=== PATIENT | female | born 1995 | race Caucasian/White ===

== ENCOUNTER → 2020-03-15 09:42 | Outpatient (CLI) | payer OTHER, SELFPAY ==
--- NOTE | 2020-03-15 09:49 | RAD_ITS ---
STUDY: X-RAY - RIGHT HAND, ATTENTION MIDDLE FINGER REASON FOR EXAM: Female, 24 years old. Injury TECHNIQUE: 3 view(s) of the finger were obtained. COMPARISON: None. FINDINGS: There is an oblique fracture of the middle phalanx of the right middle finger. The remainder the visualized osseous structures are intact. There is no dislocation. There are no radiodense foreign bodies. RAD/Finger(s) Min 2 Views IMPRESSION: Oblique fracture of the middle phalanx of the right middle finger. Electronically Signed: Guillermo Briggs, at 17:29 EDT Tel , Service support ,
== END ==
PROVIDERS: PCP Family Medicine; Referring Provider Family Medicine; Visit Provider Family Medicine
DX: M79.644 Pain in right finger(s) (principal)
CPT/HCPCS: 73140

== ENCOUNTER 2022-12-24 10:55 | Outpatient (CLI) | payer OTHER, SELFPAY ==
[2022-12-24] VITALS (8 sets, daily range): BP systolic 116–118; BP diastolic 76–81; PULSE 71–81; TEMP 36.4; O2SAT 97; BMI 32.9
[2022-12-24 11:54] LABS: Hematocrit 36.5 % (37-47); Hemoglobin 11.9 g/dL (12.0-15.0); Mean Corp Hgb Conc 32.6 g/dL (32-36); Mean Corpuscular Hgb 30.7 pg (27.0-32.0); Mean Corpuscular Volume 94.3 fL (81-99); Mean Platelet Vol. 10.7 fl (6.2-12.0); Platelet Count 197 K/mm3 (150-450); RBC Distribution Width CV 13.3 % (11.6-14.6); RBC Distribution Width SD 45.3 fl (35.1-43.9); Red Blood Count 3.87 M/mm3 (4.2-5.4); White Blood Count 7.3 K/mm3 (4.4-11.0)
[2022-12-24 12:05] LABS: AST(SGOT) 15 U/L (15-37); Alanine Aminotransfer ALT/SGPT 19 U/L (13-56); Creatinine, Serum 0.62 mg/dL (0.55-1.02); EST Glomerular Filtration Rate 121 mL/min (>60); Est Glom Filt Rate - Afr Amer 147 mL/min (>60); Estimated Creatinine Clearance 149.64 ml/min; Uric Acid 4.7 mg/dL (2.6-6.0)
[2022-12-24 12:32] LABS: Protein, Urine (Random) 11.8 mg/dL (<11.9); Protein:Creat Ratio 273 mg/g CRE (0-200)
--- NOTE | 2022-12-24 21:14 | OB.TRI.NOTE ---
HPI - General HPI Narrative JACQUELINE BARBA, is a 27 F at 33.1 who presents to rule out preeclampsia. PFSH PFSH Home Medications aspirin 81 mg chewable tablet 162 mg PO DAILY 12/24/22 [History Last Taken 12/24/22 06:00] [id number] 1 mg tablet 1 tab PO 12/24/22 [History Last Taken 12/24/22 06:00] Allergy/AdvReac Type Severity Reaction Status Date / Time No Known Allergies Allergy Verified 12/24/22 11:24 ROS Eyes Eyes: Denies blurry vision Cardiovascular Cardiovascular: Reports none; Denies chest pain at rest, chest pain with activity or dizziness Respiratory/Chest Respiratory/Chest: Denies cough or dyspnea Gastrointestinal Gastrointestinal: Reports none and other; Denies diarrhea or vomiting Genitourinary Genitourinary: Denies dysuria Musculoskeletal Musculoskeletal: Reports none Integumentary Integumentary: Reports none; Denies rash Neurologic Neurologic: Denies dizziness, headache(s) or other visual disturbances Psychiatric Psychiatric: Reports none Physical Exam Const alert and no apparent distress General Appearance: cooperative Orientation / Consciousness: awake Exam Limitations: no limitations HEENT normocephalic Eyes General Eye: normal appearance of both eyes Neck full ROM Chest inspection of chest normal Resp normal respiratory effort and normal air movement Effort and Inspection: symmetric chest movement Auscultation: clear to auscultation bilaterally Cardio regular rate GI soft to palpation, non-tender and non-distended Inspection: and other Back/Spine normal ROM Extremity full ROM, normal capillary refill and no calf tenderness Skin no rashes or lesions noted Neuro oriented x3 and CN's II-XII intact bilaterally Psych mental status grossly normal Assessment & Plan (1) 33 weeks gestation of : (2) Blurred vision: (3) Headache: PLAN: Plan PIH labs- within normal range Feeling better since hydrating D/C home with follow up in office PTL and preeclampsia precautions reviewed
== END 2022-12-24 12:50 | disposition home or self-care (01) ==
LOC: WPOUT 11:12 → WP 11:13
PROVIDERS: PCP Family Medicine; Referring Provider Advanced Practice Midwife; Visit Provider Advanced Practice Midwife
DX: O99.891 Other specified diseases and conditions complicating pregnancy (principal); H53.8 Other visual disturbances; R51.9 Headache, unspecified; Z3A.33 33 weeks gestation of pregnancy; Z79.82 Long term (current) use of aspirin
CPT/HCPCS: 36415; 59025; 59050; 82565; 82570; 84156; 84450; 84460; 84550; 85027; 99221; G0378

== ENCOUNTER 2023-02-07 07:35 | Inpatient (IN) | payer OTHER, SELFPAY ==
[2023-02-07] VITALS (51 sets, daily range): BP systolic 99–144; BP diastolic 56–101; PULSE 65–103; RESP 16–18; TEMP 36.1–37.9; O2SAT 95–100; BMI 33.8
[2023-02-07] MEDS: LACTATED RINGERS 500 ML 999 ML IV ×2 (07:30→10:14)
[2023-02-07 07:51] LABS: Absolute Lymphocyte Count 1.35 X10^3/uL (0.83-4.51); Absolute Neutrophil Count 9.9 X10^3/uL (2.0-7.7); Basophil# 0.05 X10^3/uL; Basophil% 0.4 % (0-1); Eosinophil# 0.06 X10^3/uL; Eosinophils% 0.5 % (0-5); Hematocrit 37.3 % (37-47); Hemoglobin 12.3 g/dL (12.0-15.0); Lymphocyte # 1.35 X10^3/ul (0.83-4.51); Lymphocyte % 11.2 % (19-41); Mean Platelet Vol. 11.9 fl (6.2-12.0); Monocyte# 0.67 X10^3/uL; Monocyte% 5.6 % (0-10); NRBC Flagged by Analyzer 0 % (0-5); Neutrophil # 9.88 X10^3/uL (2.7-7.7); Neutrophil % 81.8 % (47-70); Platelet Count 164 K/mm3 (150-450); RBC Distribution Width CV 13.3 % (11.6-14.6); RBC Distribution Width SD 45.7 fl (35.1-43.9); Red Blood Count 3.97 M/mm3 (4.2-5.4); White Blood Count 12.1 K/mm3 (4.4-11.0)
[2023-02-07] MEDS: Lactated Ringers 1,000 ML 200 ML IV (08:01)
[2023-02-07] MEDS: fentaNYL-bupivacaine (epidural) 100 ML BAG EPIDURAL (08:29)
--- NOTE | 2023-02-07 08:47 | PCM.HP.OB ---
HPI - General General Date of Admission: 02/07/23 Date of Service: 02/07/23 Chief Complaint: labor HPI Narrative JACQUELINE BARBA, is a 27 F who presents to 1 para 0 at 39-4/7 weeks gestation presents complaining of contractions. She denies any gross vaginal bleeding. She is had good movement. She arrived and was found to be in active labor. PFSH PFSH Home Medications aspirin 81 mg chewable tablet 162 mg PO DAILY 12/24/22 [History Last Taken 02/06/23] [id number]-[id number]-Vf-FA 1 mg tablet 1 tab PO DAILY 12/24/22 [History Last Taken 02/06/23] Allergy/AdvReac Type Severity Reaction Status Date / Time No Known Allergies Allergy Verified 02/07/23 06:50 Social History Smoking Status: Never smoker History Elective abortions Hx Para 0 Spontaneous abortions Hx # Term Pregnancies Ectopic pregnancies Hx # Pregnancies Multiple births # of living children ROS Constitutional Constitutional: Denies fatigue, fever(s) or malaise Eyes Eyes: Denies change in vision ENT HEENT: Denies dizziness or headache(s) Cardiovascular Cardiovascular: Denies chest pain, dyspnea or lightheadedness Respiratory/Chest Respiratory/Chest: Denies cough or dyspnea Gastrointestinal Gastrointestinal: Denies change in bowel habits Genitourinary Genitourinary: Denies burning urination or genital lesions Integumentary Integumentary: Denies rash Neurologic Neurologic: Denies confusion, dizziness, headache(s), numbness or weakness Vital Signs Vital Signs Vital Signs: 02/07/23 06:49 02/07/23 06:49 02/07/23 06:49 Temperature Temperature Source Temporal Pulse Rate 78 Blood Pressure 129/84 H BP Systolic 129 BP Diastolic 84 Pulse Ox 02/07/23 06:49 02/07/23 06:51 02/07/23 06:51 Temperature 97.6 F L Temperature Source Pulse Rate 81 Blood Pressure BP Systolic BP Diastolic Pulse Ox 98 02/07/23 07:43 02/07/23 07:43 02/07/23 07:48 Temperature Temperature Source Pulse Rate 79 81 Blood Pressure BP Systolic BP Diastolic Pulse Ox 100 02/07/23 07:48 02/07/23 07:41 02/07/23 08:23 Temperature 99.1 F Temperature Source Pulse Rate Blood Pressure 142/101 H BP Systolic 142 BP Diastolic 101 Pulse Ox 100 02/07/23 08:23 02/07/23 08:23 02/07/23 08:28 Temperature Temperature Source Pulse Rate 85 73 Blood Pressure BP Systolic BP Diastolic Pulse Ox 100 02/07/23 08:28 02/07/23 08:33 02/07/23 08:33 Temperature Temperature Source Pulse Rate 83 Blood Pressure BP Systolic BP Diastolic Pulse Ox 100 100 02/07/23 08:34 02/07/23 08:34 02/07/23 08:38 Temperature Temperature Source Pulse Rate 85 Blood Pressure 144/83 H 135/78 H BP Systolic 144 135 BP Diastolic 83 78 Pulse Ox 02/07/23 08:38 02/07/23 08:44 02/07/23 08:44 Temperature Temperature Source Pulse Rate 83 74 Blood Pressure 136/82 H BP Systolic 136 BP Diastolic 82 Pulse Ox Weight Weight: 113.2 kg Body Mass Index (BMI) 33.8 Physical Exam Const alert and no apparent distress General Appearance: cooperative HEENT normocephalic Resp normal respiratory effort Cardio regular rate GI soft to palpation GI Narrative: gravid, nontender, appropriate for gestational age Extremity no calf tenderness General Extremity: edema Skin no wounds Rashes: No rashes noted Psych activity/motor behavior normal Labs Labs Labs: Blood Type Pending Antibody Screen Pending Hct 37.3 % (37-47) Hgb 12.3 g/dL (12.0-15.0) Syphilis Total Ab Pending Assessment & Plan (1) 39 weeks gestation of : PLAN: 27-year-old 1 para 0 with EDC of 02/10/2023 in spontaneous labor. Estimated weight is 4200 to 4500 g clinically. Pelvis clinically adequate to expect vaginal delivery. May have epidural or other routine pain management measures as desired and as needed. Pitocin augmentation if needed. Meconium stained fluid noted. Will notify team. (2) Meconium in amniotic fluid: (3) Spontaneous onset of labor:
[2023-02-07 09:14] LABS: Syphilis Antibodies Non-reactive
[2023-02-07] MEDS: Oxytocin 15 Units/NS 250ml 15 UNITS/250 ML IV.SOLN 334 UNITS IV (11:45)
[2023-02-07] MEDS: Oxytocin 10 UNITS/ML Vial IM (11:45)
--- NOTE | 2023-02-07 11:59 | EX.PCM.OBRPT ---
Assessment & Plan (1) (spontaneous vaginal delivery): (2) Second degree perineal laceration during delivery: (3) Single live : Maternal Data Information Final JAYDE: 02/10/23 Gestational age: 39 4/7 Vaginal Delivery Maternal Presentation Maternal Presentation: Active Labor Operative Information Date of Procedure: 02/07/23 Pre-Operative Diagnosis: Spontaneous labor Post-Operative Diagnosis: Same Type of Anesthesia: Epidural Special Medications: None Drain: - (None) Estimated Blood Loss: 400 cc Time of Delivery: 10:41 Findings Description of Procedure: A vigorous male infant was delivered YOVANY over a second-degree perineal laceration. The remainder the infant was delivered with maternal pushing and gentle traction only in less than 15 seconds. The Pitocin infusion was initiated for active management of the third stage. The cord was clamped and cut after cord pulsations ceased. The was attended to by the waiting nursing staff. The placenta was delivered spontaneously and intact. The cervix and vagina were intact. The second-degree perineal laceration was repaired with 2-0 Vicryl suture in a running standard fashion. Sponge and needle counts were correct. A vaginal sweep was completed by me. Presentation: Vertex Amniotic Membrane Rupture Type: Spontaneous Amniotic Fluid Description: Lightly stained meconium Placental Delivery Description: Spontaneous Placenta Disposition: [facility] Cord Vessel Description: 3 Vessels Cord Entanglement: None A Gender: Male (Chevy) (1 minute): 8 (5 minute): 9 Delayed Cord Clamping: Yes Post Vaginal Delivery Medications Given After Delivery: IV Pitocin and IM Pitocin Episiotomy Description: None Laceration: 2nd degree Complication Complications: None
[2023-02-07] MEDS: 0.9% Saline Lock 10 ML Syringe IV (14:15)
[2023-02-07] MEDS: Ibuprofen 600 MG Tablet PO ×2 (16:59→23:47)
[2023-02-08 03:43] VITALS: BP 132/83; PULSE 70; RESP 16; TEMP 36.6; O2SAT 98
[2023-02-08 08:57] VITALS: BP 123/74; PULSE 73; RESP 16; TEMP 36.6
--- NOTE | 2023-02-08 10:24 | PCM.PN.OB ---
Objective Data Objective Data Doing well per patient and nursing staff. Ambulating and taking PO without difficulty. Voiding and passing flatus. Pain controlled. , services for assistance. Denies headache, visual changes, chest pain, shortness of breath, leg pain or increased bleeding. Lochia normal. Vital Signs: Vital Signs Temp Pulse Resp BP Pulse Ox O2 Del Method 97.9 F 73 16 123/74 H 98 Room Air 02/08/23 08:57 02/08/23 08:57 02/08/23 08:57 02/08/23 08:57 02/08/23 03:43 02/08/23 08:57 Oxygen Delivery Method Room Air Weight: 249 lb 9.012 oz Body Mass Index (BMI) 33.8 Intake & Output: Intake and Output for Last 24 Hours 02/06/23 02/07/23 02/08/23 23:59 23:59 23:59 Intake Total 2493.33 / 2493.33 Output Total 2250 / 2250 Balance 243.33 / 243.33 Lab / Micro Data 02/07/23 07:30 ROS Constitutional Constitutional: Reports systems reviewed and no addt'l complaints, except as documented; Denies headache(s) Eyes Eyes: Denies acute decrease in peripheral vision, blurry vision or change in vision ENT HEENT: Reports systems reviewed and no addt'l complaints, except as documented Cardiovascular Cardiovascular: Denies chest pain or dizziness Respiratory/Chest Respiratory/Chest: Denies cough, dyspnea, dyspnea on exertion, shortness of breath at rest or shortness of breath with exertion Gastrointestinal Gastrointestinal: Denies abdominal pain, diarrhea, nausea or vomiting Genitourinary Genitourinary: Denies abdominal discomfort Musculoskeletal Musculoskeletal: Denies limited range of motion Integumentary Integumentary: Reports systems reviewed and no addt'l complaints, except as documented Neurologic Neurologic: Reports systems reviewed and no addt'l complaints, except as documented Psychiatric Psychiatric: Reports systems reviewed and no addt'l complaints, except as documented Endocrine Endocrinology: Reports systems reviewed and no addt'l complaints, except as documented Hematologic/Lymphatic Hematologic/Lymphatic: Reports systems reviewed and no addt'l complaints, except as documented Allergic/Immunologic Allergic/Immunologic: Reports systems reviewed and no addt'l complaints, except as documented Physical Exam Const alert and oriented x3 General Appearance: cooperative Orientation / Consciousness: awake, oriented to person, oriented to place and oriented to time Exam Limitations: no limitations HEENT normocephalic Head and Scalp: normal to inspection, normocephalic and atraumatic Face and Sinus: normal facial exam Eyes General Eye: normal appearance of both eyes Neck full ROM Chest Chest: symmetrical chest wall rise Resp normal respiratory effort and normal air movement Auscultation: clear to auscultation bilaterally Cardio regular rate, regular rhythm, S1 normal heart sound, S2 normal heart sound, no murmurs, no rub, no gallops and no clicks GI normal to inspection, nondistended, normoactive bowel sounds and non-tender appearance of the vagina normal Bladder / Kidney Exam: no CVA tenderness Back/Spine normal ROM Extremity normal to inspection and full ROM Skin no rashes or lesions noted Neuro oriented x3, CN's II-XII intact bilaterally and moves all extremities Sensorium / Orientation: awake, alert and oriented to person Motor Exam: clonus absent Deep Tendon Reflexes: Rt Patellar (L4): 2+ and Lt Patellar (L4): 2+ Assessment & Plan (1) Second degree perineal laceration during delivery: (2) Single live : (3) (spontaneous vaginal delivery): COMMENT: PPD#1 PLAN: Plan 1) Routine PP care 2) 3) Vitals stable 4) Pain controlled 5) would like D/C home today. Follow up in 2 weeks and 6 weeks PP 6) D/C home
--- NOTE | 2023-02-08 10:27 | PCM.DC.SUM ---
Providers Date of Admission: 02/07/23 Primary Care Physician: Dr. Venu Torres MD Reason For Visit: VAG DELIVERY Diagnosis Discharge Diagnosis (1) Second degree perineal laceration during delivery: Status: Acute Code(s): O70.1 - Second degree perineal laceration during delivery (2) Single live : Status: Acute Code(s): Z37.0 - Single live (3) (spontaneous vaginal delivery): Status: Acute Code(s): O80 - Encounter for full-term uncomplicated delivery Plan 1) Routine PP care 2) 3) Vitals stable 4) Pain controlled 5) would like D/C home today. Follow up in 2 weeks and 6 weeks PP 6) D/C home Medications at Discharge Home Medications [id number] 1 mg tablet 1 tab PO DAILY 12/24/22 acetaminophen 500 mg tablet 1,000 mg (2 x 500 mg) PO Q6H PRN PRN Pain 1-10 Or Fever #0 tabs 02/08/23 ibuprofen 600 mg tablet 600 mg PO Q6H PRN PRN Pain Score 1-3 #0 tabs 02/08/23 Weight / BMI Weight Weight: 249 lb 9.012 oz Body Mass Index (BMI) 33.8 ABG / Lab / Microbiology Data 02/07/23 07:30 Meaningful Use Info Meaningful Use Diagnoses (Choose all that apply): None applicable Discharge Plan Admission Admit Date/Time: 02/07/23 07:35 Primary Reason for Your Visit: Vaginal delivery Attending Provider: Claribel Andre Primary Care Provider: Venu Torres Discharge Orders/Prescriptions Prescriptions: New acetaminophen 500 mg Tablet 1,000 mg PO Q6H PRN PRN (Reason: Pain 1-10 Or Fever) Qty: 0 0RF ibuprofen 600 mg Tablet 600 mg PO Q6H PRN PRN (Reason: Pain Score 1-3) Qty: 0 0RF Continued [id number] 1 mg Tablet 1 tab PO DAILY Discontinued aspirin [Baby Aspirin] 81 mg Tablet,Chewable 162 mg PO DAILY loratadine [Claritin] 10 mg tablet 10 mg PO DAILY Referrals / Follow Up: Venu Torres MD [Primary Care Provider] - Claribel Andre MD [Med Staff - Active Staff] - (Follow up in 2 weeks and 6 weeks PP) Disposition Disposition (needs filled in before D/C Order can be placed): Home, Self Care
[2023-02-08 15:53] VITALS: BP 135/75; PULSE 78; RESP 16; TEMP 36.2; O2SAT 98
== END 2023-02-08 16:16 | disposition home or self-care (01) | DRG 807 ==
LOC: WPOUT 07:36 → WP 07:36
PROVIDERS: Obstetrics & Gynecology; Admitting Provider Obstetrics & Gynecology; PCP Family Medicine; Referring Provider Obstetrics & Gynecology; Visit Provider Obstetrics & Gynecology
DX: O42.92 Full-term premature rupture of membranes, unspecified as to length of time between rupture and onset of labor (principal); Z37.0 Single live birth; O70.1 Second degree perineal laceration during delivery; O77.0 Labor and delivery complicated by meconium in amniotic fluid; Z3A.39 39 weeks gestation of pregnancy
CPT/HCPCS: 59025; 59050; 85025; 86780; 86850; 86900; 86901; 99221; J7120; A4216; G0378

== ENCOUNTER → 2024-02-23 | Outpatient (CLI) | payer OTHER, SELFPAY ==
[2024-02-23 12:04] LABS: Absolute Lymphocyte Count 1.96 X10^3/uL (0.83-4.51); Absolute Neutrophil Count 1.8 X10^3/uL (2.0-7.7); Basophil# 0.05 X10^3/uL; Basophil% 1.2 % (0-1); Eosinophils% 2.3 % (0-5); Hematocrit 44.4 % (37-47); Hemoglobin 14.5 g/dL (12.0-15.0); Lymphocyte # 1.96 X10^3/ul (0.83-4.51); Lymphocyte % 45.4 % (19-41); Mean Corp Hgb Conc 32.7 g/dL (32-36); Mean Corpuscular Hgb 28.8 pg (27.0-32.0); Mean Corpuscular Volume 88.1 fL (81-99); Mean Platelet Vol. 10.8 fl (6.2-12.0); Monocyte# 0.39 X10^3/uL; NRBC Flagged by Analyzer 0 % (0-5); Neutrophil # 1.81 X10^3/uL (2.7-7.7); Neutrophil % 41.9 % (47-70); Platelet Count 247 K/mm3 (150-450); RBC Distribution Width CV 12.2 % (11.6-14.6); RBC Distribution Width SD 39.2 fl (35.1-43.9); Red Blood Count 5.04 M/mm3 (4.2-5.4); White Blood Count 4.3 K/mm3 (4.4-11.0)
[2024-02-23 13:21] LABS: ALB/GLOB Ratio 0.9 RATIO (0.9-2.4); AST(SGOT) 27 U/L (15-37); Alanine Aminotransfer ALT/SGPT 31 U/L (13-56); Albumin, Serum 3.9 g/dL (3.2-5.0); Alkaline Phosphatase 93 U/L (45-117); Anion Gap 10 (5-15); BUN 11 mg/dL (7-18); BUN/Creat Ratio 11.2 RATIO (10-20); Calcium,Total 9.4 mg/dL (8.5-10.1); Chloride 107 mmol/L (98-107); Creatinine, Serum 0.98 mg/dL (0.55-1.02); EST Glomerular Filtration Rate 71 mL/min (>60); Est Glom Filt Rate - Afr Amer 86 mL/min (>60); Globulin 4.2 g/dL (2.2-4.2); Glucose 86 mg/dL (74-106); Potassium 3.2 mmol/L (3.5-5.1); Protein, Total 8.1 g/dL (6.4-8.2); Sodium Level 138 mmol/L (136-145)
== END | disposition home or self-care (01) ==
PROVIDERS: PCP Family Medicine; Referring Provider Nurse Practitioner Family; Visit Provider Nurse Practitioner Family
DX: R19.7 Diarrhea, unspecified (principal)
CPT/HCPCS: 36415; 80053; 85025; 87177; 87209; 87493; 87506

== ENCOUNTER 2025-07-13 07:19 | Inpatient (IN) | payer OTHER, SELFPAY ==
[2025-07-13] VITALS (57 sets, daily range): BP systolic 127–187; BP diastolic 68–105; PULSE 62–81; RESP 16–18; TEMP 36.2–37.1; O2SAT 96–100; BMI 34.2
--- OUTSIDE RECORDS SUMMARY | 2025-07-13 07:16 | XMS RPT_ITS | CCD ---
Author Organization [facility] Informat ion Partnership [facility] Care Team Providers Care Supervising Editor News Reel Name Role Phone Pepe Torres MD Primary Care Provider Lisa CADDIE, Taniya Referring Unavailable Lisa CADDIE, Taniya Attending Unavailable Pepe Torres Primary Care Unavailable Pepe Torres MD Primary Care Provider HOPE PARMAR Attending Unavailable PEPE TORRES Primary Care Unavailabl GONZALES Arnold Attending Unavailable PEPE TORRES Primary Care Unavailabl e YAA, HOPE Referring Unavailable PEPE TORRES Primary Care UnavailGONZALES Chambers Attending Unavailable PEPE TORRES Primary Care Unavailabl e WISWELL, HOPE Referring Unavailable PEPE TORRES Primary Care Unavailabl e AURE CASTELLANO Attending Unavail able WISPEDRO, HOPE Referring Unavailable PEPE TORRES Primary Care Unavailabl e WISWELL, HOPE Attending Unavailable YAA, HOPE Referring Unavailable ABHIJIT TORRESER Henri Primary Care Unavailabl e CHAO, MARIA EUGENIA Attending Unavailable PLOTDEWEY, MARIA EUGENIA Referring Unavailable PEPE TORRES Primary Care Unavailabl e MINNIE HOLM Attending Unavailable PEPE TORRES Primary Care Unavailabl e AURE CASTELLANO Attending Unavail able PLOTDEWEY, MARIA EUGENIA Referring Unavailable ABHIJIT TORRESER Henri Primary Care Unavailabl e PLOTTS, MARIA EUGENIA Referring Unavailable PEPE TORRES Primary Care Unavailabl e PLOTTS, MARIA EUGENIA Referring Unavailable ABHIJIT TORRESER Henri Primary Care Unavailabl e WALLY MERCADO Attending Unavailable PEPE TORRES Primary Care Unavailabl e PLOTTS, MARIA EUGENIA Attending Unavailable PEPE TORRES Primary Care Unavailabl e PLOTTS, MARIA EUGENIA Referring Unavailable RANNEY, CHRISTOPHER B Primary Care UnavailSAMI Maciel Attending Unavailable PEPE TORRES Primary Care PEPE Briseno Primary Care UnavailMINNIE Collier Attending Unavailable PEPE TORRES Primary Care Unavailaddison e Medications Current Medications Medication Drug Class(es) Dates Sig (Normalized) Sig (Original) aspirin 81 mg delayed release oral tablet (20 sources) Platelet Aggregation Inhibitor, Nonsteroidal Anti-inflammatory Drug Start: 11-29-2024 take 1 tablet by mouth once daily aspirin, enteric coated (ECOTRIN LOW STRENGTH) 81 mg EC tablet Indications: with uncertain dates, antepartum (HCC) Take 1 tablet by mouth once daily. 90 tablet 3 11/29/2024 Active End: 03-24-2023 take 1 tablet by mouth once daily aspirin, enteric coated (ASPIRIN, ENTERIC COATED) 81 mg EC tablet Take 81 mg by mouth once daily. 0 03/24/2023 Discontinued (Other) Comment on above: Take 81 mg by mouth once daily. prental multivitamin 27 mg iron- 800 mcg tablet (20 sources) take 1 tablet by mouth once daily prental multivitamin 27 mg iron- 800 mcg tablet Take 1 tablet by mouth once daily. Active take 1 tablet by mouth once hanane y prental multivitamin 27 mg iron- 800 mcg tablet Take 1 tablet by mouth once daily. 0 Active Comment on above: Take 1 tablet by tomeka th once daily. Completed/Discontinued Medications Medication Drug Class(es) Dates Sig (Normalized) Sig (Original) Ethinyl Estradiol / norgestimate (9 sources) Progestin, Estrogen Start: 01-11-2022 End: 07-01-2022 take 1 tablet by mouth once daily norgestimate 0.25 mg-ethinyl estradiol 35 mcg (PREVIFEM) 0.25-35 mg-mcg per tablet Indications: Surveillance for control, oral contraceptives Take 1 tablet by mouth once daily. 28 tablet 0 01/11/2022 07/01/2022 Discontinued Start: 01-11-2022 take 1 tablet by tomeka th once daily norgestimate 0.25 mg-ethinyl estradiol 35 mcg (PREVIFEM) 0.25-35 mg-mcg per tablet Indications: Surveillance for control, oral contraceptives Take 1 tablet by mouth once daily. 28 tablet 0 01/11/2022 Active Start: 01-10-2022 End: 01-11-2022 take 1 tablet by mouth once daily norgestimate 0.25 mg-ethinyl estradiol 35 mcg (PREVIFEM) 0.25-35 mg-mcg per tablet Indications: Surveillance for control, oral contraceptives Take 1 tablet by mouth once daily. 84 tablet 3 01/10/2022 01/11/2022 Discontinued Start: 01-10-2022 take 1 tablet by tomeka th once daily norgestimate 0.25 mg-ethinyl estradiol 35 mcg (PREVIFEM) 0.25-35 mg-mcg per tablet Indications: Surveillance for control, oral contraceptives Take 1 tablet by mouth once daily. 84 tablet 3 01/10/2022 Active Start: 09-26-2021 End: 01-10-2022 take 1 tablet by mouth once daily norgestimate 0.25 mg-ethinyl estradiol 35 mcg (PREVIFEM) 0.25-35 mg-mcg per tablet Indications: Surveillance for control, oral contraceptives Take 1 tablet by mouth once daily. 84 tablet 4 09/26/2021 01/10/2022 Discontinued Comment on above: Take 1 tablet by tomeka th once daily. Problems Active Problems Problem Classification Problem Date Documented Da te Episodic/Chronic Contraceptive and procreative management (2 sources) Oral contraception; Translations: [Encounter for surveillance of contraceptive pills] Episodic Immunizations and screening for infectious disease (5 sources) Needs influenza immunization; Translations: [Encounter for immunization] Onset: 04-18-2025 Episodic Other complications of (12 sources) History of delivery of macrosomal ; Translations: [Supervision of with other poor reproductive or obstetric history, unspecified trimester] Onset: 11-29-2024 11-29-2024 Episodic Other complications of (1 source) Supervision of high risk , unspecified, third trimester; Translations: [Supervision of high risk in third trimester (HCC)] Onset: 06-15-2025 Episodic Other complications of (1 source) Maternal care for excessive growth, third trimester, not applicable or unspecified; Translations: [Excessive growth affecting management of in third trimester, single or unspecified fetus (HCC)] Onset: 06-15-2025 Episodic Other complications of (1 source) Uterine size-date discrepancy, third trimester; Translations: [Uterine size-date discrepancy, third trimester (HCC)] Onset: 05-19-2025 Episodic Other gastrointestinal disorders (1 source) Diarrhea, unspecified; Translations: [Diarrhea, unspecified] Onset: 03-08-2024 Episodic Other and delivery including normal (20 sources) Normal ; Translations: [Encounter for supervision of normal first , first trimester] Onset: 08-26-2022 Resolved: 02-21-2023 Episodic Residual codes; unclassified (3 sources) Gestation period, 12 weeks; Translations: [12 weeks gestation of ] Episodic Residual codes; unclassified (2 sources) Gestation period, 16 weeks; Translations: [16 weeks gestation of ] Episodic Residual codes; unclassified (1 source) Gestation period, 20 weeks; Translations: [20 weeks gestation of ] Episodic Residual codes; unclassified (1 source) Gestation period, 24 weeks; Translations: [24 weeks gestation of ] Episodic Residual codes; unclassified (1 source) Gestation period, 28 weeks; Translations: [28 weeks gestation of ] Episodic Residual codes; unclassified (1 source) Gestation period, 30 weeks; Translations: [30 weeks gestation of ] Episodic Residual codes; unclassified (2 sources) Gestation period, 32 weeks; Translations: [32 weeks gestation of ] Episodic Residual codes; unclassified (1 source) Gestation period, 34 weeks; Translations: [34 weeks gestation of ] Episodic Residual codes; unclassified (2 sources) Gestation period, 36 weeks; Translations: [36 weeks gestation of ] Episodic Residual codes; unclassified (1 source) Gestation period, 37 weeks; Translations: [37 weeks gestation of ] Episodic Residual codes; unclassified (1 source) Gestation period, 38 weeks; Translations: [38 weeks gestation of ] Episodic Residual codes; unclassified (1 source) Gestation period, 39 weeks; Translations: [39 weeks gestation of ] Episodic Residual codes; unclassified (1 source) Gestation period, 7 weeks; Translations: [Less than 8 weeks gestation of ] 11-29-2024 Episodic Residual codes; unclassified (1 source) Gestation period, 19 weeks; Translations: [19 weeks gestation of ] 02-21-2025 Episodic Residual codes; unclassified (1 source) Gestation period, 23 weeks; Translations: [23 weeks gestation of ] 03-21-2025 Episodic Residual codes; unclassified (1 source) Gestation period, 27 weeks; Translations: [27 weeks gestation of ] 04-18-2025 Episodic Residual codes; unclassified (1 source) 36 weeks gestation of ; Translations: [36 weeks gestation of (HCC)] Onset: 06-15-2025 Episodic Residual codes; unclassified (1 source) 33 weeks gestation of ; Translations: [33 weeks gestation of (HCC)] Onset: 05-31-2025 Episodic Residual codes; unclassified (1 source) 31 weeks gestation of ; Translations: [31 weeks gestation of (HCC)] Onset: 05-17-2025 Episodic Residual codes; unclassified (1 source) 29 weeks gestation of ; Translations: [29 weeks gestation of (HCC)] Onset: 05-02-2025 Episodic Residual codes; unclassified (1 source) 27 weeks gestation of ; Translations: [27 weeks gestation of (HCC)] Onset: 04-18-2025 Episodic Unclassified (7 sources) [facility] Education - COMMON Onset: 11-29-2024 11-29-2024 Unclassified (7 sources) Education - [place] Onset: 11-29-2024 11-29-2024 Past or Other Problems Problem Classification Problem Date Documented Date Episodic/Chronic Cancer of cervix (20 sources) Low grade squamous intraepithelial lesion on cervical Papanicolaou smear; Translations: [Low grade squamous intraepithelial lesion on cytologic smear of cervix (LGSIL)] Onset: 10-05-2021 Resolved: 02-21-2023 10-05-2021 Episodic Joint disorders and dislocations; trauma-related (19 sources) Subluxation of patellofemoral joint; Translations: [Unspecified subluxation of unspecified patella, initial encounter] Onset: 09-03-2012 Resolved: 08-26-2022 09-08-2018 Episodic Nausea and vomiting (1 source) Nausea; Translations: [ related nausea, antepartum (HCC)] Onset: 02-21-2023 Episodic Other complications of (17 sources) Obesity; Translations: [Obesity complicating , unspecified trimester] Onset: 06-24-2022 Resolved: 08-26-2022 06-24-2022 Chronic Other complications of (16 sources) Spotting per vagina in ; Translations: [Spotting complicating , unspecified trimester] Onset: 06-24-2022 Resolved: 08-26-2022 06-24-2022 Episodic Other complications of (20 sources) Morning sickness; Translations: [Other specified related conditions, unspecified trimester] Onset: 06-24-2022 Resolved: 02-21-2023 06-24-2022 Episodic Other complications of (20 sources) Uterine size for dates discrepancy; Translations: [Uterine size-date discrepancy, third trimester] Onset: 11-18-2022 Resolved: 02-21-2023 Episodic Other complications of (18 sources) Excessive growth affecting management of mother; Translations: [Maternal care for excessive growth, third trimester, not applicable or unspecified] Onset: 12-17-2022 Resolved: 02-21-2023 Episodic Other complications of (1 source) Supervision of with other poor reproductive or obstetric history, unspecified trimester; Translations: [History of macrosomia in in prior , currently ([facility])] Onset: 11-29-2024 Episodic Other complications of (1 source) Other specified related conditions, unspecified trimester; Translations: [ related nausea, antepartum ([facility])] Onset: 02-21-2023 Episodic Other injuries and conditions due to external causes (19 sources) Superficial injury; Translations: [Unspecified multiple injuries, initial encounter] Onset: 03-23-2008 Resolved: 08-26-2022 03-23-2008 Episodic Other screening for suspected conditions (not mental disorders or infectious disease) (9 sources) Patient encounter status; Translations: [Encounter for screening, unspecified] Onset: 12-30-2024 Episodic Other skin disorders (19 sources) Disorder of skin; Translations: [Hypertrophic disorder of the skin, unspecified] Onset: 03-23-2008 Resolved: 08-26-2022 03-23-2008 Episodic Other skin disorders (19 sources) Scar conditions and fibrosis of skin; Translations: [Scar conditions and fibrosis of skin] Onset: 03-23-2008 Resolved: 08-26-2022 03-23-2008 Episodic Residual codes; unclassified (1 source) 23 weeks gestation of ; Translations: [23 weeks gestation of (HCC)] Onset: 03-21-2025 Episodic Residual codes; unclassified (1 source) 19 weeks gestation of ; Translations: [19 weeks gestation of (HCC)] Onset: 02-21-2025 Episodic Residual codes; unclassified (1 source) 16 weeks gestation of ; Translations: [16 weeks gestation of (HCC)] Onset: 01-31-2025 Episodic Residual codes; unclassified (1 source) 12 weeks gestation of ; Translations: [12 weeks gestation of (HCC)] Onset: 12-30-2024 Episodic Residual codes; unclassified (1 source) Less than 8 weeks gestation of ; Translations: [7 weeks gestation of (HCC)] Onset: 11-29-2024 Episodic Results Test Name Value Interpretation Reference Range Facil ity ROUTINE, GROUP B ST REPTOCOCCUS BY PCRon 06-15-2025 ROUTINE, GROUP B STREPTOCOCCUS BY PCR Not detected Normal [facility] Comment on above: Performed By: #### 5 7021-8 #### [facility] CLIA [id number] [address] [place] [address] CNPNon 05-31-2025 CNPN Telephone (OBGYWM) JACQUELINE BERNAL ([id number]) 1995 F Date Time Provider Department 05/31/25 GONZALES HARTLEY During your visit today, we recorded the following information about you: Maria Guadalupe Olivera RN 05/31/2025 8:52 AM Signed Breast pump order received from [facility]. To KJ to sign. LIDYA Diggs Trisha, RN 05/31/2025 11:02 AM Signed Order signed and faxed. Maria Guadalupe Olivera RN Allergies As of Date: 05/31/2025 (No Known Allergies) Date Reviewed: 05/17/2025 Reviewed by: Gonzales Hartley MD - Fully Assessed Reason for Visit: Breast Pump [Other] Prescriptions as of 05/31/2025 - aspirin, enteric coated (ECOTRIN LOW STRENGTH) 81 mg EC tablet Take 1 tablet by mouth once daily. - prental multivitamin 27 mg iron- 800 mcg tablet Take 1 tablet by mouth once daily. 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] 09/03/2012 08/26/2022 Papanicolaou smear of cervix with low grade squ*10/05/2021 02/21/2023 Spotting in early [O26.859] 06/24/2022 08/26/2022 related nausea, antepartum (HCC) [O26*06/24/2022 02/21/2023 Obesity during [O99.210] 06/24/2022 08/26/2022 Encounter for supervision of normal i*08/26/2022 Uterine size-date discrepancy, third trimester *11/18/2022 02/21/2023 Excessive growth affecting management of *12/17/2022 02/21/2023 History of macrosomia in in prior pregna*11/29/2024 Uterine size-date discrepancy, third trimester *05/19/2025 Encounter Status:Closed by MARIA GUADALUPE OLIVERA on 05/31/25 Normal [facility] CBC W Auto Differential pane l (Bld)on 04-18-2025 Basophils (Bld) [#/Vol] 0.03 10*3/uL Normal <0.11 [facility] Comment on above: Order Comment: Speci men Type: BLOOD SPECIMEN Ordering Facility: [facility] Address: [address] [place] [address] Performed By: #### 5 5454-3 #### [facility] CLIA [id number] [address] [place] [address] [place] Basophils/100 WBC (Bld) 0.4 % Normal [facility] Comment on above: Order Comment: Speci men Type: BLOOD SPECIMEN Ordering Facility: [facility] Address: [address] [place] [address] Performed By: #### 5 5454-3 #### [facility] CLIA [id number] [address] [place] [address] [place] Differential cell count method Nom (Bld) Auto Normal [facility] Comment on above: Order Comment: Speci men Type: BLOOD SPECIMEN Ordering Facility: [facility] Address: [address] [place] [address] Performed By: #### 5 5454-3 #### [facility] CLIA [id number] [address] [place] [address] [place] Eosinophils (Bld) [#/Vol] 0.06 10*3/uL Normal <0.46 [facility] Comment on above: Order Comment: Speci men Type: BLOOD SPECIMEN Ordering Facility: [facility] Address: [address] [place] [address] Performed By: #### 5 5454-3 #### [facility] CLIA [id number] [address] [place] [address] [place] Eosinophils/100 WBC (Bld) 0.8 % Normal [facility] Comment on above: Order Comment: Speci men Type: BLOOD SPECIMEN Ordering Facility: [facility] Address: [address] [place] [address] Performed By: #### 5 5454-3 #### [facility] CLIA [id number] [address] [place] [address] [place] Erythrocyte distribution width (RBC) [Ratio] 12.9 % Normal 11.5-15.0 [facility] Comment on above: Order Comment: Speci men Type: BLOOD SPECIMEN Ordering Facility: [facility] Address: [address] [place] [address] Performed By: #### 5 5454-3 #### [facility] CLIA [id number] [address] [place] [address] [place] Hematocrit (Bld) [Volume fraction] 37.2 % Normal 36.0-46.0 [facility] Comment on above: Order Comment: Speci men Type: BLOOD SPECIMEN Ordering Facility: [facility] Address: [address] [place] [address] Performed By: #### 5 5454-3 #### [facility] CLIA [id number] [address] [place] [address] [place] Hemoglobin (Bld) [Mass/Vol] 12.5 g/dL Normal 11.5-15.5 [facility] Comment on above: Order Comment: Speci men Type: BLOOD SPECIMEN Ordering Facility: [facility] Address: [address] [place] [address] Performed By: #### 5 5454-3 #### [facility] CLIA [id number] [address] [place] [address] [place] Immature granulocytes (Bld) [#/Vol] 0.05 10*3/uL Normal <0.10 [facility] Comment on above: Order Comment: Speci men Type: BLOOD SPECIMEN Ordering Facility: [facility] Address: [address] [place] [address] Performed By: #### 5 5454-3 #### [facility] CLIA [id number] [address] [place] [address] [place] Immature granulocytes/100 WBC (Bld) 0.7 % Normal [facility] Comment on above: Order Comment: Speci men Type: BLOOD SPECIMEN Ordering Facility: [facility] Address: [address] [place] [address] Performed By: #### 5 5454-3 #### [facility] CLIA [id number] [address] [place] [address] [place] Lymphocytes (Bld) [#/Vol] 1.34 10*3/uL Normal 1.00-4.00 [facility] Comment on above: Order Comment: Speci men Type: BLOOD SPECIMEN Ordering Facility: [facility] Address: [address] [place] [address] Performed By: #### 5 5454-3 #### [facility] CLIA [id number] [address] [place] [address] [place] Lymphocytes/100 WBC (Bld) 18.8 % Normal [facility] Comment on above: Order Comment: Speci men Type: BLOOD SPECIMEN Ordering Facility: [facility] Address: [address] [place] [address] Performed By: #### 5 5454-3 #### [facility] CLIA [id number] [address] [place] [address] [place] MCH (RBC) [Entitic mass] 31.3 pg Normal 26.0-34.0 [facility] Comment on above: Order Comment: Speci men Type: BLOOD SPECIMEN Ordering Facility: [facility] Address: [address] [place] [address] Performed By: #### 5 5454-3 #### [facility] CLIA [id number] [address] [place] [address] [place] MCHC (RBC) [Mass/Vol] 33.6 g/dL Normal 30.5-36.0 [facility] Comment on above: Order Comment: Speci men Type: BLOOD SPECIMEN Ordering Facility: [facility] Address: [address] [place] [address] Performed By: #### 5 5454-3 #### [facility] CLIA [id number] [address] [place] [address] [place] MCV (RBC) [Entitic vol] 93.2 fL Normal 80.0-100.0 [facility] Comment on above: Order Comment: Speci men Type: BLOOD SPECIMEN Ordering Facility: [facility] Address: [address] [place] [address] Performed By: #### 5 5454-3 #### [facility] CLIA [id number] [address] [place] [address] [place] Monocytes (Bld) [#/Vol] 0.37 10*3/uL Normal <0.87 [facility] Comment on above: Order Comment: Speci men Type: BLOOD SPECIMEN Ordering Facility: [facility] Address: [address] [place] [address] Performed By: #### 5 5454-3 #### [facility] CLIA [id number] [address] [place] [address] [place] Monocytes/100 WBC (Bld) 5.2 % Normal [facility] Comment on above: Order Comment: Speci men Type: BLOOD SPECIMEN Ordering Facility: [facility] Address: [address] [place] [address] Performed By: #### 5 5454-3 #### [facility] CLIA [id number] [address] [place] [address] [place] Neutrophils (Bld) [#/Vol] 5.29 10*3/uL Normal 1.45-7.50 [facility] Comment on above: Order Comment: Speci men Type: BLOOD SPECIMEN Ordering Facility: [facility] Address: [address] [place] [address] Performed By: #### 5 5454-3 #### [facility] CLIA [id number] [address] [place] [address] [place] Neutrophils/100 WBC (Bld) 74.1 % Normal [facility] Comment on above: Order Comment: Speci men Type: BLOOD SPECIMEN Ordering Facility: [facility] Address: [address] [place] [address] Performed By: #### 5 5454-3 #### [facility] CLIA [id number] [address] [place] [address] [place] Nucleated RBC (Bld) [#/Vol] 10*3/uL Normal <0.01 [facility] Comment on above: Order Comment: Speci men Type: BLOOD SPECIMEN Ordering Facility: [facility] Address: [address] [place] [address] Performed By: #### 5 5454-3 #### [facility] CLIA [id number] [address] [place] [address] [place] Nucleated RBC/100 WBC (Bld) [Ratio] 0.0 /100 WBC Normal [facility] Comment on above: Order Comment: Speci men Type: BLOOD SPECIMEN Ordering Facility: [facility] Address: [address] [place] [address] Performed By: #### 5 5454-3 #### [facility] CLIA [id number] [address] [place] [address] [place] Platelet mean volume (Bld) [Entitic vol] 10.3 fL Normal 9.0-12.7 [facility] Comment on above: Order Comment: Speci men Type: BLOOD SPECIMEN Ordering Facility: [facility] Address: [address] [place] [address] Performed By: #### 5 5454-3 #### [facility] CLIA [id number] [address] [place] [address] [place] Platelets (Bld) [#/Vol] 221 10*3/uL Normal 150-400 [facility] Comment on above: Order Comment: Speci men Type: BLOOD SPECIMEN Ordering Facility: [facility] Address: [address] [place] [address] Performed By: #### 5 5454-3 #### [facility] CLIA [id number] [address] [place] [address] [place] RBC (Bld) [#/Vol] 3.99 10*6/uL Normal 3.90-5.20 [facility] Comment on above: Order Comment: Speci men Type: BLOOD SPECIMEN Ordering Facility: [facility] Address: [address] [place] [address] Performed By: #### 5 5454-3 #### [facility] CLIA [id number] [address] [place] [address] [place] WBC (Bld) [#/Vol] 7.14 10*3/uL Normal 3.70-11.00 [facility] Comment on above: Order Comment: Speci men Type: BLOOD SPECIMEN Ordering Facility: [facility] Address: [address] [place] [address] Performed By: #### 5 5454-3 #### [facility] CLIA [id number] [address] [place] [address] [place] GESTATIONAL GLUCOSE SCREEN, 1-HOUR, 50 GRAM, NON-FASTINGon 04-18-2025 Glucose [Mass/Vol] 99 mg/dL Normal 74-134 [facility] Comment on above: Order Comment: Speci men Type: BLOOD SPECIMEN Ordering Facility: [facility] Address: [address] [place] [address] Result Comment: [facility] Congress of Obstetricians and Gynecologists (Edith/John) guidelines state a gestational diabetes mellitus positive screen is made, in women not previously diagnosed with overt diabetes, when the 1 hr plasma glucose level is equal to or above 140 mg/dL. The [facility] [employer] [facility] [place] recommends a 135 mg/dL cutoff. Performed By: #### 5 7021-8 #### [facility] CLIA [id number] [address] [place] [address] [place] Reagin and Treponema pallidu m IgG and IgM [Interp]on 04-18-2025 T. pallidum IgG+IgM IA Ql (S) Non-Reactive Normal Nonreactive [facility] Comment on above: Order Comment: Speci men Type: BLOOD SPECIMEN Ordering Facility: [facility] Address: [address] [place] [address] Performed By: #### 5 5454-3 #### [facility] CLIA [id number] [address] [place] [address] [place] Reagin+T pallidum IgG+IgM Se rPl-Impon 04-18-2025 Reagin and Treponema pallidum IgG and IgM [Interp] Cannot exclude recent Treponemal infection if specimen collected within 7-10 days after appearance of suspect lesions or 2-3 weeks after an exposure. Clinical correlation is required. Normal [facility] Comment on above: Order Comment: Speci men Type: BLOOD SPECIMEN Ordering Facility: [facility] Address: [address] [place] [address] Performed By: #### 5 5454-3 #### [facility] CLIA [id number] [address] [place] [address] [place] Examination level ultrasound on 02-22-2025 Indication Standard anatomic survey Impression The patient is referred for a standard anatomic survey. - Single, live, intrauterine . - biometry is consistent with the established gestational age. - No malformations were visualized on a complete standard anatomic survey. - The amniotic fluid volume is normal amount. - The placenta is anterior, fundal. - The Transabdominal cervical length measures 33 mm with no evidence of funneling or other dynamic changes. - Not all structural malformations can be detected by ultrasound examination. Recommendations Additional follow-up as clinically indicated. Maternal Assessment Height 183 cm Height (ft) 6 ft Physical Exam Initial weight (lb) 221 lb Initial BMI 29.97 kg/m Maternal assessment other: 2 Para 1 REMOTE READ Method Transabdominal ultrasound examination. View: Suboptimal view: limited by position Del Toro . Number of fetuses: 1 Dating LMP on: 10/02/2024 GA by LMP 20 w + 2 d JAYDE by LMP: 07/09/2025 GA by prior assessment 19 w + 4 d JAYDE by prior assessment: 07/14/2025 Ultrasound examination on: 02/21/2025 GA by U/S based upon: AC, BPD, Femur, HC GA by U/S 20 w + 3 d JAYDE by U/S: 07/08/2025 Assigned: based on stated JAYDE, selected on 02/21/2025 Assigned GA 19 w + 4 d Assigned JAYDE: 07/14/2025 General Evaluation Cardiac activity present. FHR 139 bpm. movements: present. Presentation: transverse head left Placenta: Placental site: anterior, fundal Umbilical cord: Cord vessels: 3 vessel cord Amniotic fluid: Amount of AF: normal amount. MVP 7.0 cm Growth Overview Exam date GA BPD (mm) HC (mm) AC (mm) FL (mm) HL (mm) EFW (g) 02/21/2025 19w 4d 47.6 82% 178.1 71% 156.8 83% 32.1 78% 32 88% 352 87% Biometry Standard BPD 47.6 mm 20w 3d 82% Hadlock OFD 63.6 mm 20w 2d 95% Nicolaides HC 178.1 mm 20w 2d 71% Alma Delia Cerebellum tr 21.1 mm 20w 0d 80% Hill Nuchal fold 3.3 mm AC 156.8 mm 20w 6d 83% Hadlock Femur 32.1 mm 20w 1d 78% Alma Delia Humerus 32.0 mm 20w 5d 88% Alma Delia EFW 352 g 20w 2d 87% Hadlock EFW (lb) 0 lb EFW (oz) 12 oz EFW by: Hadlock (HC-AC-FL) Extended Trust Advisor 5.8 mm CM 7.3 mm 97% Nicolaides Extremities / Bony Struc FL / HC 0.18 35% Hadlock Other Structures FHR 139 bpm Anatomy Cranium: normal Lateral ventricles: normal Choroid plexus: normal Midline falx: normal Cavum septi pellucidi: normal Cerebellum: normal Cisterna magna: normal Head / Neck Vermis: Normal but not required for a standard anatomy exam Neck: Normal but not required for a standard anatomy exam Nuchal fold: Normal but not required for a standard anatomy exam Lips: normal Profile: Normal but not required for a standard anatomy exam Nose: Normal but not required for a standard anatomy exam Face Maxilla: Normal but not required for a standard anatomy exam Mandible: Normal but not required for a standard anatomy exam Orbits: Normal but not required for a standard anatomy exam Lens: Normal but not required for a standard anatomy exam 4-chamber view: normal RVOT view: normal LVOT view: normal 3-vessel view: normal [id number] view: normal Heart / Thorax Situs: situs solitus (normal) Aortic arch view: Normal but not required for a standard anatomy exam SVC: Normal but not required for a standard anatomy exam IVC: Normal but not required for a standard anatomy exam Cardiac axis: normal Rt lung: Normal but not required for a standard anatomy exam Lt lung: Normal but not required for a standard anatomy exam Diaphragm: normal Cord insertion: normal Stomach: normal Kidneys: normal Bladder: normal Genitals: normal Abdomen Abdom. wall: normal Cervical spine: normal Thoracic spine: normal Lumbar spine: normal Sacral spine: normal Arms: normal Legs: normal Rt upper arm: normal Rt forearm: normal Rt hand: normal Rt fingers: normal Lt upper arm: normal Lt forearm: normal Lt hand: normal Lt fingers: normal Rt upper leg: normal Rt lower leg: normal Rt foot: normal Lt upper leg: normal Lt lower leg: normal Lt foot: normal sex: male Wants to know sex: yes Maternal Structures Uterus / Cervix Uterus: Visualized Cervix: Visualized Approach: Transabdominal Cervical length 33.0 mm Other: Patient declined transvaginal ultrasound for cervical length. Ovaries / Tubes / Adnexa Rt ovary: Visualized Lt ovary: Visualized Performed By: Anjali Valles RDMS, RVT Read By: Swapna Carcamo M.D. MATERNAL MEDICINE [facility] Examination level ultrasound on 02-21-2025 Radiology Study observation (narrative) [facility] CBC W Auto Differential pane l (Bld)on 12-30-2024 Basophils (Bld) [#/Vol] 0.04 10*3/uL Normal <0.11 [facility] Comment on above: Order Comment: Speci men Type: BLOOD SPECIMEN Ordering Facility: [facility] Address: [address] [place] [address] Performed By: #### 5 7021-8 #### [facility] CLIA [id number] [address] [place] [address] [place] Basophils/100 WBC (Bld) 0.6 % Normal [facility] Comment on above: Order Comment: Speci men Type: BLOOD SPECIMEN Ordering Facility: [facility] Address: [address] [place] [address] Performed By: #### 5 7021-8 #### [facility] CLIA [id number] [address] [place] [address] [place] Differential cell count method Nom (Bld) Auto Normal [facility] Comment on above: Order Comment: Speci men Type: BLOOD SPECIMEN Ordering Facility: [facility] Address: [address] [place] [address] Performed By: #### 5 7021-8 #### [facility] CLIA [id number] [address] [place] [address] [place] Eosinophils (Bld) [#/Vol] 0.05 10*3/uL Normal <0.46 [facility] Comment on above: Order Comment: Speci men Type: BLOOD SPECIMEN Ordering Facility: [facility] Address: [address] [place] [address] Performed By: #### 5 7021-8 #### [facility] CLIA [id number] [address] [place] [address] [place] Eosinophils/100 WBC (Bld) 0.7 % Normal [facility] Comment on above: Order Comment: Speci men Type: BLOOD SPECIMEN Ordering Facility: [facility] Address: [address] [place] [address] Performed By: #### 5 7021-8 #### [facility] CLIA [id number] [address] [place] [address] [place] Erythrocyte distribution width (RBC) [Ratio] 12.6 % Normal 11.5-15.0 [facility] Comment on above: Order Comment: Speci men Type: BLOOD SPECIMEN Ordering Facility: [facility] Address: [address] [place] [address] Performed By: #### 5 7021-8 #### [facility] CLIA [id number] [address] [place] [address] [place] Hematocrit (Bld) [Volume fraction] 41.8 % Normal 36.0-46.0 [facility] Comment on above: Order Comment: Speci men Type: BLOOD SPECIMEN Ordering Facility: [facility] Address: [address] [place] [address] Performed By: #### 5 7021-8 #### [facility] CLIA [id number] [address] [place] [address] [place] Hemoglobin (Bld) [Mass/Vol] 14.0 g/dL Normal 11.5-15.5 [facility] Comment on above: Order Comment: Speci men Type: BLOOD SPECIMEN Ordering Facility: [facility] Address: [address] [place] [address] Performed By: #### 5 7021-8 #### [facility] CLIA [id number] [address] [place] [address] [place] Immature granulocytes (Bld) [#/Vol] 10*3/uL Normal <0.10 [facility] Comment on above: Order Comment: Speci men Type: BLOOD SPECIMEN Ordering Facility: [facility] Address: [address] [place] [address] Performed By: #### 5 7021-8 #### [facility] CLIA [id number] [address] [place] [address] [place] Immature granulocytes/100 WBC (Bld) 0.3 % Normal [facility] Comment on above: Order Comment: Speci men Type: BLOOD SPECIMEN Ordering Facility: [facility] Address: [address] [place] [address] Performed By: #### 5 7021-8 #### [facility] CLIA [id number] [address] [place] [address] [place] Lymphocytes (Bld) [#/Vol] 2.22 10*3/uL Normal 1.00-4.00 [facility] Comment on above: Order Comment: Speci men Type: BLOOD SPECIMEN Ordering Facility: [facility] Address: [address] [place] [address] Performed By: #### 5 7021-8 #### [facility] CLIA [id number] [address] [place] [address] [place] Lymphocytes/100 WBC (Bld) 31.4 % Normal [facility] Comment on above: Order Comment: Speci men Type: BLOOD SPECIMEN Ordering Facility: [facility] Address: [address] [place] [address] Performed By: #### 5 7021-8 #### [facility] CLIA [id number] [address] [place] [address] [place] MCH (RBC) [Entitic mass] 30.0 pg Normal 26.0-34.0 [facility] Comment on above: Order Comment: Speci men Type: BLOOD SPECIMEN Ordering Facility: [facility] Address: [address] [place] [address] Performed By: #### 5 7021-8 #### [facility] CLIA [id number] [address] [place] [address] [place] MCHC (RBC) [Mass/Vol] 33.5 g/dL Normal 30.5-36.0 [facility] Comment on above: Order Comment: Speci men Type: BLOOD SPECIMEN Ordering Facility: [facility] Address: [address] [place] [address] Performed By: #### 5 7021-8 #### [facility] CLIA [id number] [address] [place] [address] [place] MCV (RBC) [Entitic vol] 89.5 fL Normal 80.0-100.0 [facility] Comment on above: Order Comment: Speci men Type: BLOOD SPECIMEN Ordering Facility: [facility] Address: [address] [place] [address] Performed By: #### 5 7021-8 #### [id number] [address] [place] [address] [place] Monocytes (Bld) [#/Vol] 0.47 10*3/uL Normal <0.87 [facility] Comment on above: Order Comment: Speci men Type: BLOOD SPECIMEN Ordering Facility: [facility] Address: [address] [place] [address] Performed By: #### 5 7021-8 #### [facility] CLIA [id number] [address] [place] [address] [place] Monocytes/100 WBC (Bld) 6.6 % Normal [facility] Comment on above: Order Comment: Speci men Type: BLOOD SPECIMEN Ordering Facility: [facility] Address: [address] [place] [address] Performed By: #### 5 7021-8 #### [facility] CLIA [id number] [address] [place] [address] [place] Neutrophils (Bld) [#/Vol] 4.27 10*3/uL Normal 1.45-7.50 [facility] Comment on above: Order Comment: Speci men Type: BLOOD SPECIMEN Ordering Facility: [facility] Address: [address] [place] [address] Performed By: #### 5 7021-8 #### [facility] CLIA [id number] [address] [place] [address] [place] Neutrophils/100 WBC (Bld) 60.4 % Normal [facility] Comment on above: Order Comment: Speci men Type: BLOOD SPECIMEN Ordering Facility: [facility] Address: [address] [place] [address] Performed By: #### 5 7021-8 #### [facility] CLIA [id number] [address] [place] [address] [place] Nucleated RBC (Bld) [#/Vol] 10*3/uL Normal <0.01 [facility] Comment on above: Order Comment: Speci men Type: BLOOD SPECIMEN Ordering Facility: [facility] Address: [address] [id number] Performed By: #### 5 7021-8 #### [facility] CLIA [id number] [address] [place] [address] [place] Nucleated RBC/100 WBC (Bld) [Ratio] 0.0 /100 WBC Normal [facility] Comment on above: Order Comment: Speci men Type: BLOOD SPECIMEN Ordering Facility: [facility] Address: [address] [place] [address] Performed By: #### 5 7021-8 #### [facility] CLIA [id number] [address] [place] [address] [place] Platelet mean volume (Bld) [Entitic vol] 10.5 fL Normal 9.0-12.7 [facility] Comment on above: Order Comment: Speci men Type: BLOOD SPECIMEN Ordering Facility: [facility] Address: [address] [place] [address] Performed By: #### 5 7021-8 #### [facility] CLIA [id number] [address] [place] [address] [place] Platelets (Bld) [#/Vol] 250 10*3/uL Normal 150-400 [facility] Comment on above: Order Comment: Speci men Type: BLOOD SPECIMEN Ordering Facility: [facility] Address: [address] [place] [address] Performed By: #### 5 7021-8 #### [facility] CLIA [id number] [address] [place] [address] [place] RBC (Bld) [#/Vol] 4.67 10*6/uL Normal 3.90-5.20 [facility] Comment on above: Order Comment: Speci men Type: BLOOD SPECIMEN Ordering Facility: [facility] Address: [address] [place] [address] Performed By: #### 5 7021-8 #### [facility] CLIA [id number] [address] [place] [address] [place] WBC (Bld) [#/Vol] 7.07 10*3/uL Normal 3.70-11.00 [facility] Comment on above: Order Comment: Speci men Type: BLOOD SPECIMEN Ordering Facility: [facility] Address: [facility] [address] [place] [id number] Performed By: #### 5 7021-8 #### [facility] CLIA [id number] [address] [id number] [place] CNPNon 12-30-2024 CNPN Telephone (OBGYWM) JACQUELINE BERNAL ([id number]) 1995 F Date Time Provider Department 12/30/24 MARIA EUGENIA ROPER OBJACKELIN During your visit today, we recorded the following information about you: Jacqueline Wheeler RN 12/30/2024 1:46 PM Signed 12w0d Left message for patient to call office. Viigo message sent as well. LIDYA Newman Lindsey, RN 12/30/2024 2:28 PM Signed Patient notified and voiced understanding of results and instructions. Anjali Blanco RN Allergies As of Date: 12/30/2024 (No Known Allergies) Date Reviewed: 12/30/2024 Reviewed by: Jasbir Brink MA - Fully Assessed Prescriptions as of 12/30/2024 - aspirin, enteric coated (ECOTRIN LOW STRENGTH) 81 mg EC tablet Take 1 tablet by mouth once daily. - prental multivitamin 27 mg iron- 800 mcg tablet Take 1 tablet by mouth once daily. 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] 09/03/2012 08/26/2022 Papanicolaou smear of cervix with low grade squ*10/05/2021 02/21/2023 Spotting in early [O26.859] 06/24/2022 08/26/2022 related nausea, antepartum (HCC) [O26*06/24/2022 02/21/2023 Obesity during [O99.210] 06/24/2022 08/26/2022 Encounter for supervision of normal i*08/26/2022 Uterine size-date discrepancy, third trimester *11/18/2022 02/21/2023 Excessive growth affecting management of *12/17/2022 02/21/2023 History of macrosomia in infant in prior pregna*11/29/2024 Encounter Status:Closed by ANJALI BLANCO on 12/30/24 Normal [facility] HBV surface Ag Ser Qlon 12-10 HBV surface Ag Ql (S) Negative Normal Negative [facility] Comment on above: Order Comment: Speci men Type: BLOOD SPECIMEN Ordering Facility: [facility] Address: [address] [place] [address] Performed By: #### 5 7021-8 #### [facility] CLIA [id number] [address] [place] [address] [place] HCV Ab Ser Qlon 12-30-2024 HCV Ab Ql (S) Negative Normal Negative [facility] Comment on above: Order Comment: Speci men Type: BLOOD SPECIMEN Ordering Facility: [facility] Address: [address] [place] [address] Result Comment: The result suggests no evidence of infection with Hepatitis C virus. Should recent infection be suspected, repeat testing may be considered 4-6 weeks after this draw. Performed By: #### 5 5454-3 #### [facility] CLIA [id number] [address] [place], [place] [address] [place] [address] [place] HIV 1+2 Ab IA Qlon 5 HIV 1 and 2 Ab IA.rapid Nom (S/P/Bld) Normal [facility] Comment on above: Order Comment: Speci men Type: BLOOD SPECIMEN Ordering Facility: [facility] Address: [address] [place] [address] Result Comment: Test not indicated. Performed By: #### 5 7021-8 #### [facility] CLIA [id number] [address] [place] [address] [place] HIV 1+2 Ab+HIV1 p24 Ag IA Ql Non-Reactive Normal Nonreactive [facility] Comment on above: Order Comment: Speci men Type: BLOOD SPECIMEN Ordering Facility: [facility] Address: [address] [place] [address] Performed By: #### 5 7021-8 #### [facility] CLIA [id number] [address] [place] [address] [place] HIV immunoassay testing algorithm interpretation (S/P/Bld) [Interp] Normal [facility] Comment on above: Order Comment: Speci men Type: BLOOD SPECIMEN Ordering Facility: [facility] Address: [address] [place] [address] Result Comment: No e vidence of HIV-1 or HIV-2 infection. Should recent infection be suspected, repeat testing may be considered 2-3 weeks after this draw. [place] Rev. Code 3701.243(E): This information has been disclosed to you from confidential records protected from disclosure by state law. You shall make no further disclosure of this information without the specific, written, and informed release of the individual to whom it pertains or as otherwise permitted by state law. A general authorization for the release of medical or other information is not sufficient for the purpose of the release of HIV test results or diagnoses. Performed By: #### 5 7021-8 #### [facility] CLIA [id number] [address] [place] [address] [place] HbA1c (Bld)on 12-30-2024 Average glucose Estimated from glycated hemoglobin (Bld) [Mass/Vol] 82 mg/dL Normal [facility] Comment on above: Order Comment: Latrice vergara Type: BLOOD SPECIMEN Ordering Facility: [facility] Address: [address] [place] [address] Result Comment: eAG: (Estimated average glucose) is a calculated value from HgbA1c and is outreach representative of the average blood glucose level in the last 2-3 month period. Performed By: #### 5 5454-3 #### [facility] CLIA [id number] [address] [place] [address] [place] HbA1c (Bld) [Mass fraction] 4.5 % Normal 4.3-5.6 [facility] Comment on above: Order Comment: Latrice vergara Type: BLOOD SPECIMEN Ordering Facility: [facility] Address: [address] [place] [address] Result Comment: [place] Diabetes Association guidelines indicate that patients with HgbA1c in the range 5.7-6.4% are at increased risk for development of diabetes, and intervention by lifestyle modification may be beneficial. HgbA1c greater or equal to 6.5% is considered diagnostic of diabetes. Performed By: #### 5 5454-3 #### [facility] CLIA [id number] [address] [place] [address] [place] [id number] PLUSon 12-30-2024 Cell-free DNA./Cell-free DNA.total Dosage of chromosome-specific cfDNA (cfDNA) [Molar fraction] 16% Normal [facility] Comment on above: Order Comment: Latrice vergara Type: BLOOD SPECIMEN Ordering Facility: [facility] Address: [address] [place] [address] Performed By: #### M AT21 #### [facility] IA [id number] [address] [place] [address] Chr 13+18+21+X+Y aneuploidy Dosage of chromosome-specific cfDNA Ql (cfDNA) Negative Normal [facility] Comment on above: Order Comment: Latrice vergara Type: BLOOD SPECIMEN Ordering Facility: [facility] Address: [address] [place] [address] Performed By: #### M AT21 #### [facility] CLIA [id number] [address] [place] [address] Chr 21 trisomy Dosage of chromosome-specific cfDNA Ql (cfDNA) Negative Normal [facility] Comment on above: Order Comment: Speci men Type: BLOOD SPECIMEN Ordering Facility: [facility] Address: [address] [place] [address] Performed By: #### M AT21 #### [facility] CLIA [id number] [address] [place] [address] Chr X and Y aneuploidy risk Sequencing Ql (cfDNA) [Interp] Not detected Normal [facility] Comment on above: Order Comment: Speci men Type: BLOOD SPECIMEN Ordering Facility: [facility] Address: [address] [place] [address] Result Comment: Not Detected Not Detected Performed By: #### M AT21 #### [facility] CLIA [id number] [address] [place] [address] Citation Abram (Reference lab test) Comment Normal [facility] Comment on above: Order Comment: Speci men Type: BLOOD SPECIMEN Ordering Facility: [facility] Address: [address] [place] [address] Result Comment: 1. P leonor GIRON, et al. Hermila Med. 2012;14(3):296-305. 2. Jr ESPINAL, et al. Prenat Diag. 2013;33(6):591-597. 3. Dev C, et al. Clin Chem. 2015 Apr;61(4):608-616. 4. Monique GIRON, et al. Hermila Med. 2011;13(11):913-920. 5. ACOG/SMFM Practice Bulletin No. 226, May 2020. Performed By: #### M AT21 #### [facility] CLIA [id number] [address] [place] [address] Gestational age Estimated from conception date Del Toro Normal [facility] Comment on above: Order Comment: Speci men Type: BLOOD SPECIMEN Ordering Facility: [facility] Address: [address] [place], [place] [id number] Performed By: #### M AT21 #### [facility] CLIA [id number] [address] [place] [address] GESTATIONALAGE AGE > OR = 9W Yes Normal [facility] Comment on above: Order Comment: Speci men Type: BLOOD SPECIMEN Ordering Facility: [facility] Address: [address] [place] [address] Performed By: #### M AT21 #### [facility] CLIA [id number] [address] [place] [address] Laboratory comment Abram (Report) Comment Normal [facility] Comment on above: Order Comment: Declani men Type: BLOOD SPECIMEN Ordering Facility: [facility] Address: [address] [place] [address] Result Comment: The MaterniT(R) 21 PLUS laboratory-developed test (LDT) analyzes circulating cell-free DNA from a maternal blood sample. This test is used for screening purposes and not diagnostic. Clinical correlation is recommended. Validation data on twin pregnancies is limited and the ability of this test to detect aneuploidy in higher multiple gestations has not yet been validated. Performed By: #### M AT21 #### [facility] CLIA [id number] [address] [place] [address] content director name Nom (Provider) Comment [facility] Comment on above: Order Comment: Speci men Type: BLOOD SPECIMEN Ordering Facility: [facility] Address: [address] [place] [address] Result Comment: This specimen showed an expected representation of chromosome 21, 18 and 13 material. Clinical correlation is suggested. Comment Raymond Fernandez MD, PhD, Director, [employer] Performed By: #### M AT21 #### [facility] CLIA [id number] [address] [place] [address] LIMITATIONS OF THE TEST Comment Normal [facility] Comment on above: Order Comment: Speci men Type: BLOOD SPECIMEN Ordering Facility: [facility] Address: [address] [place] [address] Result Comment: Mague kulkarni the results of these tests are highly reliable, discordant results, including inaccurate sex prediction, may occur due to placental, maternal, or mosaicism or neoplasm; vanishing twin; prior maternal organ transplant; or other causes. These tests are screening tests and not diagnostic; they do not replace the accuracy and precision of diagnosis with CVS or amniocentesis. A patient with a positive test result should be referred for genetic counseling and offered invasive diagnosis for confirmation of test results.[5] The results of this testing, including the benefits and limitations, should be discussed with a qualified healthcare provider. management decisions, including termination of the , should not be based on the results of these tests alone. The healthcare provider is responsible for the use of this information in the management of their patient. Sex chromosomal aneuploidies are not reportable for known multiple gestations. A negative result does not ensure an unaffected nor does it exclude the possibility of other chromosomal abnormalities or defects which are not a part of these tests. An uninformative result may be reported, the causes of which may include, but are not limited to, insufficient sequencing coverage, noise or artifacts in the region, amplification or sequencing bias, or insufficient fraction. These tests are not intended to identify pregnancies at risk for neural tube defects or ventral wall defects. Testing for whole chromosome abnormalities (including sex chromosomes) and for subchromosomal abnormalities could lead to the potential discovery of both and maternal genomic abnormalities that could have major, minor, or no, clinical significance. Evaluating the significance of a positive or a non-reportable result may involve both invasive testing and additional studies on the mother. Such investigations may lead to a diagnosis of maternal chromosomal or subchromosomal abnormalities, which on occasion may be associated with benign or malignant maternal neoplasms. These tests may not accurately identify triploidy, balanced rearrangements, or the precise location of subchromosomal duplications or deletions; these may be detected by diagnosis with CVS or amniocentesis. The ability to report results may be impacted by maternal BMI, maternal weight, maternal systemic lupus erythematosus (SLE) and/or by certain pharmaceutical agents such as low molecular weight heparin (for example: Lovenox(R), Xaparin(R), Clexane(R) and Fragmin(R)). Performed By: #### M AT21 #### [facility] CLIA [id number] [address] [place] [address] Monosomy X risk Dosage of chromosome-specific cfDNA Ql (Plasma cell-free+WBC DNA) [Interp] Not detected Normal [facility] Comment on above: Order Comment: Latrice jai Type: BLOOD SPECIMEN Ordering Facility: [facility] Address: [address] [place] [address] Performed By: #### M AT21 #### [facility] CLIA [id number] [address] [place] [address] NEGATIVE PREDICTIVE VALUE Note Normal [facility] Comment on above: Order Comment: Declanluda vergara Type: BLOOD SPECIMEN Ordering Facility: [facility] Address: [address] [place] [address] Result Comment: The Negative Predictive Value (NPV) for trisomy 21, 18, and 13 is greater than 99%. The NPV for SCA and ESS cannot be calculated as SCA and ESS are only reported when an abnormality is detected. Performed By: #### M AT21 #### [facility] CLIA [id number] [address] [place] [address] PERFORMANCE CHARACTERISTICS Note Normal [facility] Comment on above: Order Comment: Declanluda vergara Type: BLOOD SPECIMEN Ordering Facility: [facility] Address: [address] [place] [address] Result Comment: ! Sex ! Accuracy: 99.4% ! ! ! ! Region (associated syndrome) ! Est. Sens# ! Est. Spec ! ! ! ! Trisomy 21 (Down Syndrome) ! 99.1% ! 99.9% ! ! ! ! Trisomy 18 (Anand Syndrome) ! >99.9% ! 99.6% ! ! ! ! Trisomy 13 (Patau Syndrome) ! 91.7% ! 99.7% ! ! ! ! Sex Chromosome Aneuploidies## ! 96.2% ! 99.7% ! ! ! * As reported in [facility] database nstd37 [https://www.ncbi.nlm.nih.gov/dbvar/studies/nstd37/ ] # Estimated Sensitivity. Sensitivity estimated across the observed size distribution of each syndrome [per ISC[employer] database nstd37] and across the range of fractions observed in routine clinical NIPT. Actual sensitivity can also be influenced by other factors such as the size of the event, total sequence counts, amplification bias, or sequence bias. ## Del Toro gestation only. Performed By: #### M AT21 #### [facility] CLIA [id number] [address] [facility] [address] POSITIVE PREDICTIVE VALUE N/A Normal [facility] Comment on above: Order Comment: Speci men Type: BLOOD SPECIMEN Ordering Facility: [facility] Address: [address] [place] [address] Performed By: #### M AT21 #### [facility] CLIA [id number] [address] [place] [id number] Reference Lab Test Method Comment Normal [facility] Comment on above: Order Comment: Speci men Type: BLOOD SPECIMEN Ordering Facility: [facility] Address: [address] [place] [address] Result Comment: See Notes Circulating cell-free DNA was purified from the plasma component of maternal blood. The extracted DNA was then converted into a genomic DNA library for aneuploidy analysis of chromosomes 21, 18, and 13 via next generation sequencing.[1] Optional findings based on the test order include sex chromosome aneuploidy (SCA)[2], and enhanced sequencing series (ESS)[3], which will only be reported on as an additional finding when an abnormality is detected. SCA testing includes information on X and Y representation, while ESS testing includes deletions in selected regions (22q, 15q, 11q, 8q, 5p, 4p, 1p) and trisomy of chromosomes 16 and 22. Performed By: #### M AT21 #### [facility] CLIA [id number] [address] [place] [address] Service comment (Unsp spec) [Interp] Comment Normal [facility] Comment on above: Order Comment: Speci men Type: BLOOD SPECIMEN Ordering Facility: [facility] Address: [address] [place] [address] Result Comment: See Notes [employer] is a subsidiary of [employer], using the brand [employer]. This test was developed and its performance characteristics determined by [employer]. It has not been cleared or approved by the Food and Drug Administration. This laboratory is certified under the Clinical Laboratory Improvement Amendments (CLIA) as qualified to perform high complexity clinical laboratory testing and accredited by the [employer] ([employer]). If there is future clinical need for adding MaterniT GENOME testing, this specimen will be available until term. [facility] samples will not be retained beyond 60 days. [facility] patients will have to send a new sample for re-sequencing ([facility] Test Code: 515136). Performed By: #### M AT21 #### [facility] CLIA [id number] [address] [place] [address] Sex Dosage of chromosome-specific cfDNA Nom (cfDNA) Comment Normal [facility] Comment on above: Order Comment: Speci jai Type: BLOOD SPECIMEN Ordering Facility: [facility] Address: [address] [place] [address] Result Comment: Cons istent with Male Performed By: #### M AT21 #### [facility] CLIA [id number] [address] [place] [address] Test performance information Abram (Unsp spec) Comment Normal [facility] Comment on above: Order Comment: Declani jai Type: BLOOD SPECIMEN Ordering Facility: [facility] Address: [address] [place] [address] Result Comment: The performance characteristics of the MaterniT(R) 21 PLUS laboratory-developed test (LDT) have been determined in a clinical validation study with women at increased risk for chromosomal aneuploidy.[1-4] Performed By: #### M AT21 #### [facility] CLIA [id number] [address] [place] [address] Trisomy 13 risk Dosage of chromosome-specific cfDNA Ql (cfDNA) [Interp] Negative Normal [facility] Comment on above: Order Comment: Latrice vergara Type: BLOOD SPECIMEN Ordering Facility: [facility] Address: [address] [place] [address] Performed By: #### M AT21 #### [facility] CLIA [id number] [address] [place] [address] Trisomy 18 risk Dosage of chromosome-specific cfDNA Ql (Plasma cell-free+WBC DNA) [Interp] Negative Normal [facility] Comment on above: Order Comment: Declani jai Type: BLOOD SPECIMEN Ordering Facility: [facility] Address: [address] [place] [address] Performed By: #### M AT21 #### [facility] CLIA [id number] [address] [place] [address] RUBELLA IGG ANTIBODYon 12-30 RUBELLA IGG AB, QUAL Positive Normal Positive [facility] Comment on above: Order Comment: Speci men Type: BLOOD SPECIMEN Ordering Facility: [facility] Address: [address] [place] [address] Result Comment: The result suggests recent or past exposure to Rubella virus or history of Rubella vaccination. Positive result may also be seen due to presence of passively-transferred antibodies. Please correlate with patient's history. Performed By: #### 5 7021-8 #### [facility] CLIA [id number] [address] [place] [address] [place] Reagin and Treponema pallidu m IgG and IgM [Interp]on 12-30-2024 T. pallidum IgG+IgM IA Ql (S) Non-Reactive Normal Nonreactive [facility] Comment on above: Order Comment: Speci men Type: BLOOD SPECIMEN Ordering Facility: [facility] Address: [address] [place] [address] Performed By: #### 5 7021-8 #### [facility] CLIA [id number] [address] [place] [address] [place] Reagin+T pallidum IgG+IgM Se rPl-Impon 12-30-2024 Reagin and Treponema pallidum IgG and IgM [Interp] Cannot exclude recent Treponemal infection if specimen collected within 7-10 days after appearance of suspect lesions or 2-3 weeks after an exposure. Clinical correlation is required. Normal [facility] Comment on above: Order Comment: Speci men Type: BLOOD SPECIMEN Ordering Facility: [facility] Address: [address] [place] [address] Performed By: #### 5 7021-8 #### [facility] CLIA [id number] [address] [place] [address] [place] TYPE + SCREEN PRENATALon ABO O Normal [facility] Comment on above: Order Comment: Speci men Type: BLOOD SPECIMEN Ordering Facility: [facility] Address: [address] [place] [address] Performed By: #### T SPN #### [facility] CLIA [id number] [address] [place] [address] [place] Rh Nom (Bld) Positive Normal [facility] Comment on above: Order Comment: Speci men Type: BLOOD SPECIMEN Ordering Facility: [facility] Address: [address] [place] [address] Performed By: #### T SPN #### [facility] CLIA [id number] [address] [place] [address] [place] TYPE AND SCREEN EXPIRATION 01/02/2025 23:59 Normal [facility] Comment on above: Order Comment: Speci men Type: BLOOD SPECIMEN Ordering Facility: [facility] Address: [address] [place] [address] Performed By: #### T SPN #### [facility] CLIA [id number] [address] [place] [address] [place] BACTERIAL CULTURE, URINEOrde red By: Renay Smith on 11-30-2024 Bacteria identified Cx Nom (U) <10,000 CFU/ml Normal urogenital benito [facility] Bacteria identified Cx Nom ( U)Ordered By: Renay Smith on 11-30-2024 [facility] Bacteria Ur Culton Bacteria identified Cx Nom (U) ORGANISM ID: 1 <10,000 CFU/ml Normal urogenital benito Normal [facility] Comment on above: Performed By: #### 5 7021-8 #### [facility] CLIA [id number] [address] [place] [address] [place] C. trachomatis+N. gonorrhoea e DNA TRAV+probe Ql (Unsp spec)on 11-29-2024 C. trachomatis rRNA TRAV+probe Ql (Unsp spec) Not detected Not detected [facility] Interpretation and review of laboratory results Normal [facility] N. gonorrhoeae rRNA TRAV+probe Ql (Unsp spec) Not detected Not detected [facility] This FDA-approved assay has been modified to accept rectal swabs self-collected in a healthcare setting. For self-collected rectal swabs, the test was developed and its performance characteristics determined by the [facility]'s [facility] [place] ([facility]). It has not been cleared or approved by the FDA. [facility] is regulated under CLIA as qualified to perform high-complexity testing. This test is used for clinical purposes. It should not be regarded as investigational or for research. [facility] C. trachomatis rRNA TRAV+probe Ql (Unsp spec) Not detected Normal Not detected [facility] Comment on above: Order Comment: Speci men Type: BLOOD SPECIMEN Ordering Facility: [facility] Address: [address] [place] [address] Performed By: #### 5 5454-3 #### [facility] CLIA [id number] [address] [place] [address] [place] N. gonorrhoeae rRNA RTAV+probe Ql (Unsp spec) Not detected Normal Not detected [facility] Comment on above: Order Comment: Speci men Type: BLOOD SPECIMEN Ordering Facility: [facility] Address: [address] [place] [address] Performed By: #### 5 5454-3 #### [facility] CLIA [id number] [address] [place] [address] [place] POC STAFFING ANALYST ULTRASOUNDon 11-30-19 25 Indication Viability; confirm cardiac activity, Uncertain dates Impression Single intrauterine gestational sac, CRL indicates discrepancy from clinical dates, JAYDE based on today's ultrasound Recommendations Follow up for 1st Trimester Anatomy with Nuchal Translucency as clinically indicated if desired. Method Transvaginal ultrasound examination Del Toro . Number of embryos: 1 Dating LMP on: 10/02/2024 GA by LMP 8 w + 2 d JAYDE by LMP: 07/09/2025 Ultrasound examination on: 11/29/2024 GA by U/S based upon: CRL GA by U/S 7 w + 4 d JAYDE by U/S: 07/14/2025 Assigned: based on ultrasound (CRL), selected on 11/29/2024 Assigned GA 7 w + 4 d Assigned JAYDE: 07/14/2025 Biometry Standard CRL 13.3 mm 7w 4d 91% [place]lock Assessment Gestational sac: visualized Location: intrauterine Yolk sac: visualized Embryo: visualized CRL 13.3 mm 7w 4d 91% [place] Cardiac activity: present General Evaluation Cardiac activity present Performed By: Maria Eugenia Roper CNM Read By: Maria Eugenia Roper CNM MATERNAL MEDICINE [facility] Radiology Study observation (narrative) [facility] TRICHOMONAS VAGINALIS NAATon 11-29-2024 Interpretation and review of laboratory results Normal [facility] T. vaginalis DNA TRAV+probe Ql (Unsp spec) Not detected Not detected [facility] T. vaginalis DNA TRAV+probe Ql (Unsp spec) Not detected Normal Not detected [facility] Comment on above: Order Comment: Speci men Type: BLOOD SPECIMEN Ordering Facility: [facility] Address: [address] [place] [address] Performed By: #### 5 5454-3 #### [facility] CLIA [id number] [address] [place] [address] OF [facility] CNOVon 07-30-2024 CNOV Office Visit (OBGYWM ) JACQUELINE BERNAL ([id number]) 1995 F Date Time Provider Department 07/30/24 2:20 PM WALLY MERCADO OBGYWM During your visit today, we recorded the following information about you: Blood pressure Weight Height Last Period 124/82 102.1 kg 1.803 m 07/25/24 Wally Mercado MD 07/30/2024 2:47 PM Monisha Fairbanks is a 28 year old who presents for an annual gynecologic exam without complaints. Menses only for 5 months since stopped . Attempting . OB History T1 L1 SAB0 IAB0 Ectopic0 Multiple0 Live Births1 Art Instructor History LMP: 07/25/2024 (Exact Date), Unknown Age at Menarche: Age at First : Age at Menopause: Art Instructor History Comments: Sexual Activity: Not Currently; Male Contraception: No contraception data on record PAST MEDICAL HISTORY Diagnosis Date Abnormal Pap smear of cervix 2021 Bladder polyps Febrile seizures (HCC) PMH - PAST MEDICAL HISTORY OF 03/02/2010 Normal Color Vision PAST SURGICAL HISTORY Procedure Laterality Date OPEN TREATMENT PATELLAR DISLOCATION Right 2013 OPEN TREATMENT PATELLAR DISLOCATION 12-06-2008 Open knee reconstruction-left ureteral implants age 11 months FAMILY HISTORY Problem Relation Age of Onset Hypertension Mother Hyperlipidemia Mother Hyperlipidemia Father Hypertension Father No Known Problems Brother Hypertension Maternal Grandmother Diabetes Maternal Grandmother Diabetes Maternal Grandfather Diabetes Paternal Grandmother other (Leukemia) Paternal Grandfather SOCIAL HISTORY Social History Tobacco Use Smoking status: Never Smokeless tobacco: Never Vaping Use Vaping status: Never Used Substance Use Topics Alcohol use: Not Currently Comment: Occasionally Drug use: No REVIEW OF SYSTEMS Abdomen: No abdominal pain, nausea, vomiting, diarrhea, or constipation. No bloating, early satiety, indigestion, or increased flatulence. Bladder: No dysuria, gross hematuria, urinary frequency, urinary urgency, or incontinence. Breast: No breast lumps, nipple d/c, overlying skin changes, redness or skin retraction. Allergies and current medication updated:Yes SENSITIVE EXAM: The sensitive examination was discussed with the Patient or Patient's Authorized Transitions Manager. As applicable, any other physician, advance practice provider, medical student, or other health professional student that will be observing or involved in the sensitive examination for educational or training purposes was discussed with the Patient or Authorized Transitions Manager. The Patient or Authorized Transitions Manager has agreed to proceed with the sensitive examination. (Sensitive examination includes inspection and/or palpation of the breasts, pelvis, prostate and anorectal regions). EXAM: BP 124/82 Ht 5' 11 (1.80m) Wt 225 lb (102.1kg) LMP 07/25/2024 BMI 31.39 kg/(m2). GENERAL: pleasant, female in no apparent distress HEENT: Normocephalic, atraumatic, mucus membranes moist, and no lesions NECK: Supple, full range of motion, no adenopathy, and thyroid normal DERMATOLOGY: Normal, without lesions, non-icteric, and non-hirsute BREAST: soft, non-tender, symmetric, no dominant mass, normal nipple-areolar complex, no lymphadenopathy, and no nipple discharge CHEST: Normal inspiratory effort ABDOMEN: soft, non-tender, and no masses PELVIC: external genitalia normal, normal Bartholin's glands, urethra, Barney's glands, no vulvar lesions, no cervical lesions, good vaginal support, physiologic discharge present, normal appearing perineal body and perianal region BIMANUAL: uterus normal size, shape and consistency, no adnexal masses, and non-tender RECTOVAGINAL: deferred. NEURO: alert and oriented x3,exam grossly non-focal EXTREMITIES: normal ASSESSMENT/PLAN: 1) Health maintenance: Pap done with HPV. 2) Contraception: none. Contraceptive options reviewed and information provided. 3) STD screening: Declined STD check. 4) Follow up one year or sooner as needed Declines flu vaccine and recommended PNV in anticipation of Wally Mercado MD Allergies As of Date: 07/30/2024 (No Known Allergies) Date Reviewed: 07/30/2024 Reviewed by: Wally Mercado MD - Fully Assessed Reason for Visit: Yearly Exam [187] Primary Visit Diagnosis:Papanicolao u smear of cervix with low grade squamous intraepithelial lesion (LGSIL) [R87.612] Other Visit Diagnoses:Encounter for gynecological examination (general) (routine) without abnormal findings [Z01.419] Screening for cervical cancer [Z12.4] Encounter for screening for human papillomavirus (HPV) [Z11.51] Order(s):PAP TEST [[id number]] Order #: [id number] Prescriptions as of 07/30/2024 - prental multivitamin 27 mg iron- 800 mcg tablet Take 1 tablet by mouth once daily. Problem List As Of Date 07/30/2024 Noted (more content not included)... Normal [facility] HIGH RISK HUMAN PAPILLOMA KALLI (HPV), PCR FOR DETECTION AND GENOTYPINGon 07-30-2024 HPV 16 Ag Ql (Unsp spec) Not detected Normal Not detected [facility] Comment on above: Order Comment: Speci men Type: BLOOD SPECIMEN Ordering Facility: [facility] Address: [address] [place] [address] Performed By: #### 5 7021-8 #### [facility] CLIA [id number] [address] [place] [address] [place] HPV 18 Ag Ql (Unsp spec) Not detected Normal Not detected [facility] Comment on above: Order Comment: Speci men Type: BLOOD SPECIMEN Ordering Facility: [facility] Address: [address] [place] [address] Performed By: #### 5 7021-8 #### [facility] CLIA [id number] [address] [place] [address] [place] HPV 31+33+35+39+45+51+52 +56+58+59+66+68 DNA TRAV+probe Ql (Cvx) Not detected Normal Not detected [facility] Comment on above: Order Comment: Speci men Type: BLOOD SPECIMEN Ordering Facility: [facility] Address: [address] [place] [address] Result Comment: High Risk HPV Other Type includes HPV types 31, 33, 35, 39, 45, 51, 52, 56, 58, 59, 66 and 68. Performed By: #### 5 7021-8 #### [facility] CLIA [id number] [address] [place] [address] [place] PAP TESTon 07-30-2024 ADEQUACY Satisfactory for interpretation. Normal [facility] Comment on above: Order Comment: Speci men Type: FLUID SPECIMEN Ordering Facility: [facility] Address: [address] [place] [address] Performed By: #### L [id number] #### [facility] CLIA [id number] [address] [place] [address] [id number] [place] [address] [place] CASE REPORT Normal [facility] Comment on above: Order Comment: Speci men Type: FLUID SPECIMEN Ordering Facility: [facility] Address: [address] [place] [address] Result Comment: Gyne cologic Cytology Report Case: [id number] Authorizing Provider: Wally Mercado MD Collected: 07/30/2024 02:55 PM Ordering Location: OB/Gynecology Received: 07/30/2024 04:46 PM First Screen: Mi Walter, CT, ASCP Rescreen: Mariela Mercado, ANSHUL, ASCP Specimen: Pap Test, ThinPrep, Cervix Performed By: #### L [id number] #### [facility] CLIA [id number] [address] [place] [address] [place] CLINICAL HISTORY, CYTOLOGY, CONTROLLER REPAIRER AND TESTER Previous Abnormal Pap Normal [facility] Comment on above: Order Comment: Speci men Type: FLUID SPECIMEN Ordering Facility: [facility] Address: [address] [place] [address] Performed By: #### L [id number] #### [facility] CLIA [id number] [address] [place] [address] [place] FINAL PERFORMING LAB Normal [facility] Comment on above: Order Comment: Speci men Type: FLUID SPECIMEN Ordering Facility: [facility] Address: [address] [place] [address] Result Comment: Tech nical component, brewery representative screening performed at [facility], [address] [place] [address] CLIA# [id number] Diagnostic interpretation performed at [facility], [address] [place] [address] CLIA# [id number] Orthopedic Shoes Salesperson: Servando Cortes M.D. Performed By: #### L [id number] #### [facility] CLIA [id number] [address] [place] [address] [place] INTERPRETATION, CYTOLOGY, CONTROLLER REPAIRER AND TESTER Normal [facility] Comment on above: Order Comment: Speci men Type: FLUID SPECIMEN Ordering Facility: [facility] Address: [address] [place] [address] Result Comment: Nega tive for intraepithelial lesion or malignancy. Performed By: #### L [id number] #### [facility] CLIA [id number] [address] [place] [address] [place] LMP 07/25/2024 Normal [facility] Comment on above: Order Comment: Speci men Type: FLUID SPECIMEN Ordering Facility: [facility] Address: [address] [place] [address] Performed By: #### L [id number] #### [facility] CLIA [id number] [address] [place] [address] [place] PAP DISCLAIMER COMMENT The Pap Smear is a screening test for cervical cancer. False negative results occur with all screening tests, emphasizing the need for rescreening at recommended intervals, and clinical correlation. Normal [facility] Comment on above: Order Comment: Speci men Type: FLUID SPECIMEN Ordering Facility: [facility] Address: [address] [place] [address] Performed By: #### L [id number] #### [facility] [place] [id number] [address] [place] [address] [place] PAP COMPUTED TOMOGRAPHY TECHNICIAN COMMENT This specimen has been analyzed by the ThinPrep Imaging System, an automated imaging and review system, which assists the laboratory in evaluating cells on ThinPrep Pap tests. Following automated imaging, selected salcido from every slide are reviewed by a brewery representative. Normal [facility] Comment on above: Order Comment: Speci men Type: FLUID SPECIMEN Ordering Facility: [facility] Address: [address] [place] [address] Performed By: #### L [id number] #### [facility] [place] [id number] [address] [place] [address] [place] Ova and Parasites 8623on OP Order Date: 02/23/24 Order Info: [id number] - OP OVA AND PARASITES EXAM, ROUTINE These results were obtained using wet preparation(s) and trichrome stained smear. This test does not include testing for Crytosporidium parvum, Cyclospora, or Microsporidia. O+P Spec Micro One negative specimen does not rule out the possibility of a parasitic infection. TESTING PERFORMED AT [facility]. ORIGINAL REPORT ON FILE IN LAB CONTAINS ADDITIONAL TEST SITE INFORMATION. Ova/Parasite Exam NO OVA, CYSTS, OR PARASITES FOUND. Normal [facility] Comment on above: Performed By: #### M 100.6796, M100.637, L100.0100, L500.4050, M600.5000 #### [facility] [address] [place], [address] CBC W/Diff, Automatedon 02-08 Absolute Lymph 1.96 X10 3/uL Normal 0.83-4.51 [facility] Comment on above: Order Comment: Order Date: 02/23/24 Order Info: 0184- - CBCD Performed By: #### M 100.6796, M100.637, L100.0100, L500.4050, M600.5000 #### [facility] [address] [place], [address] Absolute Neut 1.8 X10 3/uL Low 2.0-7.7 [facility] Comment on above: Order Comment: Order Date: 02/23/24 Order Info: 0184- - CBCD Performed By: #### M 100.6796, M100.637, L100.0100, L500.4050, M600.5000 #### [facility] [address] [place], [address] Basophils/100 WBC (Bld) 1.2 % High 0-1 [facility] Comment on above: Order Comment: Order Date: 02/23/24 Order Info: 0184-1 - CBCD Performed By: #### M 100.6796, M100.637, L100.0100, L500.4050, M600.5000 #### [facility] [address] [place], [address] Eosinophils/100 WBC (Bld) 2.3 % Normal 0-5 [facility] Comment on above: Order Comment: Order Date: 02/23/24 Order Info: 0184-1 - CBCD Performed By: #### M 100.6796, M100.637, L100.0100, L500.4050, M600.5000 #### [facility] [address] [place], [address] Erythrocyte distribution width (RBC) [Ratio] 12.2 % Normal 11.6-14.6 [facility] Comment on above: Order Comment: Order Date: 02/23/24 Order Info: 018- - CBCD Performed By: #### M 100.6796, M100.637, L100.0100, L500.4050, M600.5000 #### [facility] [address] [place], [address] Hematocrit (Bld) [Volume fraction] 44.4 % Normal 37-47 [facility] Comment on above: Order Comment: Order Date: 02/23/24 Order Info: 018- - CBCD Performed By: #### M 100.6796, M100.637, L100.0100, L500.4050, M600.5000 #### [facility] [address] [place], [address] Hemoglobin (Bld) [Mass/Vol] 14.5 g/dL Normal 12.0-15.0 [facility] Comment on above: Order Comment: Order Date: 02/23/24 Order Info: 0184-1 - CBCD Performed By: #### M 100.6796, M100.637, L100.0100, L500.4050, M600.5000 #### [facility] [address] [place], [address] IG% 0.200 Normal 0.0-0.9 [facility] Comment on above: Order Comment: Order Date: 02/23/24 Order Info: 0184- - CBCD Result Comment: IG% - Immature Granulocytes (promyelocytes, myelocytes and metamyelocytes) > 1% indicates that a LEFT SHIFT is Present. Performed By: #### M 100.6796, M100.637, L100.0100, L500.4050, M600.5000 #### [facility] [address] [place], [address] Lymphocytes/100 WBC (Bld) 45.4 % High 19-41 [facility] Comment on above: Order Comment: Order Date: 02/23/24 Order Info: 0184 - CBCD Performed By: #### M 100.6796, M100.637, L100.0100, L500.4050, M600.5000 #### [facility] [address] [place], [address] MCH (RBC) [Entitic mass] 28.8 pg Normal 27.0-32.0 [facility] Comment on above: Order Comment: Order Date: 02/23/24 Order Info: 0184- - CBCD Performed By: #### M 100.6796, M100.637, L100.0100, L500.4050, M600.5000 #### [facility] [address] [place], [address] MCHC (RBC) [Mass/Vol] 32.7 g/dL Normal 32-36 [facility] Comment on above: Order Comment: Order Date: 02/23/24 Order Info: 0184- - CBCD Performed By: #### M 100.6796, M100.637, L100.0100, L500.4050, M600.5000 #### [facility] [address] [place], [address] MCV (RBC) [Entitic vol] 88.1 fL Normal 81-99 [facility] Comment on above: Order Comment: Order Date: 02/23/24 Order Info: 0184-1 - CBCD Performed By: #### M 100.6796, M100.637, L100.0100, L500.4050, M600.5000 #### [facility] [address] [place], [address] Monocytes/100 WBC (Bld) 9.0 % Normal 0-10 [facility] Comment on above: Order Comment: Order Date: 02/23/24 Order Info: 0184- - CBCD Performed By: #### M 100.6796, M100.637, L100.0100, L500.4050, M600.5000 #### [facility] [address] [place], [address] Neutrophils/100 WBC (Bld) 41.9 % Low 47-70 [facility] Comment on above: Order Comment: Order Date: 02/23/24 Order Info: 0184- - CBCD Performed By: #### M 100.6796, M100.637, L100.0100, L500.4050, M600.5000 #### [facility] [address] [place], [address] Nucleated RBC (Bld) [#/Vol] 0 10*3/uL Normal 0-5 [facility] Comment on above: Order Comment: Order Date: 02/23/24 Order Info: 0184-1 - CBCD Performed By: #### M 100.6796, M100.637, L100.0100, L500.4050, M600.5000 #### [facility] [address] [place], [address] Platelet mean volume (Bld) [Entitic vol] 10.8 fL Normal 6.2-12.0 [facility] Comment on above: Order Comment: Order Date: 02/23/24 Order Info: 0184-1 - CBCD Performed By: #### M 100.6796, M100.637, L100.0100, L500.4050, M600.5000 #### [facility] [address] [place], [address] Platelets (Bld) [#/Vol] 247 10*3/uL Normal 150-450 [facility] Comment on above: Order Comment: Order Date: 02/23/24 Order Info: 0184-1 - CBCD Performed By: #### M 100.6796, M100.637, L100.0100, L500.4050, M600.5000 #### [facility] [address] [place], [address] RBC (Bld) [#/Vol] 5.04 10*6/uL Normal 4.2-5.4 [facility] Comment on above: Order Comment: Order Date: 02/23/24 Order Info: 0184-1 - CBCD Performed By: #### M 100.6796, M100.637, L100.0100, L500.4050, M600.5000 #### [facility] [address] [place], [address] RDW SD 39.2 fl Normal 35.1-43.9 [facility] Comment on above: Order Comment: Order Date: 02/23/24 Order Info: 0184-1 - CBCD Performed By: #### M 100.6796, M100.637, L100.0100, L500.4050, M600.5000 #### [facility] [address] [place], [address] WBC (Bld) [#/Vol] 4.3 10*3/uL Low 4.4-11.0 [facility] Comment on above: Order Comment: Order Date: 02/23/24 Order Info: 0184-1 - CBCD Performed By: #### M 100.6796, M100.637, L100.0100, L500.4050, M600.5000 #### [facility] [address] [place], [place], [id number] CDIFF (PCR)on 02-23-2024 CDIFF Order Date: 02/23/24 Order Info: 625-4 - CUST Order Info: 0038-2 - C DIFF A positive C. difficile molecular test does not differentiate between an active C. difficile infection and C. difficile colonization. Use clinical judgement and paired toxin/antigen testing to identify true infection and need for treatment. C diff DNA Spec Ql TRAV+probe Reference Range: Negative [employer] GeneXpert: polymerase chain reaction (PCR) 027 027 NAP1-B1 Presumptive Negative *for epidemiolologic???use C. Diff PCR Negative- No toxigenic C. Diff Detected Normal [facility] Comment on above: Performed By: #### M 100.6796, M100.637, L100.0100, L500.4050, M600.5000 #### [facility] [address] [place], [place], [id number] Comprehensive Metabolic Prof ilon 02-23-2024 Albumin [Mass/Vol] 3.9 g/dL Normal 3.2-5.0 [facility] Comment on above: Order Comment: Order Date: 02/23/24 Order Info: 0786-1 - CMP Performed By: #### M 100.6796, M100.637, L100.0100, L500.4050, M600.5000 #### [facility] [address] [place], [address] Albumin/Globulin [Mass ratio] 0.9 {ratio} Normal 0.9-2.4 [facility] Comment on above: Order Comment: Order Date: 02/23/24 Order Info: 0786-1 - CMP Performed By: #### M 100.6796, M100.637, L100.0100, L500.4050, M600.5000 #### [facility] [address] [place], [address] ALK P 93 U/L Normal 45-117 [facility] Comment on above: Order Comment: Order Date: 02/23/24 Order Info: 0786-1 - CMP Performed By: #### M 100.6796, M100.637, L100.0100, L500.4050, M600.5000 #### [facility] [address] [place], [address] ALT [Catalytic activity/Vol] 31 U/L Normal 13-56 [facility] Comment on above: Order Comment: Order Date: 02/23/24 Order Info: 0786-1 - CMP Performed By: #### M 100.6796, M100.637, L100.0100, L500.4050, M600.5000 #### [facility] [address] [place], [address] AST [Catalytic activity/Vol] 27 U/L Normal 15-37 [facility] Comment on above: Order Comment: Order Date: 02/23/24 Order Info: 0786-1 - CMP Performed By: #### M 100.6796, M100.637, L100.0100, L500.4050, M600.5000 #### [facility] [address] [place], [address] Bilirubin [Mass/Vol] 0.30 mg/dL Normal 0.20-1.00 [facility] Comment on above: Order Comment: Order Date: 02/23/24 Order Info: 0786-1 - CMP Result Comment: For patients on eltrombopag therapy, use of Dimension Arminto TBIL is not recommended. Performed By: #### M 100.6796, M100.637, L100.0100, L500.4050, M600.5000 #### [facility] [address] [place], [address] BUN/CRE 11.2 RATIO Normal 10-20 [facility] Comment on above: Order Comment: Order Date: 02/23/24 Order Info: 0786-1 - CMP Performed By: #### M 100.6796, M100.637, L100.0100, L500.4050, M600.5000 #### [facility] [address] [place], [address] CA,Total 9.4 mg/dL Normal 8.5-10.1 [facility] Comment on above: Order Comment: Order Date: 02/23/24 Order Info: 0786-1 - CMP Performed By: #### M 100.6796, M100.637, L100.0100, L500.4050, M600.5000 #### [facility] [address] [place], [address] Chloride [Moles/Vol] 107 mmol/L Normal 98-107 [facility] Comment on above: Order Comment: Order Date: 02/23/24 Order Info: 0786-1 - CMP Performed By: #### M 100.6796, M100.637, L100.0100, L500.4050, M600.5000 #### [facility] [address] [place], [address] CO2 [Moles/Vol] 21.0 mmol/L Normal 21.0-32.0 [facility] Comment on above: Order Comment: Order Date: 02/23/24 Order Info: 0786-1 - CMP Performed By: #### M 100.6796, M100.637, L100.0100, L500.4050, M600.5000 #### [facility] [address] [place], [address] Creatinine [Mass/Vol] 0.98 mg/dL Normal 0.55-1.02 [facility] Comment on above: Order Comment: Order Date: 02/23/24 Order Info: 0786-1 - CMP Result Comment: The validity of the calculated GFR GFRAA in patients over 70 years has not been determined. Clinical correlation is essential. Performed By: #### M 100.6796, M100.637, L100.0100, L500.4050, M600.5000 #### [facility] [address] [place], [address] EST GFR - AA 86 mL/min Normal >60 [facility] Comment on above: Order Comment: Order Date: 02/23/24 Order Info: 0786-1 - CMP Result Comment: Afri can Beninese GFR Calc Performed By: #### M 100.6796, M100.637, L100.0100, L500.4050, M600.5000 #### [facility] [address] [place], [address] GAP 10 Normal 5-15 [facility] Comment on above: Order Comment: Order Date: 02/23/24 Order Info: 0786- - CMP Performed By: #### M 100.6796, M100.637, L100.0100, L500.4050, M600.5000 #### [facility] [address] [place], [address] GFR/1.73 sq M.predicted among non-blacks MDRD (S/P/Bld) [Vol rate/Area] 71 mL/min/{1.73_m2} Normal >60 [facility] Comment on above: Order Comment: Order Date: 02/23/24 Order Info: 0786-1 - CMP Result Comment: Non- GFR Calc Performed By: #### M 100.6796, M100.637, L100.0100, L500.4050, M600.5000 #### [facility] [address] [place], [address] Globulin (S) [Mass/Vol] 4.2 g/dL Normal 2.2-4.2 [facility] Comment on above: Order Comment: Order Date: 02/23/24 Order Info: 0786-1 - CMP Performed By: #### M 100.6796, M100.637, L100.0100, L500.4050, M600.5000 #### [facility] [address] [place], [address] Glucose [Mass/Vol] 86 mg/dL Normal 74-106 [facility] Comment on above: Order Comment: Order Date: 02/23/24 Order Info: 0786-1 - CMP Performed By: #### M 100.6796, M100.637, L100.0100, L500.4050, M600.5000 #### [facility] [address] [place], [address] Potassium [Moles/Vol] 3.2 mmol/L Low 3.5-5.1 [facility] Comment on above: Order Comment: Order Date: 02/23/24 Order Info: 0786-1 - CMP Performed By: #### M 100.6796, M100.637, L100.0100, L500.4050, M600.5000 #### [facility] [address] [place], [address] Sodium [Moles/Vol] 138 mmol/L Normal 136-145 [facility] Comment on above: Order Comment: Order Date: 02/23/24 Order Info: 0786-1 - CMP Performed By: #### M 100.6796, M100.637, L100.0100, L500.4050, M600.5000 #### [facility] [address] [place], [address] T PROT 8.1 g/dL Normal 6.4-8.2 [facility] Comment on above: Order Comment: Order Date: 02/23/24 Order Info: 0786-1 - CMP Performed By: #### M 100.6796, M100.637, L100.0100, L500.4050, M600.5000 #### [facility] [address] [place], [address] Urea nitrogen [Mass/Vol] 11 mg/dL Normal 7-18 [facility] Comment on above: Order Comment: Order Date: 02/23/24 Order Info: 0786-1 - CMP Performed By: #### M 100.6796, M100.637, L100.0100, L500.4050, M600.5000 #### [facility] [address] [place], [address] ENTERIC PATHOGEN PANEL STOOL on 02-23-2024 EP PANEL Order Date: 02/23/24 Order Info: 625-4 - CUST Order Info: 0038-2 - C DIFF CAMPYLOBACTER Not Detected Norovirus Not Detected Rotavirus Not Detected Salmonella Not Detected Shiga Toxin Not Detected Shigella sp. Not Detected VIBRIO Not Detected Yersinia Not Detected Normal [facility] Comment on above: Performed By: #### M 100.6796, M100.637, L100.0100, L500.4050, M600.5000 #### [facility] [address] [place], [place], [id number] URINE OB DIP B/Oon 3 Glucose Ql (U) Negative Neg mg/dL [facility] Protein.monoclonal (U) [Mass/Vol] Negative Neg mg/dL [facility] URINE OB DIP B/Oon 3 Glucose Ql (U) Negative Neg mg/dL [facility] Protein.monoclonal (U) [Mass/Vol] Negative Neg mg/dL [facility] URINE OB DIP B/Oon 3 Glucose Ql (U) Negative Neg mg/dL [facility] Protein.monoclonal (U) [Mass/Vol] Negative Neg mg/dL [facility] OBSTETRIC ULTRASOUND WHIon 0 01-13-2023 [facility] URINE OB DIP B/Oon 3 Glucose Ql (U) Negative Neg mg/dL [facility] Protein.monoclonal (U) [Mass/Vol] Negative Neg mg/dL [facility] URINE OB DIP B/Oon 3 Glucose Ql (U) Negative Neg mg/dL [facility] Protein.monoclonal (U) [Mass/Vol] Negative Neg mg/dL [facility] OBSTETRIC ULTRASOUND WHIon 0 12-16-2022 [facility] URINE OB DIP B/Oon 3 Glucose Ql (U) Negative Neg mg/dL [facility] Protein.monoclonal (U) [Mass/Vol] Negative Neg mg/dL [facility] URINE OB DIP B/Oon 3 Glucose Ql (U) Negative Neg mg/dL [facility] Protein.monoclonal (U) [Mass/Vol] Negative Neg mg/dL [facility] URINE OB DIP B/Oon 3 Glucose Ql (U) Negative Neg mg/dL [facility] Protein.monoclonal (U) [Mass/Vol] Negative Neg mg/dL [facility] URINE OB DIP B/Oon 3 Glucose Ql (U) Negative Neg mg/dL [facility] Protein.monoclonal (U) [Mass/Vol] Negative Neg mg/dL [facility] URINE OB DIP B/Oon 3 Glucose Ql (U) Negative Neg mg/dL [facility] Protein.monoclonal (U) [Mass/Vol] Negative Neg mg/dL [facility] URINE OB DIP B/Oon 3 Glucose Ql (U) Negative Neg mg/dL [facility] Protein.monoclonal (U) [Mass/Vol] Negative Neg mg/dL [facility] NUCHAL TRANSLUCENCY WHIon [facility] URINE OB DIP B/Oon 2 Glucose Ql (U) Negative Neg mg/dL [facility] Protein.monoclonal (U) [Mass/Vol] Negative Neg mg/dL [facility] CBC panel Auto (Bld)on 07-01 Erythrocyte distribution width (RBC) [Ratio] 11.6 % 11.5 - 15.0 % [facility] Hematocrit (Bld) [Volume fraction] 40.2 % 36.0 - 46.0 % [facility] Hemoglobin (Bld) [Mass/Vol] 13.5 g/dL 11.5 - 15.5 g/dL [facility] MCH (RBC) [Entitic mass] 30.1 pg 26.0 - 34.0 pg [facility] MCHC (RBC) [Mass/Vol] 33.6 g/dL 30.5 - 36.0 g/dL [facility] MCV (RBC) [Entitic vol] 89.7 fL 80.0 - 100.0 fL [facility] Nucleated RBC (Bld) [#/Vol] <0.01 k/uL [facility] Platelet mean volume (Bld) [Entitic vol] 10.5 fL 9.0 - 12.7 fL [facility] Platelets (Bld) [#/Vol] 260 10*3/uL 150 - 400 k/uL [facility] RBC (Bld) [#/Vol] 4.48 10*6/uL 3.90 - 5.20 m/uL [facility] WBC (Bld) [#/Vol] 5.31 10*3/uL 3.70 - 11. 00 k/uL [facility] HBV surface Ab IA Ql (S)on 1 08-31-2021 HBV surface Ag Ql (S) Negative Negative [facility] HEP C AB IA W/CONF SCRNon HCV Ab Ql (S) Negative Negative [facility] HIV 1+2 Ab IA Qlon HIV 1 and 2 Ab IA.rapid Nom [facility] HIV 1+2 Ab+HIV1 p24 Ag IA Ql Non-Reactive Nonreactive [facility] HIV Interpretation [facility] HbA1c (Bld)on 07-01-2022 Average glucose Estimated from glycated hemoglobin (Bld) [Mass/Vol] 94 mg/dL [facility] HbA1c (Bld) [Mass fraction] 4.9 % 4.3 - 5.6 % [facility] RUBELLA IGG ABon 07-01-2022 Rubella IgG, Qual Positive Positive [facility] Reagin and Treponema pallidu m IgG and IgM [Interp]on 07-01-2022 Syphilis Interpretation Cannot exclude recent Treponemal infection if specimen collected within 7-10 days after appearance of suspect lesions or 2-3 weeks after an exposure. Clinical correlation is required. [facility] T. pallidum IgG+IgM IA Ql (S) Non-Reactive Nonreactive [facility] Vital Signs Date Time Vital Sign Value Performing Clinician Faci lity 04-18-2025 09:05-0400 Body mass index (BMI) [Ratio] 32.28 kg/m2 Minnie Holm APRN.CNM Work Phone: [facility] 04-18-2025 09:05-0400 Body weight 107.96 kg Minnie Holm APRN.CNM Work Phone: [facility] 04-18-2025 09:05-0400 Diastolic blood pressure 64 mm[Hg] Minnie Holm OWNER CONSULTING ENGINEER.CNM Work Phone: [facility] 04-18-2025 09:05-0400 Systolic blood pressure 112 mm[Hg] Minnie Holm OWNER CONSULTING ENGINEER.CNM Work Phone: [facility] 03-21-2025 08:32-0400 Body mass index (BMI) [Ratio] 32.14 kg/m2 Sami Haury OWNER CONSULTING ENGINEER.RANGE CONSERVATIONIST Work Phone: [facility] 03-21-2025 08:32-0400 Body weight 107.5 kg Sami Haury OWNER CONSULTING ENGINEER.RANGE CONSERVATIONIST Work Phone: [facility] 03-21-2025 08:32-0400 Diastolic blood pressure 70 mm[Hg] Sami Haury OWNER CONSULTING ENGINEER.RANGE CONSERVATIONIST Work Phone: [facility] 03-21-2025 08:32-0400 Systolic blood pressure 118 mm[Hg] Sami Haury OWNER CONSULTING ENGINEER.RANGE CONSERVATIONIST Work Phone: [facility] 02-21-2025 14:14-0400 Body mass index (BMI) [Ratio] 31.11 kg/m2 Aure Colon MD Work Phone: [facility] 02-21-2025 14:14-0400 Body weight 104.06 kg Aure Colon MD Work Phone: [facility] 02-21-2025 14:14-0400 Diastolic blood pressure 78 mm[Hg] Aure Colon MD Work Phone: [facility] 02-21-2025 14:14-0400 Systolic blood pressure 110 mm[Hg] Aure Colon MD Work Phone: [facility] 01-31-2025 15:11-0400 Body mass index (BMI) [Ratio] 30.79 kg/m2 Minnie Holm OWNER CONSULTING ENGINEER.CNM Work Phone: [facility] 01-31-2025 15:11-0400 Body weight 102.97 kg Minnie Holm OWNER CONSULTING ENGINEER.CNM Work Phone: [facility] 01-31-2025 15:11-0400 Diastolic blood pressure 76 mm[Hg] Minnie Holm OWNER CONSULTING ENGINEER.CNM Work Phone: [facility] 01-31-2025 15:11-0400 Systolic blood pressure 110 mm[Hg] Minnie Holm OWNER CONSULTING ENGINEER.CNM Work Phone: [facility] 11-29-2024 08:41-0400 Body height 182.9 cm Maria Eugenia Plotts OWNER CONSULTING ENGINEER.CNM Work Phone: [facility] 11-29-2024 08:41-0400 Body mass index (BMI) [Ratio] 29.97 kg/m2 Maria Eugenia Plotts OWNER CONSULTING ENGINEER.CNM Work Phone: [facility] 11-29-2024 08:41-0400 Body weight 100.25 kg Maria Eugenia Plotts OWNER CONSULTING ENGINEER.CNM Work Phone: [facility] 11-29-2024 08:41-0400 Diastolic blood pressure 66 mm[Hg] Maria Eugenia Plotts OWNER CONSULTING ENGINEER.CNM Work Phone: [facility] 11-29-2024 08:41-0400 Systolic blood pressure 110 mm[Hg] Maria Eugenia Plotts OWNER CONSULTING ENGINEER.CNM Work Phone: [facility] 07-30-2024 14:22-0500 Body height 180.3 cm Wally Mercado MD Work Phone: [facility] 07-30-2024 14:22-0500 Body mass index (BMI) [Ratio] 31.38 kg/m2 Wally Mercado MD Work Phone: [facility] 07-30-2024 14:22-0500 Body weight 102.06 kg Wally Mercado MD Work Phone: [facility] 07-30-2024 14:22-0500 Diastolic blood pressure 82 mm[Hg] Wally Mercado MD Work Phone: [facility] 07-30-2024 14:22-0500 Systolic blood pressure 124 mm[Hg] Wally Mercado MD Work Phone: [facility] 03-24-2023 15:05-0400 Body weight 96.62 kg Wally Mercado MD Work Phone: [facility] 03-24-2023 15:05-0400 Diastolic blood pressure 68 mm[Hg] Wally Mercado MD Work Phone: [facility] 03-24-2023 15:05-0400 Systolic blood pressure 104 mm[Hg] Wally Mercado MD Work Phone: [facility] 02-21-2023 11:25-0400 Body weight 97.07 kg Wally Mercado MD Work Phone: [facility] 02-21-2023 11:25-0400 Diastolic blood pressure 74 mm[Hg] Wally Mercado MD Work Phone: [facility] 02-21-2023 11:25-0400 Systolic blood pressure 116 mm[Hg] Wally Mercado MD Work Phone: [facility] 02-03-2023 10:56-0400 Body weight 112.95 kg Minnieleona Holm APRN.CNM Work Phone: [facility] 02-03-2023 10:56-0400 Diastolic blood pressure 72 mm[Hg] Minnie Holm OWNER CONSULTING ENGINEER.CNM Work Phone: [facility] 02-03-2023 10:56-0400 Systolic blood pressure 120 mm[Hg] Minnie Holm OWNER CONSULTING ENGINEER.CNM Work Phone: [facility] 01-27-2023 09:16-0400 Body weight 111.58 kg Minnie Holm OWNER CONSULTING ENGINEER.CNM Work Phone: [facility] 01-27-2023 09:16-0400 Diastolic blood pressure 66 mm[Hg] Minnie Holm OWNER CONSULTING ENGINEER.CNM Work Phone: [facility] 01-27-2023 09:16-0400 Systolic blood pressure 110 mm[Hg] Minnie Holm OWNER CONSULTING ENGINEER.CNM Work Phone: [facility] 01-20-2023 10:58-0400 Body weight 109.5 kg Hope Parmar MD Work Phone: [facility] 01-20-2023 10:58-0400 Diastolic blood pressure 74 mm[Hg] Hope Parmar MD Work Phone: [facility] 01-20-2023 10:58-0400 Systolic blood pressure 110 mm[Hg] Hope Parmar MD Work Phone: [facility] 01-13-2023 11:27-0400 Diastolic blood pressure 70 mm[Hg] Hope Parmar MD Work Phone: [facility] 01-13-2023 11:27-0400 Systolic blood pressure 110 mm[Hg] Hope Parmar MD Work Phone: [facility] 01-13-2023 10:49-0400 Body height 180.3 cm Keren Ontiveros MD Work Phone: [facility] 01-13-2023 10:49-0400 Body weight 108.86 kg Keren Ontiveros MD Work Phone: [facility] 12-30-2022 15:27-0400 Body weight 108.86 kg Hope Parmar MD Work Phone: [facility] 12-30-2022 15:27-0400 Diastolic blood pressure 78 mm[Hg] Hope Parmar MD Work Phone: [facility] 12-30-2022 15:27-0400 Systolic blood pressure 112 mm[Hg] Hope Parmar MD Work Phone: [facility] 12-16-2022 15:25-0400 Body weight 107.05 kg Wally Mercado MD Work Phone: [facility] 12-16-2022 15:25-0400 Diastolic blood pressure 78 mm[Hg] Wally Mercado MD Work Phone: [facility] 12-16-2022 15:25-0400 Systolic blood pressure 128 mm[Hg] Wally Mercado MD Work Phone: [facility] 12-02-2022 15:19-0400 Body weight 107.05 kg Aure Colon MD Work Phone: [facility] 12-02-2022 15:19-0400 Diastolic blood pressure 72 mm[Hg] Aure Colon MD Work Phone: [facility] 12-02-2022 15:19-0400 Systolic blood pressure 108 mm[Hg] Aure Colon MD Work Phone: [facility] 11-18-2022 14:59-0400 Body weight 106.59 kg Maria Eugenia Plotts OWNER CONSULTING ENGINEER.CNM Work Phone: [facility] 11-18-2022 14:59-0400 Diastolic blood pressure 70 mm[Hg] Maria Eugenia Plotts OWNER CONSULTING ENGINEER.CNM Work Phone: [facility] 11-18-2022 14:59-0400 Systolic blood pressure 112 mm[Hg] Maria Eugenia Plotts OWNER CONSULTING ENGINEER.CNM Work Phone: [facility] 10-21-2022 16:00-0400 Body weight 104.78 kg Aure Colon MD Work Phone: [facility] 10-21-2022 16:00-0400 Diastolic blood pressure 74 mm[Hg] Aure Colon MD Work Phone: [facility] 10-21-2022 16:00-0400 Systolic blood pressure 110 mm[Hg] Aure Colon MD Work Phone: [facility] 09-23-2022 15:01-0500 Body weight 99.79 kg Wally Mercado MD Work Phone: [facility] 09-23-2022 15:01-0500 Diastolic blood pressure 78 mm[Hg] Wally Mercado MD Work Phone: [facility] 09-23-2022 15:01-0500 Systolic blood pressure 108 mm[Hg] Wally Mercado MD Work Phone: [facility] 08-26-2022 10:00-0500 Body weight 97.61 kg Wally Mercado MD Work Phone: [facility] 08-26-2022 10:00-0500 Diastolic blood pressure 66 mm[Hg] Wally Mercado MD Work Phone: [facility] 08-26-2022 10:00-0500 Systolic blood pressure 110 mm[Hg] Wally Mercado MD Work Phone: [facility] 07-29-2022 16:14-0500 Body weight 94.89 kg Minnie Holm APRN.CNM Work Phone: [facility] 07-29-2022 16:14-0500 Diastolic blood pressure 68 mm[Hg] Minnie Holm APRN.CNM Work Phone: [facility] 07-29-2022 16:14-0500 Systolic blood pressure 120 mm[Hg] Minnie Holm APRN.CNM Work Phone: [facility] 07-01-2022 15:11-0500 Body height 181.6 cm Aure Colon MD Work Phone: [facility] 07-01-2022 15:11-0500 Body weight 94.35 kg Aure Colon MD Work Phone: [facility] Encounters Encounter Date Encounter Type Care Provider Facility Start: 06-20-2025 [facility] Start: 06-15-2025 End: 06-15-2025 ambulatory AURE COLON Facility:[facility] Start: 05-31-2025 End: 05-31-2025 ambulatory GONZALES HARTLEY Facility:[facility] Start: 05-17-2025 End: [facility] Start: 05-02-2025 End: 05-02-2025 ambulatory [facility] Facility:[facility] Start: 04-18-2025 End: 04-18-2025 Patient encounter procedure Minnie Holm APRN.CNM Work Phone: OB/Gynecology Comment on above: Encounter for superv ision of other normal in second trimester (HCC) (Primary Dx); 27 weeks gestation of (HCC); History of macrosomia in infant in prior , currently (HCC); Need for vaccination Start: 04-18-2025 End: 04-18-2025 ambulatory PEPE TORRES Facility:[facility] Start: 03-21-2025 End: 03-21-2025 Patient encounter procedure Sami Roy APRN.CNP Work Phone: OB/Gynecology Comment on above: Encounter for superv ision of other normal in second trimester (HCC) (Primary Dx); 23 weeks gestation of (HCC); Screening for diabetes mellitus; History of macrosomia in infant in prior , currently ([facility]) Start: 03-21-2025 End: 03-21-2025 ambulatory SAMI ROY Facility:[facility] Start: 02-21-2025 End: 02-21-2025 Patient encounter procedure Aure Colon MD Work Phone: OB/Gynecology Comment on above: Encounter for superv ision of other normal in second trimester (HCC) (Primary Dx); History of macrosomia in in prior , currently ([facility]); 19 weeks gestation of (HCC) Encounter for anatomic survey ([facility]) [Z36.89] (Primary Dx); with uncertain dates, antepartum ([facility]) Start: 02-21-2025 End: 02-21-2025 ambulatory MARIA EUGENIA ROPER Facility:[facility] Start: 01-31-2025 End: 01-31-2025 Patient encounter procedure Minnie Holm APRN.CNM Work Phone: OB/Gynecology Comment on above: Encounter for superv ision of other normal in second trimester (HCC) (Primary Dx); 16 weeks gestation of (HCC); History of macrosomia in infant in prior , currently ([facility]) Start: 01-31-2025 End: 01-31-2025 ambulatory MINNIE HOLM Facility:[facility] Start: 12-30-2024 End: 12-30-2024 [facility] Start: 12-30-2024 End: 12-30-2024 ambulatory [facility] Facility:[facility] Start: 11-29-2024 End: 01-29-2025 Follow-up encounter Maria Eugenia Roper PRISCILLA Work Phone: OB/Gynecology Start: 11-29-2024 End: 11-29-2024 Patient encounter procedure Maria Eugenia Roper CNM Work Phone: OB/Gynecology Comment on above: with uncer tain dates, antepartum (HCC) (Primary Dx); related nausea, antepartum (HCC); 7 weeks gestation of (HCC); Encounter for supervision of other normal in first trimester ([facility]); History of macrosomia in infant in prior , currently ([facility]) Start: 11-29-2024 End: 11-29-2024 ambulatory [facility] Start: 07-30-2024 End: 07-30-2024 ambulatory WALLY MERCADO Facility:[facility] Start: 07-30-2024 End: 07-30-2024 Patient encounter procedure Wally Mercado MD Work Phone: OB/Gynecology Comment on above: Papanicolaou smear o f cervix with low grade squamous intraepithelial lesion (LGSIL) (Primary Dx); Encounter for gynecological examination (general) (routine) without abnormal findings; Screening for cervical cancer; Encounter for screening for human papillomavirus (HPV) Start: 07-30-2024 End: 07-30-2024 Patient encounter status Wally Mercado MD Work Phone: [facility] Start: 02-23-2024 End: 02-23-2024 ambulatory Taniya Gonzalez NP Facility:[facility] Start: 03-24-2023 End: 03-24-2023 Patient encounter procedure Wally Mercado MD Work Phone: OB/Gynecology Comment on above: Papanicolaou smear o f cervix with low grade squamous intraepithelial lesion (LGSIL) (Primary Dx); care and examination Start: 02-21-2023 Telephone encounter Wally Mercado MD Work Phone: OB/Gynecology Comment on above: FMLA Paperwork Start: 02-21-2023 End: 02-21-2023 Patient encounter procedure Wally Mercado MD Work Phone: OB/Gynecology Comment on above: Routine f ollow-up (Primary Dx) Start: 02-04-2023 ambulatory Minnie Holm APRN.CNM Work Phone: OB/Gynecology Comment on above: [place] Start: 02-04-2023 E-mail encounter fro m caregiver Minnie Mihai ROOT.CNM Work Phone: [facility] Start: 02-03-2023 End: 02-03-2023 Patient encounter procedure Minniejohana Holm APRN.CNM Work Phone: OB/Gynecology Comment on above: 39 weeks gestation o f (Primary Dx) Start: 01-27-2023 End: 01-27-2023 Patient encounter procedure Minnieleona Holm APRN.CNM Work Phone: OB/Gynecology Comment on above: 38 weeks gestation o f (Primary Dx) Start: 01-20-2023 End: 01-20-2023 Patient encounter procedure Hope Parmar MD Work Phone: OB/Gynecology Comment on above: 37 weeks gestation o f (Primary Dx); Encounter for supervision of normal first in third trimester Start: 01-13-2023 End: 01-13-2023 Patient encounter procedure Keren Ontiveros MD Work Phone: OB/Gynecology Comment on above: Uterine size-date di screpancy, third trimester (Primary Dx); Encounter for supervision of normal first in third trimester; 36 weeks gestation of 36 weeks gestation o f (Primary Dx); Encounter for supervision of normal first in third trimester; Excessive growth affecting management of in third trimester, single or unspecified fetus Start: 12-30-2022 End: 12-30-2022 Patient encounter procedure Hope Parmar MD Work Phone: OB/Gynecology Comment on above: 34 weeks gestation o f (Primary Dx); Encounter for supervision of normal first in third trimester Start: 12-24-2022 ambulatory Wally lei MD Work Phone: OB/Gynecology Comment on above: Blurred vision Start: 12-16-2022 End: 12-16-2022 Patient encounter procedure Wally Mercado MD Work Phone: OB/Gynecology Comment on above: 32 weeks gestation o f (Primary Dx); Encounter for supervision of normal first in third trimester; Uterine size-date discrepancy, third trimester Macrosomia of fetus affecting management of mother in third trimester, single or unspecified fetus (Primary Dx); 32 weeks gestation of ; Encounter for ultrasound to check growth Start: 12-03-2022 Telephone encounter Wally Mercado MD Work Phone: OB/Gynecology Comment on above: Breast Pump Start: 12-02-2022 End: 12-02-2022 Patient encounter procedure Aure Colon MD Work Phone: OB/Gynecology Comment on above: Uterine size-date di screpancy, third trimester (Primary Dx); 30 weeks gestation of Start: 11-25-2022 ambulatory Aure Colon MD Work Phone: OB/Gynecology Comment on above: Allergies Start: 11-18-2022 End: 11-18-2022 Patient encounter procedure Maria Eugenia Dilciadewey OWNER CONSULTING ENGINEER.CNM Work Phone: OB/Gynecology Comment on above: 28 weeks gestation o f (Primary Dx); Encounter for supervision of normal first in third trimester; Need for vaccination; Uterine size-date discrepancy, third trimester Start: 10-21-2022 End: 10-21-2022 Patient encounter procedure Aure Colon MD Work Phone: OB/Gynecology Comment on above: Encounter for superv ision of normal first in second trimester (Primary Dx); 24 weeks gestation of Start: 09-23-2022 End: 09-23-2022 Patient encounter procedure Wally Mercado MD Work Phone: OB/Gynecology Comment on above: 20 weeks gestation o f (Primary Dx); Encounter for supervision of normal first in second trimester Start: 08-26-2022 End: 08-26-2022 Patient encounter procedure Wally Mercado MD Work Phone: OB/Gynecology Comment on above: 16 weeks gestation o f (Primary Dx); Encounter for supervision of other normal , first trimester Start: 08-01-2022 Telephone encounter Keren gan MD Work Phone: Maternal Medicine Comment on above: First Seq Results Start: 07-30-2022 End: 07-30-2022 Patient encounter procedure Keren Ontiveros MD Work Phone: Maternal Medicine Comment on above: Encounter for (NT) n uchal translucency scan (Primary Dx); 12 weeks gestation of Start: 07-30-2022 Telephone encounter Minnie ku APRN.CNM Work Phone: OB/Gynecology Comment on above: Orders Start: 07-29-2022 End: 07-29-2022 Patient encounter procedure Minnie Holm APRN.CNBernie Work Phone: OB/Gynecology Comment on above: 12 weeks gestation o f (Primary Dx) Start: 07-01-2022 End: 07-01-2022 Patient encounter procedure Aure Colon MD Work Phone: OB/Gynecology Comment on above: Encounter for superv ision of normal first in first trimester (Primary Dx); related nausea, antepartum; Encounter for care in first trimester of first ; Need for influenza vaccination; Obesity during Start: 06-24-2022 End: 06-24-2022 Nursing evaluation of patient and report Nurse P[facility] Work Phone: OB/Gynecology Comment on above: Spotting in early pr egnancy; related nausea, antepartum; Obesity during Start: 06-24-2022 Telephone encounter Aure Colno MD Work Phone: OB/Gynecology Comment on above: Patient Question Start: 06-06-2022 Telephone encounter Aure Colon MD Work Phone: OB/Gynecology Comment on above: Future Appointment Start: 01-11-2022 Refill Mona SALDAÑA RN.RANGE CONSERVATIONIST Work Phone: OB/Gynecology Comment on above: Refill Request Opened In Error Start: 01-10-2022 Refill Mona SALDAÑA RN.RANGE CONSERVATIONIST Work Phone: OB/Gynecology Comment on above: Refill Request Procedures Date Procedure Procedure Detail Performing Clinician Start: 02-21-2025 Us preg uterus after 1st trimest 08/11 gestation Maria Eugenia Roper OWNER CONSULTING ENGINEER.CNM Work Phone: Start: 12-30-2024 Antibody screen [facility] Comment on above: Order Comment: Speci men Type: BLOOD SPECIMEN Ordering Facility: [facility] Address: [address] [place] [address] Performed By: #### T SPN #### [facility] CLIA [id number] [address] [place] [address] [place] [address] [place] Start: 11-29-2024 Iadna chlamydia trachomatis amplified probe tq Maria Eugenia Roper OWNER CONSULTING ENGINEER.CNM Work Phone: Start: 11-29-2024 Us uterus l imited 1/> fetuses Maria Eugenia Hadewey OWNER CONSULTING ENGINEER.CNM Work Phone: Start: 02-03-2023 URINE OB DIP B/O Kade Holm APRN.CNM Work Phone: Start: 01-27-2023 URINE OB DIP B/O Kade Holm APRN.CNM Work Phone: Start: 01-20-2023 URINE OB DIP B/O Hope martinez MD Work Phone: Start: 01-13-2023 URINE OB DIP B/O Hope martinez MD Work Phone: Start: 01-13-2023 Us preg uterus after 1st trimest 08/11 gestation Wally Mercado MD Work Phone: Start: 12-30-2022 URINE OB DIP B/O Hope martinez MD Work Phone: Start: 12-16-2022 URINE OB DIP B/O Gabriella Mercado MD Work Phone: Start: 12-16-2022 Us preg uterus after 1st trimest 1/1st gestation Aure Colon MD Work Phone: Start: 12-02-2022 URINE OB DIP B/O Arue Colon MD Work Phone: Start: 11-18-2022 URINE OB DIP B/O Nori Roper OWNER CONSULTING ENGINEER.CNM Work Phone: Start: 10-21-2022 URINE OB DIP B/O Aure Colon MD Work Phone: Start: 09-23-2022 URINE OB DIP B/O Gabriella Mercado MD Work Phone: Start: 08-26-2022 URINE OB DIP B/O Gabriella Mercado MD Work Phone: Start: 07-30-2022 Us nuchal translucency 1st gestation Minnie Holm OWNER CONSULTING ENGINEER.CNM Work Phone: Start: 07-29-2022 URINE OB DIP B/O Jelauriic a Holm OWNER CONSULTING ENGINEER.CNM Work Phone: Start: 07-01-2022 INFLUENZA VACCINE QUADRIVALENT 6 MO - 64 YRS IM Aure Colon MD Work Phone: Plan of Treatment Date Care Activity Detail Author Start: 04-18-2035 Urine microalbumin profile DTaP,Tdap,Td Vaccine (9 - Td or Tdap) [facility] Start: 11-18-2032 Urine microalbumin profile [facility] Start: 07-30-2029 Screening for malignant neoplasm of cervix Cervical Cancer Screening [facility] Start: 05-19-2025 RSV Vaccine (1 - Ris k 1-dose series) RSV Vaccine (1 - Risk 1-dose series) [facility] Start: 05-02-2025 End: 05-02-2025 Patient encounter procedure 05/02/2025 3:10 PM EDT Routine Office Visit OB/Gynecology [address] [place] [address] Hope Parmar MD [address] [address] OB OB/Gynecology Comment on above: OB Start: 04-18-2025 End: 04-18-2025 Patient encounter procedure 04/18/2025 9:15 AM EDT Routine Office Visit OB/Gynecology [address] [place] [address] Minnie Holm APRN.CN [address] [place] [address] Glucose Test /OB OB/Gynecology Comment on above: Glucose Test /OB Start: 04-18-2025 End: 04-18-2025 ambulatory 04/18/2025 9:00 AM EDT Results Only Charly Sanwn [facility] [address] [place] [address] GLucose test [facility] Comment on above: GLucose test Start: 04-11-2025 Influenza vaccination [facility] Start: 03-21-2025 End: 06-19-2025 ANEMIA REFLEX PANEL ANEMIA REFLEX PANEL Lab Routine Encounter for supervision of other normal in second trimester (HCC) 23 weeks gestation of (HCC) Expected: 03/21/2025, Expires: 06/19/2025 [facility] Comment on above: Expected: 03/21/2025 , Expires: 06/19/2025 Start: 03-21-2025 End: 03-21-2026 GESTATIONAL GLUCOSE SCREEN, 1-HOUR, 50 GRAM, NON-FASTING GESTATIONAL GLUCOSE SCREEN, 1-HOUR, 50 GRAM, NON-FASTING Lab Routine Encounter for supervision of other normal in second trimester (HCC) 23 weeks gestation of (HCC) Screening for diabetes mellitus Expected: 03/21/2025, Expires: 03/21/2026 [facility] Work Phone: Comment on above: Expected: 03/21/2025 , Expires: 03/21/2026 Start: 03-21-2025 End: 03-21-2026 SYPHILIS TREPONEMAL W/REFLEX SYPHILIS TREPONEMAL W/REFLEX Lab Routine Encounter for supervision of other normal in second trimester (HCC) 23 weeks gestation of (HCC) Expected: 03/21/2025, Expires: 03/21/2026 [facility] Comment on above: Expected: 03/21/2025 , Expires: 03/21/2026 Start: 03-21-2025 End: 03-21-2025 Patient encounter procedure 03/21/2025 8:45 AM EDT Routine Office Visit OB/Gynecology [address] [place], [place] [id number] Sami Roy APRN.RANGE CONSERVATIONIST [address] [place] [address] OB OB/Gynecology Comment on above: OB Start: 02-21-2025 End: 02-21-2025 Patient encounter procedure Maternal Medicine Comment on above: Anatomy/OB Start: 02-07-2025 Influenza vaccination Influenza Vacc ine (#1) [facility] Comment on above: Postponed from 04/11 (Declined at this time) Start: 01-31-2025 End: 01-31-2025 Patient encounter procedure OB/Gynecology Comment on above: OB Start: 12-30-2024 End: 12-30-2024 Patient encounter procedure [facility]aternal [facility] Comment on above: Nuchal Nuchal/OB/ LMP 10/05 Start: 11-29-2024 End: 02-28-2025 ANEMIA REFLEX PANEL ANEMIA REFLEX PANEL Lab Routine with uncertain dates, antepartum (HCC) Expected: 11/29/2024, Expires: 02/28/2025 [facility] Work Phone: Comment on above: Expected: 11/29/2024 , Expires: 02/28/2025 Start: 11-29-2024 End: 02-28-2025 Hemoglobin A1c in Blood HEMOGLOBIN A1C Lab Routine with uncertain dates, antepartum (HCC) Expected: 11/29/2024, Expires: 02/28/2025 [facility] Comment on above: Expected: 11/29/2024 , Expires: 02/28/2025 Start: 11-29-2024 End: 02-28-2025 Hepatitis B virus surface Ag [Presence] in Serum HEPATITIS B SURFACE ANTIGEN Lab Routine with uncertain dates, antepartum (HCC) Expected: 11/29/2024, Expires: 02/28/2025 [facility] Comment on above: Expected: 11/29/2024 , Expires: 02/28/2025 Start: 11-29-2024 End: 02-28-2025 Hepatitis C virus Ab [Presence] in Serum HEPATITIS C ANTIBODY IA WITH CONFIRMATION Lab Routine with uncertain dates, antepartum (HCC) Expected: 11/29/2024, Expires: 02/28/2025 [facility] Comment on above: Expected: 11/29/2024 , Expires: 02/28/2025 Start: 11-29-2024 End: 02-28-2025 HIV 1+2 Ab [Presence] in Serum or Plasma by Immunoassay HIV 1/2 COMBO WITH REFLEX TO DIFFERENTIATION Lab Routine with uncertain dates, antepartum (HCC) Expected: 11/29/2024, Expires: 02/28/2025 [facility] Comment on above: Expected: 11/29/2024 , Expires: 02/28/2025 Start: 11-29-2024 End: 11-29-2025 OBSTETRIC ULTRASOUND WHI OBSTETRIC ULTRASOUND WHI Anc Imaging Routine with uncertain dates, antepartum (HCC) Expected: 11/29/2024, Expires: 11/29/2025 [facility] Comment on above: Expected: 11/29/2024 , Expires: 11/29/2025 Start: 11-29-2024 End: 02-28-2025 RUBELLA IGG ANTIBODY RUBELLA IGG ANTIBODY Lab Routine with uncertain dates, antepartum (HCC) Expected: 11/29/2024, Expires: 02/28/2025 [facility] Comment on above: Expected: 11/29/2024 , Expires: 02/28/2025 Start: 11-29-2024 End: 02-28-2025 SYPHILIS TREPONEMAL W/REFLEX SYPHILIS TREPONEMAL W/REFLEX Lab Routine with uncertain dates, antepartum (HCC) Expected: 11/29/2024, Expires: 02/28/2025 [facility] Comment on above: Expected: 11/29/2024 , Expires: 02/28/2025 Start: 11-29-2024 End: 02-28-2025 TYPE + SCREEN TYPE + SCREEN Blood Bank Routine with uncertain dates, antepartum (HCC) Expected: 11/29/2024, Expires: 02/28/2025 [facility] Comment on above: Expected: 11/29/2024 , Expires: 02/28/2025 Start: 09-26-2024 PAP TESTING PAP TESTING [facility] [facility] Start: 04-11-2024 Covid-19 Vaccine () Covid-19 Vaccine () [facility] Start: 03-24-2024 Screening for malignant neoplasm of cervix Cervical Cancer Screening [facility] Start: 04-11-2023 Influenza vaccination INFLUENZA (#1) [facility] Start: 12-16-2022 End: 12-17-2023 OBSTETRIC ULTRASOUND WHI OBSTETRIC ULTRASOUND WHI Anc Imaging Routine 32 weeks gestation of Encounter for supervision of normal first in third trimester Uterine size-date discrepancy, third trimester Expected: 12/16/2022, Expires: 12/17/2023 [facility] Work Phone: Comment on above: Expected: 12/16/2022 , Expires: 12/17/2023 Start: 12-02-2022 End: 12-03-2023 OBSTETRIC ULTRASOUND WHI OBSTETRIC ULTRASOUND WHI Anc Imaging Routine 30 weeks gestation of Uterine size-date discrepancy, third trimester Expected: 12/02/2022, Expires: 12/03/2023 [facility] Work Phone: Comment on above: Expected: 12/02/2022 , Expires: 12/03/2023 Start: 11-04-2022 End: 01-04-2023 CBC W Auto Differential panel - Blood CBC + DIFF Lab Routine 24 weeks gestation of Encounter for supervision of normal first in second trimester Expected: 11/04/2022 (Approximate), Expires: 01/04/2023 [facility] Work Phone: Comment on above: Expected: 11/04/2022 (Approximate), Expires: 01/04/2023 Start: 11-04-2022 End: 01-04-2023 GEST GLUC SCREEN, 1-HR, 50 GM, NON-FASTING GEST GLUC SCREEN, 1-HR, 50 GM, NON-FASTING Lab Routine 24 weeks gestation of Encounter for supervision of normal first in second trimester Expected: 11/04/2022 (Approximate), Expires: 01/04/2023 [facility] Work Phone: Comment on above: Expected: 11/04/2022 (Approximate), Expires: 01/04/2023 Start: 11-04-2022 End: 01-04-2023 SYPHILIS TOTAL W/REFLEX SYPHILIS TOTAL W/REFLEX Lab Routine 24 weeks gestation of Encounter for supervision of normal first in second trimester Expected: 11/04/2022 (Approximate), Expires: 01/04/2023 [facility] Work Phone: Comment on above: Expected: 11/04/2022 (Approximate), Expires: 01/04/2023 Start: 08-26-2022 End: 08-26-2023 OBSTETRIC ULTRASOUND WHI OBSTETRIC ULTRASOUND WHI Anc Imaging Routine 16 weeks gestation of Expected: 08/26/2022, Expires: 08/26/2023 [facility] Work Phone: Comment on above: Expected: 08/26/2022 , Expires: 08/26/2023 Start: 08-13-2022 End: 10-08-2022 SEQUENTIAL SCRN SCND TRIMESTER SEQUENTIAL SCRN SCND TRIMESTER Lab Routine Encounter for screening of mother Expected: 08/13/2022 (Approximate), Expires: 10/08/2022 [facility] Work Phone: Comment on above: Expected: 08/13/2022 (Approximate), Expires: 10/08/2022 Start: 08-11-2022 DEPRESSION ASSESSMENT DEPRESSION ASS ESSMENT [facility] Start: 07-30-2022 End: 07-30-2023 NUCHAL TRANSLUCENCY WHI NUCHAL TRANSLUCENCY WHI Anc Imaging Routine 12 weeks gestation of Expected: 07/30/2022, Expires: 07/30/2023 [facility] Work Phone: Comment on above: Expected: 07/30/2022 , Expires: 07/30/2023 Start: 07-30-2022 End: 09-29-2022 SEQUENTIAL SCRN FRST TRIMESTER [facility] Work Phone: Comment on above: Expected: 07/30/2022 , Expires: 09/29/2022 Start: 07-29-2022 End: 09-28-2022 CYSTIC FIBROSIS PATHOGENIC VARIANT ANALYSIS CYSTIC FIBROSIS PATHOGENIC VARIANT ANALYSIS Lab Routine 12 weeks gestation of Expected: 07/29/2022, Expires: 09/28/2022 [facility] Work Phone: Comment on above: Expected: 07/29/2022 , Expires: 09/28/2022 Start: 07-01-2022 End: 08-31-2022 TYPE + SCREEN [facility] Work Phone: Comment on above: Expected: 07/01/2022 , Expires: 08/31/2022 Start: 04-11-2022 Influenza vaccination [facility] Start: 08-11-2021 DEPRESSION ASSESSMENT DEPRESSION ASS ESSMENT [facility] Start: 04-20-2015 Urine microalbumin profile DTAP,TDAP,TD (7 - Td or Tdap) [facility] Start: 12-22-2011 Anxiety Screening Anxiety Screening [facility] Start: 12-22-2011 Depression Screening Depression Scre ening [facility] Start: 2005 Adult depression screening assessment DEPRESSION SCREENING [facility] Start: 1998 COVID-19 VACCINE (#1) COVID-19 VACCI NE (#1) [facility] Start: 06-23-1994 COVID-19 VACCINE (#1) COVID-19 VACCI NE (#1) [facility] Bacteria identified in Urine by Culture URINE CULTURE Microbiology Routine related nausea, antepartum Encounter for care in first trimester of first Encounter for supervision of normal first in first trimester 07/01/2022 3:55 PM EST [facility] Work Phone: Chlamydia trachomatis+Neisseria gonorrhoeae DNA [Presence] in Unspecified specimen by TRAV with probe detection GC/CHLAMYDIA DNA DET Lab Routine related nausea, antepartum Encounter for care in first trimester of first Encounter for supervision of normal first in first trimester 07/01/2022 3:55 PM [facility] Work Phone: CYSTIC FIBROSIS PATHOGENIC VARIANT ANALYSIS CYSTIC FIBROSIS PATHOGENIC VARIANT ANALYSIS Lab Routine 12 weeks gestation of 07/30/2022 3:50 PM EST [facility] Work Phone: PAP TEST PAP TEST Lab Rou quentin Papanicolaou smear of cervix with low grade squamous intraepithelial lesion (LGSIL) 03/24/2023 3:26 PM EDT [facility] Work Phone: PAP TEST PAP TEST Lab Rou quentin Papanicolaou smear of cervix with low grade squamous intraepithelial lesion (LGSIL) Encounter for gynecological examination (general) (routine) without abnormal findings Screening for cervical cancer Encounter for screening for human papillomavirus (HPV) 07/30/2024 2:55 PM [facility] Work Phone: ROUTINE, GROUP B STREP PCR ROUTINE, GROUP B STREP PCR Microbiology Routine 36 weeks gestation of Encounter for supervision of normal first in third trimester 01/13/2023 12:03 PM EDT [facility] Work Phone: [facility] Immunizations Immunization Date Immunization Notes Care Provider Saurabh griggs 04-18-2025 tetanus toxoid, redu neo diphtheria toxoid, and acellular pertussis vaccine, adsorbed Minnie Holm OWNER CONSULTING ENGINEER.CNM Work Phone: [facility] 11-18-2022 tetanus toxoid, redu neo diphtheria toxoid, and acellular pertussis vaccine, adsorbed Maria Eugenia Roper OWNER CONSULTING ENGINEER.CNM Work Phone: [facility] 07-01-2022 influenza, injectabl e, quadrivalent, contains preservative Aure Colon MD Work Phone: [facility] 07-01-2022 influenza virus vaccine, unspecified formulation Wally Mercado MD Work Phone: [facility] 06-03-2019 Influenza, injectabl e, Madin Newberry Canine Kidney, preservative free, quadrivalent Wlaly Mercado MD Work Phone: [facility] 05-19-2018 influenza, injectabl e, quadrivalent, preservative free Wally Mercado MD Work Phone: [facility] 05-19-2017 influenza, injectabl e, quadrivalent, preservative free Wally Mercado MD Work Phone: [facility] 12-20-2010 human papilloma viru s vaccine, quadrivalent Mona Mackay APRN.[facility] Work Phone: [facility] Work Phone: 05-31-2010 human papilloma viru s vaccine, quadrivalent Mona Mackay APRN.[facility] Work Phone: [facility] Work Phone: 03-02-2010 human papilloma viru s vaccine, quadrivalent Mona Mackay APRN.[employer]ATION[employer] Work Phone: [facility] 01-05-2008 hepatitis A vaccine, unspecified formulation Mona Mackay APRN.[employer]ATION[employer] Work Phone: [facility] Work Phone: 03-11-2007 hepatitis A vaccine, unspecified formulation Mona Mackay APRN.[facility] Work Phone: [facility] Work Phone: 04-20-2005 Meningococcal, MCV4, unspecified conjugate formulation(groups A, C, Y and W-135) Mona Mackay APRN.[employer]ATION[employer] Work Phone: [facility] 04-20-2005 tetanus toxoid, redu neo diphtheria toxoid, and acellular pertussis vaccine, adsorbed Mona Mackay APRN.[employer] Work Phone: [facility] 01-10-1999 diphtheria, tetanus toxoids and acellular pertussis vaccine Mona Mackay APRN.[employer] Work Phone: [facility] Work Phone: 01-10-1999 measles, mumps and rubella virus vaccine Mona Mackay APRN.[facility] Work Phone: [facility] Work Phone: 01-10-1999 poliovirus vaccine, inactivated Mona Mackay APRN.[employer] Work Phone: [facility] Work Phone: 10-11-1996 Chicken Pox (disease) Mona melendez APRN.[employer] Work Phone: [facility] Work Phone: 04-02-1995 diphtheria, tetanus toxoids and acellular pertussis vaccine Mona Mackay APRN.[facility] Work Phone: [facility] Work Phone: 04-02-1995 haemophilus influenz ae type b vaccine, HbOC conjugate Mona Mackay APRN.[facility] Work Phone: [facility] Work Phone: 12-28-1994 hepatitis B vaccine, pediatric or pediatric/adolescent dosage Mona Mackay APRN.[facility] Work Phone: [facility] Work Phone: 12-28-1994 measles, mumps and rubella virus vaccine Mona Mackay APRN.[facility] Work Phone: [facility] Work Phone: 09-25-1994 diphtheria, tetanus toxoids and acellular pertussis vaccine Mona Mackay APRN.[employer] Work Phone: [facility] Work Phone: 09-25-1994 haemophilus influenz ae type b vaccine, HbOC conjugate Mona Mackay APRN.[facility] Work Phone: [facility] Work Phone: 09-25-1994 trivalent poliovirus vaccine, live, oral Mona Mackay APRN.[employer] Work Phone: [facility] Work Phone: 08-01-1994 diphtheria, tetanus toxoids and acellular pertussis vaccine Mona Mackay APRN.[facility] Work Phone: [facility] Work Phone: 08-01-1994 haemophilus influenz ae type b vaccine, HbOC conjugate Mona Mackay OWNER CONSULTING ENGINEER.[employer] Work Phone: [facility] Work Phone: 08-01-1994 hepatitis B vaccine, pediatric or pediatric/adolescent dosage Mona Mackay OWNER CONSULTING ENGINEER.[facility] Work Phone: [facility] Work Phone: 08-01-1994 trivalent poliovirus vaccine, live, oral Mona Mackay OWNER CONSULTING ENGINEER.[facility] Work Phone: [facility] Work Phone: 05-15-1994 diphtheria, tetanus toxoids and acellular pertussis vaccine Mona Mackay OWNER CONSULTING ENGINEER.[facility] Work Phone: [facility] Work Phone: 05-15-1994 haemophilus influenz ae type b vaccine, HbOC conjugate Mona Mackay OWNER CONSULTING ENGINEER.[facility] Work Phone: [facility] Work Phone: 05-15-1994 hepatitis B vaccine, pediatric or pediatric/adolescent dosage Mona Mackay OWNER CONSULTING ENGINEER.[facility] Work Phone: [facility] Work Phone: 05-15-1994 trivalent poliovirus vaccine, live, oral Mona Mackay OWNER CONSULTING ENGINEER.[facility] Work Phone: [facility] Work Phone: Payers Date Payer Category Payer Self-pay 2020 Private Health Insurance MMO SUP [employer] PPO Member Subscriber Plan / Payer (Effective 2020-Present) Name: Jacqueline Bernal Relation to Subscriber: Self Name: Jacqueline Bernal Payer ID: Not on file Type: PPO Address: [address] [id number] 2020 Unknown MMO MMO [employer]US [id number] 2020-Present [phone] [address] [place] [address] PPO [id number] 2020 Unknown [id number] 2020 Unknown [id number] Unknown [id number] Social History Date Type Detail Facility Start: 08-23-2016 End: 07-01-2022 Tobacco smoking status NHIS Never smoked tobacco [facility] Start: 10-10-2021 Alcohol intake Current drinker of alcohol (finding) [facility] Start: 09-24-2019 History SDOH Alcohol Frequency 3 [facility] Start: 09-24-2019 History SDOH Alcohol Std Drinks 1 [facility] Start: 09-24-2019 History SDOH Alcohol Binge 2 [facility] Start: 08-23-2016 History SDOH Alcohol Comment Occasionally [facility] Start: 09-24-2019 History SDOH Social Connections Phone 5 [facility] Start: 09-24-2019 History SDOH Social Connections Living 7 [facility] Start: 1995 Sex Assigned At Not on file [facility] Start: 08-23-2016 End: 07-01-2022 Tobacco use and exposure Smokeless tobacco non-user [facility] Work Phone: Start: 06-24-2022 End: 03-21-2025 Alcohol intake Ex-drinker (finding) [facility] Start: 06-24-2022 Education 18 [facility] Start: 05-20-2022 [facility] Start: 06-14-2022 End: 07-01-2022 Exposure to SARS-CoV-2 (event) Not sure [facility] Work Phone: Start: 09-24-2019 End: 12-16-2022 History of Social function [facility] Start: 09-24-2019 End: 12-16-2022 Social connection and isolation panel [facility] Do you belong to any clubs or organizations such as islam groups, unions, fraternal or athletic groups, or school groups? Yes [facility] Are you now , , , , never or living with a partner? Never [facility] How often to you hav e a drink containing alcohol? 2-4 times a month [facility] How many standard dr inks containing alcohol do you have on a typical day? 1 or 2 [facility] How often do you hav e 6 or more drinks on 1 occasion? Less than monthly [facility] Do you feel stress - tense, restless, nervous, or anxious, or unable to sleep at night because your mind is troubled all the time - these days [OSQ] Not at all [facility] Start: 07-12-2012 National Score (1-100), lower number is lower risk 56 [facility] Start: 1995 Sex assigned at Female [facility] Start: 11-26-2024 Gender identity Identifies as female gender (finding) [facility] Start: 11-26-2024 Sexual orientation Heterosexual (finding) [facility] Goals Date Patient Goal Desired Activity /State Personal health goal Functional Status Date Assessment Result Facility 04-22-2014 Are you deaf, or do you have serious difficulty hearing No 04/22/2014 4:02 PM Anju Escobar LPN No [facility] 04-22-2014 Are you blind, or do you have serious difficulty seeing, even when wearing glasses No 04/22/2014 4:02 PM Anju Escobar LPN No [facility] 04-22-2014 Do you have serious difficulty walking or climbing stairs No 04/22/2014 4:02 PM Anju Escobar LPN No [facility] 04-22-2014 Do you have difficul ty dressing or bathing No 04/22/2014 4:02 PM Anju Escobar LPN No [facility] 04-22-2014 Because of a physica l, mental, or emotional condition, do you have difficulty doing errands alone such as visiting a physician's office or shopping No 04/22/2014 4:02 PM EDT Anju Caballero LPN No [facility] Mental Status Date Assessment Result Facility 04-22-2014 Because of a physica l, mental, or emotional condition, do you have serious difficulty concentrating, remembering, or making decisions No 04/22/2014 4:02 PM EDT Anju Caballero LPN No [facility] Clinical Notes 01-10-2022 to 04-18-2025 Quick Notes - Minnie Holm APRN.CNM - 04/18/2025 12:51 PM EDTPrenatal Quick Notes - Minnie Holm APRN.CNM - 04/18/2025 12:51 PM EDTBMireille clay MA - 04/18/2025 9:03 AM EDT Note Date & Type Note Facility 04-18-2025 Progress note Formatting of t his note might be different from the original. RENITA-S: Jacqueline Bernal is a 29 year old female who presents at 27w4d with JAYDE:07/14/2025, by Ultrasound for a routine visit. Denies headache, visual changes, chest pain, shortness of breath, vaginal bleeding, leakage of fluid, or dysuria. Feeling well, no complaints. O: See flow sheet Gen: No apparent distress Abd: Gravid, nontender ASSESSMENT/PLAN: 1. Encounter for supervision of other normal in second trimester -Continue PNV and ASA - 1 hour GCT, CBC, and RPR today - O positive - TDAP today - LARC form reviewed and signed. Patient declines - Depression screen negative - Opioid screen negative - plan form discussed and given to patient. 2. 27 weeks gestation of 3. History of macrosomia in infant in prior , currently -Growth US 36 weeks 4. Need for vaccination -Tdap vaccine today - PTL precautions and kick counts reviewed - RTO- 2 weeks or sooner if needed Minnie Holm APRN.CNM [facility] 04-18-2025 Miscellaneous Notes Formattin g of this note might be different from the original. RENITA-S: Jacqueline Bernal is a 29 year old female who presents at 27w4d with JAYDE:07/14/2025, by Ultrasound for a routine visit. Denies headache, visual changes, chest pain, shortness of breath, vaginal bleeding, leakage of fluid, or dysuria. Feeling well, no complaints. O: See flow sheet Gen: No apparent distress Abd: Gravid, nontender ASSESSMENT/PLAN: 1. Encounter for supervision of other normal in second trimester -Continue PNV and ASA - 1 hour GCT, CBC, and RPR today - O positive - TDAP today - LARC form reviewed and signed. Patient declines - Depression screen negative - Opioid screen negative - plan form discussed and given to patient. 2. 27 weeks gestation of 3. History of macrosomia in in prior , currently -Growth US 36 weeks 4. Need for vaccination -Tdap vaccine today - PTL precautions and kick counts reviewed - RTO- 2 weeks or sooner if needed Minnie Holm APRN.CNM documented in this encounter [facility] 04-18-2025 Note HNO ID: [id number] Author: MIREILLE BAINS MA Service: ? Author Type: Delphi Developer Type: Progress Notes Filed: 04/18/2025 12:56 Note Text: Patient identified by name and date of . Jacqueline Bernal presents today for a vaccination of Tdap. Patient denies an allergy to latex: yes Patient denies a severe (life-threatening) allergy to a previous dose of Tdap, DTP, DTaP, DT or Td vaccine. Yes Patient denies history of epilepsy or neurological problems: Yes Patient is afebrile and denies being moderately or severely ill: Yes Patient denies history of Guillain-[place] Syndrome (a severe paralytic illness): Yes Tdap Adacel injection was given without incident. See immunizations for details of immunizations administered today. VIS sheet provided: Yes Provider Minnie Holm CNM was present in office at time of injection. Mireille Bains MA [facility] 04-18-2025 History of Presen t illness Narrative Patient identified by name and date of . Jacqueline Bernal presents today for a vaccination of Tdap. Patient denies an allergy to latex: yes Patient denies a severe (life-threatening) allergy to a previous dose of Tdap, DTP, DTaP, DT or Td vaccine. Yes Patient denies history of epilepsy or neurological problems: Yes Patient is afebrile and denies being moderately or severely ill: Yes Patient denies history of Guillain-[place] Syndrome (a severe paralytic illness): Yes Tdap Adacel injection was given without incident. See immunizations for details of immunizations administered today. VIS sheet provided: Yes Provider Minnie Holm CNM was present in office at time of injection. Mireille Bains MA documented in this encounter [facility] 04-18-2025 Instructions Mireille Bains MA - 04/18/2025 9:01 AM EDT SEQUENTIAL SCREENINGS The [facility] offers sequential screenings for women who are interested in screenings for chromosomal abnormalities and certain defects during a . The sequential screen combines ultrasound and blood tests to determine the risk of chromosomal abnormalities, including Down's Syndrome (Trisomy 21) and Trisomy 18, as well as open neural tube defects including spina bifida. Ultrasound examination is performed between 11 weeks and 13 weeks gestational age. Blood tests are drawn after the ultrasound and again later in the between 15 and 21 weeks gestational age. Please let your physician know if you are interested in this testing. It will require an appointment with our crown and bridge dental lab technician. This is not an ultrasound performed by a physician in our office during a routine visit. SIGNS AND SYMPTOMS OF LABOR 1. Contractions every 10 minutes or more often 2. Clear, pink, or brownish fluid (water) leaking from vagina 3. Feeling that baby is pushing down, pressure 4. Low, dull backache 5. Cramps that feel like a period 6. Cramps with or without diarrhea If you notice any of the above symptoms, contact our office at [phone] and ask to speak with a nurse. After hours, you can call [employer] registry at [phone] OR call [facility] at [phone] and ask to have the doctor tenant relations coordinator paged. If you consider this an emergency, dial 9-1-7 or go to your nearest emergency department. NEED HELP? Are you dealing with a violent or abusive relationship? Are you a victim of rape or sexual assult? Call [facility] ([place]) 24 hour Crisis Hotline: 362.408.9539 or 623-526-9900. MANUAL Your Guide to a Healthy manual is now on-line. Visit [email or web address] to download your free copy documented in this encounter [facility] 03-21-2025 Progress note Formatting of t his note might be different from the original. EH - S: Jacqueline is a 29 year old female who presents at 23w4d for a routine visit. Feeling movement. Denies headache, visual changes, chest pain, shortness of breath, vaginal bleeding, leakage of fluid, or dysuria. Feeling well, no complaints. O: See flow sheet Gen: No apparent distress Abd: Gravid, nontender, S=D ASSESSMENT/PLAN: Encounter for supervision of other normal in second trimester ([facility]) - ICD9: V22.1, ICD10: Z34.82 (primary diagnosis) - Continue PNV and LDA 23 weeks gestation of ([facility]) - ICD9: V22.2, ICD10: Z3A.23 - GTT, CBC, RPR next visit History of macrosomia in in prior , currently ([facility]) - ICD9: V23.49, ICD10: O09.299 PTL precautions reviewed. RTO in 4 weeks or sooner as needed. Sami Roy APRN.TIMO [facility] 03-21-2025 Miscellaneous Notes Formattin g of this note might be different from the original. EH - S: Jacqueline is a 29 year old female who presents at 23w4d for a routine visit. Feeling movement. Denies headache, visual changes, chest pain, shortness of breath, vaginal bleeding, leakage of fluid, or dysuria. Feeling well, no complaints. O: See flow sheet Gen: No apparent distress Abd: Gravid, nontender, S=D ASSESSMENT/PLAN: Encounter for supervision of other normal in second trimester ([facility]) - ICD9: V22.1, ICD10: Z34.82 (primary diagnosis) - Continue PNV and LDA 23 weeks gestation of ([facility]) - ICD9: V22.2, ICD10: Z3A.23 - GTT, CBC, RPR next visit History of macrosomia in infant in prior , currently ([facility]) - ICD9: V23.49, ICD10: O09.299 PTL precautions reviewed. RTO in 4 weeks or sooner as needed. Sami Roy APRN.TIMO documented in this encounter [facility] 03-21-2025 Instructions Mireille Bains MA - 03/21/2025 8:29 AM EDT SEQUENTIAL SCREENINGS The [facility] offers sequential screenings for women who are interested in screenings for chromosomal abnormalities and certain defects during a . The sequential screen combines ultrasound and blood tests to determine the risk of chromosomal abnormalities, including Down's Syndrome (Trisomy 21) and Trisomy 18, as well as open neural tube defects including spina bifida. Ultrasound examination is performed between 11 weeks and 13 weeks gestational age. Blood tests are drawn after the ultrasound and again later in the between 15 and 21 weeks gestational age. Please let your physician know if you are interested in this testing. It will require an appointment with our crown and bridge dental lab technician. This is not an ultrasound performed by a physician in our office during a routine visit. SIGNS AND SYMPTOMS OF LABOR 1. Contractions every 10 minutes or more often 2. Clear, pink, or brownish fluid (water) leaking from vagina 3. Feeling that baby is pushing down, pressure 4. Low, dull backache 5. Cramps that feel like a period 6. Cramps with or without diarrhea If you notice any of the above symptoms, contact our office at [phone] and ask to speak with a nurse. After hours, you can call doctors registry at [phone] OR call [facility] at [phone] and ask to have the doctor tenant relations coordinator paged. If you consider this an emergency, dial 9-1-1 or go to your nearest emergency department. NEED HELP? Are you dealing with a violent or abusive relationship? Are you a victim of rape or sexual assult? Call [facility] ([place]) 24 hour Crisis Hotline: 167.693.8682 or 558-811-5123. MANUAL Your Guide to a Healthy manual is now on-line. Visit [email or web address] to download your free copy Oral Glucose Tolerance Test During Your provider has ordered an oral glucose tolerance test. For more information: My [facility] Oral Glucose Tolerance Test How do I prepare for my one-hour glucose test? You don t need to prepare for your one-hour glucose screening. Most care providers recommend avoiding foods high in sugar for breakfast. For example, pancakes, donuts or juice. If you re testing later in the day, be aware that eating large amounts of sugar for lunch may affect your results. Can you eat before a glucose screening test? Yes, you can eat normally before your glucose screening test. What can I expect on the day of the glucose screening? On the day of your glucose screening, follow instructions given to you by your care provider or the lab (if applicable). Be sure to know exactly where to go for the screening and if you need an appointment. Safe Sleep for [place] For more information: [email or web address] Safe Sleep Healthy babies are safest when sleeping on their backs at nighttime and during naps. Side sleeping is not as safe as back sleeping and is not advised. documented in this encounter [facility] 02-21-2025 Progress note Formatting of t his note might be different from the original. DM-Pt doing well. Denies vaginal Bleeding, Leaking fluid, or regular Contractions. Pt reports starting to feel movement now Physical Exam: Gen: female in no apparent distress Abd: soft, Gravid. Non tender to palpation. See flow sheet @ 27/11 adi Assessment & Plan Encounter for supervision of other normal in second trimester (HCC) Continue PNV and ASA History of macrosomia in infant in prior , currently ([facility]) 19 weeks gestation of ([facility]) Anatomy us scheduled today RTO 4 wks Aure Farris MD [facility] 02-21-2025 Miscellaneous Notes Formattin g of this note might be different from the original. DM-Pt doing well. Denies vaginal Bleeding, Leaking fluid, or regular Contractions. Pt reports starting to feel movement now Physical Exam: Gen: female in no apparent distress Abd: soft, Gravid. Non tender to palpation. [facility] & Plan Encounter for supervision of other normal in second trimester ([facility]) Continue PNV and ASA History of macrosomia in infant in prior , currently ([facility]) 19 weeks gestation of ([facility]) Anatomy us scheduled today RTO 4 wks Aure Farris MD documented in this encounter [facility] 02-21-2025 Instructions Pippa iPneda MA - 02/21/2025 2:14 PM EDT SEQUENTIAL SCREENINGS The [facility] offers sequential screenings for women who are interested in screenings for chromosomal abnormalities and certain defects during a . The sequential screen combines ultrasound and blood tests to determine the risk of chromosomal abnormalities, including Down's Syndrome (Trisomy 21) and Trisomy 18, as well as open neural tube defects including spina bifida. Ultrasound examination is performed between 11 weeks and 13 weeks gestational age. Blood tests are drawn after the ultrasound and again later in the between 15 and 21 weeks gestational age. Please let your physician know if you are interested in this testing. It will require an appointment with our crown and bridge dental lab technician. This is not an ultrasound performed by a physician in our office during a routine visit. SIGNS AND SYMPTOMS OF LABOR 1. Contractions every 10 minutes or more often 2. Clear, pink, or brownish fluid (water) leaking from vagina 3. Feeling that baby is pushing down, pressure 4. Low, dull backache 5. Cramps that feel like a period 6. Cramps with or without diarrhea If you notice any of the above symptoms, contact our office at [phone] and ask to speak with a nurse. After hours, you can call doctors registry at [phone] OR call [facility] at [phone] and ask to have the doctor tenant relations coordinator paged. If you consider this an emergency, dial 9-1-1 or go to your nearest emergency department. NEED HELP? Are you dealing with a violent or abusive relationship? Are you a victim of rape or sexual assult? Call [facility] ([place]) 24 hour Crisis Hotline: 418.163.9133 or 230-743-6715. MANUAL Your Guide to a Healthy manual is now on-line. Visit [email or web address] to download your free copy documented in this encounter [facility] 01-31-2025 Progress note Formatting of t his note might be different from the original. RENITA-S: Jacqueline Bernal is a 29 year old female who presents at 16w4d with JAYDE:07/14/2025, by Ultrasound for a routine visit. Denies headache, visual changes, chest pain, shortness of breath, vaginal bleeding, leakage of fluid, or dysuria. Feeling well, no complaints. O: See flow sheet Gen: No apparent distress Abd: Gravid, nontender ASSESSMENT/PLAN: 1. Encounter for supervision of other normal in second trimester -Continue PNV -Continue ASA -Anatomy US at 20 wk 2. 16 weeks gestation of 3. History of macrosomia in in prior , currently PTL precautions reviewed and when to call RTO in 4 weeks Minnie Holm APRN.CNM [facility] Work Phone: 01-31-2025 Miscellaneous Notes Formattin g of this note might be different from the original. RENITA-S: Jacqueline Bernal is a 29 year old female who presents at 16w4d with JAYDE:07/14/2025, by Ultrasound for a routine visit. Denies headache, visual changes, chest pain, shortness of breath, vaginal bleeding, leakage of fluid, or dysuria. Feeling well, no complaints. O: See flow sheet Gen: No apparent distress Abd: Gravid, nontender ASSESSMENT/PLAN: 1. Encounter for supervision of other normal in second trimester -Continue PNV -Continue ASA -Anatomy US at 20 wk 2. 16 weeks gestation of 3. History of macrosomia in infant in prior , currently PTL precautions reviewed and when to call RTO in 4 weeks Minnie Holm APRN.CNM documented in this encounter [facility] 01-31-2025 Instructions Jabsir Brink MA - 01/31/2025 3:09 PM EDT SEQUENTIAL SCREENINGS The [facility] offers sequential screenings for women who are interested in screenings for chromosomal abnormalities and certain defects during a . The sequential screen combines ultrasound and blood tests to determine the risk of chromosomal abnormalities, including Down's Syndrome (Trisomy 21) and Trisomy 18, as well as open neural tube defects including spina bifida. Ultrasound examination is performed between 11 weeks and 13 weeks gestational age. Blood tests are drawn after the ultrasound and again later in the between 15 and 21 weeks gestational age. Please let your physician know if you are interested in this testing. It will require an appointment with our crown and bridge dental lab technician. This is not an ultrasound performed by a physician in our office during a routine visit. SIGNS AND SYMPTOMS OF LABOR 1. Contractions every 10 minutes or more often 2. Clear, pink, or brownish fluid (water) leaking from vagina 3. Feeling that baby is pushing down, pressure 4. Low, dull backache 5. Cramps that feel like a period 6. Cramps with or without diarrhea If you notice any of the above symptoms, contact our office at [phone] and ask to speak with a nurse. After hours, you can call doctors registry at [phone] OR call [facility] at [phone] and ask to have the doctor tenant relations coordinator paged. If you consider this an emergency, dial 04-11-1 or go to your nearest emergency department. NEED HELP? Are you dealing with a violent or abusive relationship? Are you a victim of rape or sexual assult? Call [facility] 24 hour Crisis Hotline: 113.330.8097 or 232-228-1775. MANUAL Your Guide to a Healthy manual is now on-line. Visit [email or web address] to download your free copy documented in this encounter [facility] 11-29-2024 Progress note Formatting of t his note might be different from the original. Patient is at 8.2 weeks gestation by LMP. TVUS dating consistent with gestational age of 7w4d. This is a 5 day difference. Spoke with crown and bridge dental lab technician and it was recommended to update JAYDE from today's measurements. Will confirm JAYDE at 1st trimester ultrasound. Maria Eugenia Roper APRN.CNM [facility] 11-29-2024 Miscellaneous Notes Formattin g of this note might be different from the original. Patient is at 8.2 weeks gestation by LMP. TVUS dating consistent with gestational age of 7w4d. This is a 5 day difference. Spoke with crown and bridge dental lab technician and it was recommended to update JAYDE from today's measurements. Will confirm JAYDE at 1st trimester ultrasound. Maria Eugenia Roper APRN.CNM documented in this encounter [facility] 11-29-2024 Note HNO ID: [id number] Author: JASBIR BRINK MA Service: ? Author Type: Fish And Wildlife Technician Type: Progress Notes Filed: 11/29/2024 15:38 Note Text: OB point of care ultrasound was performed. See imaging tab for details. Jasbir Brink MA [facility] 11-29-2024 History of Presen t illness Narrative OB point of care ultrasound was performed. See imaging tab for details. Jasbir Brink MA INITIAL OB ASSESSMENT HPI: Jacqueline is a 28 year old White Female here to establish Obstetrical Care. Patient's last menstrual period was 10/02/2024. from OB Dating Form. was planned Complaints: No OB History Gravida2 Para1 Term1 Preterm0 AB0 Living1 SAB0 IAB0 Ectopic0 Multiple0 Live Births1 Previous history: Prior : No History of 4th degree laceration: No History of shoulder dystocia: No History of Hypertensive disorders including pre-eclampsia or gestational hypertension: No History of gestational diabetes: No Patient's Risk Screening for delivery: Have you had a prior [place] between 20w and 36w6d? No How many pregnancies have you had before? 1 Did you have a previous baby with a GBS Infection? No Please select all that apply for any prior : Baby large for gestational age MEDICAL/PSYCHOSOCIAL HISTORY: History of hemorrhage or bleeding concerns: No Thyroid Disease: No History of chronic hypertension: No History of pre-existing diabetes: No No results found for: ABORHD BMI 29.97 kg/(m^2) Last Pap: 08/09/2024 History of abnormal pap: yes Prior treatment for cervical dysplasia: none and Colposcopy? . Last HPV: 08/09/2024 History of STDs: HPV Partner History of STDs: None Did you have a partner with Herpes? No Tobacco use: No E-Cigarette/Vaping Use: No Caffeine use: Yes Drug use: No Alcohol use: No Multivitamin with Folic acid: Yes Would refuse blood transfusion if medically necessary: No Social Needs: How often does this describe you? I don't have enough money to pay my bills: Never Within the past 12 months, have you worried that your food would run out before you had money to buy more? Never In the past 12 months, has lack of reliable transportation kept you from going to medical appointments or work, or from getting things needed for daily living? Never In the past 12 months, have you had any concerns about having a place to live, or about the condition or quality of your housing? Never Would you like more information on any of the following (please check all that apply)? Not interested Social History: Do you have any history of depression, anxiety, PTSD, or other mood problems? No Do you have a history of abuse or trauma that may impact your experience? No Are you currently employed? Yes Depression/Anxiety Screening: denies symptoms of depression. OB Depression and Anxiety Screening- This Encounter (since 11/28/2024) Over the past 2 weeks have you felt down, depressed, or hopeless? Negative Over the past two weeks, have you felt little interest or pleasure in doing things? Negative Feeling nervous, anxious or on edge 0-Not at all Not being able to stop or control worrying 0-Not al all Anxiety Pre-Screening Total (If >/= 3 additional questions will be reviewed) 0 Genetic Screening: Partner present: No Patient verbalized knowledge of partner family health history: Yes Do you or your partner have any personal or family history of defects not previously discussed: No Do you have history of a complicated by anomaly, genetic condition, or demise: No Preeclampsia Risk Screening: Screening for prevention of preeclampsia: High risk factors: None Moderate risk ractors: None OB Risk Screening: Completed, no positive findings documented. Marital Status: Partner: Name: Ady Age: 33 Occupation: Purchasing Administrator at [employer] Gender: Male PAST MEDICAL HISTORY Diagnosis Date Abnormal Pap smear of cervix 2021 Bladder polyps Febrile seizures (HCC) PMH - PAST MEDICAL HISTORY OF 03/02/2010 Normal Color Vision PAST SURGICAL HISTORY Procedure Laterality Date OPEN TREATMENT PATELLAR DISLOCATION Right 2013 OPEN TREATMENT PATELLAR DISLOCATION 12-06-2008 Open knee reconstruction-left ureteral implants age 11 months Current Outpatient Medications Medication Sig Dispense Refill aspirin, enteric coated (ECOTRIN LOW STRENGTH) 81 mg EC tablet Take 1 tablet by mouth once daily. (Patient not taking: Reported on 11/29/2024) 90 tablet 3 prental multivitamin 27 mg iron- 800 mcg tablet Take 1 tablet by mouth once daily. No current facility-administered medications for this visit. Allergies As of Date: 11/29/2024 (No Known Allergies) Fully Assessed 11/29/2024 Does patient have penicillin allergy: No REVIEW OF SYSTEMS: GENERAL: Negative for: Fever or Chills and Positive for: Fatigue HEENT: Negative for: Headache, Impaired Vision, Ringing in Ears, Nosebleeds NECK: Negative for: Swelling, Pain, Stiffness RESPIRATORY: Negative for: Cough, Shortness of breath, Wheezing GASTROINTESTINAL: Positive for: Constipation and Positive for: Nausea and Vomiting MUSCULOSKELETAL: Negative for: Muscle or joint pain, stiffness, Joint swelling NEUROLOGIC/PSYCHIATRIC: Negative for: Weakness, Paralysis, Numbness, Tingling, Tremor, Anxiety, Depression, Memory loss SKIN: Negative for: Rash, Itching GENITOURINARY: Negative for: vaginal itching, vaginal discharge, hematuria or dysuria and Positive for: urinary frequency SENSITIVE EXAM: The sensitive examination was discussed with the Patient or Patient's Authorized Transitions Manager. As applicable, any other physician, advance practice provider, medical student, or other health professional student that will be observing or involved in the sensitive examination for educational or training purposes was discussed with the Patient or Authorized Transitions Manager. The Patient or Authorized Transitions Manager has agreed to proceed with the sensitive examination. (Sensitive examination includes inspection and/or palpation of the breasts, pelvis, prostate and anorectal regions). PHYSICAL EXAM: BP 110/66 Ht 6' 0 (1.83m) Wt 221 lb (100.2kg) LMP 10/02/2024 BMI 29.97 kg/(m^2). GENERAL: pleasant in no apparent distress DERMATOLOGY: Normal, without lesions, non-icteric, and non-hirsute NECK: Supple and full range of motion CHEST: Normal inspiratory effort BREAST: deferred ABDOMEN: soft, non-tender, and no masses NEURO: alert and oriented x3,exam grossly non-focal PELVIS: External genitalia normal without lesions. Perineal body intact. No vaginal or cervical lesions. Clinical Pelvimetry: Pelvimetry clinically assessed as adequate Limited OB ultrasound exam: single intrauterine , positive cardiac activity, and crown-rump length 7w4d- JAYDE updated due to today's measurements. ASSESSMENT: 28 year old at 8w2d wks gestational age PLAN: 1) Patient oriented to practice. Patient given new OB orientation folder. Discussed routine OB labs including STD/HIV. Discussed how to access Your guide to a health and the Regulatory Affairs Intern. Reviewed midwifery and surgical coder services that are available. 2) Screening: Hemoglobin A1C: ordered Baby Aspirin: The patient has been counseled about the potential benefits of low dose aspirin in and our recommendation that this be offered to all patients, regardless of whether they meet the high risk criteria specified above. She Accepts Aneuploidy Screening: Discussed aneuploidy screening, nuchal translucency/first trimester early anatomy ultrasound and NIPT. The risks/benefits and limitations of NIPT/aneuploidy screening were reviewed including the potential for false negative and false positive results. The availability of genetic counseling was reviewed. Information on aneuploidy screening was provided. The patient chooses to proceed with First trimester early anatomy ultrasound (12-13w6d) and If concerns with insurance coverage, patient to call back for sequential order. Myriad Carrier Screening: Discussed myriad carrier screening. We discussed the availability of professional-society guided carrier screening and reviewed the conditions screened and limitations of screening. The availability of genetic counseling was reviewed. Information on carrier screening was provided. The patient Declines 3) Patient offered option of Virtual Visits. Patient prefers in person visits. Follow up in 4 weeks or sooner prn. Maria Eugenia Roper APRN.CNM documented in this encounter [facility] 11-26-2024 Instructions Maria Eugenia Roper APRN.CNM - 11/26/2024 2:08 PM EDT MORNING SICKNESS IN by Beena Tejeda M.D. for [place] As you may already know, morning sickness can often be more appropriately called evening sickness or vqepi-voktkk-ni-the-day sickness. While there are the agusto few, most women (50-90%) experience some degree of nausea, some have vomiting, and a few develop a severe form of vomiting during called hyperemesis gravidarum. What causes the nausea and vomiting of ? We can't explain why some people feel fine and others are green for months. Even the same woman may feel vastly different in each . There is some relationship between nausea and the level of the hormone hCG. In twin pregnancies, and in other situations where the hCG is greater than expected, nausea and vomiting tend to be worse. In a destined for miscarriage, hCG levels tend to be low, and nausea is often less severe. This being said, a lack of nausea doesn't guarantee that the is destined for miscarriage. The fact that nausea and vomiting are often signs of a healthy can offer a silver lining in the dark cloud of miserable nausea. How long will the nausea last? Fortunately, for most women, nausea and vomiting are a first trimester event, peaking at week 9-10 and waning by week 14-16. When you are feeling bad the weeks can go by slowly but most moms do feel tremendously better by the middle of the . Whether morning sickness is a brief experience or lasts through most of the , there are treatments that can make the weeks or months more tolerable. What can you do about it? Diet: See what works for you. Try eating bland dry foods, and avoid fatty or spicy foods. It is okay to eat a less than perfectly balanced diet in the first trimester. Have your liquids separately from dry foods. Try sports drinks, water, clear juices, Carmelo-aid, or non-caffeinated tea. Avoid carbonated beverages that fill up your stomach. Try eating lots of little meals. If you tend to feel sick when you first wake up, leave crackers next to the bed for a quick snack before rising. Keeping healthy snacks with you all day to nibble when you feel queasy can sometimes even prevent nausea from starting. vitamins and nausea: Pre-bryson vitamins can sometimes worsen nausea in . While folate is necessary, especially early in the , it comes as a smaller pill that many people find more tolerable than the complete vitamin pill. Ask your practitioner if it is okay to temporarily replace vitamins and iron with just a folate pill if you find a significant worsening in the level of your nausea from the vitamins. Alternative therapies: Acupressure may be used to treat nausea in , and is not known to have any risks for the fetus. Wristbands (marketed for seasickness) that put pressure on an acupressure point at the wrist are often available at drugstores or travel stores. Cesar root is used for nausea in many traditional cultures. Some women take fresh grated cesar or cesar tablets. It is possible that the pill form contains other ingredients or contaminants, so you may want to try fresh cesar first. Medications: Emetrol is the only nausea medication approved for use in . It is available over the counter and is soothing to the stomach. A prescription medication called Bendectin was available in the -1979's and was shown to be safe in , but the company stopped marketing it in the [place] due to the costs of liability coverage. Bendectin contained 10 milligrams of vitamin B6 and 10 milligrams of Doxylamine. Two tablets were given at bedtime and a total of up to 4 tablets could be used in a 24-hour period. Interestingly, Unisom , which contains a higher dose (25 mg.) of the same medication, Doxylamine, is currently marketed as an hpop-jvt-qenkjce sleeping pill. Ask your practitioner if creating a vitamin B6/Doxylamine combination with blik-ozg-psuxxbb medications would be safe for you. Prescription medications like Compazine and Phenergan can be used if the benefits outweigh possible risks, but these have not been clearly shown to be safe in . Zofran , an expensive anti-nausea medication often used to treat nausea from chemotherapy, can also be used. Can I throw up so much it harms the baby? The act of vomiting cannot hurt your fetus, which is protected inside the uterus. If you get dehydrated or develop a metabolic imbalance, this can be unhealthy. As long as you can keep down liquids, you and your baby will generally do all right. Eat when you feel able. If you are unable to keep anything down, or if you notice potential signs of dehydration such as lightheadedness, or concentrated and/or infrequent urination, call your practitioner. Some women need brief hospital admission for intravenous fluids and anti-nausea medications if their condition becomes severe. This severe form of nausea and vomiting is called Hyperemesis Gravidarum. As with many symptoms of , remind yourself that this, too, shall pass, and you'll have a wonderful baby to show for it! TREATMENT OPTIONS, SHORT VERSION: Frequent small meals Hydrate throughout day [employer] wrist pressure point applicators Cesar root (powdered, in capsules) 250mg four times a day Vitamin B6 25 mg tablet three times a day Also may be taken with half a tablet of Unisom three times a day (Doxylamine 12.5 mg) If severe (weight loss, dehydration), call us and come in for IV hydration and possible medication in the form of injections. Prescription medications such as Phenergan, Compazine, Reglan Please select the following link to access the [facility] Your Guide to a Healthy . [email or web address] Please select the following link to access the [facility] Your Guide to a Healthy . [email or web address] documented in this encounter [facility] 11-26-2024 Note HNO ID: [id number] Author: MARIA EUGENIA ROPER APRN.CNM Service: ? Author Type: Fingerprint Expert Type: Progress Notes Filed: 11/29/2024 15:38 Note Text: INITIAL OB ASSESSMENT HPI: Jacqueline is a 28 year old White Female here to establish Obstetrical Care. Patient's last menstrual period was 10/02/2024. from OB Dating Form. was planned Complaints: No OB History Gravida2 Para1 Term1 Preterm0 AB0 Living1 SAB0 IAB0 Ectopic0 Multiple0 Live Births1 Previous history: Prior : No History of 4th degree laceration: No History of shoulder dystocia: No History of Hypertensive disorders including pre-eclampsia or gestational hypertension: No History of gestational diabetes: No Patient's Risk Screening for delivery: Have you had a prior [place] between 20w and 36w6d? No How many pregnancies have you had before? 1 Did you have a previous baby with a GBS Infection? No Please select all that apply for any prior : Baby large for gestational age MEDICAL/PSYCHOSOCIAL HISTORY: History of hemorrhage or bleeding concerns: No Thyroid Disease: No History of chronic hypertension: No History of pre-existing diabetes: No No results found for: ABORHD BMI 29.97 kg/(m2) Last Pap: 08/09/2024 History of abnormal pap: yes Prior treatment for cervical dysplasia: none and Colposcopy? . Last HPV: 08/09/2024 History of STDs: HPV Partner History of STDs: None Did you have a partner with Herpes? No Tobacco use: No E-Cigarette/Vaping Use: No Caffeine use: Yes Drug use: No Alcohol use: No Multivitamin with Folic acid: Yes Would refuse blood transfusion if medically necessary: No Social Needs: How often does this describe you? I don't have enough money to pay my bills: Never Within the past 12 months, have you worried that your food would run out before you had money to buy more? Never In the past 12 months, has lack of reliable transportation kept you from going to medical appointments or work, or from getting things needed for daily living? Never In the past 12 months, have you had any concerns about having a place to live, or about the condition or quality of your housing? Never Would you like more information on any of the following (please check all that apply)? Not interested Social History: Do you have any history of depression, anxiety, PTSD, or other mood problems? No Do you have a history of abuse or trauma that may impact your experience? No Are you currently employed? Yes Depression/Anxiety Screening: denies symptoms of depression. OB Depression and Anxiety Screening- This Encounter (since 11/28/2024) Over the past 2 weeks have you felt down, depressed, or hopeless? Negative Over the past two weeks, have you felt little interest or pleasure in doing things?? Negative Feeling nervous, anxious or on edge 0-Not at all Not being able to stop or control worrying 0-Not al all Anxiety Pre-Screening Total (If >/= 3 additional questions will be reviewed) 0 Genetic Screening: Partner present: No Patient verbalized knowledge of partner family health history: Yes Do you or your partner have any personal or family history of defects not previously discussed: No Do you have history of a complicated by anomaly, genetic condition, or demise: No Preeclampsia Risk Screening: Screening for prevention of preeclampsia: High risk factors: None Moderate risk ractors: None OB Risk Screening: Completed, no positive findings documented. Marital Status: Partner: Name: Ady Age: 33 Occupation: Purchasing Administrator at [employer] Gender: Male PAST MEDICAL HISTORY Diagnosis Date Abnormal Pap smear of cervix 2021 Bladder polyps Febrile seizures (HCC) PMH - PAST MEDICAL HISTORY OF 03/02/2010 Normal Color Vision PAST SURGICAL HISTORY Procedure Laterality Date OPEN TREATMENT PATELLAR DISLOCATION Right 2013 OPEN TREATMENT PATELLAR DISLOCATION 12-06-2008 Open knee reconstruction-left ureteral implants age 11 months Current Outpatient Medications Medication Sig Dispense Refill aspirin, enteric coated (ECOTRIN LOW STRENGTH) 81 mg EC tablet Take 1 tablet by mouth once daily. (Patient not taking: Reported on 11/29/2024) 90 tablet 3 prental multivitamin 27 mg iron- 800 mcg tablet Take 1 tablet by mouth once daily. No current facility-administered medications for this visit. Allergies As of Date: 11/29/2024 (No Known Allergies) Fully Assessed 11/29/2024 Does patient have penicillin allergy: No REVIEW OF SYSTEMS: GENERAL: Negative for: Fever or Chills and Positive for: Fatigue HEENT: Negative for: Headache, Impaired Vision, Ringing in Ears, Nosebleeds NECK: Negative for: Swelling, Pain, Stiffness RESPIRATORY: Negative for: Cough, Shortness of breath, Wheezing GASTROINTESTINAL: Positive for: Constipation and Positive for: Nausea and Vomiting (more content not included)... [facility] 07-30-2024 Note HNO ID: [id number] Author: WALLY MERCADO MD Service: ? Author Type: Physician Type: Progress Notes Filed: 07/30/2024 14:47 Note Text: Jacqueline is a 28 year old who presents for an annual gynecologic exam without complaints. Menses only for 5 months since stopped . Attempting . OB History T1 L1 SAB0 IAB0 Ectopic0 Multiple0 Live Births1 Art Instructor History LMP: 07/25/2024 (Exact Date), Unknown Age at Menarche: Age at First : Age at Menopause: Art Instructor History Comments: Sexual Activity: Not Currently; Male Contraception: No contraception data on record PAST MEDICAL HISTORY Diagnosis Date Abnormal Pap smear of cervix 2021 Bladder polyps Febrile seizures (HCC) PMH - PAST MEDICAL HISTORY OF 03/02/2010 Normal Color Vision PAST SURGICAL HISTORY Procedure Laterality Date OPEN TREATMENT PATELLAR DISLOCATION Right 2013 OPEN TREATMENT PATELLAR DISLOCATION 12-06-2008 Open knee reconstruction-left ureteral implants age 11 months FAMILY HISTORY Problem Relation Age of Onset Hypertension Mother Hyperlipidemia Mother Hyperlipidemia Father Hypertension Father No Known Problems Brother Hypertension Maternal Grandmother Diabetes Maternal Grandmother Diabetes Maternal Grandfather Diabetes Paternal Grandmother other (Leukemia) Paternal Grandfather SOCIAL HISTORY Social History Tobacco Use Smoking status: Never Smokeless tobacco: Never Vaping Use Vaping status: Never Used Substance Use Topics Alcohol use: Not Currently Comment: Occasionally Drug use: No REVIEW OF SYSTEMS Abdomen: No abdominal pain, nausea, vomiting, diarrhea, or constipation. No bloating, early satiety, indigestion, or increased flatulence. Bladder: No dysuria, gross hematuria, urinary frequency, urinary urgency, or incontinence. Breast: No breast lumps, nipple d/c, overlying skin changes, redness or skin retraction. Allergies and current medication updated:Yes SENSITIVE EXAM: The sensitive examination was discussed with the Patient or Patient's Authorized Transitions Manager. As applicable, any other physician, advance practice provider, medical student, or other health professional student that will be observing or involved in the sensitive examination for educational or training purposes was discussed with the Patient or Authorized Transitions Manager. The Patient or Authorized Transitions Manager has agreed to proceed with the sensitive examination. (Sensitive examination includes inspection and/or palpation of the breasts, pelvis, prostate and anorectal regions). EXAM: BP 124/82 Ht 5' 11 (1.80m) Wt 225 lb (102.1kg) LMP 07/25/2024 BMI 31.39 kg/(m2). GENERAL: pleasant, female in no apparent distress HEENT: Normocephalic, atraumatic, mucus membranes moist, and no lesions NECK: Supple, full range of motion, no adenopathy, and thyroid normal DERMATOLOGY: Normal, without lesions, non-icteric, and non-hirsute BREAST: soft, non-tender, symmetric, no dominant mass, normal nipple-areolar complex, no lymphadenopathy, and no nipple discharge CHEST: Normal inspiratory effort ABDOMEN: soft, non-tender, and no masses PELVIC: external genitalia normal, normal Bartholin's glands, urethra, Barney's glands, no vulvar lesions, no cervical lesions, good vaginal support, physiologic discharge present, normal appearing perineal body and perianal region BIMANUAL: uterus normal size, shape and consistency, no adnexal masses, and non-tender RECTOVAGINAL: deferred. NEURO: alert and oriented x3,exam grossly non-focal EXTREMITIES: normal ASSESSMENT/PLAN: 1) Health maintenance: Pap done with HPV. 2) Contraception: none. Contraceptive options reviewed and information provided. 3) STD screening: Declined STD check. 4) Follow up one year or sooner as needed Declines flu vaccine and recommended PNV in anticipation of Wally Mercado MD [facility] 07-30-2024 History of Presen t illness Narrative Jacqueline is a 28 year old who presents for an annual gynecologic exam without complaints. Menses only for 5 months since stopped . Attempting . OB History T1 L1 SAB0 IAB0 Ectopic0 Multiple0 Live Births1 Art Instructor History LMP: 07/25/2024 (Exact Date), Unknown Age at Menarche: Age at First : Age at Menopause: Art Instructor History Comments: Sexual Activity: Not Currently; Male Contraception: No contraception data on record PAST MEDICAL HISTORY Diagnosis Date Abnormal Pap smear of cervix 2021 Bladder polyps Febrile seizures (HCC) PMH - PAST MEDICAL HISTORY OF 03/02/2010 Normal Color Vision PAST SURGICAL HISTORY Procedure Laterality Date OPEN TREATMENT PATELLAR DISLOCATION Right 2013 OPEN TREATMENT PATELLAR DISLOCATION 12-06-2008 Open knee reconstruction-left ureteral implants age 11 months FAMILY HISTORY Problem Relation Age of Onset Hypertension Mother Hyperlipidemia Mother Hyperlipidemia Father Hypertension Father No Known Problems Brother Hypertension Maternal Grandmother Diabetes Maternal Grandmother Diabetes Maternal Grandfather Diabetes Paternal Grandmother other (Leukemia) Paternal Grandfather SOCIAL HISTORY Social History Tobacco Use Smoking status: Never Smokeless tobacco: Never Vaping Use Vaping status: Never Used Substance Use Topics Alcohol use: Not Currently Comment: Occasionally Drug use: No REVIEW OF SYSTEMS Abdomen: No abdominal pain, nausea, vomiting, diarrhea, or constipation. No bloating, early satiety, indigestion, or increased flatulence. Bladder: No dysuria, gross hematuria, urinary frequency, urinary urgency, or incontinence. Breast: No breast lumps, nipple d/c, overlying skin changes, redness or skin retraction. Allergies and current medication updated:Yes SENSITIVE EXAM: The sensitive examination was discussed with the Patient or Patient's Authorized Transitions Manager. As applicable, any other physician, advance practice provider, medical student, or other health professional student that will be observing or involved in the sensitive examination for educational or training purposes was discussed with the Patient or Authorized Transitions Manager. The Patient or Authorized Transitions Manager has agreed to proceed with the sensitive examination. (Sensitive examination includes inspection and/or palpation of the breasts, pelvis, prostate and anorectal regions). EXAM: BP 124/82 Ht 5' 11 (1.80m) Wt 225 lb (102.1kg) LMP 07/25/2024 BMI 31.39 kg/(m^2). GENERAL: pleasant, female in no apparent distress HEENT: Normocephalic, atraumatic, mucus membranes moist, and no lesions NECK: Supple, full range of motion, no adenopathy, and thyroid normal DERMATOLOGY: Normal, without lesions, non-icteric, and non-hirsute BREAST: soft, non-tender, symmetric, no dominant mass, normal nipple-areolar complex, no lymphadenopathy, and no nipple discharge CHEST: Normal inspiratory effort ABDOMEN: soft, non-tender, and no masses PELVIC: external genitalia normal, normal Bartholin's glands, urethra, Barney's glands, no vulvar lesions, no cervical lesions, good vaginal support, physiologic discharge present, normal appearing perineal body and perianal region BIMANUAL: uterus normal size, shape and consistency, no adnexal masses, and non-tender RECTOVAGINAL: deferred. NEURO: alert and oriented x3,exam grossly non-focal EXTREMITIES: normal ASSESSMENT/PLAN: 1) Health maintenance: Pap done with HPV. 2) Contraception: none. Contraceptive options reviewed and information provided. 3) STD screening: Declined STD check. 4) Follow up one year or sooner as needed Declines flu vaccine and recommended PNV in anticipation of Wally Mercado MD documented in this encounter [facility] 03-24-2023 History of Presen t illness Narrative VISIT Jacqueline Bernal is a 27 year old year old here for visit. Delivery Summary: ROS/ Recovery: Feeding: Breast feeding problems: None Menses since delivery: n'a Menstrual pattern prior to : Regular periods [place] since delivery: Resumed Depression: denies symptoms of depression. OB Depression and Anxiety Screening- This Encounter (since 03/23/2023) Over the past 2 weeks have you felt down, depressed, or hopeless? Negative Over the past two weeks, have you felt little interest or pleasure in doing things? Negative Feeling nervous, anxious or on edge 0-Not at all Not being able to stop or control worrying 0-Not al all Anxiety Pre-Screening Total (If >/= 3 additional questions will be reviewed) 0 Emotional support: Yes Bowel symptoms: Negative for abdominal discomfort, blood in stools or black stools and change in bowel habits Abdomen: N/A Bladder symptoms: No dysuria, gross hematuria, urinary frequency, urinary urgency, or incontinence Other issues: None Last Pap: 2021 abnormal, SLIL HPV: PAST MEDICAL HISTORY Diagnosis Date Abnormal Pap smear of cervix 2021 Bladder polyps Febrile seizures (HCC) PMH - PAST MEDICAL HISTORY OF 03/02/2010 Normal Color Vision PAST SURGICAL HISTORY Procedure Laterality Date OPEN TREATMENT PATELLAR DISLOCATION Right 2013 OPEN TREATMENT PATELLAR DISLOCATION 12-06-2008 Open knee reconstruction-left ureteral implants age 11 months FAMILY HISTORY Problem Relation Age of Onset Hypertension Mother Hyperlipidemia Mother Hyperlipidemia Father Hypertension Father No Known Problems Brother Hypertension Maternal Grandmother Diabetes Maternal Grandmother Diabetes Maternal Grandfather Diabetes Paternal Grandmother other (Leukemia) Paternal Grandfather Social History Tobacco Use Smoking status: Never Smokeless tobacco: Never Vaping Use Vaping Use: Never used Substance Use Topics Alcohol use: Not Currently Comment: Occasionally Drug use: No PHYSICAL EXAMINATION: BP 104/68 Wt 213 lb (96.6kg) LMP 05/06/2022 GENERAL: pleasant, female in no apparent distress HEENT: Normocephalic, atraumatic, mucus membranes moist, and no lesions NECK: Supple, full range of motion, no adenopathy, and thyroid normal DERMATOLOGY: Normal, without lesions, non-icteric, and non-hirsute BREAST: soft, non-tender, symmetric, no dominant mass, normal nipple-areolar complex, no lymphadenopathy, and no nipple discharge CHEST: Normal inspiratory effort ABDOMEN: soft, non-tender, and no masses. INCISION: N/A PELVIC: external genitalia normal, normal Bartholin's glands, urethra, Barney's glands, no vulvar lesions, no cervical lesions, good vaginal support, physiologic discharge present, normal appearing perineal body and perianal region BIMANUAL: uterus normal size, shape and consistency, no adnexal masses, and non-tender NEURO: alert and oriented x3,exam grossly non-focal EXTREMITIES: normal ASSESSMENT AND PLAN: 27 year old status post with normal course. Contraception plan: declines Follow up: RTC for annual exams and PRN Wally Mercado MD documented in this encounter [facility] 02-21-2023 Miscellaneous Notes Formattin g of this note might be different from the original. FMLA paperwork completed, original given to pt. Copy scanned into EMR and filed in nurses suite. Anju Caballero LPN' documented in this encounter [facility] 02-21-2023 History of Presen t illness Narrative EARLY VISIT Jacqueline Bernal is a 27 year old here for 2 week visit. Delivery Summary: ROS: General: Denies any fever or chills Hypertension Screening: Headache? No. Visual Changes? No Epigastric Pain? No Increased Swelling? No Taking any BP medications at home? No If applicable, monitoring BP at home? (If Yes, include results) No Mood: normal Depression: denies symptoms of depression. OB Depression and Anxiety Screening- This Encounter (since 02/20/2023) None Feeding: Breast feeding problems: None Bladder: No dysuria, gross hematuria, urinary frequency, urinary urgency, or incontinence Bowel symptoms: Negative for abdominal discomfort, blood in stools or black stools and change in bowel habits Abdomen: N/A Bleeding: light flow Bottom and Perineum: Sore Sleep: no sleep concerns, feels rested Emotional support: Yes Exercise: N/A Other issues: None PHYSICAL EXAMINATION: BP 116/74 Wt 214 lb (97.1 kg) LMP 05/06/2022 (Exact Date) Yes BMI 29.85 kg/m General: pleasant,female in no apparent distress, A&O x 3. Skin warm and intact. Breast: Deferred Abdomen: Deferred /Incision: N/A Pelvic: Deferred Bimanual: Deferred ASSESSMENT AND PLAN: 27 year old status post with normal course. Contraception plan: condoms . or none Reinforced 6-week pelvic rest. Encouraged condom usage should patient deviate. Education: resources provided - see MA/RN note Follow up: Return to Clinic for 6 week visit and as needed Wally Mercado MD documented in this encounter [facility] 02-04-2023 Miscellaneous Notes Formattin g of this note might be different from the original. RENITA-S: Jacqueline Bernal is a 27 year old female who presents at 39 weeks with JAYDE:02/10/2023, by Last Menstrual Period for a routine visit. Good FM. Denies headache, visual changes, chest pain, shortness of breath, vaginal bleeding, leakage of fluid, or dysuria. Feeling well, no complaints. O: See flow sheet Gen: No apparent distress Abd: Gravid, nontender ASSESSMENT/PLAN: 1. 39 weeks gestation of P: 1) Labor instructions reviewed and when to call 2) Patient now requesting IOL at 40w2d if possible. Reviewed presumed LGA and that IOL can decrease the size of baby but does not necessarily prevent shoulder dystocia. Reviewed risks with LGA for labor induction, risk for section, and risk to baby. She would like to proceed with IOL at this time. Reviewed cervical ripening options and would like to have placement of in office [place]. Reviewed risks, benefits and alternative. Consent form reviewed and signed for IOL. Will come for [place] on 02/12/23 and IOL with pitocin on 02/13/23. Minnie Holm APRN.CNM documented in this encounter [facility] 02-03-2023 Instructions Jasbir Brink Cma - 02/03/2023 10:55 AM EDT SEQUENTIAL SCREENINGS The [facility] offers sequential screenings for women who are interested in screenings for chromosomal abnormalities and certain defects during a . The sequential screen combines ultrasound and blood tests to determine the risk of chromosomal abnormalities, including Down's Syndrome (Trisomy 21) and Trisomy 18, as well as open neural tube defects including spina bifida. Ultrasound examination is performed between 11 weeks and 13 weeks gestational age. Blood tests are drawn after the ultrasound and again later in the between 15 and 21 weeks gestational age. Please let your physician know if you are interested in this testing. It will require an appointment with our crown and bridge dental lab technician. This is not an ultrasound performed by a physician in our office during a routine visit. SIGNS AND SYMPTOMS OF LABOR 1. Contractions every 10 minutes or more often 2. Clear, pink, or brownish fluid (water) leaking from vagina 3. Feeling that baby is pushing down, pressure 4. Low, dull backache 5. Cramps that feel like a period 6. Cramps with or without diarrhea If you notice any of the above symptoms, contact our office at [phone] and ask to speak with a nurse. After hours, you can call doctors registry at [phone] OR call [facility] at [phone] and ask to have the doctor tenant relations coordinator paged. If you consider this an emergency, dial [phone] or go to your nearest emergency department. NEED HELP? Are you dealing with a violent or abusive relationship? Are you a victim of rape or sexual assult? Call [facility] ([place]) 24 hour Crisis Hotline: 530.194.8833 or 599-612-1978. MANUAL Your Guide to a Healthy manual is now on-line. Visit [email or web address] to download your free copy documented in this encounter [facility] 01-27-2023 Miscellaneous Notes Formattin g of this note might be different from the original. RENITA-S: Jacqueline Bernal is a 27 year old female who presents at 38w0d with JAYDE:02/10/2023, by Last Menstrual Period for a routine visit. Good FM. Denies headache, visual changes, chest pain, shortness of breath, vaginal bleeding, leakage of fluid, or dysuria. Feeling well, no complaints. O: See flow sheet Gen: No apparent distress Abd: Gravid, nontender S=D, 46 lb TWG ASSESSMENT/PLAN: 1. 38 weeks gestation of P: 1) Labor instructions reviewed and when to call 2) RTO in one week 3) Reviewed with patient plan for delivery, declines IOL at 39 weeks. Will discuss further at next visit for presumed LGA. Feels all questions were answered at last visit. Minnie Holm APRN.CNM documented in this encounter [facility] 01-27-2023 Instructions Jasbir Brink Cma - 01/27/2023 9:10 AM EDT SEQUENTIAL SCREENINGS The [facility] offers sequential screenings for women who are interested in screenings for chromosomal abnormalities and certain defects during a . The sequential screen combines ultrasound and blood tests to determine the risk of chromosomal abnormalities, including Down's Syndrome (Trisomy 21) and Trisomy 18, as well as open neural tube defects including spina bifida. Ultrasound examination is performed between 11 weeks and 13 weeks gestational age. Blood tests are drawn after the ultrasound and again later in the between 15 and 21 weeks gestational age. Please let your physician know if you are interested in this testing. It will require an appointment with our crown and bridge dental lab technician. This is not an ultrasound performed by a physician in our office during a routine visit. SIGNS AND SYMPTOMS OF LABOR 1. Contractions every 10 minutes or more often 2. Clear, pink, or brownish fluid (water) leaking from vagina 3. Feeling that baby is pushing down, pressure 4. Low, dull backache 5. Cramps that feel like a period 6. Cramps with or without diarrhea If you notice any of the above symptoms, contact our office at [phone] and ask to speak with a nurse. After hours, you can call doctors registry at [phone] OR call [facility] at [phone] and ask to have the doctor tenant relations coordinator paged. If you consider this an emergency, dial [phone] or go to your nearest emergency department. NEED HELP? Are you dealing with a violent or abusive relationship? Are you a victim of rape or sexual assult? Call [facility] ([place]) 24 hour Crisis Hotline: 480.496.7174 or 242-363-5871. MANUAL Your Guide to a Healthy manual is now on-line. Visit [email or web address] to download your free copy documented in this encounter [facility] 01-20-2023 Miscellaneous Notes Formattin g of this note might be different from the original. SW- Pt doing well. No ctx, BOUCHER, vision changes, vb, lof. Good FM. Reviewed medications for allergies. Weekly visits. Hope Parmar DO documented in this encounter [facility] 01-20-2023 Instructions Pippa Pineda MA - 01/20/2023 10:54 AM EDT SEQUENTIAL SCREENINGS The [facility] offers sequential screenings for women who are interested in screenings for chromosomal abnormalities and certain defects during a . The sequential screen combines ultrasound and blood tests to determine the risk of chromosomal abnormalities, including Down's Syndrome (Trisomy 21) and Trisomy 18, as well as open neural tube defects including spina bifida. Ultrasound examination is performed between 11 weeks and 13 weeks gestational age. Blood tests are drawn after the ultrasound and again later in the between 15 and 21 weeks gestational age. Please let your physician know if you are interested in this testing. It will require an appointment with our crown and bridge dental lab technician. This is not an ultrasound performed by a physician in our office during a routine visit. SIGNS AND SYMPTOMS OF LABOR 1. Contractions every 10 minutes or more often 2. Clear, pink, or brownish fluid (water) leaking from vagina 3. Feeling that baby is pushing down, pressure 4. Low, dull backache 5. Cramps that feel like a period 6. Cramps with or without diarrhea If you notice any of the above symptoms, contact our office at [phone] and ask to speak with a nurse. After hours, you can call doctors registry at [phone] OR call [facility] at [phone] and ask to have the doctor tenant relations coordinator paged. If you consider this an emergency, dial 9-3-9 or go to your nearest emergency department. NEED HELP? Are you dealing with a violent or abusive relationship? Are you a victim of rape or sexual assult? Call [facility] ([place]) 24 hour Crisis Hotline: 330.239.8835 or 736-687-4466. MANUAL Your Guide to a Healthy manual is now on-line. Visit [email or web address] to download your free copy documented in this encounter [facility] 01-13-2023 Miscellaneous Notes Formattin g of this note might be different from the original. Anatomy ultrasound reviewed. No abnormalities identified. Follow up as clinically indicated. Please place copy in ob chart. Wally Mercado MD documented in this encounter [facility] 01-13-2023 Miscellaneous Notes Formattin g of this note might be different from the original. SW- Pt doing well. No ctx, vb, lof. Good FM. Had ultrasound today and discussed LGA . Reviewed limitations with 3rd trimester growth US and that weight could be off by 1 lb even. Discussed ACOG recommendation for primary section if EFW > 5000 g. Reviewed expected weight gain over next couple of weeks and baby expected to be > 9 lbs. Reviewed shoulder dystocia risk. Discussed r/b/a of expectant management, IOL ~39 wks, primary section. She is interested in expectant management at this time. GBS today. Discussed eating dates in . Weekly visits. Hope Parmar DO documented in this encounter [facility] 01-13-2023 Instructions Pippa Pineda MA - 01/13/2023 11:02 AM EDT SEQUENTIAL SCREENINGS The [facility] offers sequential screenings for women who are interested in screenings for chromosomal abnormalities and certain defects during a . The sequential screen combines ultrasound and blood tests to determine the risk of chromosomal abnormalities, including Down's Syndrome (Trisomy 21) and Trisomy 18, as well as open neural tube defects including spina bifida. Ultrasound examination is performed between 11 weeks and 13 weeks gestational age. Blood tests are drawn after the ultrasound and again later in the between 15 and 21 weeks gestational age. Please let your physician know if you are interested in this testing. It will require an appointment with our crown and bridge dental lab technician. This is not an ultrasound performed by a physician in our office during a routine visit. SIGNS AND SYMPTOMS OF LABOR 1. Contractions every 10 minutes or more often 2. Clear, pink, or brownish fluid (water) leaking from vagina 3. Feeling that baby is pushing down, pressure 4. Low, dull backache 5. Cramps that feel like a period 6. Cramps with or without diarrhea If you notice any of the above symptoms, contact our office at [phone] and ask to speak with a nurse. After hours, you can call doctors registry at [phone] OR call [facility] at [phone] and ask to have the doctor tenant relations coordinator paged. If you consider this an emergency, dial 9-1-1 or go to your nearest emergency department. NEED HELP? Are you dealing with a violent or abusive relationship? Are you a victim of rape or sexual assult? Call [facility] ([place]) 24 hour Crisis Hotline: 804.803.1374 or 110-464-4055. MANUAL Your Guide to a Healthy manual is now on-line. Visit [email or web address] to download your free copy documented in this encounter [facility] 12-30-2022 Miscellaneous Notes Formattin g of this note might be different from the original. SW- No BOUCHER, vision changes, ctx, vb, lof. Good FM. Repeat growth US next visit. Cont baby ASA. RTO 2 wks. Hope Parmar DO documented in this encounter [facility] 12-30-2022 Instructions Pippa Pineda MA - 12/30/2022 3:22 PM EDT SEQUENTIAL SCREENINGS The [facility] offers sequential screenings for women who are interested in screenings for chromosomal abnormalities and certain defects during a . The sequential screen combines ultrasound and blood tests to determine the risk of chromosomal abnormalities, including Down's Syndrome (Trisomy 21) and Trisomy 18, as well as open neural tube defects including spina bifida. Ultrasound examination is performed between 11 weeks and 13 weeks gestational age. Blood tests are drawn after the ultrasound and again later in the between 15 and 21 weeks gestational age. Please let your physician know if you are interested in this testing. It will require an appointment with our crown and bridge dental lab technician. This is not an ultrasound performed by a physician in our office during a routine visit. SIGNS AND SYMPTOMS OF LABOR 1. Contractions every 10 minutes or more often 2. Clear, pink, or brownish fluid (water) leaking from vagina 3. Feeling that baby is pushing down, pressure 4. Low, dull backache 5. Cramps that feel like a period 6. Cramps with or without diarrhea If you notice any of the above symptoms, contact our office at [phone] and ask to speak with a nurse. After hours, you can call doctors registry at [phone] OR call [facility] at [phone] and ask to have the doctor tenant relations coordinator paged. If you consider this an emergency, dial 8-7-2 or go to your nearest emergency department. NEED HELP? Are you dealing with a violent or abusive relationship? Are you a victim of rape or sexual assult? Call [facility] ([place]) 24 hour Crisis Hotline: 163.413.2603 or 992-910-1170. MANUAL Your Guide to a Healthy manual is now on-line. Visit [email or web address] to download your free copy documented in this encounter [facility] 12-24-2022 Miscellaneous Notes Formattin g of this note might be different from the original. Patient sent to hospital per Maria Eugenia documented in this encounter [facility] 12-17-2022 History of Past i llness Narrative Problem Noted Date Diagnosed Date Resolved Date Excessive growth affec ting management of in third trimester 12/17/2022 02/22/20 Overview: 01/13/23 EFW at 36 wks 7lb 7oz. SW Uterine size-date discrepanc y, third trimester 11/18/2022 02/21/2023 Overview: 11/18/22- measuring 2 weeks ahead. Will continue to watch growth. Maria Eugenia Roper APRN.JORGE ALBERTO Encounter for supervision of other normal , first trimester 08/26/2022 02/21/2023 Spotting in early 06/24/2022 08/26/2022 Overview: 06/24/2022atient did call in today stating that she had spotting last night after intercourse. See telephone note dated 06/24. Patient denies any spotting since then. Patient denies any pain. Miscarriage/ectopic precautions givenTKRN related nausea, antepartum 06/24/2022 02/21/2023 Overview: 06/24/2022atient is complaining of nausea in . Denies any vomiting. Dietary considerations discussed . Vitamin B6 recommended. Advised patient to call/come in if she is unable to keep any food or fluids down in a 24-hour period. TKRN Obesity during 06/24/2022 Overview: 06/24/2022atient is obese. 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 SW Uterine size-date discrepanc y, third trimester 11/18/2022 02/21/2023 Overview: 11/18/22- measuring 2 weeks ahead. Will continue to watch growth. Maria Eugenia Roper APRN.CNM Encounter for supervision of other normal , first trimester 08/26/2022 02/21/2023 Spotting in early 06/24/2022 08/26/2022 Overview: 06/24/2022atient did call in today stating that she had spotting last night after intercourse. See telephone note dated 06/24. Patient denies any spotting since then. Patient denies any pain. Miscarriage/ectopic precautions givenTKRN related nausea, antepartum 06/24/2022 02/21/2023 Overview: 06/24/2022atient is complaining of nausea in . Denies any vomiting. Dietary considerations discussed . Vitamin B6 recommended. Advised patient to call/come in if she is unable to keep any food or fluids down in a 24-hour period. TKRN Obesity during 06/24/2022 Overview: 06/24/2022atient is obese. 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 SW Uterine size-date discrepanc y, third trimester 11/18/2022 02/21/2023 Overview: 11/18/22- measuring 2 weeks ahead. Will continue to watch growth. Maria Eugenia Roper APRN.CNM Encounter for supervision of other normal , first trimester 08/26/2022 02/21/2023 Spotting in early 06/24/2022 08/26/2022 Overview: 06/24/2022atient did call in today stating that she had spotting last night after intercourse. See telephone note dated 06/24. Patient denies any spotting since then. Patient denies any pain. Miscarriage/ectopic precautions givenTKRN related nausea, antepartum 06/24/2022 02/21/2023 Overview: 06/24/2022atient is complaining of nausea in . Denies any vomiting. Dietary considerations discussed . Vitamin B6 recommended. Advised patient to call/come in if she is unable to keep any food or fluids down in a 24-hour period. TKRN Obesity during 06/24/2022 Overview: 06/24/2022atient is obese. 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 Good Fm. no regular ctxs. Some mild edema. Denies BOUCHER or visual changes. EFW 97% and normal AFV. F/u in 2 weeks or prn. Wally Mercado MD [facility] Instructions* Patient Instructions* Edie Clancy Ma - 12/16/2022 3:24 PM EDT SEQUENTIAL SCREENINGS The [facility] offers sequential screenings for women who are interested in screenings for chromosomal abnormalities and certain defects during a . The sequential screen combinesultrasound and blood tests to determine the risk of chromosomal abnormalities, including Down's Syndrome (Trisomy 21) and Trisomy 18, as well as open neural tube defects including spina bifida. Ultrasound examination is performed between 11 weeks and 13 weeks gestational age. Blood tests are drawn after the ultrasound and again later in the between 15 and 21 weeks gestational age. Please let your physician know if you are interested in this testing. It will require an appointment withour crown and bridge dental lab technician. This is not an ultrasound performed by a physician in our office during a routine visit. SIGNS AND SYMPTOMS OF LABOR 1. Contractions every 10 minutes or more often 2. Clear, pink, or brownish fluid (water) leaking from vagina 3. Feeling that baby is pushing down, pressure 4. Low, dull backache 5. Cramps that feel like a period 6. Cramps with or without diarrhea If you notice any of the above symptoms, contact our office at [phone] and ask to speak with anurse. After hours, you can call doctors registry at [phone] OR call [facility] at [phone] ask to have the doctor tenant relations coordinator paged. If you consider this an emergency, dial 9-1-9 or go to your nearest emergency department. NEED HELP? Are you dealing with a violent or abusive relationship? Are you a victim of rape or sexual assult? Call [facility] ([facility] 24 hour Crisis Hotline: 660.774.6268 or 509-058-1937. MANUAL Your Guide to a Healthy manual is now on-line. Visit [email or web address] to download your free copy [facility] Miscellaneous Notes* Telephone Encounter - Mariela Wilson RN - 12/03/2022 9:02 AM EDT Faxed * Telephone Encounter - Mariela Wilson RN - 12/03/2022 8:30 AM EDT Received breast pump order from [employer]. To RR to sign. Mariela Wilson RN documented in this encounterMer[facility]23 Miscellaneous Notes* Quick Notes - Aure Colon MD - 12/02/2022 3:38 PM EDT DM- Pt doing well today. Denies Vaginal Bleeding, Leaking fluid, or contractions. Pt reports good movement. S>D, growth us ordered. RTO 2 wks. Kick counts reviewed. Aure Farris MD documented in this encounterMer[facility]23 Instructions* Patient Instructions* Caren Kimball Ma - 12/02/2022 3:17 PM EDT SEQUENTIAL SCREENINGS The [facility] offers sequential screenings for women who are interested in screenings for chromosomal abnormalities and certain defects during a . The sequential screen combinesultrasound and blood tests to determine the risk of chromosomal abnormalities, including Down's Syndrome (Trisomy 21) and Trisomy 18, as well as open neural tube defects including spina bifida. Ultrasound examination is performed between 11 weeks and 13 weeks gestational age. Blood tests are drawn after the ultrasound and again later in the between 15 and 21 weeks gestational age. Please let your physician know if you are interested in this testing. It will require an appointment withour crown and bridge dental lab technician. This is not an ultrasound performed by a physician in our office during a routine visit. SIGNS AND SYMPTOMS OF LABOR 1. Contractions every 10 minutes or more often 2. Clear, pink, or brownish fluid (water) leaking from vagina 3. Feeling that baby is pushing down, pressure 4. Low, dull backache 5. Cramps that feel like a period 6. Cramps with or without diarrhea If you notice any of the above symptoms, contact our office at [phone] and ask to speak with anurse. After hours, you can call doctors registry at [phone] OR call [facility] at [phone] ask to have the doctor tenant relations coordinator paged. If you consider this an emergency, dial 91-7 or go to your nearest emergency department. NEED HELP? Are you dealing with a violent or abusive relationship? Are you a victim of rape or sexual assult? Call [facility] ([place]) 24 hour Crisis Hotline: 250.338.3339 or 109-824-9483. MANUAL Your Guide to a Healthy manual is now on-line. Visit [email or web address] to download your free copy documented in this encounter[facility]23 Miscellaneous Notes* Quick Notes - Maria Eugenia Roper APRN.CNM - 11/18/2022 3:22 PM EDT S: Jacqueline Bernal is a 26 year old female who presents at 28 weeks gestation for a routine visit. Just completed 1 hour GCT. Feeling good. Positive movement. Denies headache, visual changes, chest pain, shortness of breath, vaginal bleeding, leakage of fluid, or dysuria. Feeling well, no complaints. O: See flow sheet Gen: No apparent distress Abd: Gravid, nontender S>D, measuring 2 weeks ahead Assessment/Plan 28-30 weeks gestation - 1 hour GCT, CBC, and RPR today - Rh positive- O+ - TDAP today - LARC form reviewed and signed. Patient declines - Depression screen negative - Opioid screen negative - plan form discussed and given to patient. Patient desires epidural, circumcision and - Looking into CBE & Breast feeding class - Watch growth - measuring 2 weeks ahead - PTL precautions and kick counts reviewed - RTO- 2 weeks or sooner if needed Maria Eugenia Roper APRN.CNM documented in this encounterMer[facility]04[facility] History of Present illness Narrative* Edie Clancy Ma - 11/18/2022 3:03 PM EDT Patient identified by name and date of . Jacqueline Bernal presents today for a vaccination of Tdap. Patient denies an allergy to latex: yes Patient denies a severe (life-threatening) allergy to a previous dose of Tdap, DTP, DTaP, DT or Td vaccine. Yes Patient denies history of epilepsy or neurological problems: Yes Patient is afebrile and denies being moderately or severely ill: Yes Patient denies history of Guillain-[place] Syndrome (a severe paralytic illness): Yes Tdap Adacel injection was given without incident. See immunizations for details of immunizations administered today. VIS sheet provided: Yes Provider Maria Eugenia Roper was present in office at time of injection. Edei Clancy Ma documented in this encounterMer[facility]04-10-2023 Instructions* Patient Instructions* Edie Clancy Ma - 11/18/2022 2:55 PM EDT SEQUENTIAL SCREENINGS The [facility] offers sequential screenings for women who are interested in screenings for chromosomal abnormalities and certain defects during a . The sequential screen combinesultrasound and blood tests to determine the risk of chromosomal abnormalities, including Down's Syndrome (Trisomy 21) and Trisomy 18, as well as open neural tube defects including spina bifida. Ultrasound examination is performed between 11 weeks and 13 weeks gestational age. Blood tests are drawn after the ultrasound and again later in the between 15 and 21 weeks gestational age. Please let your physician know if you are interested in this testing. It will require an appointment withour crown and bridge dental lab technician. This is not an ultrasound performed by a physician in our office during a routine visit. SIGNS AND SYMPTOMS OF LABOR 1. Contractions every 10 minutes or more often 2. Clear, pink, or brownish fluid (water) leaking from vagina 3. Feeling that baby is pushing down, pressure 4. Low, dull backache 5. Cramps that feel like a period 6. Cramps with or without diarrhea If you notice any of the above symptoms, contact our office at [phone] and ask to speak with anurse. After hours, you can call doctors registry at [phone] OR call [facility] at [phone] ask to have the doctor tenant relations coordinator paged. If you consider this an emergency, dial 9-1-4 or go to your nearest emergency department. NEED HELP? Are you dealing with a violent or abusive relationship? Are you a victim of rape or sexual assult? Call [facility] ([place]) 24 hour Crisis Hotline: 255.989.8595 or 686-687-6989. MANUAL Your Guide to a Healthy manual is now on-line. Visit [email or web address] to download your free copy documented in this encounterMer[facility]03-[facility]23 Miscellaneous Notes* Quick Notes - Aure Colon MD - 10/21/2022 4:14 PM EDT DM- Pt doing well today. Denies Vaginal Bleeding, Leaking fluid, or contractions. Pt reports good movement. Taking ASA. RTO 4 wks. Aure Farris MD documented in this encounterMer[facility]03-13-2023 Instructions* Patient Instructions* Caren Kimball Ma - 10/21/2022 3:58 PM EDT SEQUENTIAL SCREENINGS The [facility] offers sequential screenings for women who are interested in screenings for chromosomal abnormalities and certain defects during a . The sequential screen combinesultrasound and blood tests to determine the risk of chromosomal abnormalities, including Down's Syndrome (Trisomy 21) and Trisomy 18, as well as open neural tube defects including spina bifida. Ultrasound examination is performed between 11 weeks and 13 weeks gestational age. Blood tests are drawn after the ultrasound and again later in the between 15 and 21 weeks gestational age. Please let your physician know if you are interested in this testing. It will require an appointment withour crown and bridge dental lab technician. This is not an ultrasound performed by a physician in our office during a routine visit. SIGNS AND SYMPTOMS OF LABOR 1. Contractions every 10 minutes or more often 2. Clear, pink, or brownish fluid (water) leaking from vagina 3. Feeling that baby is pushing down, pressure 4. Low, dull backache 5. Cramps that feel like a period 6. Cramps with or without diarrhea If you notice any of the above symptoms, contact our office at [phone] and ask to speak with anurse. After hours, you can call doctors registry at [phone] OR call [facility] at [phone] ask to have the doctor tenant relations coordinator paged. If you consider this an emergency, dial 9-1-8 or go to your nearest emergency department. NEED HELP? Are you dealing with a violent or abusive relationship? Are you a victim of rape or sexual assult? Call [facility] ([place]) 24 hour Crisis Hotline: 622.966.2301 or 622-065-2111. MANUAL Your Guide to a Healthy manual is now on-line. Visit [email or web address] to download your free copy documented in this encounterMer[facility]02-[facility]-2023 Miscellaneous Notes* Quick Notes - Wally Mercado MD - 09/23/2022 3:43 PM EST RR- Doing well overall. Occas heartburn. D/w her symptomatic measures. US today. Taking PNV. F/u in4 weeks or prn. Wally Mercado MD documented in this encounterMer[facility]02-13-2023 Instructions* Patient Instructions* Edie Clancy Ma - 09/23/2022 2:13 PM EST SEQUENTIAL SCREENINGS The [facility] offers sequential screenings for women who are interested in screenings for chromosomal abnormalities and certain defects during a . The sequential screen combinesultrasound and blood tests to determine the risk of chromosomal abnormalities, including Down's Syndrome (Trisomy 21) and Trisomy 18, as well as open neural tube defects including spina bifida. Ultrasound examination is performed between 11 weeks and 13 weeks gestational age. Blood tests are drawn after the ultrasound and again later in the between 15 and 21 weeks gestational age. Please let your physician know if you are interested in this testing. It will require an appointment withour crown and bridge dental lab technician. This is not an ultrasound performed by a physician in our office during a routine visit. SIGNS AND SYMPTOMS OF LABOR 1. Contractions every 10 minutes or more often 2. Clear, pink, or brownish fluid (water) leaking from vagina 3. Feeling that baby is pushing down, pressure 4. Low, dull backache 5. Cramps that feel like a period 6. Cramps with or without diarrhea If you notice any of the above symptoms, contact our office at [phone] and ask to speak with anurse. After hours, you can call doctors registry at [phone] OR call [facility] at [phone] ask to have the doctor tenant relations coordinator paged. If you consider this an emergency, dial 1-3-8 or go to your nearest emergency department. NEED HELP? Are you dealing with a violent or abusive relationship? Are you a victim of rape or sexual assult? Call [facility] ([place]) 24 hour Crisis Hotline: 640.347.6326 or 585-548-0491. MANUAL Your Guide to a Healthy manual is now on-line. Visit [email or web address] to download your free copy documented in this encounterMercy Health [facility]01-16-2023 Miscellaneous Notes* Quick Notes - Wally Mercado MD - 08/26/2022 10:26 AM EST RR- No VB/LOF. No FM yet. Doing well overall. Nausea improved. second part of sequentisal screen today. F/u in 4 weeks for OB and US Wally Mercado MD documented in this encounterMercy Health Defiance Hospital01-16-2023 Instructions* Patient Instructions* Anju Caballero LPN - 08/26/2022 10:04 AM EST NEED HELP? Are you dealing with a violent or abusive relationship? Are you a victim of rape or sexual assult? Call [facility] ([place]) 24 hour Crisis Hotline: 193.807.3671 or 757-162-9443. MANUAL Your Guide to a Healthy manual is now on-line. Visit [email or web address] to download your free copy documented in this encounterMercy Health Defiance Hospital12-22-2022 Miscellaneous Notes* Telephone Encounter - Angelia Dominguez MA - 08/01/2022 11:18 AM EST Patient called and identified by name and date of . Jacqueline Bernal was informed of negative Sequential screen first trimester. Jacqueline Bernal was informed of her risk assessment for Trisomy 21 and 18. Based on these results Dr. Ontiveros s recommendation is for patient to follow-up with Sequential second trimester screening (08/23/22-09/06/22) and level II anatomy scan after 18wks. Patient verbalized understanding . Angelia Dominguez MA documented in this encounterMercy Health Defiance Hospital12-20-2022 Miscellaneous Notes* Telephone Encounter - Maria Guadalupe Olivera RN - 07/30/2022 3:31 PM EST Please file sequential screen orders. Maria Guadalupe Olivera RN documented in this [facility]12-20-2022 Miscellaneous Notes* Addendum Note - Minnie Holm APRN.CNM - 07/30/2022 3:02 PM ESTAddended by: MINNIE HOLM on: 07/30/2022 03:02 PM Modules accepted: Orders * Quick Notes - Minnie Holm APRN.CNM - 07/29/2022 4:29 PM EST RENITA-S: Jacqueline Bernal is a 26 year old female who presents at 12w1d with 02/10/2023, by Last Menstrual Period for a routine visit. Denies headache, visual changes, chest pain, shortness of breath, vaginalbleeding, leakage of fluid, or dysuria. Light brown spotting on and off, no cramping or pain. O: See flow sheet Gen: No apparent distress Abd: nontender Unable to auscultate FHT, limited bedside TVUS showed ASSESSMENT/PLAN: 1. 12 weeks gestation of P: 1) PTL precautions reviewed and when to call 2) RTO in 4 weeks 5) PN labs and HgbA1C next visit 4) In depth discussion on Sequential screen vs [id number]. All questions answered. Patient desires sequential screen. NT US ordered and will have done this week with PN labs. 5) Reviewed cystic fibrosis screening and testing. She would like this done, order placed. Minnie Holm APRN.CNM documented in this encounterMercy Health Defiance Hospital12-19-2022 Instructions* Patient Instructions* Minnie Holm APRN.CNM - 07/29/2022 4:12 PM EST SEQUENTIAL SCREENINGS The [facility] offers sequential screenings for women who are interested in screenings for chromosomal abnormalities and certain defects during a . The sequential screen combinesultrasound and blood tests to determine the risk of chromosomal abnormalities, including Down's Syndrome (Trisomy 21) and Trisomy 18, as well as open neural tube defects including spina bifida. Ultrasound examination is performed between 11 weeks and 13 weeks gestational age. Blood tests are drawn after the ultrasound and again later in the between 15 and 21 weeks gestational age. Please let your physician know if you are interested in this testing. It will require an appointment withour crown and bridge dental lab technician. This is not an ultrasound performed by a physician in our office during a routine visit. genetic testing gives [id number] information about whether their fetus has certain genetic disorders. Genetic disorders are caused by changes in a person s genes or chromosomes. Aneuploidy is a condition in which there are missing or extra chromosomes. In a trisomy, there is an extra chromosome. In amonosomy, a chromosome is missing. Inherited disorders are caused by changes in genes called mutations. Inherited disorders include sickle cell disease, cystic fibrosis, Donn-Sachs disease, and many others. In most cases, both parents must carry the same gene to have an affected child. Cell-free DNA is the small amount of DNA that is released from the placenta into a woman sbloodstream. The cell-free DNA in a sample of a woman s blood can be screened for Down syndrome, Patau syndrome (trisomy 13), Anand syndrome, and problems with the number of sex chromosomes. This test can be done starting at 10 weeks of . It takes about 1 week to get the results. A positive cell-free DNA test result should be followed by a diagnostic test with amniocentesis or CVS. Results of blood screening tests for aneuploidy are reported as the level of risk that the disordermight be present: A positive screening test result for aneuploidy means that your fetus is at higher risk of having the disorder compared with the general population. It does not mean that your fetus definitely has the disorder. A negative result means that your fetus is at lower risk of having the disorder compared with the general population. It does not rule out the possibility that your fetus has the disorder. Diagnostic testing with CVS or amniocentesis that gives a more definite result is an option for all women. Your mica splitter or other health restorative care technician, such as a genetic counselor, will discuss what your screening test results mean and help you decide the next steps. With any type of testing, there is a possibility of false-positive results and false-negative results. A screening test result that shows there is a problem when one does not exist is called a false-positive result. A screening test result that shows there is not a problem when one does exist is called a false- negative result. Your health restorative care technician can give you information about the ratesof false-positive and false-negative results for each test. We discussed the nuchal translucency measurement as a method of detection for both aneuploidy and congenital malformations. She was counseled that in up to 70-80% of fetuses with these conditions, demonstrable thickening of the transl ucent area of the scalp and neck area is visible. Hence, the finding of a normal nuchal skin is very reassuring in reduction of risk. The patient was counseled about first trimester biochemical screening using Earl-A and free beta HCG. She was counseled that biochemical testing permits detection of approximately 80% of cases of Down Syndrome. She was counseled that the combined nuchal translucency biochemical testing is highly sensitive for the detection of Down Syndrome. Chorionic villi sampling for karyotype was also discussed. The patient was counseled about the technique, including the benefits and limitations. She was counseled that in up to 4% of cases, the karyotype indicates placental mosaicism. Under those circumstances, amniocentesis is required. The fetalloss rate is 1-1.5%. We then discussed that the AFP Quadruple Screen was available for screening earliest at the 15th week of gestation. This test is primarily useful for the detection of Down Syndrome, which approximates 70-80% with a false-positive rate of approximately 5-7%. She was counseled that the test was also useful for the detection of 60% of cases of Trisomy-18 and 85% of cases of open neural tube defect. she currently appears accepting of this test and was given a requisition for the test to be drawn after the 15th week of gestation. We have also requested that copies be forwarded to you. We then discussed the issue of a Level II ultrasound for the detection of aneuploidy and defects. She was counseled that a 16-18 week ultrasound is sensitive for the detection of 80% of cases of serious congenital abnormalities. One of the major limitations of the midtrimester ultrasound is in the detection of down Syndrome, which only approximates 30-50%. She was counseled that for fe pam Trisomy-13 and Trisomy-18, the detection rate approximate 90 and 80% respectively. For spinal defects, the detection rate approximates 90-95%. Lastly, we discussed the issue of amniocentesis at 16 weeks. The patient was counseled that this remains one of the most sensitive methods for the detection of all aneuploidies, including Down Syndrome. she was counseled that amniocentesis is insensitive for the detection of single gene defects such as cystic fibrosis, mental retardation, cerebral palsy, and epilepsy. She was counseled thatamniocentesis carries a loss rate of approximately 1/200 or 0.5%. INFORMATION FOR [facility] PATIENTS WHO ARE CONSIDERING CARRIER SCREENING FOR CYSTIC FIBROSIS The [facility] offers carrier screening for cystic fibrosis or CF. Because the results of the screening test may be confusing, the purpose of this document is to provide information to those patients who would like to be tested for carrier status of cystic fibrosis. This is a voluntary test so please read the following information carefully and discuss any concerns with your mica splitter or healthcare provider. CYSTIC FIBROSIS: Cystic fibrosis is a chronic life-shortening illness that can cause problems with breathing and digestion. Some patients are more severely affected than others. However, appearance and intelligence are generally not affected. Treatment is necessary and there is no cure. In general,individuals with CF have a shortened life span usually due to recurrent, frequent lung infections. The purpose of CF carrier testing is to determine if you are at increased risk of giving to achild with CF. The gene that causes CF was identified in 1988. Identifying this gene and one of themany mutations (altered gene) allows for screening of carrier status. Your ethnicity or race and family history are important to estimate your carrier risk. For example, a or Ashkenazi Amish person has a 1 in 29 chance of being a CF carrier. A Beninese has a 1 in 46 chance of being a CF carrier; an has a 1 in 65 chance; and an Beninese has a 1 in 90 chance. In addition, both parents must be carriers of this gene to have a baby with CF because it is genetically inherited as an autosomal recessive disease. That is, if both the mother and the father of the fetus are carriers, the risk of having an affected baby will be 1 in 4 or 25%. Further testing would be necessary to know whether your fetus has CF. The carrier screening test for cystic fibrosis is performed from the DNA in your blood. The laboratory test is highly complex and the current standard screening panel consists of 25 mutations. The [employer] (ACOG) currently recommends this 25 mutation screening panel that [facility]. This test is expected to detect most carriers, depending on ethnici ty. Detection rates of carriers are 97% for Ashkenazi Jews, 80% for Caucasians, 69% for Americans, and 57% for Hispanics. A more complex screening panel is available as a send out toa reference lab, but this test can still fail to diagnose some cases. In addition, this DNA test may disclose a risk for male infertility. LIMITATIONS of CYSTIC FIBROSIS SCREENING: It is important for you to know that cystic fibrosis screening cannot detect all mutations, that is carriers of the gene. A negative screening test for one of both members of a couple does not exclude the small possibility of an affected child. This level of risk depends on your ethnic background, the specific mutation, family history, and correct paternity. For example, a couple in which both partners test negative, the risk of having a childwith cystic fibrosis is estimated to be 1 in 80,000. If only one partner is screened and the test is negative, the risk of having a child with CF is about 1 in 16,000 for a couple, 1 in 19,000 for a Beninese couple, and 1 in 50,000 for n couple. A CF screening strategy is to test one partner and then the second partner only if the first partner is identified asa carrier. This sequential approach may be used for CF screening. However, testing both partners more precisely identifies each individual's carrier status. Finally, your insurance company may not cover the cost of CF testing. The estimated cost of one CF screening test is approximately $550. We suggest that you check with your insurance company. The decision to be tested for cystic fibrosis is completely yours. The [facility] also offers more detailed genetic counseling and information through the Medical Genetics program. Genetic counselors are available to answer any questions that you may have or if you have additional concerns. More information is available through the [employer]. Your healthcare provider can answer your questions. A few resources are listed below: Cystic Fibrosis Foundation: [address] [place] [address], [place] [address]; [email or web address] National Society of Genetic Counselors: [address] [place] [id number]; [email or web address] Genetic [employer]: [address] , [address] [place], [address] [email or web address] SIGNS AND SYMPTOMS OF LABOR 1. Contractions every 10 minutes or more often 2. Clear, pink, or brownish fluid (water) leaking from vagina 3. Feeling that baby is pushing down, pressure 4. Low, dull backache 5. Cramps that feel like a period 6. Cramps with or without diarrhea If you notice any of the above symptoms, contact our office at [phone] and ask to speak with anurse. After hours, you can call doctors registry at [phone] OR call [facility] at [phone] ask to have the doctor tenant relations coordinator paged. If you consider this an emergency, dial 1-6-3 or go to your nearest emergency department. NEED HELP? Are you dealing with a violent or abusive relationship? Are you a victim of rape or sexual assult? Call [facility] ([place]) 24 hour Crisis Hotline: 250.827.2591 or 115-664-4489. MANUAL Your Guide to a Healthy manual is now on-line. Visit [email or web address] to download your free copy documented in this encounterMercy Health Defiance Hospital11-21-2022 Miscellaneous Notes* Quick Notes - Aure Colon MD - 07/01/2022 3:51 PM EST DM- new OB. Declines NT. ASA reviewed. Flu vaccine today. Needs Pap PP. RTO 4 wks. Aure Farris MD documented in this encounterMercy Health Defiance Hospital11-21-2022 History of Present illness Narrative* Aure Colon MD - 07/01/2022 3:08 PM EST INITIAL OB ASSESSMENT OB Provider: Edie Julieth Ma HPI: Jacqueline Banuelos is a 26 year old female here to establish Obstetrical Care. Patient's last menstrual period was 05/06/2022 (exact date). from OB Dating Form. Cycle length: 28 days Complaints: vaginal bleeding once , nausea was planned. OB History T0 L0 SAB0 IAB0 Ectopic0 Multiple0 Live Births0 Prior : never History of 4th degree laceration: No Patient's Risk Screening for delivery: History of abnormal pap: No Prior treatment for cervical dysplasia: none. History of STDs: None Tobacco use: No Caffeine use: Yes Drug use: No Alcohol use: No Multivitamin with Folic acid: Yes Occupation: teacher [employer] or [employer] heritage: No Would refuse blood transfusion if medically necessary: No BMI 28.61 kg/(m^2) Patient BMI over 30? No Marital Status: Partner: Name: Ady bernal Age: 31 Occupation: Purchasing Administrator Gender: male History of STDs: None PAST MEDICAL HISTORY Diagnosis Date Abnormal Pap smear of cervix 2021 Bladder polyps Febrile seizures (HCC) PMH - PAST MEDICAL HISTORY OF 03/02/2010 Normal Color Vision PAST SURGICAL HISTORY Procedure Laterality Date OPEN TREATMENT PATELLAR DISLOCATION Right 2013 OPEN TREATMENT PATELLAR DISLOCATION 12-06-2008 Open knee reconstruction-left ureteral implants age 11 months Current Outpatient Medications on File Prior to Visit Medication Sig prental multivitamin 27 mg iron- 800 mcg tablet Take 1 tablet by mouth once daily. norgestimate 0.25 mg-ethinyl estradiol 35 mcg (PREVIFEM) 0.25-35 mg-mcg per tablet Take 1 tablet bymouth once daily. No current facility-administered medications on file prior to visit. Review of Systems: GENERAL: Negative for: Fever or Chills HEENT: Negative for: Headache, Impaired Vision, Ringing in Ears, Nosebleeds NECK: Negative for: Swelling, Pain, Stiffness RESPIRATORY: Negative for: Cough, Shortness of breath, Wheezing GASTROINTESTINAL: Negative for: Heartburn, Constipation, Diarrhea, Blood in stool, Vomiting MUSCULOSKELETAL: Negative for: Muscle or joint pain, stiffness, Joint swelling NEUROLOGIC/PSYCHIATRIC: Negative for: Weakness, Paralysis, Numbness, Tingling, Tremor, Anxiety, Depression, Memory loss SKIN: Negative for: Rash, Itching GENITOURINARY: Negative for: vaginal itching, vaginal discharge, hematuria or dysuria PHYSICAL EXAM: Ht 5' 11.5 (1.82m) Wt 208 lb (94.3kg) LMP 05/06/2022 BMI 28.61 kg/(m^2). GENERAL: pleasant female in no apparent distress DERMATOLOGY: Normal, without lesions, non-icteric, and non-hirsute NECK: Supple, full range of motion, no adenopathy, and thyroid normal BREAST: soft, non-tender, symmetric, no dominant mass, normal nipple-areolar complex, no lymphadenopathy, and no nipple discharge ABDOMEN: soft, non-tender, and no masses NEURO: alert and oriented x3,exam grossly non-focal PELVIS: External genitalia normal without lesions. Perineal body intact. No vaginal or cervical lesions. Cervix closed. Uterus 8 week size. No adnexal masses or tenderness. Clinical Pelvimetry: Pelvimetry clinically assessed as adequate Limited OB ultrasound exam: single intrauterine and positive cardiac activity OB Risk Screening: Completed, no positive findings documented. ASSESSMENT: 26 year old at 8 wks gestational age PLAN: 1) Patient oriented to practice. Discussed nutrition, folic acid supplementation, dietary guidelines, exercise, smoking, alcohol, caffeine, and drug use. Discussed routine OB labs including STD/HIV. Discussed aneuploidy screening options including serum screening and nuchal translucency. Patient declines all aneuploidy screening. 2) Flu vaccine today 3) ASA reviewed Follow up in 4 weeks or sooner prn. Aure Farris MD documented in this encounterMercy Health [facility] Hospital11-21-2022 Instructions* Patient Instructions* Edie Clancy Ma - 07/01/2022 3:08 PM EST Please select the following link to access the [facility] Your Guide to a Healthy . [email or web address] documented in this encounterMercy Health Defiance Hospital11-14-2022 Miscellaneous Notes* Quick Notes - Marbella Reddy RN - 06/24/2022 4:06 PM EST DISTANCE HEALTH VISIT This Team Access Model visit is a phone encounter. It required patient-provider interaction for themedical decision making as documented below. Patient did call in today stating that she had spotting last night after intercourse. See telephone note dated 06/24. Patient denies any spotting since then. Patient denies any pain.Patient is complaining of nausea in . Denies any vomiting. Dietary considerations discussed . Vitamin B6 recommended. Advised patient to call/come in if she is unable to keep any food or fluids down in a 24-hour period. Patient is obese. We will plan on early hemoglobin A1c. Patient considering aneuploidy screening. Contact information for integrated genetics gi charles to patient. Patient declines genetic carrier screening testing.Marbella Reddy RN documented in this encounterMercy Health Defiance Hospital11-14-2022 History of Past illness Narrative* Problem Noted Date Resolved Date Spotting in early 06/24/202208/11 Overview: 06/24/2022atient did call in today stating that she had spotting last night after intercourse. See telephone note dated 06/24. Patient denies any spotting since then. Patient denies any pain. Miscarriage/ectopic precautions givenTKRN Obesity during 06/24/2022 023 Overview: 06/24/2022atient is obese. We will plan on early hemoglobin A1c.TKRN Patellar subluxation 09/03/2012 08/26/2022 Unspecified hypertrophic and atrophic condition of skin 03/23/2008 08/26/2022 Scar condition and fibrosis of skin 03/23/2008 08/26/2022 Other and unspecified superf icial injury of other, multiple, and unspecified sites, without mention of infection 03/23/2008 documented as of this encounter (statuses as of 08/26/2022) [facility] History of Past illness Narrative* Problem Noted Date Resolved Date Spotting in early 06/24/202208/11 Overview: 06/24/2022atient did call in today stating that she had spotting last night after intercourse. See telephone note dated 06/24. Patient denies any spotting since then. Patient denies any pain. Miscarriage/ectopic precautions givenTKRN Obesity during 06/24/2022 023 Overview: 06/24/2022atient is obese. 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 See telephone note dated 06/24. Patient denies any spotting since then. Patient denies any pain. Miscarriage/ectopic precautions givenTKRN Obesity during 06/24/2022 023 Overview: 06/24/2022atient is obese. 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 See telephone note dated 06/24. Patient denies any spotting since then. Patient denies any pain. Miscarriage/ectopic precautions givenTKRN Obesity during 06/24/2022 023 Overview: 06/24/2022atient is obese. 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 See telephone note dated 06/24. Patient denies any spotting since then. Patient denies any pain. Miscarriage/ectopic precautions givenTKRN Obesity during 06/24/2022 023 Overview: 06/24/2022atient is obese. 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 See telephone note dated 06/24. Patient denies any spotting since then. Patient denies any pain. Miscarriage/ectopic precautions givenTKRN Obesity during 06/24/2022 023 Overview: 06/24/2022atient is obese. 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 See telephone note dated 06/24. Patient denies any spotting since then. Patient denies any pain. Miscarriage/ectopic precautions givenTKRN Obesity during 06/24/2022 023 Overview: 06/24/2022atient is obese. 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 See telephone note dated 06/24. Patient denies any spotting since then. Patient denies any pain. Miscarriage/ectopic precautions givenTKRN Obesity during 06/24/2022 023 Overview: 06/24/2022atient is obese. We will plan on early hemoglobin A1c.TKRN Patellar subluxation 09/03/2012 08/26/2022 Unspecified hypertrophic and atrophic condition of skin 03/23/2008 08/26/2022 Scar condition and fibrosis of skin 03/23/2008 08/26/2022 Other and unspecified superf icial injury of other, multiple, and unspecified sites, without mention of infection 03/23/2008 documented as of this encounter (statuses as of 12/17/2022) [facility] History of Past illness Narrative* Problem Noted Date Resolved Date Spotting in early 06/24/202208/11 Overview: 06/24/2022atient did call in today stating that she had spotting last night after intercourse. See telephone note dated 06/24. Patient denies any spotting since then. Patient denies any pain. Miscarriage/ectopic precautions givenTKRN Obesity during 06/24/2022 023 Overview: 06/24/2022atient is obese. We will plan on early hemoglobin A1c.TKRN Patellar subluxation 09/03/2012 08/26/2022 Unspecified hypertrophic and atrophic condition of skin 03/23/2008 08/26/2022 Scar condition and fibrosis of skin 03/23/2008 08/26/2022 Other and unspecified superf icial injury of other, multiple, and unspecified sites, without mention of infection 03/23/2008 documented as of this encounter (statuses as of 12/17/2022) [facility] History of Past illness Narrative* Problem Noted Date Resolved Date Spotting in early 06/24/202208/11 Overview: 06/24/2022atient did call in today stating that she had spotting last night after intercourse. See telephone note dated 06/24. Patient denies any spotting since then. Patient denies any pain. Miscarriage/ectopic precautions givenTKRN Obesity during 06/24/2022 023 Overview: 06/24/2022atient is obese. We will plan on early hemoglobin A1c.TKRN Patellar subluxation 09/03/2012 08/26/2022 Unspecified hypertrophic and atrophic condition of skin 03/23/2008 08/26/2022 Scar condition and fibrosis of skin 03/23/2008 08/26/2022 Other and unspecified superf icial injury of other, multiple, and unspecified sites, without mention of infection 03/23/2008 documented as of this encounter (statuses as of 12/24/2022) [facility] History of Past illness Narrative* Problem Noted Date Resolved Date Spotting in early 06/24/202208/11 Overview: 06/24/2022atient did call in today stating that she had spotting last night after intercourse. See telephone note dated 06/24. Patient denies any spotting since then. Patient denies any pain. Miscarriage/ectopic precautions givenTKRN Obesity during 06/24/2022 023 Overview: 06/24/2022atient is obese. We will plan on early hemoglobin A1c.TKRN Patellar subluxation 09/03/2012 08/26/2022 Unspecified hypertrophic and atrophic condition of skin 03/23/2008 08/26/2022 Scar condition and fibrosis of skin 03/23/2008 08/26/2022 Other and unspecified superf icial injury of other, multiple, and unspecified sites, without mention of infection 03/23/2008 documented as of this encounter (statuses as of 01/04/2023) [facility] History of Past illness Narrative* Problem Noted Date Resolved Date Spotting in early 06/24/202208/11 Overview: 06/24/2022atient did call in today stating that she had spotting last night after intercourse. See telephone note dated 06/24. Patient denies any spotting since then. Patient denies any pain. Miscarriage/ectopic precautions givenTKRN Obesity during 06/24/2022 023 Overview: 06/24/2022atient is obese. We will plan on early hemoglobin A1c.TKRN Patellar subluxation 09/03/2012 08/26/2022 Unspecified hypertrophic and atrophic condition of skin 03/23/2008 08/26/2022 Scar condition and fibrosis of skin 03/23/2008 08/26/2022 Other and unspecified superf icial injury of other, multiple, and unspecified sites, without mention of infection 03/23/2008 documented as of this encounter (statuses as of 01/13/2023) [facility] History of Past illness Narrative* Problem Noted Date Resolved Date Spotting in early 06/24/202208/11 Overview: 06/24/2022atient did call in today stating that she had spotting last night after intercourse. See telephone note dated 06/24. Patient denies any spotting since then. Patient denies any pain. Miscarriage/ectopic precautions givenTKRN Obesity during 06/24/2022 023 Overview: 06/24/2022atient is obese. We will plan on early hemoglobin A1c.TKRN Patellar subluxation 09/03/2012 08/26/2022 Unspecified hypertrophic and atrophic condition of skin 03/23/2008 08/26/2022 Scar condition and fibrosis of skin 03/23/2008 08/26/2022 Other and unspecified superf icial injury of other, multiple, and unspecified sites, without mention of infection 03/23/2008 documented as of this encounter (statuses as of 01/13/2023) [facility] History of Past illness Narrative* Problem Noted Date Resolved Date Spotting in early 06/24/202208/11 Overview: 06/24/2022atient did call in today stating that she had spotting last night after intercourse. See telephone note dated 06/24. Patient denies any spotting since then. Patient denies any pain. Miscarriage/ectopic precautions givenTKRN Obesity during 06/24/2022 023 Overview: 06/24/2022atient is obese. We will plan on early hemoglobin A1c.TKRN Patellar subluxation 09/03/2012 08/26/2022 Unspecified hypertrophic and atrophic condition of skin 03/23/2008 08/26/2022 Scar condition and fibrosis of skin 03/23/2008 08/26/2022 Other and unspecified superf icial injury of other, multiple, and unspecified sites, without mention of infection 03/23/2008 documented as of this encounter (statuses as of 01/20/2023) [facility] History of Past illness Narrative* Problem Noted Date Resolved Date Spotting in early 06/24/202208/11 Overview: 06/24/2022atient did call in today stating that she had spotting last night after intercourse. See telephone note dated 06/24. Patient denies any spotting since then. Patient denies any pain. Miscarriage/ectopic precautions givenTKRN Obesity during 06/24/2022 023 Overview: 06/24/2022atient is obese. We will plan on early hemoglobin A1c.TKRN Patellar subluxation 09/03/2012 08/26/2022 Unspecified hypertrophic and atrophic condition of skin 03/23/2008 08/26/2022 Scar condition and fibrosis of skin 03/23/2008 08/26/2022 Other and unspecified superf icial injury of other, multiple, and unspecified sites, without mention of infection 03/23/2008 documented as of this encounter (statuses as of 01/27/2023) [facility] History of Past illness Narrative* Problem Noted Date Resolved Date Spotting in early 06/24/202208/11 Overview: 06/24/2022atient did call in today stating that she had spotting last night after intercourse. See telephone note dated 06/24. Patient denies any spotting since then. Patient denies any pain. Miscarriage/ectopic precautions givenTKRN Obesity during 06/24/2022 023 Overview: 06/24/2022atient is obese. We will plan on early hemoglobin A1c.TKRN Patellar subluxation 09/03/2012 08/26/2022 Unspecified hypertrophic and atrophic condition of skin 03/23/2008 08/26/2022 Scar condition and fibrosis of skin 03/23/2008 08/26/2022 Other and unspecified superf icial injury of other, multiple, and unspecified sites, without mention of infection 03/23/2008 documented as of this encounter (statuses as of 02/04/2023) [facility] History of Past illness Narrative* Problem Noted Date Resolved Date Spotting in early 06/24/202208/11 Overview: 06/24/2022atient did call in today stating that she had spotting last night after intercourse. See telephone note dated 06/24. Patient denies any spotting since then. Patient denies any pain. Miscarriage/ectopic precautions givenTKRN Obesity during 06/24/2022 023 Overview: 06/24/2022atient is obese. We will plan on early hemoglobin A1c.TKRN Patellar subluxation 09/03/2012 08/26/2022 Unspecified hypertrophic and atrophic condition of skin 03/23/2008 08/26/2022 Scar condition and fibrosis of skin 03/23/2008 08/26/2022 Other and unspecified superf icial injury of other, multiple, and unspecified sites, without mention of infection 03/23/2008 documented as of this encounter (statuses as of 02/05/2023) [facility]11-14-2022 Miscellaneous Notes* Telephone Encounter - Aure Colon MD - 06/24/2022 11:51 AM EST noted * Telephone Encounter - Anju Caballero LPN - 06/24/2022 10:34 AM EST Pt calling and stated that she has an appointment for her PNOB this afternoon, she reports that last evening she had an episode of red spotting. No cramping, further bleeding, LOF. Pt was given bleeding precautions and will keep her scheduled appt for her PNOB. Pt did report recent intercourse to spotting episode. Anju Caballero LPN [facility] Miscellaneous Notes* Telephone Encounter - Mariela Wilson RN - 06/06/2022 12:46 PM EDT PNOB scheduled. Mariela Wilson RN * Telephone Encounter - Marbella Reddy RN - 06/06/2022 12:06 PM EDT Left message for patient to return phone call. Patient has an appointment with Dr Colon for NOB appointment. Please schedule PNOB appointment. [facility] Miscellaneous Notes* Telephone Encounter - Joy Valero LPN - 01/11/2022 2:38 PM EDT Opened in error documented [facility] Miscellaneous Notes* Telephone Encounter - Joy Valero LPN - 01/11/2022 11:45 AM EDT Patient called stating that she is waiting for mail order Rx to come so she will need 1 pack of Sprintec sent to [facility] documented [facility] encounter[facility] Miscellaneous Notes* Telephone Encounter - Mariela Wilson RN - 01/10/2022 8:36 AM EDT Patient needing RX sent to Mail order pharmacy. Last seen for annual 09/26/21. Please file. Thank you. Pending Prescriptions Disp Refills NORGESTIMATE 0.25 MG-ETHINYL ESTRADIOL 35 MCG TABLET 84 tablet 3 Sig: Take 1 tablet by mouth once daily. RANDY: No Mariela Wilson RN [facility] Diagnosis Surveillance for control, oral contraceptives Surveillance of previously prescribed contraceptive pill documented in this encounter [facility] note* Diagnosis Spotting in early Spotting complicating , antepartum condition or complication related nausea, antepartum Mild hyperemesis gravidarum, antepartum Obesity during documented in this encounter [facility] note* Diagnosis Encounter for supervision of normal first in first trimester- Primary Supervision of normal first related nausea, antepartum Mild hyperemesis gravidarum, antepartum Encounter for care in first trimester of first Need for influenza vaccination Need for prophylactic vaccination and inoculation against influenza Obesity during documented in this encounter [facility] note* Diagnosis 12 weeks gestation of - Primary state, incidental [facility] Diagnosis Encounter for screening of mother- Primary Unspecified screening 12 weeks gestation of state, incidental [facility]* Diagnosis Encounter for (NT) nuchal translucency scan- Primary Other specified screening 12 weeks gestation of state, incidental [facility]* Diagnosis 16 weeks gestation of - Primary state, incidental Encounter for supervision of other normal , first trimester [facility]* Diagnosis 20 weeks gestation of - Primary state, incidental Encounter for supervision of normal first in second trimester Supervision of normal first [facility]* Diagnosis Encounter for supervision of normal first in second trimester- Primary Supervision of normal first 24 weeks gestation of state, incidental [facility]* Diagnosis 28 weeks gestation of - Primary state, incidental Encounter for supervision of normal first in third trimester Supervision of normal first Need for vaccination Need for prophylactic vaccination and inoculation against unspecified single disease Uterine size-date discrepancy, third trimester [facility]* Diagnosis Uterine size-date discrepancy, third trimester- Primary 30 weeks gestation of state, incidental [facility]* Diagnosis 32 weeks gestation of - Primary state, incidental Encounter for supervision of normal first in third trimester Supervision of normal first Uterine size-date discrepancy, third trimester [facility]* Diagnosis Macrosomia of fetus affecting management of mother in third trimester, single or unspecified fetus- Primary 32 weeks gestation of state, incidental Encounter for ultrasound to check growth Encounter for routine screening for malformation using ultrasonics [facility]* Diagnosis 34 weeks gestation of - Primary state, incidental Encounter for supervision of normal first in third trimester Supervision of normal first [facility]* Diagnosis Uterine size-date discrepancy, third trimester- Primary Encounter for supervision of normal first in third trimester Supervision of normal first 36 weeks gestation of state, incidental [facility]* Diagnosis 36 weeks gestation of - Primary state, incidental Encounter for supervision of normal first in third trimester Supervision of normal first Excessive growth affecting management of in third trimester, single or unspecified fetus [facility]* Diagnosis 37 weeks gestation of - Primary state, incidental Encounter for supervision of normal first in third trimester Supervision of normal first [facility]* Diagnosis 38 weeks gestation of - Primary state, incidental documented in this encounter [facility]* Diagnosis 39 weeks gestation of - Primary state, incidental [facility]* Diagnosis Routine follow-up- Primary [facility]* Diagnosis Papanicolaou smear of cervix with low grade squamous intraepithelial lesion (LGSIL)- Primary care and examination Routine follow-up [facility]* Diagnosis Papanicolaou smear of cervix with low grade squamous intraepithelial lesion (LGSIL)- Primary Encounter for gynecological examination (general) (routine) without abnormal findings Screening for cervical cancer Screening for malignant neoplasm of the cervix Encounter for screening for human papillomavirus (HPV) Special screening examination for human papillomavirus (HPV) documented in this encounter [facility]* Diagnosis with uncertain dates, antepartum (HCC)- Primary state, incidental related nausea, antepartum (HCC) Mild hyperemesis gravidarum, antepartum 7 weeks gestation of (HCC) state, incidental Encounter for supervision of other normal in first trimester (HCC) History of macrosomia in infant in prior , currently (HCC) with other poor obstetric history [facility]* Diagnosis Encounter for supervision of other normal in second trimester (HCC)- Primary 16 weeks gestation of (HCC) state, incidental History of macrosomia in infant in prior , currently (HCC) with other poor obstetric history [facility]* Diagnosis Encounter for supervision of other normal in second trimester (HCC)- Primary History of macrosomia in in prior , currently (HCC) with other poor obstetric history 19 weeks gestation of (HCC) state, incidental * Assessment & Plan Note - Aure Castellano MD - 02/21/2025 2:35 PM EDT Associated Problem(s): History of macrosomia in infant in prior , currently ([facility]) [facility]* Diagnosis Encounter for anatomic survey ([facility]) [Z36.89]- Primary Encounter for anatomic survey with uncertain dates, antepartum ([facility]) state, incidental Encounter for supervision of other normal in second trimester ([facility])- Primary History of macrosomia in infant in prior , currently ([facility]) with other poor obstetric history 19 weeks gestation of ([facility]) state, incidental documented in this encounter [facility]* Diagnosis Encounter for supervision of other normal in second trimester ([facility])- Primary History of macrosomia in in prior , currently ([facility]) with other poor obstetric history 19 weeks gestation of ([facility]) state, incidental Encounter for supervision of other normal in second trimester ([facility])- Primary 23 weeks gestation of ([facility]) state, incidental Screening for diabetes mellitus History of macrosomia in in prior , currently ([facility]) with other poor obstetric history documented [facility]* Diagnosis Encounter for supervision of other normal in second trimester ([facility])- Primary History of macrosomia in in prior , currently ([facility]) with other poor obstetric history 19 weeks gestation of ([facility]) state, incidental Encounter for supervision of other normal in second trimester ([facility])- Primary 27 weeks gestation of ([facility]) state, incidental History of macrosomia in infant in prior , currently ([facility]) with other poor obstetric history Need for vaccination Need for prophylactic vaccination and inoculation against unspecified single disease documented in this encounter [facility] for referral (narrative)* Diagnostic Procedure Only (Routine) - Closed Specialty Diagnoses / Procedures Referred By [place] t Referred To Contact [facility] Diagnoses 12 weeks gestation of Procedures NUCHAL TRANSLUCENCY WHI US NUCHAL TRANSLUCENCY 1ST GESTATION Minnie Holm APRN.JORGE ALBERTO [address] [place] [address] [facility] [address] [place] [address] Referral ID Status Reason Start Date Expiration Date V isits Requested Visits Authorized [id number] Closed Auto-Generate d Referral 07/30/2022 07/30/2023 1 1 * Molecular Testing (Routine) - Closed Specialty Diagnoses / Procedures [facility] To [facility] Diagnoses 12 weeks gestation of Procedures CYSTIC FIBROSIS PATHOGENIC VARIANT ANALYSIS CFTR GENE ANALYSIS COMMON VARIANTS Minnie Holm APRN.CNM [address] [place] [address] Molecular & Functional Imaging [address] [id number] Referral ID Status Reason Start Date Expiration Date V isits Requested Visits Authorized [id number] Closed PCP Requested Referral Auto-Generated Referral 07/29/2022 10/27/2022 1 1 [facility] for referral (narrative)* Diagnostic Procedure Only (Routine) - Authorized Specialty Diagnoses / Procedures [facility] To Contact [facility] Diagnoses 16 weeks gestation of Procedures OBSTETRIC ULTRASOUND WHI US PREG UTERUS AFTER 1ST TRIMEST GESTATION Wally Mercado MD [address] [place] [address] [facility] [address] [place] [address] Referral ID Status Reason Start Date Expiration Date Visits Requested Visits Authorized [id number] Authorized Auto-Generat ed Referral 08/26/2022 08/26/2023 1 1 [facility] for referral (narrative)* Diagnostic Procedure Only (Routine) - Authorized Specialty Diagnoses / Procedures [facility] To Contact [facility] Diagnoses 30 weeks gestation of Uterine size-date discrepancy, third trimester Procedures OBSTETRIC ULTRASOUND WHI US PREG UTERUS AFTER 1ST TRIMEST GESTATION Aure Castellano MD [address] [place] [address] [facility] [address] [place] [address] Referral ID Status Reason Start Date Expiration Date Visits Requested Visits Authorized [id number] Authorized Auto-Generat ed Referral 12/02/2022 12/02/2023 1 1 [facility] Diagnostic Procedure Only (Routine) - Authorized Specialty Diagnoses / Procedures Referred By Alberta tao Referred To Contact [facility] Diagnoses 32 weeks gestation of Encounter for supervision of normal first in third trimester Uterine size-date discrepancy, third trimester Procedures OBSTETRIC ULTRASOUND WHI US PREG UTERUS AFTER 1ST TRIMEST GESTATION Wally Mercado MD [address] [place] [address] [facility] [address] [place] [address] Referral ID Status Reason Start Date Expiration Date Visits Requested Visits Authorized [id number] Authorized Auto-Generat ed Referral 12/16/2022 12/16/2023 1 1 [facility] Health Concerns Problem Noted Date OB Reminders 07/01/2022 Problem Noted Date OB Reminders 07/01/2022 Problem Noted Date OB Reminders 07/01/2022 Problem Noted Date OB Reminders 07/01/2022 Problem Noted Date OB Reminders 07/01/2022 Problem Noted Date OB Reminders 07/01/2022 Problem Noted Date OB Reminders 07/01/2022 Problem Noted Date OB Reminders 07/01/2022 Problem Noted Date OB Reminders 07/01/2022 Problem Noted Date OB Reminders 07/01/2022 Problem Noted Date OB Reminders 07/01/2022 Problem Noted Date OB Reminders 07/01/2022 Problem Noted Date OB Reminders 07/01/2022 Problem Noted Date OB Reminders 07/01/2022 Problem Noted Date OB Reminders 07/01/2022 Problem Noted Date OB Reminders 07/01/2022 Problem Noted Date Diagnosed Date OB Reminders 07/01/2022 Problem Noted Date Diagnosed Date OB Reminders 07/01/2022 Problem Noted Date Diagnosed Date OB Reminders 07/01/2022 Summary Purpose Family History No Family History Records FoundNo Family History Records Found Advance Directives No Advanced Directives Records FoundNo Advanced Directives Records Found Additional Source Comments Source Comments (unrecognize d section and content) In the event this informatio n is protected by the Federal Confidentiality of Alcohol and Drug Abuse Patient Records regulations: The Federal rules restrict any use of the information to criminally investigate or prosecute any alcohol or drug abuse patient.[facility] the event this information is protected by the Federal Confidentiality of Alcohol and Drug Abuse Patient Records regulations: The Federal rules restrict any use of the information to criminally investigate or prosecute any alcohol or drug abuse patient.[facility] HospitalIn the event this information is protected by the Federal Confidentiality of Alcohol and Drug Abuse Patient Records regulations: The Federal rules restrict any use of the information to criminally investigate or prosecute any alcohol or drug abuse patient.[facility] HospitalIn the event this information is protected by the Federal Confidentiality of Alcohol and Drug Abuse Patient Records regulations: The Federal rules restrict any use of the information to criminally investigate or prosecute any alcohol or drug abuse patient.[facility] HospitalIn the event this information is protected by the Federal Confidentiality of Alcohol and Drug Abuse Patient Records regulations: The Federal rules restrict any use of the information to criminally investigate or prosecute any alcohol or drug abuse patient.[facility] HospitalIn the event this information is protected by the Federal Confidentiality of Alcohol and Drug Abuse Patient Records regulations: The Federal rules restrict any use of the information to criminally investigate or prosecute any alcohol or drug abuse patient.[facility] HospitalIn the event this information is protected by the Federal Confidentiality of Alcohol and Drug Abuse Patient Records regulations: The Federal rules restrict any use of the information to criminally investigate or prosecute any alcohol or drug abuse patient.[facility] HospitalIn the event this information is protected by the Federal Confidentiality of Alcohol and Drug Abuse Patient Records regulations: The Federal rules restrict any use of the information to criminally investigate or prosecute any alcohol or drug abuse patient.[facility] HospitalIn the event this information is protected by the Federal Confidentiality of Alcohol and Drug Abuse Patient Records regulations: The Federal rules restrict any use of the information to criminally investigate or prosecute any alcohol or drug abuse patient.[facility] HospitalIn the event this information is protected by the Federal Confidentiality of Alcohol and Drug Abuse Patient Records regulations: The Federal rules restrict any use of the information to criminally investigate or prosecute any alcohol or drug abuse patient.[facility] HospitalIn the event this information is protected by the Federal Confidentiality of Alcohol and Drug Abuse Patient Records regulations: The Federal rules restrict any use of the information to criminally investigate or prosecute any alcohol or drug abuse patient.[facility] HospitalIn the event this information is protected by the Federal Confidentiality of Alcohol and Drug Abuse Patient Records regulations: The Federal rules restrict any use of the information to criminally investigate or prosecute any alcohol or drug abuse patient.[facility] HospitalIn the event this information is protected by the Federal Confidentiality of Alcohol and Drug Abuse Patient Records regulations: The Federal rules restrict any use of the information to criminally investigate or prosecute any alcohol or drug abuse patient.[facility] HospitalIn the event this information is protected by the Federal Confidentiality of Alcohol and Drug Abuse Patient Records regulations: The Federal rules restrict any use of the information to criminally investigate or prosecute any alcohol or drug abuse patient.[facility] HospitalIn the event this information is protected by the Federal Confidentiality of Alcohol and Drug Abuse Patient Records regulations: The Federal rules restrict any use of the information to criminally investigate or prosecute any alcohol or drug abuse patient.[facility] HospitalIn the event this information is protected by the Federal Confidentiality of Alcohol and Drug Abuse Patient Records regulations: The Federal rules restrict any use of the information to criminally investigate or prosecute any alcohol or drug abuse patient.[facility] HospitalIn the event this information is protected by the Federal Confidentiality of Alcohol and Drug Abuse Patient Records regulations: The Federal rules restrict any use of the information to criminally investigate or prosecute any alcohol or drug abuse patient.[facility] HospitalIn the event this information is protected by the Federal Confidentiality of Alcohol and Drug Abuse Patient Records regulations: The Federal rules restrict any use of the information to criminally investigate or prosecute any alcohol or drug abuse patient.[facility] HospitalIn the event this information is protected by the Federal Confidentiality of Alcohol and Drug Abuse Patient Records regulations: The Federal rules restrict any use of the information to criminally investigate or prosecute any alcohol or drug abuse patient.[facility] HospitalIn the event this information is protected by the Federal Confidentiality of Alcohol and Drug Abuse Patient Records regulations: The Federal rules restrict any use of the information to criminally investigate or prosecute any alcohol or drug abuse patient.[facility] HospitalIn the event this information is protected by the Federal Confidentiality of Alcohol and Drug Abuse Patient Records regulations: The Federal rules restrict any use of the information to criminally investigate or prosecute any alcohol or drug abuse patient.[facility] HospitalIn the event this information is protected by the Federal Confidentiality of Alcohol and Drug Abuse Patient Records regulations: The Federal rules restrict any use of the information to criminally investigate or prosecute any alcohol or drug abuse patient.[facility] HospitalIn the event this information is protected by the Federal Confidentiality of Alcohol and Drug Abuse Patient Records regulations: The Federal rules restrict any use of the information to criminally investigate or prosecute any alcohol or drug abuse patient.[facility] HospitalIn the event this information is protected by the Federal Confidentiality of Alcohol and Drug Abuse Patient Records regulations: The Federal rules restrict any use of the information to criminally investigate or prosecute any alcohol or drug abuse patient.[facility] HospitalIn the event this information is protected by the Federal Confidentiality of Alcohol and Drug Abuse Patient Records regulations: The Federal rules restrict any use of the information to criminally investigate or prosecute any alcohol or drug abuse patient.[facility] HospitalIn the event this information is protected by the Federal Confidentiality of Alcohol and Drug Abuse Patient Records regulations: The Federal rules restrict any use of the information to criminally investigate or prosecute any alcohol or drug abuse patient.[facility] HospitalIn the event this information is protected by the Federal Confidentiality of Alcohol and Drug Abuse Patient Records regulations: The Federal rules restrict any use of the information to criminally investigate or prosecute any alcohol or drug abuse patient.[facility] HospitalIn the event this information is protected by the Federal Confidentiality of Alcohol and Drug Abuse Patient Records regulations: The Federal rules restrict any use of the information to criminally investigate or prosecute any alcohol or drug abuse patient.[facility] HospitalIn the event this information is protected by the Federal Confidentiality of Alcohol and Drug Abuse Patient Records regulations: The Federal rules restrict any use of the information to criminally investigate or prosecute any alcohol or drug abuse patient.[facility] HospitalIn the event this information is protected by the Federal Confidentiality of Alcohol and Drug Abuse Patient Records regulations: The Federal rules restrict any use of the information to criminally investigate or prosecute any alcohol or drug abuse patient.[facility] HospitalIn the event this information is protected by the Federal Confidentiality of Alcohol and Drug Abuse Patient Records regulations: The Federal rules restrict any use of the information to criminally investigate or prosecute any alcohol or drug abuse patient.[facility] HospitalIn the event this information is protected by the Federal Confidentiality of Alcohol and Drug Abuse Patient Records regulations: The Federal rules restrict any use of the information to criminally investigate or prosecute any alcohol or drug abuse patient.[facility] HospitalIn the event this information is protected by the Federal Confidentiality of Alcohol and Drug Abuse Patient Records regulations: The Federal rules restrict any use of the information to criminally investigate or prosecute any alcohol or drug abuse patient.[facility] HospitalIn the event this information is protected by the Federal Confidentiality of Alcohol and Drug Abuse Patient Records regulations: The Federal rules restrict any use of the information to criminally investigate or prosecute any alcohol or drug abuse patient.[facility] HospitalIn the event this information is protected by the Federal Confidentiality of Alcohol and Drug Abuse Patient Records regulations: The Federal rules restrict any use of the information to criminally investigate or prosecute any alcohol or drug abuse patient.[facility] HospitalIn the event this information is protected by the Federal Confidentiality of Alcohol and Drug Abuse Patient Records regulations: The Federal rules restrict any use of the information to criminally investigate or prosecute any alcohol or drug abuse patient.[facility] HospitalIn the event this information is protected by the Federal Confidentiality of Alcohol and Drug Abuse Patient Records regulations: The Federal rules restrict any use of the information to criminally investigate or prosecute any alcohol or drug abuse patient.[facility] HospitalIn the event this information is protected by the Federal Confidentiality of Alcohol and Drug Abuse Patient Records regulations: The Federal rules restrict any use of the information to criminally investigate or prosecute any alcohol or drug abuse patient.[facility] HospitalIn the event this information is protected by the Federal Confidentiality of Alcohol and Drug Abuse Patient Records regulations: The Federal rules restrict any use of the information to criminally investigate or prosecute any alcohol or drug abuse patient.[facility] Reason for Visit (unrecogniz ed section and content) Reason Onset Date Comments Refill Request 01/10/2022 Reason Onset Date Comments Refill Request 01/11/2022 Reason Comments Opened In Error Reason Comments Future Appointment Reason Comments Patient Question Reason Comments Care Reason Onset Date Comments Initial OB Visit Immunizations 07/01/2022 Flu vaccination Reason Onset Date Comments Care 07/29/2022 Reason Comments Orders Reason Comments US Specialty Diagnoses / Procedures Referred By Alberta tao Referred To Contact [facility] Diagnoses 12 weeks gestation of Procedures NUCHAL TRANSLUCENCY WHI US NUCHAL TRANSLUCENCY 1ST GESTATION Minnie Holm APRN.JORGE ALBERTO [address] [place] [address] [facility] [address] [place] [address] Referral ID Status Reason Start Date Expiration Date V isits Requested Visits Authorized [id number] Closed Auto-Generate d Referral 07/30/2022 07/30/2023 1 1 Reason Comments First Seq Results Reason Comments Care Reason Onset Date Comments Care 09/23/2022 Reason Onset Date Comments Care 10/21/2022 Reason Onset Date Comments Care 11/18/2022 Reason Onset Date Comments Care 12/02/2022 Reason Comments Breast Pump Reason Onset Date Comments Care 12/16/2022 Specialty Diagnoses / Procedures Referred By Contac t Referred To Contact [facility] Diagnoses 30 weeks gestation of Uterine size-date discrepancy, third trimester Procedures OBSTETRIC ULTRASOUND WHI US PREG UTERUS AFTER 1ST TRIMEST GESTATION Aure Castellano MD [address] [place] [address] [facility] [address] [place] [id number] Referral ID Status Reason Start Date Expiration Date V isits Requested Visits Authorized [id number] Closed Auto-Generate d Referral 12/02/2022 12/02/2023 1 1 Reason Onset Date Comments Care 12/30/2022 Specialty Diagnoses / Procedures Referred By Contac t Referred To Contact [facility] Diagnoses 32 weeks gestation of Encounter for supervision of normal first in third trimester Uterine size-date discrepancy, third trimester Procedures OBSTETRIC ULTRASOUND WHI US PREG UTERUS AFTER 1ST TRIMEST GESTATION Wally Mercado MD [address] [place] [address] [facility] [address] [place] [address] Referral ID Status Reason Start Date Expiration Date V isits Requested Visits Authorized [id number] Closed Auto-Generate d Referral 12/16/2022 12/16/2023 1 1 Reason Onset Date Comments Care 01/13/2023 Reason Onset Date Comments Care 01/20/2023 Reason Onset Date Comments Care 01/27/2023 Reason Onset Date Comments Care 02/03/2023 Reason Comments Early Reason Comments FMLA Paperwork Reason Comments Routine Reason Comments Yearly Exam Reason Comments Initial OB Visit Reason Onset Date Comments Care 01/31/2025 Reason Onset Date Comments Care 02/21/2025 Specialty Diagnoses / Procedures Referred By Contac t Referred To Contact [facility] Diagnoses with uncertain dates, antepartum (HCC) Procedures OBSTETRIC ULTRASOUND WHI US PREG UTERUS AFTER 1ST TRIMEST GESTATION Maria Eugenia Roper APRN.CN [address] [place] [address] Phone: tel: fax: [facility] [place] [address] [place] [address] Referral ID Status Reason Start Date Expiration Date V isits Requested Visits Authorized [id number] Closed Auto-Generate d Referral 11/29/2024 11/29/2025 1 1 Reason Onset Date Comments Care 03/21/2025 Reason Onset Date Comments Care 04/18/2025 Care Teams (unrecognized sec tion and content) Supervising Editor News Reel Relationship Specialty Start Date End Date Pepe Torres MD [address] [place] [address] PCP - General Family Practice 04/19/14 Supervising Editor News Reel Relationship Specialty Start Date End Date Pepe Torres MD [address] [place] [address] PCP - General Family Practice 04/19/14 Supervising Editor News Reel Relationship Specialty Start Date End Date Pepe Torres MD [address] [place] [address] PCP - General Family Medicine 04/19/14 Supervising Editor News Reel Relationship Specialty Start Date End Date Pepe Torres MD [address] [place] [address] PCP - General Family Medicine 04/19/14 Supervising Editor News Reel Relationship Specialty Start Date End Date Pepe Torres MD [address] [place] [address] PCP - General Family Medicine 04/19/14 Supervising Editor News Reel Relationship Specialty Start Date End Date Pepe Torres MD [address] [place] [address] PCP - General Family Medicine 04/19/14 Supervising Editor News Reel Relationship Specialty Start Date End Date Pepe Torres MD [address] [place] [address] PCP - General Family Medicine 04/19/14 Supervising Editor News Reel Relationship Specialty Start Date End Date Pepe Torres MD [address] [place] [address] PCP - General Family Medicine 04/19/14 Supervising Editor News Reel Relationship Specialty Start Date End Date Pepe Torres MD [address] [place] [address] PCP - General Family Medicine 04/19/14 Supervising Editor News Reel Relationship Specialty Start Date End Date Pepe Torres MD [address] [place] [address] PCP - General Family Medicine 04/19/14 Supervising Editor News Reel Relationship Specialty Start Date End Date Pepe Torres MD [address] [place] [address] PCP - General Family Medicine 04/19/14 Supervising Editor News Reel Relationship Specialty Start Date End Date Pepe Torres MD [address] [place] [address] PCP - General Family Medicine 04/19/14 Supervising Editor News Reel Relationship Specialty Start Date End Date Pepe Torres MD [address] [place] [address] PCP - General Family Medicine 04/19/14 Supervising Editor News Reel Relationship Specialty Start Date End Date Pepe Torres MD [address] [place] [address] PCP - General Family Medicine 04/19/14 Supervising Editor News Reel Relationship Specialty Start Date End Date Pepe Torres MD [address] [place] [address] PCP - General Family Medicine 04/19/14 Supervising Editor News Reel Relationship Specialty Start Date End Date Pepe Torres MD [address] [facility] [place] [address] PCP - General Family Medicine 04/19/14 Supervising Editor News Reel Relationship Specialty Start Date End Date Pepe Torres MD [address] [place] [address] PCP - General Family Medicine 04/19/14 Supervising Editor News Reel Relationship Specialty Start Date End Date Pepe Torres MD [address] [facility] [place] [address] PCP - General Family Medicine 04/19/14 Supervising Editor News Reel Relationship Specialty Start Date End Date Pepe Torres MD [address] [facility] [place] [address] PCP - General Family Medicine 04/19/14 Supervising Editor News Reel Relationship Specialty Start Date End Date Pepe Torres MD [address] [facility] [place] [address] PCP - General Family Medicine 04/19/14 Supervising Editor News Reel Relationship Specialty Start Date End Date Pepe Torres MD [address] [place] [address] [place] [address] PCP - General Family Medicine 04/19/14 Supervising Editor News Reel Relationship Specialty Start Date End Date Pepe Torres MD [address] [place] [address] [place] [address] PCP - General Family Medicine 04/19/14 Supervising Editor News Reel Relationship Specialty Start Date End Date Pepe Torres MD [address] [place] [address] [place] [address] PCP - General Family Medicine 04/19/14 Supervising Editor News Reel Relationship Specialty Start Date End Date Pepe Torres MD [address] [place] [address] PCP - General Family Medicine 04/19/14 Supervising Editor News Reel Relationship Specialty Start Date End Date Pepe Torres MD [address] [place] [address] PCP - General Family Medicine 04/19/14 Supervising Editor News Reel Relationship Specialty Start Date End Date Pepe Torres MD [address] [place] [address] PCP - General Family Medicine 04/19/14 Supervising Editor News Reel Relationship Specialty Start Date End Date Pepe Torres MD [address] [place] [address] PCP - General Family Medicine 04/19/14 Supervising Editor News Reel Relationship Specialty Start Date End Date Pepe Torres MD [address] [place] [address] PCP - General Family Medicine 04/19/14 Supervising Editor News Reel Relationship Specialty Start Date End Date Pepe Torres MD [address] [place] [address] PCP - General Family Medicine 04/19/14 Supervising Editor News Reel Relationship Specialty Start Date End Date Pepe Torres MD [address] [place] [address] PCP - General Family Medicine 04/19/14 Supervising Editor News Reel Relationship Specialty Start Date End Date Pepe Torres MD [address] [place] [address] PCP - General Family Medicine 04/19/14 INFORMATION SOURCE (unrecogn ized section and content) DATE CREATED AUTHOR 03/10/2024 [facility] DATE CREATED AUTHOR AUTHOR'S HALI HALL 06/21/2025 [facility] FOR RECORDS PERTAINING TO PATIENTS WHO ARE OR HAVE BEEN ENROLLED IN A CHEMICAL DEPENDENCY/SUBSTANCEABUSE PROGRAM, SOME INFORMATION MAY BE OMITTED. This clinical summary was aggregated from multiple sources. Caution should be exercised in using it in the provision of clinical care. This summary normalizes information from multiple sources, and as a consequence, information in this document may materially change the coding, format and clinical context of patient data. In addition, data may be omitted in some cases. CLINICAL DECISIONS SHOULD BE BASED ON THE PRIMARY CLINICAL RECORDS. [place] [id number] provides no warranty or guarantee [id number] the accuracy [phone] completeness of information in [id number] [id number]
--- OUTSIDE RECORDS SUMMARY | 2025-07-13 07:29 | XMS RPT_ITS | CCD ---
Author Organization [facility] Informat ion Partnership [facility] Care Team Providers Care Manager Managed Care Name Role Phone Pepe Torres MD Primary Care Provider Lisa LEDGE MAN, Taniya Referring Unavailable Lisa LEDGE MAN, Taniya Attending Unavailable Pepe Torres Primary Care [...] of macrosomia in in prior , currently ([facility])] Onset: 11-29-2024 Episodic Other complications of (1 source) Other specified related conditions, unspecified trimester; Translations: [ related nausea, antepartum ([facility])] Onset: 02-21-2023 Episodic Other injuries and conditions [...] B STREPTOCOCCUS BY PCR Not detected Normal [facility] Comment on above: Performed By: #### 5 7021-8 #### [facility] CLIA [id number] [address] [place] [address] CNPNon 05-31-2025 CNPN Telephone (OBGYWM) JACQUELINE BERNAL ([id number]) 1995 F Date Time Provider Department 05/31/25 GONZALES HARTLEY During your visit today, we recorded the following information about you: Maria Guadalupe Olivera RN 05/31/2025 8:52 AM Signed Breast pump order received from [employer]. To KJ to sign. LIDYA Diggs Trisha, [...] by MARIA GUADALUPE OLIVERA on 05/31/25 Normal [facility] CBC W Auto Differential pane l (Bld)on 04-18-2025 Basophils (Bld) [#/Vol] 0.03 10*3/uL Normal <0.11 [facility] Comment on above: Order Comment: Speci men Type: BLOOD SPECIMEN Ordering Facility: [facility] Address: [address] [place] [address] Performed By: #### 5 5454-3 #### [facility] CLIA [id number] [address] [place] [address] [place] Basophils/100 WBC (Bld) 0.4 % Normal [facility] Comment on above: Order Comment: Speci men Type: BLOOD SPECIMEN Ordering Facility: [facility] Address: [address] [place] [address] Performed By: #### 5 5454-3 #### [facility] CLIA [id number] [address] [place] [address] [place] Differential cell count method Nom (Bld) Auto Normal [facility] Comment on above: Order Comment: Speci men Type: BLOOD SPECIMEN Ordering Facility: [facility] Address: [address] [place] [address] Performed By: #### 5 5454-3 #### [facility] CLIA [id number] [address] [place] [address] [place] Eosinophils (Bld) [#/Vol] 0.06 10*3/uL Normal <0.46 [facility] Comment on above: Order Comment: Speci men Type: BLOOD SPECIMEN Ordering Facility: [facility] Address: [address] [place] [address] Performed By: #### 5 5454-3 #### [facility] CLIA [id number] [address] [place] [address] [place] Eosinophils/100 WBC (Bld) 0.8 % Normal [facility] Comment on above: Order Comment: Speci men Type: BLOOD SPECIMEN Ordering Facility: [facility] Address: [address] [place] [address] Performed By: #### 5 5454-3 #### [facility] CLIA [id number] [address] [place] [address] [place] Erythrocyte distribution width (RBC) [Ratio] 12.9 % Normal 11.5-15.0 [facility] Comment on above: Order Comment: Speci men Type: BLOOD SPECIMEN Ordering Facility: [facility] Address: [address] [place] [address] Performed By: #### 5 5454-3 #### [facility] CLIA [id number] [address] [place] [address] [place] Hematocrit (Bld) [Volume fraction] 37.2 % Normal 36.0-46.0 [facility] Comment on above: Order Comment: Speci men Type: BLOOD SPECIMEN Ordering Facility: [facility] Address: [address] [place] [address] Performed By: #### 5 5454-3 #### [facility] CLIA [id number] [address] [place] [address] [place] Hemoglobin (Bld) [Mass/Vol] 12.5 g/dL Normal 11.5-15.5 [facility] Comment on above: Order Comment: Speci men Type: BLOOD SPECIMEN Ordering Facility: [facility] Address: [address] [place] [address] Performed By: #### 5 5454-3 #### [facility] CLIA [id number] [address] [place] [address] [place] Immature granulocytes (Bld) [#/Vol] 0.05 10*3/uL Normal <0.10 [facility] Comment on above: Order Comment: Speci men Type: BLOOD SPECIMEN Ordering Facility: [facility] Address: [address] [place] [address] Performed By: #### 5 5454-3 #### [facility] CLIA [id number] [address] [place] [address] [place] Immature granulocytes/100 WBC (Bld) 0.7 % Normal [facility] Comment on above: Order Comment: Speci men Type: BLOOD SPECIMEN Ordering Facility: [facility] Address: [address] [place] [address] Performed By: #### 5 5454-3 #### [facility] CLIA [id number] [address] [place] [address] [place] Lymphocytes (Bld) [#/Vol] 1.34 10*3/uL Normal 1.00-4.00 [facility] Comment on above: Order Comment: Speci men Type: BLOOD SPECIMEN Ordering Facility: [facility] Address: [address] [place] [address] Performed By: #### 5 5454-3 #### [facility] CLIA [id number] [address] [place] [address] [place] Lymphocytes/100 WBC (Bld) 18.8 % Normal [facility] Comment on above: Order Comment: Speci men Type: BLOOD SPECIMEN Ordering Facility: [facility] Address: [address] [place] [address] Performed By: #### 5 5454-3 #### [facility] CLIA [id number] [address] [place] [address] [place] MCH (RBC) [Entitic mass] 31.3 pg Normal 26.0-34.0 [facility] Comment on above: Order Comment: Speci men Type: BLOOD SPECIMEN Ordering Facility: [facility] Address: [address] [place] [address] Performed By: #### 5 5454-3 #### [facility] CLIA [id number] [address] [place] [address] [place] MCHC (RBC) [Mass/Vol] 33.6 g/dL Normal 30.5-36.0 [facility] Comment on above: Order Comment: Speci men Type: BLOOD SPECIMEN Ordering Facility: [facility] Address: [address] [place] [address] Performed By: #### 5 5454-3 #### [facility] CLIA [id number] [address] [place] [address] [place] MCV (RBC) [Entitic vol] 93.2 fL Normal 80.0-100.0 [facility] Comment on above: Order Comment: Speci men Type: BLOOD SPECIMEN Ordering Facility: [facility] Address: [address] [place] [address] Performed By: #### 5 5454-3 #### [facility] CLIA [id number] [address] [place] [address] [place] Monocytes (Bld) [#/Vol] 0.37 10*3/uL Normal <0.87 [facility] Comment on above: Order Comment: Speci men Type: BLOOD SPECIMEN Ordering Facility: [facility] Address: [address] [place] [address] Performed By: #### 5 5454-3 #### [facility] CLIA [id number] [address] [place] [address] [place] Monocytes/100 WBC (Bld) 5.2 % Normal [facility] Comment on above: Order Comment: Speci men Type: BLOOD SPECIMEN Ordering Facility: [facility] Address: [address] [place] [address] Performed By: #### 5 5454-3 #### [facility] CLIA [id number] [address] [place] [address] [place] Neutrophils (Bld) [#/Vol] 5.29 10*3/uL Normal 1.45-7.50 [facility] Comment on above: Order Comment: Speci men Type: BLOOD SPECIMEN Ordering Facility: [facility] Address: [address] [place] [address] Performed By: #### 5 5454-3 #### [facility] CLIA [id number] [address] [place] [address] [place] Neutrophils/100 WBC (Bld) 74.1 % Normal [facility] Comment on above: Order Comment: Speci men Type: BLOOD SPECIMEN Ordering Facility: [facility] Address: [address] [place] [address] Performed By: #### 5 5454-3 #### [facility] CLIA [id number] [address] [place] [address] [place] Nucleated RBC (Bld) [#/Vol] 10*3/uL Normal <0.01 [facility] Comment on above: Order Comment: Speci men Type: BLOOD SPECIMEN Ordering Facility: [facility] Address: [address] [place] [address] Performed By: #### 5 5454-3 #### [facility] CLIA [id number] [address] [place] [address] [place] Nucleated RBC/100 WBC (Bld) [Ratio] 0.0 /100 WBC Normal [facility] Comment on above: Order Comment: Speci men Type: BLOOD SPECIMEN Ordering Facility: [facility] Address: [address] [place] [address] Performed By: #### 5 5454-3 #### [facility] CLIA [id number] [address] [place] [address] [place] Platelet mean volume (Bld) [Entitic vol] 10.3 fL Normal 9.0-12.7 [facility] Comment on above: Order Comment: Speci men Type: BLOOD SPECIMEN Ordering Facility: [facility] Address: [address] [place] [address] Performed By: #### 5 5454-3 #### [facility] CLIA [id number] [address] [place] [address] [place] Platelets (Bld) [#/Vol] 221 10*3/uL Normal 150-400 [facility] Comment on above: Order Comment: Speci men Type: BLOOD SPECIMEN Ordering Facility: [facility] Address: [address] [place] [address] Performed By: #### 5 5454-3 #### [facility] CLIA [id number] [address] [place] [address] [place] RBC (Bld) [#/Vol] 3.99 10*6/uL Normal 3.90-5.20 [facility] Comment on above: Order Comment: Speci men Type: BLOOD SPECIMEN Ordering Facility: [facility] Address: [address] [place] [address] Performed By: #### 5 5454-3 #### [facility] CLIA [id number] [address] [place] [address] [place] WBC (Bld) [#/Vol] 7.14 10*3/uL Normal 3.70-11.00 [facility] Comment on above: Order Comment: Speci men Type: BLOOD SPECIMEN Ordering Facility: [facility] Address: [address] [place] [address] Performed By: #### 5 5454-3 #### [facility] CLIA [id number] [address] [place] [address] [place] GESTATIONAL GLUCOSE SCREEN, 1-HOUR, 50 GRAM, NON-FASTINGon 04-18-2025 Glucose [Mass/Vol] 99 mg/dL Normal 74-134 [facility] Comment on above: Order Comment: Speci men Type: BLOOD SPECIMEN Ordering Facility: [facility] Address: [address] [place] [address] Result Comment: [facility] Congress of Obstetricians and Gynecologists (Edith/John) guidelines state a gestational diabetes mellitus positive screen is made, in women not previously diagnosed with overt diabetes, when the 1 hr plasma glucose level is equal to or above 140 mg/dL. The [facility] [employer] and [facility] recommends a 135 mg/dL cutoff. Performed By: #### 5 7021-8 #### [facility] CLIA [id number] [address] [place] [address] [place] Reagin and Treponema pallidu m IgG and IgM [Interp]on 04-18-2025 T. pallidum IgG+IgM IA Ql (S) Non-Reactive Normal Nonreactive [facility] Comment on above: Order Comment: Speci men Type: BLOOD SPECIMEN Ordering Facility: [facility] Address: [address] [place] [address] Performed By: #### 5 5454-3 #### [facility] CLIA [id number] [address] [place] [address] [place] Reagin+T pallidum IgG+IgM Se rPl-Impon 04-18-2025 Reagin and Treponema pallidum IgG and IgM [Interp] Cannot exclude recent Treponemal infection if specimen collected within 7-10 days after appearance of suspect lesions or 2-3 weeks after an exposure. Clinical correlation is required. Normal [facility] Comment on above: Order Comment: Speci men Type: BLOOD SPECIMEN Ordering Facility: [facility] Address: [address] [place] [address] Performed By: #### 5 5454-3 #### [facility] CLIA [id number] [address] [place] [address] [place] Examination level ultrasound [...] 12 oz EFW by: Hadlock (HC-AC-[place]) Extended Loan Specialist 5.8 mm CM 7.3 mm 97% Nicolaides [...] normal LVOT view: normal 3-vessel view: normal 6-erkzgs-hiuxsfk view: normal Heart / Thorax Situs: situs [...] Read By: Swapna Carcamo M.D. MATERNAL MEDICINE [facility] Examination level ultrasound on 02-21-2025 Radiology Study observation (narrative) [facility] CBC W Auto Differential pane l (Bld)on 12-30-2024 Basophils (Bld) [#/Vol] 0.04 10*3/uL Normal <0.11 [facility] Comment on above: Order Comment: Speci men Type: BLOOD SPECIMEN Ordering Facility: [facility] Address: [address] [place] [address] Performed By: #### 5 7021-8 #### [facility] CLIA [id number] [address] [place] [address] [place] Basophils/100 WBC (Bld) 0.6 % Normal [facility] Comment on above: Order Comment: Speci men Type: BLOOD SPECIMEN Ordering Facility: [facility] Address: [address] [place] [address] Performed By: #### 5 7021-8 #### [facility] CLIA [id number] [address] [place] [address] [place] Differential cell count method Nom (Bld) Auto Normal [facility] Comment on above: Order Comment: Speci men Type: BLOOD SPECIMEN Ordering Facility: [facility] Address: [address] [place] [address] Performed By: #### 5 7021-8 #### [facility] CLIA [id number] [address] [place] [address] [place] Eosinophils (Bld) [#/Vol] 0.05 10*3/uL Normal <0.46 [facility] Comment on above: Order Comment: Speci men Type: BLOOD SPECIMEN Ordering Facility: [facility] Address: [address] [place] [address] Performed By: #### 5 7021-8 #### [facility] CLIA [id number] [address] [place] [address] [place] Eosinophils/100 WBC (Bld) 0.7 % Normal [facility] Comment on above: Order Comment: Speci men Type: BLOOD SPECIMEN Ordering Facility: [facility] Address: [address] [place] [address] Performed By: #### 5 7021-8 #### [facility] CLIA [id number] [address] [place] [address] [place] Erythrocyte distribution width (RBC) [Ratio] 12.6 % Normal 11.5-15.0 [facility] Comment on above: Order Comment: Speci men Type: BLOOD SPECIMEN Ordering Facility: [facility] Address: [address] [place] [address] Performed By: #### 5 7021-8 #### [facility] CLIA [id number] [address] [place] [address] [place] Hematocrit (Bld) [Volume fraction] 41.8 % Normal 36.0-46.0 [facility] Comment on above: Order Comment: Speci men Type: BLOOD SPECIMEN Ordering Facility: [facility] Address: [address] [place] [address] Performed By: #### 5 7021-8 #### [facility] CLIA [id number] [address] [place] [address] [place] Hemoglobin (Bld) [Mass/Vol] 14.0 g/dL Normal 11.5-15.5 [facility] Comment on above: Order Comment: Speci men Type: BLOOD SPECIMEN Ordering Facility: [facility] Address: [address] [place] [address] Performed By: #### 5 7021-8 #### [facility] CLIA [id number] [address] [place] [address] [place] Immature granulocytes (Bld) [#/Vol] 10*3/uL Normal <0.10 [facility] Comment on above: Order Comment: Speci men Type: BLOOD SPECIMEN Ordering Facility: [facility] Address: [address] [place] [address] Performed By: #### 5 7021-8 #### [facility] CLIA [id number] [address] [place] [address] [place] Immature granulocytes/100 WBC (Bld) 0.3 % Normal [facility] Comment on above: Order Comment: Speci men Type: BLOOD SPECIMEN Ordering Facility: [facility] Address: [address] [place] [address] Performed By: #### 5 7021-8 #### [facility] CLIA [id number] [address] [place] [address] [place] Lymphocytes (Bld) [#/Vol] 2.22 10*3/uL Normal 1.00-4.00 [facility] Comment on above: Order Comment: Speci men Type: BLOOD SPECIMEN Ordering Facility: [facility] Address: [address] [place] [address] Performed By: #### 5 7021-8 #### [facility] CLIA [id number] [address] [place] [address] [place] Lymphocytes/100 WBC (Bld) 31.4 % Normal [facility] Comment on above: Order Comment: Speci men Type: BLOOD SPECIMEN Ordering Facility: [facility] Address: [address] [place] [address] Performed By: #### 5 7021-8 #### [facility] CLIA [id number] [address] [place] [address] [place] MCH (RBC) [Entitic mass] 30.0 pg Normal 26.0-34.0 [facility] Comment on above: Order Comment: Speci men Type: BLOOD SPECIMEN Ordering Facility: [facility] Address: [address] [place] [address] Performed By: #### 5 7021-8 #### [facility] CLIA [id number] [address] [place] [address] [place] MCHC (RBC) [Mass/Vol] 33.5 g/dL Normal 30.5-36.0 [facility] Comment on above: Order Comment: Speci men Type: BLOOD SPECIMEN Ordering Facility: [facility] Address: [address] [place] [address] Performed By: #### 5 7021-8 #### [facility] CLIA [id number] [address] [place] [address] [place] MCV (RBC) [Entitic vol] 89.5 fL Normal 80.0-100.0 [facility] Comment on above: Order Comment: Speci men Type: BLOOD SPECIMEN Ordering Facility: [facility] Address: [address] [place] [address] Performed By: #### 5 7021-8 #### [facility] [id number] [address] [place] [address] [place] Monocytes (Bld) [#/Vol] 0.47 10*3/uL Normal <0.87 [facility] Comment on above: Order Comment: Speci men Type: BLOOD SPECIMEN Ordering Facility: [facility] Address: [address] [place] [address] Performed By: #### 5 7021-8 #### [facility] CLIA [id number] [address] [place] [address] [place] Monocytes/100 WBC (Bld) 6.6 % Normal [facility] Comment on above: Order Comment: Speci men Type: BLOOD SPECIMEN Ordering Facility: [facility] Address: [address] [place] [address] Performed By: #### 5 7021-8 #### [facility] CLIA [id number] [address] [place] [address] [place] Neutrophils (Bld) [#/Vol] 4.27 10*3/uL Normal 1.45-7.50 [facility] Comment on above: Order Comment: Speci men Type: BLOOD SPECIMEN Ordering Facility: [facility] Address: [address] [place] [address] Performed By: #### 5 7021-8 #### [facility] CLIA [id number] [address] [place] [address] [place] Neutrophils/100 WBC (Bld) 60.4 % Normal [facility] Comment on above: Order Comment: Speci men Type: BLOOD SPECIMEN Ordering Facility: [facility] Address: [address] [place] [address] Performed By: #### 5 7021-8 #### [facility] CLIA [id number] [address] [place] [address] [place] Nucleated RBC (Bld) [#/Vol] 10*3/uL Normal <0.01 [facility] Comment on above: Order Comment: Speci men Type: BLOOD SPECIMEN Ordering Facility: [facility] Address: [address] [id number] Performed By: #### 5 7021-8 #### [facility] CLIA [id number] [address] [place] [address] [place] Nucleated RBC/100 WBC (Bld) [Ratio] 0.0 /100 WBC Normal [facility] Comment on above: Order Comment: Speci men Type: BLOOD SPECIMEN Ordering Facility: [facility] Address: [address] [place] [address] Performed By: #### 5 7021-8 #### [facility] CLIA [id number] [address] [place] [address] [place] Platelet mean volume (Bld) [Entitic vol] 10.5 fL Normal 9.0-12.7 [facility] Comment on above: Order Comment: Speci men Type: BLOOD SPECIMEN Ordering Facility: [facility] Address: [address] [place] [address] Performed By: #### 5 7021-8 #### [facility] CLIA [id number] [address] [place] [address] [place] Platelets (Bld) [#/Vol] 250 10*3/uL Normal 150-400 [facility] Comment on above: Order Comment: Speci men Type: BLOOD SPECIMEN Ordering Facility: [facility] Address: [address] [place] [address] Performed By: #### 5 7021-8 #### [facility] CLIA [id number] [address] [place] [address] [place] RBC (Bld) [#/Vol] 4.67 10*6/uL Normal 3.90-5.20 [facility] Comment on above: Order Comment: Speci men Type: BLOOD SPECIMEN Ordering Facility: [facility] Address: [address] [place] [address] Performed By: #### 5 7021-8 #### [facility] CLIA [id number] [address] [place] [address] [place] WBC (Bld) [#/Vol] 7.07 10*3/uL Normal 3.70-11.00 [facility] Comment on above: Order Comment: Speci men Type: BLOOD SPECIMEN Ordering Facility: [facility] Address: [facility] [place] [id number] Performed By: #### 5 7021-8 #### [facility] CLIA [id number] [address] [id number] [place] CNPNon 12-30-2024 CNPN Telephone (OBGYWM) JACQUELINE BERNAL ([id number]) 1995 F Date Time Provider Department 12/30/24 MARIA EUGENIA ROPER OBJACKELIN During your visit today, we recorded the following information about you: Jacqueline Wheeler RN 12/30/2024 1:46 PM Signed 12w0d Left message for patient to call office. [facility] message sent as well. LIDYA Newman Lindsey, [...] Status:Closed by ANJALI BLANCO on 12/30/24 Normal [facility] HBV surface Ag Ser Qlon 12-10 HBV surface Ag Ql (S) Negative Normal Negative [facility] Comment on above: Order Comment: Speci men Type: BLOOD SPECIMEN Ordering Facility: [facility] Address: [address] [place] [address] Performed By: #### 5 7021-8 #### [facility] CLIA [id number] [address] [place] [address] [place] HCV Ab Ser Qlon 12-30-2024 HCV Ab Ql (S) Negative Normal Negative [facility] Comment on above: Order Comment: Speci men Type: BLOOD SPECIMEN Ordering Facility: [facility] Address: [address] [place] [address] Result Comment: The result suggests no evidence of infection with Hepatitis C virus. Should recent infection be suspected, repeat testing may be considered 4-6 weeks after this draw. Performed By: #### 5 5454-3 #### [facility] CLIA [id number] [address] [place], [place] [address] [address] [place] HIV 1+2 Ab IA Qlon 5 HIV 1 and 2 Ab IA.rapid Nom (S/P/Bld) Normal [facility] Comment on above: Order Comment: Speci men Type: BLOOD SPECIMEN Ordering Facility: [facility] Address: [address] [place] [address] Result Comment: Test not indicated. Performed By: #### 5 7021-8 #### [facility] CLIA [id number] [address] [place] [address] [place] HIV 1+2 Ab+HIV1 p24 Ag IA Ql Non-Reactive Normal Nonreactive [facility] Comment on above: Order Comment: Speci men Type: BLOOD SPECIMEN Ordering Facility: [facility] Address: [address] [place] [address] Performed By: #### 5 7021-8 #### [facility] CLIA [id number] [address] [place] [address] [place] HIV immunoassay testing algorithm interpretation (S/P/Bld) [Interp] Normal [facility] Comment on above: Order Comment: Speci men Type: BLOOD SPECIMEN Ordering Facility: [facility] Address: [address] [place] [address] Result Comment: No e vidence of HIV-1 or HIV-2 infection. Should recent infection be suspected, repeat testing may be considered 2-3 weeks after this draw. [place] Rev. Code 3701.243(E): This information has been [...] diagnoses. Performed By: #### 5 7021-8 #### [facility] CLIA [id number] [address] [place] [address] [place] HbA1c (Bld)on 12-30-2024 Average glucose Estimated from glycated hemoglobin (Bld) [Mass/Vol] 82 mg/dL Normal [facility] Comment on above: Order Comment: Latrice vergara Type: BLOOD SPECIMEN Ordering Facility: [facility] Address: [address] [place] [address] Result Comment: eAG: (Estimated average glucose) is a calculated value from HgbA1c and is insurance sales representative of the average blood glucose level in the last 2-3 month period. Performed By: #### 5 5454-3 #### [facility] CLIA [id number] [address] [place] [address] [place] HbA1c (Bld) [Mass fraction] 4.5 % Normal 4.3-5.6 [facility] Comment on above: Order Comment: Latrice vergara Type: BLOOD SPECIMEN Ordering Facility: [facility] Address: [address] [place] [address] Result Comment: Amer [place] Diabetes Association guidelines indicate that patients with HgbA1c in the range 5.7-6.4% are at increased risk for development of diabetes, and intervention by lifestyle modification may be beneficial. HgbA1c greater or equal to 6.5% is considered diagnostic of diabetes. Performed By: #### 5 5454-3 #### [facility] CLIA [id number] [address] [place] [address] [place] [id number] PLUSon 12-30-2024 Cell-free DNA./Cell-free DNA.total Dosage of chromosome-specific cfDNA (cfDNA) [Molar fraction] 16% Normal [facility] Comment on above: Order Comment: Latrice vergara Type: BLOOD SPECIMEN Ordering Facility: [facility] Address: [address] [place] [address] Performed By: #### M AT21 #### [facility] IA [id number] [address] [facility] [place] [address] Chr 13+18+21+X+Y aneuploidy Dosage of chromosome-specific cfDNA Ql (cfDNA) Negative Normal [facility] Comment on above: Order Comment: Latrice vergara Type: BLOOD SPECIMEN Ordering Facility: [facility] Address: [address] [place] [address] Performed By: #### M AT21 #### [facility] CLIA [id number] [address] [place] [address] Chr 21 trisomy Dosage of chromosome-specific cfDNA Ql (cfDNA) Negative Normal [facility] Comment on above: Order Comment: Speci men Type: BLOOD SPECIMEN Ordering Facility: [facility] Address: [address] [place] [address] Performed By: #### M AT21 #### [facility] CLIA [id number] [address] [place] [address] Chr X and Y aneuploidy risk Sequencing Ql (cfDNA) [Interp] Not detected Normal [facility] Comment on above: Order Comment: Speci men Type: BLOOD SPECIMEN Ordering Facility: [facility] Address: [address] [place] [address] Result Comment: Not Detected Not Detected Performed By: #### M AT21 #### [facility] CLIA [id number] [address] [place] [address] Citation Abram (Reference lab test) Comment Normal [facility] Comment on above: Order Comment: Speci men Type: BLOOD SPECIMEN Ordering Facility: [facility] Address: [address] [place] [address] Result Comment: 1. P leonor GIRON, et al. Hermila Med. 2012;14(3):296-305. 2. Jr ESPINAL, et al. Prenat Diag. 2013;33(6):591-597. 3. Dev C, et al. Clin Chem. 2015 Apr;61(4):608-616. 4. Monique GIRON, et al. Hermila Med. 2011;13(11):913-920. 5. ACOG/SMFM Practice Bulletin No. 226, May 2020. Performed By: #### M AT21 #### [facility] CLIA [id number] [address] [place] [address] Gestational age Estimated from conception date Del Toro Normal [facility] Comment on above: Order Comment: Speci men Type: BLOOD SPECIMEN Ordering Facility: [facility] Address: [address] [place], [place] [address] Performed By: #### M AT21 #### [facility] CLIA [id number] [address] [place] [address] GESTATIONALAGE AGE > OR = 9W Yes Normal [facility] Comment on above: Order Comment: Speci men Type: BLOOD SPECIMEN Ordering Facility: [facility] Address: [address] [place] [address] Performed By: #### M AT21 #### [facility] CLIA [id number] [address] [place] [address] Laboratory comment Abram (Report) Comment Normal [facility] Comment on above: Order Comment: Declani men Type: BLOOD SPECIMEN Ordering Facility: [facility] Address: [address] [place] [address] Result Comment: The MaterniT(R) 21 PLUS laboratory-developed test (LDT) analyzes circulating cell-free DNA from a maternal blood sample. This test is used for screening purposes and not diagnostic. Clinical correlation is recommended. Validation data on twin pregnancies is limited and the ability of this test to detect aneuploidy in higher multiple gestations has not yet been validated. Performed By: #### M AT21 #### [facility] CLIA [id number] [address] [place] [address] director of child welfare services name Nom (Provider) Comment Normal [facility] Comment on above: Order Comment: Speci men Type: BLOOD SPECIMEN Ordering Facility: [facility] Address: [address] [place] [address] Result Comment: This specimen showed an expected representation of chromosome 21, 18 and 13 material. Clinical correlation is suggested. Comment Raymond Fernandez MD, PhD, Director, [employer] Performed By: #### M AT21 #### [facility] CLIA [id number] [address] [place] [address] LIMITATIONS OF THE TEST Comment Normal [facility] Comment on above: Order Comment: Speci men Type: BLOOD SPECIMEN Ordering Facility: [facility] Address: [address] [place] [address] Result Comment: Mague kulkarni the results of [...] Fragmin(R)). Performed By: #### M AT21 #### [facility] CLIA [id number] [address] [place] [address] Monosomy X risk Dosage of chromosome-specific cfDNA Ql (Plasma cell-free+WBC DNA) [Interp] Not detected Normal [facility] Comment on above: Order Comment: Latrice jai Type: BLOOD SPECIMEN Ordering Facility: [facility] Address: [address] [place] [address] Performed By: #### M AT21 #### [facility] CLIA [id number] [address] [place] [address] NEGATIVE PREDICTIVE VALUE Note Normal [facility] Comment on above: Order Comment: Declanluda vergara Type: BLOOD SPECIMEN Ordering Facility: [facility] Address: [address] [place] [address] Result Comment: The Negative Predictive Value (NPV) for trisomy 21, 18, and 13 is greater than 99%. The NPV for SCA and ESS cannot be calculated as SCA and ESS are only reported when an abnormality is detected. Performed By: #### M AT21 #### [facility] CLIA [id number] [address] [place] [address] PERFORMANCE CHARACTERISTICS Note Normal [facility] Comment on above: Order Comment: Declanluda vergara Type: BLOOD SPECIMEN Ordering Facility: [facility] Address: [address] [place] [address] Result Comment: ! Sex ! Accuracy: 99.4% [...] ! ! ! * As reported in [facility] database nstd37 [https://www.ncbi.nlm.nih.gov/dbvar/studies/nstd37/ ] # Estimated Sensitivity. [...] only. Performed By: #### M AT21 #### [facility] CLIA [id number] [address] [facility] [place] [address] POSITIVE PREDICTIVE VALUE N/A Normal [facility] Comment on above: Order Comment: Speci men Type: BLOOD SPECIMEN Ordering Facility: [facility] Address: [address] [place] [address] Performed By: #### M AT21 #### [facility] CLIA [id number] [address] [place] [id number] Reference Lab Test Method Comment Normal [facility] Comment on above: Order Comment: Speci men Type: BLOOD SPECIMEN Ordering Facility: [facility] Address: [address] [place] [address] Result Comment: See Notes Circulating cell-free DNA [...] 22. Performed By: #### M AT21 #### [facility] CLIA [id number] [address] [place] [address] Service comment (Unsp spec) [Interp] Comment Normal [facility] Comment on above: Order Comment: Speci men Type: BLOOD SPECIMEN Ordering Facility: [facility] Address: [address] [place] [address] Result Comment: See Notes [employer] is a subsidiary of [employer], using the brand [employer]. This test was developed and its performance characteristics determined by [employer]. It has not been cleared or approved by the Food and Drug Administration. This laboratory is certified under the Clinical Laboratory Improvement Amendments (CLIA) as qualified to perform high complexity clinical laboratory testing and accredited by the College [employer] [place] [employer] (CAP). If there is future clinical need for adding MaterniT GENOME testing, this specimen will be available until term. [facility] samples will not be retained beyond 60 days. [facility] patients will have to send a new sample for re-sequencing ([facility] Test Code: 606360). Performed By: #### M AT21 #### [facility] CLIA [id number] [address] [place] [address] Sex Dosage of chromosome-specific cfDNA Nom (cfDNA) Comment Normal [facility] Comment on above: Order Comment: Speci jai Type: BLOOD SPECIMEN Ordering Facility: [facility] Address: [address] [place] [address] Result Comment: Cons istent with Male Performed By: #### M AT21 #### [facility] CLIA [id number] [address] [place] [address] Test performance information Abram (Unsp spec) Comment Normal [facility] Comment on above: Order Comment: Declani jai Type: BLOOD SPECIMEN Ordering Facility: [facility] Address: [address] [place] [address] Result Comment: The performance characteristics of the MaterniT(R) 21 PLUS laboratory-developed test (LDT) have been determined in a clinical validation study with women at increased risk for chromosomal aneuploidy.[1-4] Performed By: #### M AT21 #### [facility] CLIA [id number] [address] [place] [address] Trisomy 13 risk Dosage of chromosome-specific cfDNA Ql (cfDNA) [Interp] Negative Normal [facility] Comment on above: Order Comment: Latrice vergara Type: BLOOD SPECIMEN Ordering Facility: [facility] Address: [address] [place] [address] Performed By: #### M AT21 #### [facility] CLIA [id number] [address] [place] [address] Trisomy 18 risk Dosage of chromosome-specific cfDNA Ql (Plasma cell-free+WBC DNA) [Interp] Negative Normal [facility] Comment on above: Order Comment: Declani jai Type: BLOOD SPECIMEN Ordering Facility: [facility] Address: [address] [place] [address] Performed By: #### M AT21 #### [facility] CLIA [id number] [address] [place] [address] RUBELLA IGG ANTIBODYon 12-30 RUBELLA IGG AB, QUAL Positive Normal Positive [facility] Comment on above: Order Comment: Speci men Type: BLOOD SPECIMEN Ordering Facility: [facility] Address: [address] [place] [address] Result Comment: The result suggests recent or past exposure to Rubella virus or history of Rubella vaccination. Positive result may also be seen due to presence of passively-transferred antibodies. Please correlate with patient's history. Performed By: #### 5 7021-8 #### [facility] CLIA [id number] [address] [place] [address] [place] Reagin and Treponema pallidu m IgG and IgM [Interp]on 12-30-2024 T. pallidum IgG+IgM IA Ql (S) Non-Reactive Normal Nonreactive [facility] Comment on above: Order Comment: Speci men Type: BLOOD SPECIMEN Ordering Facility: [facility] Address: [address] [place] [address] Performed By: #### 5 7021-8 #### [facility] CLIA [id number] [address] [place] [address] [place] Reagin+T pallidum IgG+IgM Se rPl-Impon 12-30-2024 Reagin and Treponema pallidum IgG and IgM [Interp] Cannot exclude recent Treponemal infection if specimen collected within 7-10 days after appearance of suspect lesions or 2-3 weeks after an exposure. Clinical correlation is required. Normal [facility] Comment on above: Order Comment: Speci men Type: BLOOD SPECIMEN Ordering Facility: [facility] Address: [address] [place] [address] Performed By: #### 5 7021-8 #### [facility] CLIA [id number] [address] [place] [address] [place] TYPE + SCREEN PRENATALon ABO O Normal [facility] Comment on above: Order Comment: Speci men Type: BLOOD SPECIMEN Ordering Facility: [facility] Address: [address] [place] [address] Performed By: #### T SPN #### [facility] CLIA [id number] [address] [place] [address] [place] Rh Nom (Bld) Positive Normal [facility] Comment on above: Order Comment: Speci men Type: BLOOD SPECIMEN Ordering Facility: [facility] Address: [address] [place] [address] Performed By: #### T SPN #### [facility] CLIA [id number] [address] [place] [address] [place] TYPE AND SCREEN EXPIRATION 01/02/2025 23:59 Normal [facility] Comment on above: Order Comment: Speci men Type: BLOOD SPECIMEN Ordering Facility: [facility] Address: [address] [place] [address] Performed By: #### T SPN #### [facility] CLIA [id number] [address] [place] [address] [place] BACTERIAL CULTURE, URINEOrde red By: Renay Smith on 11-30-2024 Bacteria identified Cx Nom (U) <10,000 CFU/ml Normal urogenital benito [facility] Bacteria identified Cx Nom ( U)Ordered By: Renay Smith on 11-30-2024 [facility] Bacteria Ur Culton Bacteria identified Cx Nom (U) ORGANISM ID: 1 <10,000 CFU/ml Normal urogenital benito Normal [facility] Comment on above: Performed By: #### 5 7021-8 #### [facility] CLIA [id number] [address] [place] [address] [place] C. trachomatis+N. gonorrhoea e DNA TRAV+probe Ql (Unsp spec)on 11-29-2024 C. trachomatis rRNA TRAV+probe Ql (Unsp spec) Not detected Not detected [facility] Interpretation and review of laboratory results Normal [facility] N. gonorrhoeae rRNA TRAV+probe Ql (Unsp spec) Not detected Not detected [facility] This FDA-approved assay has been modified to accept rectal swabs self-collected in a healthcare setting. For self-collected rectal swabs, the test was developed and its performance characteristics determined by the [facility]'s [facility] [place] ([facility]). It has not been cleared or approved by the FDA. [facility] is regulated under CLIA as qualified to perform high-complexity testing. This test is used for clinical purposes. It should not be regarded as investigational or for research. [facility] C. trachomatis rRNA TRAV+probe Ql (Unsp spec) Not detected Normal Not detected [facility] Comment on above: Order Comment: Speci men Type: BLOOD SPECIMEN Ordering Facility: [facility] Address: [address] [place] [address] Performed By: #### 5 5454-3 #### [facility] CLIA [id number] [address] [place] [address] [place] N. gonorrhoeae rRNA TRAV+probe Ql (Unsp spec) Not detected Normal Not detected [facility] Comment on above: Order Comment: Speci men Type: BLOOD SPECIMEN Ordering Facility: [facility] Address: [address] [place] [address] Performed By: #### 5 5454-3 #### [facility] CLIA [id number] [address] [place] [address] [place] POC DATABASE PROGRAMMER ANALYST ULTRASOUNDon 11-30-19 25 Indication Viability; confirm cardiac activity, Uncertain dates Impression Single intrauterine gestational sac, CRL indicates discrepancy from clinical dates, JAYDE based on today's ultrasound Recommendations Follow up for 1st Trimester Anatomy with Nuchal Translucency as clinically indicated if desired. Method Transvaginal ultrasound examination Dle Toro . Number of embryos: 1 Dating [...] By: Maria Eugenia Roper CNM MATERNAL MEDICINE [facility] Radiology Study observation (narrative) [facility] TRICHOMONAS VAGINALIS NAATon 11-29-2024 Interpretation and review of laboratory results Normal [facility] T. vaginalis DNA TRAV+probe Ql (Unsp spec) Not detected Not detected [facility] T. vaginalis DNA TRAV+probe Ql (Unsp spec) Not detected Normal Not detected [facility] Comment on above: Order Comment: Speci men Type: BLOOD SPECIMEN Ordering Facility: [facility] Address: [address] [place] [address] Performed By: #### 5 5454-3 #### [facility] CLIA [id number] [address] [place] [address] OF [facility] CNOVon 07-30-2024 CNOV Office Visit (OBGYWM ) JACQUELINE BERNAL ([id number]) 1995 F Date Time Provider Department 07/30/24 [...] L1 SAB0 IAB0 Ectopic0 Multiple0 Live Births1 Brake Holder History LMP: 07/25/2024 (Exact Date), Unknown Age at Menarche: Age at First : Age at Menopause: Brake Holder History Comments: Sexual Activity: Not Currently; Male [...] discussed with the Patient or Patient's Authorized Court Recorder. As applicable, any other physician, advance practice provider, medical student, or other health professional student that will be observing or involved in the sensitive examination for educational or training purposes was discussed with the Patient or Authorized Court Recorder. The Patient or Authorized Court Recorder has agreed to proceed with the sensitive [...] external genitalia normal, normal Bartholin's glands, urethra, [place]'s glands, no vulvar lesions, no cervical lesions, [...] for human papillomavirus (HPV) [Z11.51] Order(s):PAP TEST [[id number]] Order #: [id number] Prescriptions as of 07/30/2024 - prental multivitamin 27 mg iron- 800 mcg tablet Take 1 tablet by mouth once daily. Problem List As Of Date 07/30/2024 Noted (more content not included)... Normal [facility] HIGH RISK HUMAN PAPILLOMA KALLI (HPV), PCR FOR DETECTION AND GENOTYPINGon 07-30-2024 HPV 16 Ag Ql (Unsp spec) Not detected Normal Not detected [facility] Comment on above: Order Comment: Speci men Type: BLOOD SPECIMEN Ordering Facility: [facility] Address: [address] [place] [address] Performed By: #### 5 7021-8 #### [facility] CLIA [id number] [address] [place] [address] [place] HPV 18 Ag Ql (Unsp spec) Not detected Normal Not detected [facility] Comment on above: Order Comment: Speci men Type: BLOOD SPECIMEN Ordering Facility: [facility] Address: [address] [place] [address] Performed By: #### 5 7021-8 #### [facility] CLIA [id number] [address] [place] [address] [place] HPV 31+33+35+39+45+51+52 +56+58+59+66+68 DNA TRAV+probe Ql (Cvx) Not detected Normal Not detected [facility] Comment on above: Order Comment: Speci men Type: BLOOD SPECIMEN Ordering Facility: [facility] Address: [address] [place] [address] Result Comment: High Risk HPV Other Type includes HPV types 31, 33, 35, 39, 45, 51, 52, 56, 58, 59, 66 and 68. Performed By: #### 5 7021-8 #### [facility] CLIA [id number] [address] [place] [address] [place] PAP TESTon 07-30-2024 ADEQUACY Satisfactory for interpretation. Normal [facility] Comment on above: Order Comment: Speci men Type: FLUID SPECIMEN Ordering Facility: [facility] Address: [address] [place] [address] Performed By: #### L [id number] #### [facility] CLIA [id number] [address] [place] [address] [id number] [place] [address] [place] CASE REPORT Normal [facility] Comment on above: Order Comment: Speci men Type: FLUID SPECIMEN Ordering Facility: [facility] Address: [address] [place] [address] Result Comment: Gyne cologic Cytology Report Case: [id number] Authorizing Provider: Wally Mercado MD Collected: 07/30/2024 02:55 PM Ordering Location: OB/Gynecology Received: 07/30/2024 04:46 PM First Screen: Mi Walter, CT, ASCP Rescreen: Mariela Mercado, ANSHUL, ASCP Specimen: Pap Test, ThinPrep, Cervix Performed By: #### L [id number] #### [facility] CLIA [id number] [address] [place] [address] [place] CLINICAL HISTORY, CYTOLOGY, SOIL SAMPLER Previous Abnormal Pap Normal [facility] Comment on above: Order Comment: Speci men Type: FLUID SPECIMEN Ordering Facility: [facility] Address: [address] [place] [address] Performed By: #### L [id number] #### [facility] CLIA [id number] [address] [place] [address] [place] FINAL PERFORMING LAB Normal [facility] Comment on above: Order Comment: Speci men Type: FLUID SPECIMEN Ordering Facility: [facility] Address: [address] [place] [address] Result Comment: Tech nical component, dock grader screening performed at [facility], [address] [place] [address] CLIA# [id number] Diagnostic interpretation performed at [facility], [address] [place] [address] CLIA# [id number] [employer] Programmer: Seravndo Cortes M.D. Performed By: #### L [id number] #### [facility] CLIA [id number] [address] [place] [address] [place] INTERPRETATION, CYTOLOGY, SOIL SAMPLER Normal [facility] Comment on above: Order Comment: Speci men Type: FLUID SPECIMEN Ordering Facility: [facility] Address: [address] [place] [address] Result Comment: Nega tive for intraepithelial lesion or malignancy. Performed By: #### L [id number] #### [facility] CLIA [id number] [address] [place] [address] [place] LMP 07/25/2024 Normal [facility] Comment on above: Order Comment: Speci men Type: FLUID SPECIMEN Ordering Facility: [facility] Address: [address] [place] [address] Performed By: #### L [id number] #### [facility] CLIA [id number] [address] [place] [address] [place] PAP DISCLAIMER COMMENT The Pap Smear is a screening test for cervical cancer. False negative results occur with all screening tests, emphasizing the need for rescreening at recommended intervals, and clinical correlation. Normal [facility] Comment on above: Order Comment: Speci men Type: FLUID SPECIMEN Ordering Facility: [facility] Address: [address] [place] [address] Performed By: #### L [id number] #### [facility] [place] [id number] [address] [place] [address] [place] PAP LABORER LANDSCAPE COMMENT This specimen has been analyzed by the ThinPrep Imaging System, an automated imaging and review system, which assists the laboratory in evaluating cells on ThinPrep Pap tests. Following automated imaging, selected salcido from every slide are reviewed by a dock grader. Normal [facility] Comment on above: Order Comment: Speci men Type: FLUID SPECIMEN Ordering Facility: [facility] Address: [address] [place] [address] Performed By: #### L [id number] #### [facility] [place] [id number] [address] [place] [address] [place] Ova and Parasites 8623on OP Order Date: 02/23/24 Order Info: [id number] - OP OVA AND PARASITES EXAM, ROUTINE These results were obtained using wet preparation(s) and trichrome stained smear. This test does not include testing for Crytosporidium parvum, Cyclospora, or Microsporidia. O+P Spec Micro One negative specimen does not rule out the possibility of a parasitic infection. TESTING PERFORMED AT [facility]. ORIGINAL REPORT ON FILE IN LAB CONTAINS ADDITIONAL TEST SITE INFORMATION. Ova/Parasite Exam NO OVA, CYSTS, OR PARASITES FOUND. Normal [facility] Comment on above: Performed By: #### M 100.6796, M100.637, L100.0100, L500.4050, M600.5000 #### [facility] [address] [place], [address] CBC W/Diff, Automatedon 02-08 Absolute Lymph 1.96 X10 3/uL Normal 0.83-4.51 [facility] Comment on above: Order Comment: Order Date: 02/23/24 Order Info: 0184- - CBCD Performed By: #### M 100.6796, M100.637, L100.0100, L500.4050, M600.5000 #### [facility] [address] [place], [address] Absolute Neut 1.8 X10 3/uL Low 2.0-7.7 [facility] Comment on above: Order Comment: Order Date: 02/23/24 Order Info: 0184- - CBCD Performed By: #### M 100.6796, M100.637, L100.0100, L500.4050, M600.5000 #### [facility] [address] [place], [address] Basophils/100 WBC (Bld) 1.2 % High 0-1 [facility] Comment on above: Order Comment: Order Date: 02/23/24 Order Info: 0184-1 - CBCD Performed By: #### M 100.6796, M100.637, L100.0100, L500.4050, M600.5000 #### [facility] [address] [place], [address] Eosinophils/100 WBC (Bld) 2.3 % Normal 0-5 [facility] Comment on above: Order Comment: Order Date: 02/23/24 Order Info: 0184-1 - CBCD Performed By: #### M 100.6796, M100.637, L100.0100, L500.4050, M600.5000 #### [facility] [address] [place], [address] Erythrocyte distribution width (RBC) [Ratio] 12.2 % Normal 11.6-14.6 [facility] Comment on above: Order Comment: Order Date: 02/23/24 Order Info: 018- - CBCD Performed By: #### M 100.6796, M100.637, L100.0100, L500.4050, M600.5000 #### [facility] [address] [place], [address] Hematocrit (Bld) [Volume fraction] 44.4 % Normal 37-47 [facility] Comment on above: Order Comment: Order Date: 02/23/24 Order Info: 018- - CBCD Performed By: #### M 100.6796, M100.637, L100.0100, L500.4050, M600.5000 #### [facility] [address] [place], [address] Hemoglobin (Bld) [Mass/Vol] 14.5 g/dL Normal 12.0-15.0 [facility] Comment on above: Order Comment: Order Date: 02/23/24 Order Info: 0184-1 - CBCD Performed By: #### M 100.6796, M100.637, L100.0100, L500.4050, M600.5000 #### [facility] [address] [place], [address] IG% 0.200 Normal 0.0-0.9 [facility] Comment on above: Order Comment: Order Date: 02/23/24 Order Info: 0184- - CBCD Result Comment: IG% - Immature Granulocytes (promyelocytes, myelocytes and metamyelocytes) > 1% indicates that a LEFT SHIFT is Present. Performed By: #### M 100.6796, M100.637, L100.0100, L500.4050, M600.5000 #### [facility] [address] [place], [address] Lymphocytes/100 WBC (Bld) 45.4 % High 19-41 [facility] Comment on above: Order Comment: Order Date: 02/23/24 Order Info: 0184 - CBCD Performed By: #### M 100.6796, M100.637, L100.0100, L500.4050, M600.5000 #### [facility] [address] [place], [address] MCH (RBC) [Entitic mass] 28.8 pg Normal 27.0-32.0 [facility] Comment on above: Order Comment: Order Date: 02/23/24 Order Info: 0184- - CBCD Performed By: #### M 100.6796, M100.637, L100.0100, L500.4050, M600.5000 #### [facility] [address] [place], [address] MCHC (RBC) [Mass/Vol] 32.7 g/dL Normal 32-36 [facility] Comment on above: Order Comment: Order Date: 02/23/24 Order Info: 0184- - CBCD Performed By: #### M 100.6796, M100.637, L100.0100, L500.4050, M600.5000 #### [facility] [address] [place], [address] MCV (RBC) [Entitic vol] 88.1 fL Normal 81-99 [facility] Comment on above: Order Comment: Order Date: 02/23/24 Order Info: 0184-1 - CBCD Performed By: #### M 100.6796, M100.637, L100.0100, L500.4050, M600.5000 #### [facility] [address] [place], [address] Monocytes/100 WBC (Bld) 9.0 % Normal 0-10 [facility] Comment on above: Order Comment: Order Date: 02/23/24 Order Info: 0184- - CBCD Performed By: #### M 100.6796, M100.637, L100.0100, L500.4050, M600.5000 #### [facility] [address] [place], [address] Neutrophils/100 WBC (Bld) 41.9 % Low 47-70 [facility] Comment on above: Order Comment: Order Date: 02/23/24 Order Info: 0184- - CBCD Performed By: #### M 100.6796, M100.637, L100.0100, L500.4050, M600.5000 #### [facility] [address] [place], [address] Nucleated RBC (Bld) [#/Vol] 0 10*3/uL Normal 0-5 [facility] Comment on above: Order Comment: Order Date: 02/23/24 Order Info: 0184-1 - CBCD Performed By: #### M 100.6796, M100.637, L100.0100, L500.4050, M600.5000 #### [facility] [address] [place], [address] Platelet mean volume (Bld) [Entitic vol] 10.8 fL Normal 6.2-12.0 [facility] Comment on above: Order Comment: Order Date: 02/23/24 Order Info: 0184-1 - CBCD Performed By: #### M 100.6796, M100.637, L100.0100, L500.4050, M600.5000 #### [facility] [address] [place], [address] Platelets (Bld) [#/Vol] 247 10*3/uL Normal 150-450 [facility] Comment on above: Order Comment: Order Date: 02/23/24 Order Info: 0184-1 - CBCD Performed By: #### M 100.6796, M100.637, L100.0100, L500.4050, M600.5000 #### [facility] [address] [place], [address] RBC (Bld) [#/Vol] 5.04 10*6/uL Normal 4.2-5.4 [facility] Comment on above: Order Comment: Order Date: 02/23/24 Order Info: 0184-1 - CBCD Performed By: #### M 100.6796, M100.637, L100.0100, L500.4050, M600.5000 #### [facility] [address] [place], [address] RDW SD 39.2 fl Normal 35.1-43.9 [facility] Comment on above: Order Comment: Order Date: 02/23/24 Order Info: 0184-1 - CBCD Performed By: #### M 100.6796, M100.637, L100.0100, L500.4050, M600.5000 #### [facility] [address] [place], [address] WBC (Bld) [#/Vol] 4.3 10*3/uL Low 4.4-11.[address] [facility] Comment on above: Order Comment: Order Date: 02/23/24 Order Info: 0184-1 - CBCD Performed By: #### M 100.6796, M100.637, L100.0100, L500.4050, M600.5000 #### [facility] [address] [place], [place], [address] CDIFF (PCR)on 02-23-2024 CDIFF Order Date: 02/23/24 Order Info: 625-4 - CUST Order Info: 0038-2 - C DIFF A positive C. difficile molecular test does not differentiate between an active C. difficile infection and C. difficile colonization. Use clinical judgement and paired toxin/antigen testing to identify true infection and need for treatment. C diff DNA Spec Ql TRAV+probe Reference Range: Negative e(ye)BRAIN GeneXpert: polymerase chain reaction (PCR) 027 027 NAP1-B1 Presumptive Negative *for epidemiolologic???use C. Diff PCR Negative- No toxigenic C. Diff Detected Normal [facility] Comment on above: Performed By: #### M 100.6796, M100.637, L100.0100, L500.4050, M600.5000 #### [facility] [address] [place], [place], [id number] Comprehensive Metabolic Prof ilon 02-23-2024 Albumin [Mass/Vol] 3.9 g/dL Normal 3.2-5.[address] [facility] Comment on above: Order Comment: Order Date: 02/23/24 Order Info: 0786-1 - CMP Performed By: #### M 100.6796, M100.637, L100.0100, L500.4050, M600.5000 #### [facility] [address] [place], [address] Albumin/Globulin [Mass ratio] 0.9 {ratio} Normal 0.9-2.4 [facility] Comment on above: Order Comment: Order Date: 02/23/24 Order Info: 0786-1 - CMP Performed By: #### M 100.6796, M100.637, L100.0100, L500.4050, M600.5000 #### [facility] [address] [place], [address] ALK P 93 U/L Normal 45-117 [facility] Comment on above: Order Comment: Order Date: 02/23/24 Order Info: 0786-1 - CMP Performed By: #### M 100.6796, M100.637, L100.0100, L500.4050, M600.5000 #### [facility] [address] [place], [address] ALT [Catalytic activity/Vol] 31 U/L Normal 13-56 [facility] Comment on above: Order Comment: Order Date: 02/23/24 Order Info: 0786-1 - CMP Performed By: #### M 100.6796, M100.637, L100.0100, L500.4050, M600.5000 #### [facility] [address] [place], [address] AST [Catalytic activity/Vol] 27 U/L Normal 15-37 [facility] Comment on above: Order Comment: Order Date: 02/23/24 Order Info: 0786-1 - CMP Performed By: #### M 100.6796, M100.637, L100.0100, L500.4050, M600.5000 #### [facility] [address] [place], [address] Bilirubin [Mass/Vol] 0.30 mg/dL Normal 0.20-1.00 [facility] Comment on above: Order Comment: Order Date: 02/23/24 Order Info: 0786-1 - CMP Result Comment: For patients on eltrombopag therapy, use of Dimension [place] TBIL is not recommended. Performed By: #### M 100.6796, M100.637, L100.0100, L500.4050, M600.5000 #### [facility] [address] [place], [address] BUN/CRE 11.2 RATIO Normal 10-20 [facility] Comment on above: Order Comment: Order Date: 02/23/24 Order Info: 0786-1 - CMP Performed By: #### M 100.6796, M100.637, L100.0100, L500.4050, M600.5000 #### [facility] [address] [place], [address] CA,Total 9.4 mg/dL Normal 8.5-10.1 [facility] Comment on above: Order Comment: Order Date: 02/23/24 Order Info: 0786-1 - CMP Performed By: #### M 100.6796, M100.637, L100.0100, L500.4050, M600.5000 #### [facility] [address] [place], [address] Chloride [Moles/Vol] 107 mmol/L Normal 98-107 [facility] Comment on above: Order Comment: Order Date: 02/23/24 Order Info: 0786-1 - CMP Performed By: #### M 100.6796, M100.637, L100.0100, L500.4050, M600.5000 #### [facility] [address] [place], [address] CO2 [Moles/Vol] 21.0 mmol/L Normal 21.0-32.0 [facility] Comment on above: Order Comment: Order Date: 02/23/24 Order Info: 0786-1 - CMP Performed By: #### M 100.6796, M100.637, L100.0100, L500.4050, M600.5000 #### [facility] [address] [place], [address] Creatinine [Mass/Vol] 0.98 mg/dL Normal 0.55-1.02 [facility] Comment on above: Order Comment: Order Date: 02/23/24 Order Info: 0786-1 - CMP Result Comment: The validity of the calculated GFR GFRAA in patients over 70 years has not been determined. Clinical correlation is essential. Performed By: #### M 100.6796, M100.637, L100.0100, L500.4050, M600.5000 #### [facility] [address] [place], [address] EST GFR - AA 86 mL/min Normal >60 [facility] Comment on above: Order Comment: Order Date: 02/23/24 Order Info: 0786-1 - CMP Result Comment: Afri can [place] GFR Calc Performed By: #### M 100.6796, M100.637, L100.0100, L500.4050, M600.5000 #### [facility] [address] [place], [address] GAP 10 Normal 5-15 [facility] Comment on above: Order Comment: Order Date: 02/23/24 Order Info: 0786- - CMP Performed By: #### M 100.6796, M100.637, L100.0100, L500.4050, M600.5000 #### [facility] [address] [place], [address] GFR/1.73 sq M.predicted among non-blacks MDRD (S/P/Bld) [Vol rate/Area] 71 mL/min/{1.73_m2} Normal >60 [facility] Comment on above: Order Comment: Order Date: 02/23/24 Order Info: 0786-1 - CMP Result Comment: Non- GFR Calc Performed By: #### M 100.6796, M100.637, L100.0100, L500.4050, M600.5000 #### [facility] [address] [place], [address] Globulin (S) [Mass/Vol] 4.2 g/dL Normal 2.2-4.2 [facility] Comment on above: Order Comment: Order Date: 02/23/24 Order Info: 0786-1 - CMP Performed By: #### M 100.6796, M100.637, L100.0100, L500.4050, M600.5000 #### [facility] [address] [place], [address] Glucose [Mass/Vol] 86 mg/dL Normal 74-[address] [facility] Comment on above: Order Comment: Order Date: 02/23/24 Order Info: 0786-1 - CMP Performed By: #### M 100.6796, M100.637, L100.0100, L500.4050, M600.5000 #### [facility] [address] [place], [address] Potassium [Moles/Vol] 3.2 mmol/L Low 3.5-5.1 [facility] Comment on above: Order Comment: Order Date: 02/23/24 Order Info: 0786-1 - CMP Performed By: #### M 100.6796, M100.637, L100.0100, L500.4050, M600.5000 #### [facility] [address] [place], [address] Sodium [Moles/Vol] 138 mmol/L Normal 136-[address] [facility] Comment on above: Order Comment: Order Date: 02/23/24 Order Info: 0786-1 - CMP Performed By: #### M 100.6796, M100.637, L100.0100, L500.4050, M600.5000 #### [facility] [address] [place], [address] T PROT 8.1 g/dL Normal 6.4-8.2 [facility] Comment on above: Order Comment: Order Date: 02/23/24 Order Info: 0786-1 - CMP Performed By: #### M 100.6796, M100.637, L100.0100, L500.4050, M600.5000 #### [facility] [address] [place], [address] Urea nitrogen [Mass/Vol] 11 mg/dL Normal 7-18 [facility] Comment on above: Order Comment: Order Date: 02/23/24 Order Info: 0786-1 - CMP Performed By: #### M 100.6796, M100.637, L100.0100, L500.4050, M600.5000 #### [facility] [address] [place], [address] ENTERIC PATHOGEN PANEL STOOL on 02-23-2024 EP PANEL Order Date: 02/23/24 Order Info: 625-4 - CUST Order Info: 0038-2 - C DIFF CAMPYLOBACTER Not Detected Norovirus Not Detected Rotavirus Not Detected Salmonella Not Detected Shiga Toxin Not Detected Shigella sp. Not Detected VIBRIO Not Detected Yersinia Not Detected Normal [facility] Comment on above: Performed By: #### M 100.6796, M100.637, L100.0100, L500.4050, M600.5000 #### [facility] [address] [place], [place], [address] URINE OB DIP B/Oon 3 Glucose Ql (U) Negative Neg mg/dL [facility] Protein.monoclonal (U) [Mass/Vol] Negative Neg mg/dL [facility] URINE OB DIP B/Oon 3 Glucose Ql (U) Negative Neg mg/dL [facility] Protein.monoclonal (U) [Mass/Vol] Negative Neg mg/dL [facility] URINE OB DIP B/Oon 3 Glucose Ql (U) Negative Neg mg/dL [facility] Protein.monoclonal (U) [Mass/Vol] Negative Neg mg/dL [facility] OBSTETRIC ULTRASOUND WHIon 0 01-13-2023 [facility] URINE OB DIP B/Oon 3 Glucose Ql (U) Negative Neg mg/dL [facility] Protein.monoclonal (U) [Mass/Vol] Negative Neg mg/dL [facility] URINE OB DIP B/Oon 3 Glucose Ql (U) Negative Neg mg/dL [facility] Protein.monoclonal (U) [Mass/Vol] Negative Neg mg/dL [facility] OBSTETRIC ULTRASOUND WHIon 0 12-16-2022 [facility] URINE OB DIP B/Oon 3 Glucose Ql (U) Negative Neg mg/dL [facility] Protein.monoclonal (U) [Mass/Vol] Negative Neg mg/dL [facility] URINE OB DIP B/Oon 3 Glucose Ql (U) Negative Neg mg/dL [facility] Protein.monoclonal (U) [Mass/Vol] Negative Neg mg/dL [facility] URINE OB DIP B/Oon 3 Glucose Ql (U) Negative Neg mg/dL [facility] Protein.monoclonal (U) [Mass/Vol] Negative Neg mg/dL [facility] URINE OB DIP B/Oon 3 Glucose Ql (U) Negative Neg mg/dL [facility] Protein.monoclonal (U) [Mass/Vol] Negative Neg mg/dL [facility] URINE OB DIP B/Oon 3 Glucose Ql (U) Negative Neg mg/dL [facility] Protein.monoclonal (U) [Mass/Vol] Negative Neg mg/dL [facility] URINE OB DIP B/Oon 3 Glucose Ql (U) Negative Neg mg/dL [facility] Protein.monoclonal (U) [Mass/Vol] Negative Neg mg/dL [facility] NUCHAL TRANSLUCENCY WHIon [facility] URINE OB DIP B/Oon 2 Glucose Ql (U) Negative Neg mg/dL [facility] Protein.monoclonal (U) [Mass/Vol] Negative Neg mg/dL [facility] CBC panel Auto (Bld)on 07-01 Erythrocyte distribution width (RBC) [Ratio] 11.6 % 11.5 - 15.0 % [facility] Hematocrit (Bld) [Volume fraction] 40.2 % 36.0 - 46.0 % [facility] Hemoglobin (Bld) [Mass/Vol] 13.5 g/dL 11.5 - 15.5 g/dL [facility] MCH (RBC) [Entitic mass] 30.1 pg 26.0 - 34.0 pg [facility] MCHC (RBC) [Mass/Vol] 33.6 g/dL 30.5 - 36.0 g/dL [facility] MCV (RBC) [Entitic vol] 89.7 fL 80.0 - 100.0 fL [facility] Nucleated RBC (Bld) [#/Vol] <0.01 k/uL [facility] Platelet mean volume (Bld) [Entitic vol] 10.5 fL 9.0 - 12.7 fL [facility] Platelets (Bld) [#/Vol] 260 10*3/uL 150 - 400 k/uL [facility] RBC (Bld) [#/Vol] 4.48 10*6/uL 3.90 - 5.20 m/uL [facility] WBC (Bld) [#/Vol] 5.31 10*3/uL 3.70 - 11. 00 k/uL [facility] HBV surface Ab IA Ql (S)on 1 08-31-2021 HBV surface Ag Ql (S) Negative Negative [facility] HEP C AB IA W/CONF SCRNon HCV Ab Ql (S) Negative Negative [facility] HIV 1+2 Ab IA Qlon HIV 1 and 2 Ab IA.rapid Nom [facility] HIV 1+2 Ab+HIV1 p24 Ag IA Ql Non-Reactive Nonreactive [facility] HIV Interpretation [facility] HbA1c (Bld)on 07-01-2022 Average glucose Estimated from glycated hemoglobin (Bld) [Mass/Vol] 94 mg/dL [facility] HbA1c (Bld) [Mass fraction] 4.9 % 4.3 - 5.6 % [facility] RUBELLA IGG ABon 07-01-2022 Rubella IgG, Qual Positive Positive [facility] Reagin and Treponema pallidu m IgG and IgM [Interp]on 07-01-2022 Syphilis Interpretation Cannot exclude recent Treponemal infection if specimen collected within 7-10 days after appearance of suspect lesions or 2-3 weeks after an exposure. Clinical correlation is required. [facility] T. pallidum IgG+IgM IA Ql (S) Non-Reactive Nonreactive [facility] Vital Signs Date Time Vital Sign Value Performing Clinician Faci lity 04-18-2025 09:05-0400 Body mass index (BMI) [Ratio] 32.28 kg/m2 Minnie Holm APRN.CNM Work Phone: [facility] 04-18-2025 09:05-0400 Body weight 107.96 kg Minnie Holm APRN.CNM Work Phone: [facility] 04-18-2025 09:05-0400 Diastolic blood pressure 64 mm[Hg] Minnie Holm ENROLLMENT SERVICES VICE PRESIDENT.CNM Work Phone: [facility] 04-18-2025 09:05-0400 Systolic blood pressure 112 mm[Hg] Minnie Holm ENROLLMENT SERVICES VICE PRESIDENT.CNM Work Phone: [facility] 03-21-2025 08:32-0400 Body mass index (BMI) [Ratio] 32.14 kg/m2 Sami Haury ENROLLMENT SERVICES VICE PRESIDENT.ELECTRICIAN ELEVATOR MAINTENANCE Work Phone: [facility] 03-21-2025 08:32-0400 Body weight 107.5 kg Sami Haury ENROLLMENT SERVICES VICE PRESIDENT.ELECTRICIAN ELEVATOR MAINTENANCE Work Phone: [facility] 03-21-2025 08:32-0400 Diastolic blood pressure 70 mm[Hg] Sami Haury ENROLLMENT SERVICES VICE PRESIDENT.ELECTRICIAN ELEVATOR MAINTENANCE Work Phone: [facility] 03-21-2025 08:32-0400 Systolic blood pressure 118 mm[Hg] Sami Haury ENROLLMENT SERVICES VICE PRESIDENT.ELECTRICIAN ELEVATOR MAINTENANCE Work Phone: [facility] 02-21-2025 14:14-0400 Body mass index (BMI) [Ratio] 31.11 kg/m2 Aure Colon MD Work Phone: [facility] 02-21-2025 14:14-0400 Body weight 104.06 kg Aure Colon MD Work Phone: [facility] 02-21-2025 14:14-0400 Diastolic blood pressure 78 mm[Hg] Aure Colon MD Work Phone: [facility] 02-21-2025 14:14-0400 Systolic blood pressure 110 mm[Hg] Aure Colon MD Work Phone: [facility] 01-31-2025 15:11-0400 Body mass index (BMI) [Ratio] 30.79 kg/m2 Minnie Holm ENROLLMENT SERVICES VICE PRESIDENT.CNM Work Phone: [facility] 01-31-2025 15:11-0400 Body weight 102.97 kg Minnie Holm ENROLLMENT SERVICES VICE PRESIDENT.CNM Work Phone: [facility] 01-31-2025 15:11-0400 Diastolic blood pressure 76 mm[Hg] Minnie Holm ENROLLMENT SERVICES VICE PRESIDENT.CNM Work Phone: [facility] 01-31-2025 15:11-0400 Systolic blood pressure 110 mm[Hg] Minnie Holm ENROLLMENT SERVICES VICE PRESIDENT.CNM Work Phone: [facility] 11-29-2024 08:41-0400 Body height 182.9 cm Maria Eugenia Plotts ENROLLMENT SERVICES VICE PRESIDENT.CNM Work Phone: [facility] 11-29-2024 08:41-0400 Body mass index (BMI) [Ratio] 29.97 kg/m2 Maria Eugenia Plotts ENROLLMENT SERVICES VICE PRESIDENT.CNM Work Phone: [facility] 11-29-2024 08:41-0400 Body weight 100.25 kg Maria Eugenia Plotts ENROLLMENT SERVICES VICE PRESIDENT.CNM Work Phone: [facility] 11-29-2024 08:41-0400 Diastolic blood pressure 66 mm[Hg] Maria Eugenia Plotts ENROLLMENT SERVICES VICE PRESIDENT.CNM Work Phone: [facility] 11-29-2024 08:41-0400 Systolic blood pressure 110 mm[Hg] Maria Eugenia Plotts ENROLLMENT SERVICES VICE PRESIDENT.CNM Work Phone: [facility] 07-30-2024 14:22-0500 Body height 180.3 cm Wally Mercado MD Work Phone: [facility] 07-30-2024 14:22-0500 Body mass index (BMI) [Ratio] 31.38 kg/m2 Wally Mercado MD Work Phone: [facility] 07-30-2024 14:22-0500 Body weight 102.06 kg Wally Mercado MD Work Phone: [facility] 07-30-2024 14:22-0500 Diastolic blood pressure 82 mm[Hg] Wally Mercado MD Work Phone: [facility] 07-30-2024 14:22-0500 Systolic blood pressure 124 mm[Hg] Wally Mercado MD Work Phone: [facility] 03-24-2023 15:05-0400 Body weight 96.62 kg Wally Mercado MD Work Phone: [facility] 03-24-2023 15:05-0400 Diastolic blood pressure 68 mm[Hg] Wally Mercado MD Work Phone: [facility] 03-24-2023 15:05-0400 Systolic blood pressure 104 mm[Hg] Wally Mercado MD Work Phone: [facility] 02-21-2023 11:25-0400 Body weight 97.07 kg Wally Mercado MD Work Phone: [facility] 02-21-2023 11:25-0400 Diastolic blood pressure 74 mm[Hg] Wally Mercado MD Work Phone: [facility] 02-21-2023 11:25-0400 Systolic blood pressure 116 mm[Hg] Wally Mercado MD Work Phone: [facility] 02-03-2023 10:56-0400 Body weight 112.95 kg Minnieleona Holm APRN.CNM Work Phone: [facility] 02-03-2023 10:56-0400 Diastolic blood pressure 72 mm[Hg] Minnie Holm ENROLLMENT SERVICES VICE PRESIDENT.CNM Work Phone: [facility] 02-03-2023 10:56-0400 Systolic blood pressure 120 mm[Hg] Minnie Holm ENROLLMENT SERVICES VICE PRESIDENT.CNM Work Phone: [facility] 01-27-2023 09:16-0400 Body weight 111.58 kg Minnie Holm ENROLLMENT SERVICES VICE PRESIDENT.CNM Work Phone: [facility] 01-27-2023 09:16-0400 Diastolic blood pressure 66 mm[Hg] Minnie Holm ENROLLMENT SERVICES VICE PRESIDENT.CNM Work Phone: [facility] 01-27-2023 09:16-0400 Systolic blood pressure 110 mm[Hg] Minnie Holm ENROLLMENT SERVICES VICE PRESIDENT.CNM Work Phone: [facility] 01-20-2023 10:58-0400 Body weight 109.5 kg Hope Parmar MD Work Phone: [facility] 01-20-2023 10:58-0400 Diastolic blood pressure 74 mm[Hg] Hope Parmar MD Work Phone: [facility] 01-20-2023 10:58-0400 Systolic blood pressure 110 mm[Hg] Hope Parmar MD Work Phone: [facility] 01-13-2023 11:27-0400 Diastolic blood pressure 70 mm[Hg] Hope Parmar MD Work Phone: [facility] 01-13-2023 11:27-0400 Systolic blood pressure 110 mm[Hg] Hope Parmar MD Work Phone: [facility] 01-13-2023 10:49-0400 Body height 180.3 cm Keren Ontiveros MD Work Phone: [facility] 01-13-2023 10:49-0400 Body weight 108.86 kg Keren Ontiveros MD Work Phone: [facility] 12-30-2022 15:27-0400 Body weight 108.86 kg Hope Parmar MD Work Phone: [facility] 12-30-2022 15:27-0400 Diastolic blood pressure 78 mm[Hg] Hope Parmar MD Work Phone: [facility] 12-30-2022 15:27-0400 Systolic blood pressure 112 mm[Hg] Hope Parmar MD Work Phone: [facility] 12-16-2022 15:25-0400 Body weight 107.05 kg Wally Mercado MD Work Phone: [facility] 12-16-2022 15:25-0400 Diastolic blood pressure 78 mm[Hg] Wally Mercado MD Work Phone: [facility] 12-16-2022 15:25-0400 Systolic blood pressure 128 mm[Hg] Wally Mercado MD Work Phone: [facility] 12-02-2022 15:19-0400 Body weight 107.05 kg Aure Colon MD Work Phone: [facility] 12-02-2022 15:19-0400 Diastolic blood pressure 72 mm[Hg] Aure Colon MD Work Phone: [facility] 12-02-2022 15:19-0400 Systolic blood pressure 108 mm[Hg] Aure Colon MD Work Phone: [facility] 11-18-2022 14:59-0400 Body weight 106.59 kg Maria Eugenia Plotts ENROLLMENT SERVICES VICE PRESIDENT.CNM Work Phone: [facility] 11-18-2022 14:59-0400 Diastolic blood pressure 70 mm[Hg] Maria Eugenia Plotts ENROLLMENT SERVICES VICE PRESIDENT.CNM Work Phone: [facility] 11-18-2022 14:59-0400 Systolic blood pressure 112 mm[Hg] Maria Eugenia Plotts ENROLLMENT SERVICES VICE PRESIDENT.CNM Work Phone: [facility] 10-21-2022 16:00-0400 Body weight 104.78 kg Aure Colon MD Work Phone: [facility] 10-21-2022 16:00-0400 Diastolic blood pressure 74 mm[Hg] Aure Colon MD Work Phone: [facility] 10-21-2022 16:00-0400 Systolic blood pressure 110 mm[Hg] Aure Colon MD Work Phone: [facility] 09-23-2022 15:01-0500 Body weight 99.79 kg Wally Mercado MD Work Phone: [facility] 09-23-2022 15:01-0500 Diastolic blood pressure 78 mm[Hg] Wally Mercado MD Work Phone: [facility] 09-23-2022 15:01-0500 Systolic blood pressure 108 mm[Hg] Wally Mercado MD Work Phone: [facility] 08-26-2022 10:00-0500 Body weight 97.61 kg Wally Mercado MD Work Phone: [facility] 08-26-2022 10:00-0500 Diastolic blood pressure 66 mm[Hg] Wally Mercado MD Work Phone: [facility] 08-26-2022 10:00-0500 Systolic blood pressure 110 mm[Hg] Wally Mercado MD Work Phone: [facility] 07-29-2022 16:14-0500 Body weight 94.89 kg Minnie Holm APRN.CNM Work Phone: [facility] 07-29-2022 16:14-0500 Diastolic blood pressure 68 mm[Hg] Minnie Holm APRN.CNM Work Phone: [facility] 07-29-2022 16:14-0500 Systolic blood pressure 120 mm[Hg] Minnie Holm APRN.CNM Work Phone: [facility] 07-01-2022 15:11-0500 Body height 181.6 cm Aure Colon MD Work Phone: [facility] 07-01-2022 15:11-0500 Body weight 94.35 kg Aure Colon MD Work Phone: [facility] Encounters Encounter Date Encounter Type Care Provider Facility Start: [facility]20-[facility] Start: 06-15-2025 End: 06-15-2025 ambulatory AURE COLON Facility:[facility] Start: 05-31-2025 End: 05-31-2025 ambulatory GONZALES HARTLEY Facility:[facility] Start: 05-17-2025 End: 05-17-2025 [facility] Start: 05-02-2025 End: 05-02-2025 ambulatory [facility] Facility:[facility] Start: 04-18-2025 End: 04-18-2025 Patient encounter procedure Minnie Holm APRN.CNM Work Phone: OB/Gynecology Comment on above: Encounter for superv ision of other normal in second trimester (HCC) (Primary Dx); 27 weeks gestation of (HCC); History of macrosomia in infant in prior , currently (HCC); Need for vaccination Start: 04-18-2025 End: 04-18-2025 ambulatory PEPE TORRES Facility:[facility] Start: 03-21-2025 End: 03-21-2025 Patient encounter procedure Sami Roy APRN.CNP Work Phone: OB/Gynecology Comment on above: Encounter for superv ision of other normal in second trimester (HCC) (Primary Dx); 23 weeks gestation of (HCC); Screening for diabetes mellitus; History of macrosomia in infant in prior , currently ([facility] Start: 03-21-2025 End: 03-21-2025 ambulatory SAMI ROY Facility:[facility] Start: 02-21-2025 End: 02-21-2025 Patient encounter procedure Aure Colon MD Work Phone: OB/Gynecology Comment on above: Encounter for superv ision of other normal in second trimester (HCC) (Primary Dx); History of macrosomia in in prior , currently ([facility]); 19 weeks gestation of (HCC) Encounter for anatomic survey ([facility]) [Z36.89] (Primary Dx); with uncertain dates, antepartum ([facility]) Start: 02-21-2025 End: 02-21-2025 ambulatory MARIA EUGENIA ROPER Facility:[facility] Start: 01-31-2025 End: 01-31-2025 Patient encounter procedure Minnie Holm APRN.CNM Work Phone: OB/Gynecology Comment on above: Encounter for superv ision of other normal in second trimester (HCC) (Primary Dx); 16 weeks gestation of (HCC); History of macrosomia in infant in prior , currently ([facility]) Start: 01-31-2025 End: 01-31-2025 ambulatory MINNIE HOLM Facility:[facility] Start: 12-30-2024 End: 12-30-2024 [facility] Start: 12-30-2024 End: 12-30-2024 ambulatory [facility] Facility:[facility] Start: 11-29-2024 End: 01-29-2025 Follow-up encounter Maria Eugenia Roper PRISCILLA Work Phone: OB/Gynecology Start: 11-29-2024 End: 11-29-2024 Patient encounter procedure Maria Eugenia Roper CNM Work Phone: OB/Gynecology Comment on above: with uncer tain dates, antepartum (HCC) (Primary Dx); related nausea, antepartum (HCC); 7 weeks gestation of (HCC); Encounter for supervision of other normal in first trimester ([facility]); History of macrosomia in infant in prior , currently ([facility]) Start: 11-29-2024 End: 11-29-2024 [facility] Start: 07-30-2024 End: 07-30-2024 ambulatory WALLY MERCADO Facility:[facility] Start: 07-30-2024 End: 07-30-2024 Patient encounter procedure Wally Mercado MD Work Phone: OB/Gynecology Comment on above: Papanicolaou smear o f cervix with low grade squamous intraepithelial lesion (LGSIL) (Primary Dx); Encounter for gynecological examination (general) (routine) without abnormal findings; Screening for cervical cancer; Encounter for screening for human papillomavirus (HPV) Start: 07-30-2024 End: 07-30-2024 Patient encounter status Wally Mercado MD Work Phone: [facility] Start: 02-23-2024 End: 02-23-2024 ambulatory Taniya Gonzalez NP Facility:[facility] Start: 03-24-2023 End: 03-24-2023 Patient encounter procedure [...] caregiver Minnie Mihai ROOT.CNM Work Phone: [facility] Start: 02-03-2023 End: 02-03-2023 Patient encounter [...] 11-18-2022 Patient encounter procedure Maria Eugenia Dilciadewey ENROLLMENT SERVICES VICE PRESIDENT.CNM Work Phone: OB/Gynecology Comment on above: 28 [...] evaluation of patient and report Nurse [facility] Work Phone: OB/Gynecology Comment on above: Spotting in early pr egnancy; related nausea, antepartum; Obesity during Start: 06-24-2022 Telephone encounter Aure Colon MD Work Phone: OB/Gynecology Comment on above: Patient Question Start: 06-06-2022 Telephone encounter Aure Colon MD Work Phone: OB/Gynecology Comment on above: Future Appointment Start: 01-11-2022 Refill Mona SALDAÑA RN.ELECTRICIAN ELEVATOR MAINTENANCE Work Phone: OB/Gynecology Comment on above: Refill Request Opened In Error Start: 01-10-2022 Refill Mona SALDAÑA RN.ELECTRICIAN ELEVATOR MAINTENANCE Work Phone: OB/Gynecology Comment on above: Refill Request Procedures Date Procedure Procedure Detail Performing Clinician Start: 02-21-2025 Us preg uterus after 1st trimest 08/11 gestation Maria Eugenia Roper ENROLLMENT SERVICES VICE PRESIDENT.CNM Work Phone: Start: 12-30-2024 Antibody screen HOPE BENNETT Comment on above: Order Comment: Speci men Type: BLOOD SPECIMEN Ordering Facility: [facility] Address: [address] [place] [address] Performed By: #### T SPN #### [facility] CLIA [id number] [address] [place] [address] [place] [address] [place] Start: 11-29-2024 Iadna chlamydia trachomatis amplified probe tq Maria Eugenia Roper ENROLLMENT SERVICES VICE PRESIDENT.CNM Work Phone: Start: 11-29-2024 Us uterus l imited 1/> fetuses Maria Eugenia Hadewey ENROLLMENT SERVICES VICE PRESIDENT.CNM Work Phone: Start: 02-03-2023 URINE OB DIP [...] Phone: Start: 12-02-2022 URINE OB DIP B/O Aure Colon MD Work Phone: Start: 11-18-2022 URINE OB DIP B/O Nori Roper ENROLLMENT SERVICES VICE PRESIDENT.CNM Work Phone: Start: 10-21-2022 URINE OB DIP B/O Aure Colon MD Work Phone: Start: 09-23-2022 URINE OB DIP B/O Gabriella Mercado MD Work Phone: Start: 08-26-2022 URINE OB DIP B/O Gabriella Mercado MD Work Phone: Start: 07-30-2022 Us nuchal translucency 1st gestation Minnie Holm ENROLLMENT SERVICES VICE PRESIDENT.CNM Work Phone: Start: 07-29-2022 URINE OB DIP B/O Jelauriic a Holm ENROLLMENT SERVICES VICE PRESIDENT.CNM Work Phone: Start: 07-01-2022 INFLUENZA VACCINE QUADRIVALENT 6 MO - 64 YRS IM Aure Colon MD Work Phone: Plan of Treatment Date Care Activity Detail Author Start: 04-18-2035 Urine microalbumin profile DTaP,Tdap,Td Vaccine (9 - Td or Tdap) [facility] Start: 11-18-2032 Urine microalbumin profile [facility] Start: 07-30-2029 Screening for malignant neoplasm of cervix Cervical Cancer Screening [facility] Start: 05-19-2025 RSV Vaccine (1 - Ris k 1-dose series) RSV Vaccine (1 - Risk 1-dose series) [facility] Start: 05-02-2025 End: 05-02-2025 Patient encounter procedure 05/02/2025 3:10 PM EDT Routine Office Visit OB/Gynecology [address] [place] [address] Hope Parmar MD [address] [address] OB OB/Gynecology Comment on above: OB Start: 04-18-2025 End: 04-18-2025 Patient encounter procedure 04/18/2025 9:15 AM EDT Routine Office Visit OB/Gynecology [address] [place] [address] Minnie Holm APRN.CN [address] [place] [address] Glucose Test /OB OB/Gynecology Comment on above: Glucose Test /OB Start: 04-18-2025 End: 04-18-2025 ambulatory 04/18/2025 9:00 AM EDT Results Only Charly Sanwn [facility] [address] [place] [address] GLucose test [facility] Comment on above: GLucose test Start: 04-11-2025 Influenza vaccination C [facility] Start: 03-21-2025 End: 06-19-2025 ANEMIA REFLEX PANEL ANEMIA REFLEX PANEL Lab Routine Encounter for supervision of other normal in second trimester (HCC) 23 weeks gestation of (HCC) Expected: 03/21/2025, Expires: 06/19/2025 [facility] Comment on above: Expected: 03/21/2025 , Expires: 06/19/2025 Start: 03-21-2025 End: 03-21-2026 GESTATIONAL GLUCOSE SCREEN, 1-HOUR, 50 GRAM, NON-FASTING GESTATIONAL GLUCOSE SCREEN, 1-HOUR, 50 GRAM, NON-FASTING Lab Routine Encounter for supervision of other normal in second trimester (HCC) 23 weeks gestation of (HCC) Screening for diabetes mellitus Expected: 03/21/2025, Expires: 03/21/2026 [facility] Work Phone: Comment on above: Expected: 03/21/2025 , Expires: 03/21/2026 Start: 03-21-2025 End: 03-21-2026 SYPHILIS TREPONEMAL W/REFLEX SYPHILIS TREPONEMAL W/REFLEX Lab Routine Encounter for supervision of other normal in second trimester (HCC) 23 weeks gestation of (HCC) Expected: 03/21/2025, Expires: 03/21/2026 [facility] Comment on above: Expected: 03/21/2025 , Expires: 03/21/2026 Start: 03-21-2025 End: 03-21-2025 Patient encounter procedure 03/21/2025 8:45 AM EDT Routine Office Visit OB/Gynecology [address] [place], [place] [id number] Sami Roy APRN.ELECTRICIAN ELEVATOR MAINTENANCE [address] [place] [address] OB OB/Gynecology Comment on above: OB Start: 02-21-2025 End: 02-21-2025 Patient encounter procedure [facility] Comment on above: Anatomy/OB Start: 02-07-2025 Influenza vaccination Influenza Vacc ine (#1) [facility] Comment on above: Postponed from 04/11 (Declined at this time) Start: 01-31-2025 End: 01-31-2025 Patient encounter procedure OB/Gynecology Comment on above: OB Start: 12-30-2024 End: 12-30-2024 Patient encounter procedure [facility]aternal [facility] Comment on above: Nuchal Nuchal/OB/ LMP 10/05 Start: 11-29-2024 End: 02-28-2025 ANEMIA REFLEX PANEL ANEMIA REFLEX PANEL Lab Routine with uncertain dates, antepartum (HCC) Expected: 11/29/2024, Expires: 02/28/2025 [facility] Work Phone: Comment on above: Expected: 11/29/2024 , Expires: 02/28/2025 Start: 11-29-2024 End: 02-28-2025 Hemoglobin A1c in Blood HEMOGLOBIN A1C Lab Routine with uncertain dates, antepartum (HCC) Expected: 11/29/2024, Expires: 02/28/2025 [facility] Comment on above: Expected: 11/29/2024 , Expires: 02/28/2025 Start: 11-29-2024 End: 02-28-2025 Hepatitis B virus surface Ag [Presence] in Serum HEPATITIS B SURFACE ANTIGEN Lab Routine with uncertain dates, antepartum (HCC) Expected: 11/29/2024, Expires: 02/28/2025 [facility] Comment on above: Expected: 11/29/2024 , Expires: 02/28/2025 Start: 11-29-2024 End: 02-28-2025 Hepatitis C virus Ab [Presence] in Serum HEPATITIS C ANTIBODY IA WITH CONFIRMATION Lab Routine with uncertain dates, antepartum (HCC) Expected: 11/29/2024, Expires: 02/28/2025 [facility] Comment on above: Expected: 11/29/2024 , Expires: 02/28/2025 Start: 11-29-2024 End: 02-28-2025 HIV 1+2 Ab [Presence] in Serum or Plasma by Immunoassay HIV 1/2 COMBO WITH REFLEX TO DIFFERENTIATION Lab Routine with uncertain dates, antepartum (HCC) Expected: 11/29/2024, Expires: 02/28/2025 [facility] Comment on above: Expected: 11/29/2024 , Expires: 02/28/2025 Start: 11-29-2024 End: 11-29-2025 OBSTETRIC ULTRASOUND WHI OBSTETRIC ULTRASOUND WHI Anc Imaging Routine with uncertain dates, antepartum (HCC) Expected: 11/29/2024, Expires: 11/29/2025 [facility] Comment on above: Expected: 11/29/2024 , Expires: 11/29/2025 Start: 11-29-2024 End: 02-28-2025 RUBELLA IGG ANTIBODY RUBELLA IGG ANTIBODY Lab Routine with uncertain dates, antepartum (HCC) Expected: 11/29/2024, Expires: 02/28/2025 [facility] Comment on above: Expected: 11/29/2024 , Expires: 02/28/2025 Start: 11-29-2024 End: 02-28-2025 SYPHILIS TREPONEMAL W/REFLEX SYPHILIS TREPONEMAL W/REFLEX Lab Routine with uncertain dates, antepartum (HCC) Expected: 11/29/2024, Expires: 02/28/2025 [facility] Comment on above: Expected: 11/29/2024 , Expires: 02/28/2025 Start: 11-29-2024 End: 02-28-2025 TYPE + SCREEN TYPE + SCREEN Blood Bank Routine with uncertain dates, antepartum (HCC) Expected: 11/29/2024, Expires: 02/28/2025 [facility] Comment on above: Expected: 11/29/2024 , Expires: 02/28/2025 Start: 09-26-2024 PAP TESTING PAP TESTING [facility] Start: 04-11-2024 Covid-19 Vaccine () Covid-19 Vaccine () [facility] Start: 03-24-2024 Screening for malignant neoplasm of cervix Cervical Cancer Screening [facility] Start: 04-11-2023 Influenza vaccination INFLUENZA (#1) [facility] Start: 12-16-2022 End: 12-17-2023 OBSTETRIC ULTRASOUND WHI OBSTETRIC ULTRASOUND WHI Anc Imaging Routine 32 weeks gestation of Encounter for supervision of normal first in third trimester Uterine size-date discrepancy, third trimester Expected: 12/16/2022, Expires: 12/17/2023 [facility] Work Phone: Comment on above: Expected: 12/16/2022 , Expires: 12/17/2023 Start: 12-02-2022 End: 12-03-2023 OBSTETRIC ULTRASOUND WHI OBSTETRIC ULTRASOUND WHI Anc Imaging Routine 30 weeks gestation of Uterine size-date discrepancy, third trimester Expected: 12/02/2022, Expires: 12/03/2023 [facility] Work Phone: Comment on above: Expected: 12/02/2022 , Expires: 12/03/2023 Start: 11-04-2022 End: 01-04-2023 CBC W Auto Differential panel - Blood CBC + DIFF Lab Routine 24 weeks gestation of Encounter for supervision of normal first in second trimester Expected: 11/04/2022 (Approximate), Expires: 01/04/2023 [facility] Work Phone: Comment on above: Expected: 11/04/2022 (Approximate), Expires: 01/04/2023 Start: 11-04-2022 End: 01-04-2023 GEST GLUC SCREEN, 1-HR, 50 GM, NON-FASTING GEST GLUC SCREEN, 1-HR, 50 GM, NON-FASTING Lab Routine 24 weeks gestation of Encounter for supervision of normal first in second trimester Expected: 11/04/2022 (Approximate), Expires: 01/04/2023 [facility] Work Phone: Comment on above: Expected: 11/04/2022 (Approximate), Expires: 01/04/2023 Start: 11-04-2022 End: 01-04-2023 SYPHILIS TOTAL W/REFLEX SYPHILIS TOTAL W/REFLEX Lab Routine 24 weeks gestation of Encounter for supervision of normal first in second trimester Expected: 11/04/2022 (Approximate), Expires: 01/04/2023 [facility] Work Phone: Comment on above: Expected: 11/04/2022 (Approximate), Expires: 01/04/2023 Start: 08-26-2022 End: 08-26-2023 OBSTETRIC ULTRASOUND WHI OBSTETRIC ULTRASOUND WHI Anc Imaging Routine 16 weeks gestation of Expected: 08/26/2022, Expires: 08/26/2023 [facility] Work Phone: Comment on above: Expected: 08/26/2022 , Expires: 08/26/2023 Start: 08-13-2022 End: 10-08-2022 SEQUENTIAL SCRN SCND TRIMESTER SEQUENTIAL SCRN SCND TRIMESTER Lab Routine Encounter for screening of mother Expected: 08/13/2022 (Approximate), Expires: 10/08/2022 [facility] Work Phone: Comment on above: Expected: 08/13/2022 (Approximate), Expires: 10/08/2022 Start: 08-11-2022 DEPRESSION ASSESSMENT DEPRESSION ASS ESSMENT [facility] Start: 07-30-2022 End: 07-30-2023 NUCHAL TRANSLUCENCY WHI NUCHAL TRANSLUCENCY WHI Anc Imaging Routine 12 weeks gestation of Expected: 07/30/2022, Expires: 07/30/2023 [facility] Work Phone: Comment on above: Expected: 07/30/2022 , Expires: 07/30/2023 Start: 07-30-2022 End: 09-29-2022 SEQUENTIAL SCRN FRST TRIMESTER [facility] Work Phone: Comment on above: Expected: 07/30/2022 , Expires: 09/29/2022 Start: 07-29-2022 End: 09-28-2022 CYSTIC FIBROSIS PATHOGENIC VARIANT ANALYSIS CYSTIC FIBROSIS PATHOGENIC VARIANT ANALYSIS Lab Routine 12 weeks gestation of Expected: 07/29/2022, Expires: 09/28/2022 [facility] Work Phone: Comment on above: Expected: 07/29/2022 , Expires: 09/28/2022 Start: 07-01-2022 End: 08-31-2022 TYPE + SCREEN [facility] Work Phone: Comment on above: Expected: 07/01/2022 , Expires: 08/31/2022 Start: 04-11-2022 Influenza vaccination C [facility] Start: 08-11-2021 DEPRESSION ASSESSMENT DEPRESSION ASS ESSMENT [facility] Start: 04-20-2015 Urine microalbumin profile DTAP,TDAP,TD (7 - Td or Tdap) [facility] Start: 12-22-2011 Anxiety Screening Anxiety Screening [facility] Start: 12-22-2011 Depression Screening Depression Scre ening [facility] Start: 2005 Adult depression screening assessment DEPRESSION SCREENING [facility] Start: 1998 COVID-19 VACCINE (#1) COVID-19 VACCI NE (#1) [facility] Start: 06-23-1994 COVID-19 VACCINE (#1) COVID-19 VACCI NE (#1) [facility] Bacteria identified in Urine by Culture URINE CULTURE Microbiology Routine related nausea, antepartum Encounter for care in first trimester of first Encounter for supervision of normal first in first trimester 07/01/2022 3:55 PM EST [facility] Work Phone: Chlamydia trachomatis+Neisseria gonorrhoeae DNA [Presence] in Unspecified specimen by TRAV with probe detection GC/CHLAMYDIA DNA DET Lab Routine related nausea, antepartum Encounter for care in first trimester of first Encounter for supervision of normal first in first trimester 07/01/2022 3:55 PM [facility] Work Phone: CYSTIC FIBROSIS PATHOGENIC VARIANT ANALYSIS CYSTIC FIBROSIS PATHOGENIC VARIANT ANALYSIS Lab Routine 12 weeks gestation of 07/30/2022 3:50 PM EST [facility] Work Phone: PAP TEST PAP TEST Lab Rou quentin Papanicolaou smear of cervix with low grade squamous intraepithelial lesion (LGSIL) 03/24/2023 3:26 PM EDT [facility] Work Phone: PAP TEST PAP TEST Lab Rou quentin Papanicolaou smear of cervix with low grade squamous intraepithelial lesion (LGSIL) Encounter for gynecological examination (general) (routine) without abnormal findings Screening for cervical cancer Encounter for screening for human papillomavirus (HPV) 07/30/2024 2:55 PM [facility] Work Phone: ROUTINE, GROUP B STREP PCR ROUTINE, GROUP B STREP PCR Microbiology Routine 36 weeks gestation of Encounter for supervision of normal first in third trimester 01/13/2023 12:03 PM EDT [facility] Work Phone: [facility] Immunizations Immunization Date Immunization Notes Care Provider Saurabh griggs 04-18-2025 tetanus toxoid, redu neo diphtheria toxoid, and acellular pertussis vaccine, adsorbed Minnie Holm ENROLLMENT SERVICES VICE PRESIDENT.CNM Work Phone: [facility] 11-18-2022 tetanus toxoid, redu neo diphtheria toxoid, and acellular pertussis vaccine, adsorbed Maria Eugenia Roper ENROLLMENT SERVICES VICE PRESIDENT.CNM Work Phone: [facility] 07-01-2022 influenza, injectabl e, quadrivalent, contains preservative Aure Colon MD Work Phone: [facility] 07-01-2022 influenza virus vaccine, unspecified formulation Wally Mercado MD Work Phone: [facility] 06-03-2019 Influenza, injectabl e, Madin [place] Canine Kidney, preservative free, quadrivalent Wally Mercado MD Work Phone: [facility] 05-19-2018 influenza, injectabl e, quadrivalent, preservative free Wally Mercado MD Work Phone: [facility] 05-19-2017 influenza, injectabl e, quadrivalent, preservative free Wally Mercado MD Work Phone: [facility] 12-20-2010 human papilloma viru s vaccine, quadrivalent Mona Mackay APRN.[facility] Work Phone: [facility] Work Phone: 05-31-2010 human papilloma viru s vaccine, quadrivalent Mona Mackay APRN.[facility] Work Phone: [facility] Work Phone: 03-02-2010 human papilloma viru s vaccine, quadrivalent Mona Mackay APRN.[employer] Work Phone: [facility] 01-05-2008 hepatitis A vaccine, unspecified formulation Mona Mackay APRN.[employer]TE[employer] Work Phone: [facility] Work Phone: 03-11-2007 hepatitis A vaccine, unspecified formulation Mona Mackay APRN.[facility] Work Phone: [facility] Work Phone: 04-20-2005 Meningococcal, MCV4, unspecified conjugate formulation(groups A, C, Y and W-135) Mona Mackay APRN.[employer]LEV[employer]INTE[employer] Work Phone: [facility] 04-20-2005 tetanus toxoid, redu neo diphtheria toxoid, and acellular pertussis vaccine, adsorbed Mona Mackay APRN.[employer] Work Phone: [facility] 01-10-1999 diphtheria, tetanus toxoids and acellular pertussis vaccine Mona Mackay APRN.[employer] Work Phone: [facility] Work Phone: 01-10-1999 measles, mumps and rubella virus vaccine Mona Mackay APRN.[facility] Work Phone: [facility] Work Phone: 01-10-1999 poliovirus vaccine, inactivated Mona Mackay APRN.[employer] Work Phone: [facility] Work Phone: 10-11-1996 Chicken Pox (disease) Mona melendez APRN.[employer] Work Phone: [facility] Work Phone: 04-02-1995 diphtheria, tetanus toxoids and acellular pertussis vaccine Mona Mackay APRN.[facility] Work Phone: [facility] Work Phone: 04-02-1995 haemophilus influenz ae type b vaccine, HbOC conjugate Mona Mackay APRN.[facility] Work Phone: [facility] Work Phone: 12-28-1994 hepatitis B vaccine, pediatric or pediatric/adolescent dosage Mona Mackay APRN.[facility] Work Phone: [facility] Work Phone: 12-28-1994 measles, mumps and rubella virus vaccine Mona Mackay APRN.[facility] Work Phone: [facility] Work Phone: 09-25-1994 diphtheria, tetanus toxoids and acellular pertussis vaccine Mona Mackay APRN.[employer] Work Phone: [facility] Work Phone: 09-25-1994 haemophilus influenz ae type b vaccine, HbOC conjugate Mona Mackay APRN.[facility] Work Phone: [facility] Work Phone: 09-25-1994 trivalent poliovirus vaccine, live, oral Mona Mackay APRN.[employer]TE[employer] Work Phone: [facility] Work Phone: 08-01-1994 diphtheria, tetanus toxoids and acellular pertussis vaccine Mona Mackay APRN.[facility] Work Phone: [facility] Work Phone: 08-01-1994 haemophilus influenz ae type b vaccine, HbOC conjugate Mona Mackay ENROLLMENT SERVICES VICE PRESIDENT.[employer] Work Phone: [facility] Work Phone: 08-01-1994 hepatitis B vaccine, pediatric or pediatric/adolescent dosage Mona Mackay ENROLLMENT SERVICES VICE PRESIDENT.[facility] Work Phone: [facility] Work Phone: 08-01-1994 trivalent poliovirus vaccine, live, oral Mona Mackay ENROLLMENT SERVICES VICE PRESIDENT.[facility] Work Phone: [facility] Work Phone: 05-15-1994 diphtheria, tetanus toxoids and acellular pertussis vaccine Mona Mackay ENROLLMENT SERVICES VICE PRESIDENT.[facility] Work Phone: [facility] Work Phone: 05-15-1994 haemophilus influenz ae type b vaccine, HbOC conjugate Mona Mackay ENROLLMENT SERVICES VICE PRESIDENT.[facility] Work Phone: [facility] Work Phone: 05-15-1994 hepatitis B vaccine, pediatric or pediatric/adolescent dosage Mona Mackay ENROLLMENT SERVICES VICE PRESIDENT.[facility] Work Phone: [facility] Work Phone: 05-15-1994 trivalent poliovirus vaccine, live, oral Mona Mackay ENROLLMENT SERVICES VICE PRESIDENT.[facility] Work Phone: [facility] Work Phone: Payers Date Payer Category Payer Self-pay 2020 Private Health Insurance MMO SUP ERMED PPO Member Subscriber Plan / Payer (Effective 2020-Present) Name: Jacqueline Bernal Relation to Subscriber: Self Name: Jacqueline Bernal Payer ID: Not on file Type: PPO Address: [address] [id number] 2020 Unknown MMO MMO SUPER[employer] PLUS [id number] 2020-Present [phone] [address] [place] [address] PPO [id number] 2020 Unknown [id number] 2020 Unknown [id number] Unknown [id number] Social History Date Type Detail Facility Start: 08-23-2016 End: 07-01-2022 Tobacco smoking status NHIS Never smoked tobacco [facility] Start: 10-10-2021 Alcohol intake Current drinker of alcohol (finding) [facility] Start: 09-24-2019 History SDOH Alcohol Frequency 3 [facility] Start: 09-24-2019 History SDOH Alcohol Std Drinks 1 [facility] Start: 09-24-2019 History SDOH Alcohol Binge 2 [facility] Start: 08-23-2016 History SDOH Alcohol Comment Occasionally [facility] Start: 09-24-2019 History SDOH Social Connections Phone 5 [facility] Start: 09-24-2019 History SDOH Social Connections Living 7 [facility] Start: 1995 Sex Assigned At Not on file [facility] Start: 08-23-2016 End: 07-01-2022 Tobacco use and exposure Smokeless tobacco non-user [facility] Work Phone: Start: 06-24-2022 End: 03-21-2025 Alcohol intake Ex-drinker (finding) [facility] Start: 06-24-2022 Education 18 [facility] Start: 05-20-2022 [facility] Start: 06-14-2022 End: 07-01-2022 Exposure to SARS-CoV-2 (event) Not sure [facility] Work Phone: Start: 09-24-2019 End: 12-16-2022 History of Social function [facility] Start: 09-24-2019 End: 12-16-2022 Social connection and isolation panel [facility] Do you belong to any clubs or organizations such as denominational groups, unions, fraternal or athletic groups, or school groups? Yes [facility] Are you now , , , , never or living with a partner? Never [facility] How often to you hav e a drink containing alcohol? 2-4 times a month [facility] How many standard dr inks containing alcohol do you have on a typical day? 1 or 2 [facility] How often do you hav e 6 or more drinks on 1 occasion? Less than monthly [facility] Do you feel stress - tense, restless, nervous, or anxious, or unable to sleep at night because your mind is troubled all the time - these days [OSQ] Not at all [facility] Start: 07-12-2012 National Score (1-100), lower number is lower risk 56 [facility] Start: 1995 Sex assigned at Female [facility] Start: 11-26-2024 Gender identity Identifies as female gender (finding) [facility] Start: 11-26-2024 Sexual orientation Heterosexual (finding) [facility] Goals Date Patient Goal Desired Activity /State Personal health goal Functional Status Date Assessment Result Facility 04-22-2014 Are you deaf, or do you have serious difficulty hearing No 04/22/2014 4:02 PM Anju Escobar LPN No [facility] 04-22-2014 Are you blind, or do you have serious difficulty seeing, even when wearing glasses No 04/22/2014 4:02 PM Anju Escobar LPN No [facility] 04-22-2014 Do you have serious difficulty walking or climbing stairs No 04/22/2014 4:02 PM Anju Escobar LPN No [facility] 04-22-2014 Do you have difficul ty dressing or bathing No 04/22/2014 4:02 PM Anju Escobar LPN No [facility] 04-22-2014 Because of a physica l, mental, or emotional condition, do you have difficulty doing errands alone such as visiting a physician's office or shopping No 04/22/2014 4:02 PM EDT Anju Caballero LPN No [facility] Mental Status Date Assessment Result Facility 04-22-2014 Because of a physica l, mental, or emotional condition, do you have serious difficulty concentrating, remembering, or making decisions No 04/22/2014 4:02 PM EDT Anju Caballero LPN No [facility] Clinical Notes 01-10-2022 to 04-18-2025 Quick Notes [...] or sooner if needed Minnie Holm APRN.CNM [facility] 04-18-2025 Miscellaneous Notes Formattin g of this [...] Minnie Holm APRN.CNM documented in this encounter [facility] 04-18-2025 Note HNO ID: [id number] Author: MIREILLE BIANS MA Service: ? Author Type: Game Engineer Type: Progress Notes Filed: 04/18/2025 12:56 Note [...] severely ill: Yes Patient denies history of Guillain-Hope Syndrome (a severe paralytic illness): Yes Tdap Adacel injection was given without incident. See immunizations for details of immunizations administered today. VIS sheet provided: Yes Provider Minnie Holm CNM was present in office at time of injection. Mireille Bains MA [facility] 04-18-2025 History of Presen t illness Narrative [...] severely ill: Yes Patient denies history of Guillain-Hope Syndrome (a severe paralytic illness): Yes Tdap Adacel injection was given without incident. See immunizations for details of immunizations administered today. VIS sheet provided: Yes Provider Minnie Holm CNM was present in office at time of injection. Mireille Bains MA documented in this encounter [facility] 04-18-2025 Instructions Mireille Bains MA - 04/18/2025 9:01 AM EDT SEQUENTIAL SCREENINGS The [facility] offers sequential screenings for women who are [...] It will require an appointment with our hydrology technician. This is not an ultrasound performed [...] the above symptoms, contact our office at [phone] and ask to speak with a nurse. After hours, you can call [facility] registry at [phone] OR call [facility] at [phone] and ask to have the doctor freight conductor paged. If you consider this an emergency, dial 9-1-6 or go to your nearest emergency department. NEED HELP? Are you dealing with a violent or abusive relationship? Are you a victim of rape or sexual assult? Call [facility] ([place]) 24 hour Crisis Hotline: 208.231.6857 or 974-763-0766. MANUAL Your Guide to a Healthy manual is now on-line. Visit [email or web address] [email or web address] to download your free copy documented in this encounter [facility] 03-21-2025 Progress note Formatting of t his [...] supervision of other normal in second trimester ([facility]) - ICD9: V22.1, ICD10: Z34.82 (primary diagnosis) - Continue PNV and LDA 23 weeks gestation of ([facility]) - ICD9: V22.2, ICD10: Z3A.23 - GTT, CBC, RPR next visit History of macrosomia in in prior , currently ([facility]) - ICD9: V23.49, ICD10: O09.299 PTL precautions reviewed. RTO in 4 weeks or sooner as needed. Sami Roy APRN.TIMO [facility] 03-21-2025 Miscellaneous Notes Formattin g of this [...] supervision of other normal in second trimester ([facility]) - ICD9: V22.1, ICD10: Z34.82 (primary diagnosis) - Continue PNV and LDA 23 weeks gestation of ([facility]) - ICD9: V22.2, ICD10: Z3A.23 - GTT, CBC, RPR next visit History of macrosomia in infant in prior , currently ([facility]) - ICD9: V23.49, ICD10: O09.299 PTL precautions reviewed. RTO in 4 weeks or sooner as needed. Sami Roy APRN.TIMO documented in this encounter [facility] 03-21-2025 Instructions Mireille Bains MA - 03/21/2025 8:29 AM EDT SEQUENTIAL SCREENINGS The [facility] offers sequential screenings for women who are [...] It will require an appointment with our hydrology technician. This is not an ultrasound performed [...] the above symptoms, contact our office at [phone] and ask to speak with a nurse. After hours, you can call doctors registry at [phone] OR call [facility] at [phone] and ask to have the doctor freight conductor paged. If you consider this an emergency, dial 9-1-1 or go to your nearest emergency department. NEED HELP? Are you dealing with a violent or abusive relationship? Are you a victim of rape or sexual assult? Call [facility] ([place]) 24 hour Crisis Hotline: 688.830.6279 or 341-848-1867. MANUAL Your Guide to a Healthy manual is now on-line. Visit [email or web address] [email or web address] to download your free copy Oral Glucose Tolerance Test During Your provider has ordered an oral glucose tolerance test. For more information: My [facility] Oral Glucose Tolerance Test How do I [...] you need an appointment. Safe Sleep for [place] For more information: [email or web address] Safe Sleep Healthy babies are safest when sleeping on their backs at nighttime and during naps. Side sleeping is not as safe as back sleeping and is not advised. documented in this encounter [facility] 02-21-2025 Progress note Formatting of t his [...] macrosomia in infant in prior , currently ([facility] 19 weeks gestation of ([facility]) Anatomy us scheduled today RTO 4 wks Aure Farris MD [facility] 02-21-2025 Miscellaneous Notes Formattin g of this note might be different from the original. DM-Pt doing well. Denies vaginal Bleeding, Leaking fluid, or regular Contractions. Pt reports starting to feel movement now Physical Exam: Gen: female in no apparent distress Abd: soft, Gravid. Non tender to palpation. [facility] Assessment & Plan Encounter for supervision of other normal in second trimester ([facility]) Continue PNV and ASA History of macrosomia in infant in prior , currently ([facility]) 19 weeks gestation of ([facility]) Anatomy us scheduled today RTO 4 wks Aure Farris MD documented in this encounter [facility] 02-21-2025 Instructions Pippa Pineda MA - 02/21/2025 2:14 PM EDT SEQUENTIAL SCREENINGS The [facility] offers sequential screenings for women who are [...] It will require an appointment with our hydrology technician. This is not an ultrasound performed [...] the above symptoms, contact our office at [phone] and ask to speak with a nurse. After hours, you can call doctors registry at [phone] OR call [facility] at [phone] and ask to have the doctor freight conductor paged. If you consider this an emergency, dial 9-1-1 or go to your nearest emergency department. NEED HELP? Are you dealing with a violent or abusive relationship? Are you a victim of rape or sexual assult? Call [facility] ([place]) 24 hour Crisis Hotline: 266.430.1544 or 515-474-4687. MANUAL Your Guide to a Healthy manual is now on-line. Visit [email or web address] [email or web address] to download your free copy documented in this encounter [facility] 01-31-2025 Progress note Formatting of t his [...] RTO in 4 weeks Minnie Holm APRN.CNM [facility] Work Phone: 01-31-2025 Miscellaneous Notes Formattin g [...] Minnie Holm APRN.CNM documented in this encounter [facility] 01-31-2025 Instructions Jasbir Brink MA - 01/31/2025 3:09 PM EDT SEQUENTIAL SCREENINGS The [facility] offers sequential screenings for women who are [...] It will require an appointment with our hydrology technician. This is not an ultrasound performed [...] the above symptoms, contact our office at [phone] and ask to speak with a nurse. After hours, you can call doctors registry at [phone] OR call [facility] at [phone] and ask to have the doctor freight conductor paged. If you consider this an emergency, dial 04-11-1 or go to your nearest emergency department. NEED HELP? Are you dealing with a violent or abusive relationship? Are you a victim of rape or sexual assult? Call [facility] ([place]) 24 hour Crisis Hotline: 378.991.6425 or 994-324-3701. MANUAL Your Guide to a Healthy manual is now on-line. Visit [email or web address] [email or web address] to download your free copy documented in this encounter [facility] 11-29-2024 Progress note Formatting of t his note might be different from the original. Patient is at 8.2 weeks gestation by LMP. TVUS dating consistent with gestational age of 7w4d. This is a 5 day difference. Spoke with hydrology technician and it was recommended to update JAYDE from today's measurements. Will confirm JAYDE at 1st trimester ultrasound. Maria Eugenia Roper APRN.CNM [facility] 11-29-2024 Miscellaneous Notes Formattin g of this note might be different from the original. Patient is at 8.2 weeks gestation by LMP. TVUS dating consistent with gestational age of 7w4d. This is a 5 day difference. Spoke with hydrology technician and it was recommended to update JAYDE from today's measurements. Will confirm JAYDE at 1st trimester ultrasound. Maria Eugenia Roper APRN.CNM documented in this encounter [facility] 11-29-2024 Note HNO ID: [id number] Author: JASBIR BRINK MA Service: ? Author Type: Roasterman Type: Progress Notes Filed: 11/29/2024 15:38 Note Text: OB point of care ultrasound was performed. See imaging tab for details. Jasbir Brink MA [facility] 11-29-2024 History of Presen t illness Narrative [...] Status: Partner: Name: Ady Age: 31 Occupation: [employer] at a denominational Gender: Male PAST MEDICAL HISTORY Diagnosis Date [...] discussed with the Patient or Patient's Authorized Court Recorder. As applicable, any other physician, advance practice provider, medical student, or other health professional student that will be observing or involved in the sensitive examination for educational or training purposes was discussed with the Patient or Authorized Court Recorder. The Patient or Authorized Court Recorder has agreed to proceed with the sensitive [...] Your guide to a health and the Emr Trainer. Reviewed midwifery and tablet machine operator services that are available. 2) Screening: Hemoglobin [...] Eugenia Roper APRN.CNM documented in this encounter [facility] 11-26-2024 Instructions Maria Eugenia Roper APRN.CNM - 11/26/2024 2:08 PM EDT MORNING SICKNESS IN by Beena Tejeda M.D. for [employer] As you may already know, morning sickness can often be more appropriately called evening sickness or edycf-swugdg-ig-the-day sickness. While there are the agusto few, [...] medication, Doxylamine, is currently marketed as an bpdw-ndw-aprpkqh sleeping pill. Ask your practitioner if creating a vitamin B6/Doxylamine combination with iuqn-qur-kaisewy medications would be safe for you. Prescription [...] select the following link to access the [facility] Your Guide to a Healthy . [email or web address] Please select the following link to access the [facility] Your Guide to a Healthy . [email or web address] [email or web address] documented in this encounter [facility] 11-26-2024 Note HNO ID: [id number] Author: MARIA EUGENIA ROPER APRN.CNM Service: ? 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 [facility] 07-30-2024 Note HNO ID: [id number] Author: WALLY MERCADO MD Service: ? Author Type: Physician Type: Progress Notes Filed: 07/30/2024 14:47 Note Text: Jacqueline is a 28 year old who presents for an annual gynecologic exam without complaints. Menses only for 5 months since stopped . Attempting . OB History T1 L1 SAB0 IAB0 Ectopic0 Multiple0 Live Births1 Brake Holder History LMP: 07/25/2024 (Exact Date), Unknown Age at Menarche: Age at First : Age at Menopause: Brake Holder History Comments: Sexual Activity: Not Currently; Male [...] discussed with the Patient or Patient's Authorized Court Recorder. As applicable, any other physician, advance practice provider, medical student, or other health professional student that will be observing or involved in the sensitive examination for educational or training purposes was discussed with the Patient or Authorized Court Recorder. The Patient or Authorized Court Recorder has agreed to proceed with the sensitive [...] external genitalia normal, normal [place]'s glands, urethra, [place]'s glands, no vulvar lesions, no cervical lesions, [...] PNV in anticipation of Wally Mercado MD [facility] 07-30-2024 History of Presen t illness Narrative Jacqueline is a 28 year old who presents for an annual gynecologic exam without complaints. Menses only for 5 months since stopped . Attempting . OB History T1 L1 SAB0 IAB0 Ectopic0 Multiple0 Live Births1 Brake Holder History LMP: 07/25/2024 (Exact Date), Unknown Age at Menarche: Age at First : Age at Menopause: Brake Holder History Comments: Sexual Activity: Not Currently; Male [...] discussed with the Patient or Patient's Authorized Court Recorder. As applicable, any other physician, advance practice provider, medical student, or other health professional student that will be observing or involved in the sensitive examination for educational or training purposes was discussed with the Patient or Authorized Court Recorder. The Patient or Authorized Court Recorder has agreed to proceed with the sensitive [...] external genitalia normal, normal Bartholin's glands, urethra, [place]'s glands, no vulvar lesions, no cervical lesions, [...] Wally Mercado MD documented in this encounter [facility] 03-24-2023 History of Presen t illness Narrative VISIT Jacqueline Bernal is a 27 year old year old here for visit. Delivery Summary: ROS/ Recovery: Feeding: Breast feeding problems: None Menses since delivery: n'a Menstrual pattern prior to : Regular periods [place] since delivery: Resumed Depression: denies symptoms of [...] external genitalia normal, normal Bartholin's glands, urethra, [place]'s glands, no vulvar lesions, no cervical lesions, [...] Wally Mercado MD documented in this encounter [facility] 02-21-2023 Miscellaneous Notes Formattin g of this note might be different from the original. FMLA paperwork completed, original given to pt. Copy scanned into EMR and filed in nurses suite. Anju Caballero LPN' documented in this encounter [facility] 02-21-2023 History of Presen t illness Narrative [...] Wally Mercado MD documented in this encounter [facility] 02-04-2023 Miscellaneous Notes Formattin g of this [...] Minnie Holm APRN.CNM documented in this encounter [facility] 02-03-2023 Instructions Jasbir Brink Cma - 02/03/2023 10:55 AM EDT SEQUENTIAL SCREENINGS The [facility] offers sequential screenings for women who are [...] It will require an appointment with our hydrology technician. This is not an ultrasound performed [...] the above symptoms, contact our office at [phone] and ask to speak with a nurse. After hours, you can call doctors registry at [phone] OR call [facility] at [phone] and ask to have the doctor freight conductor paged. If you consider this an emergency, dial 04-11- or go to your nearest emergency department. NEED HELP? Are you dealing with a violent or abusive relationship? Are you a victim of rape or sexual assult? Call [facility] ([place]) 24 hour Crisis Hotline: 319.906.6976 or 369-074-2672. MANUAL Your Guide to a Healthy manual is now on-line. Visit [email or web address] [email or web address] to download your free copy documented in this encounter [facility] 01-27-2023 Miscellaneous Notes Formattin g of this [...] Minnie Holm APRN.CNM documented in this encounter [facility] 01-27-2023 Instructions Jasbir Brink Cma - 01/27/2023 9:10 AM EDT SEQUENTIAL SCREENINGS The [facility] offers sequential screenings for women who are [...] It will require an appointment with our hydrology technician. This is not an ultrasound performed [...] the above symptoms, contact our office at [phone] and ask to speak with a nurse. After hours, you can call doctors registry at [phone] OR call [facility] at [phone] and ask to have the doctor freight conductor paged. If you consider this an emergency, dial 8-5-7 or go to your nearest emergency department. NEED HELP? Are you dealing with a violent or abusive relationship? Are you a victim of rape or sexual assult? Call [facility] ([place]) 24 hour Crisis Hotline: 630.538.6251 or 946-973-9796. MANUAL Your Guide to a Healthy manual is now on-line. Visit [email or web address] [email or web address] to download your free copy documented in this encounter [facility] 01-20-2023 Miscellaneous Notes Formattin g of this note might be different from the original. SW- Pt doing well. No ctx, BOUCHER, vision changes, vb, lof. Good FM. Reviewed medications for allergies. Weekly visits. Hope Parmar DO documented in this encounter [facility] 01-20-2023 Instructions Pippa Pineda MA - 01/20/2023 10:54 AM EDT SEQUENTIAL SCREENINGS The [facility] offers sequential screenings for women who are [...] It will require an appointment with our hydrology technician. This is not an ultrasound performed [...] the above symptoms, contact our office at [phone] and ask to speak with a nurse. After hours, you can call doctors registry at [phone] OR call [facility] at [phone] and ask to have the doctor freight conductor paged. If you consider this an emergency, dial 9-- or go to your nearest emergency department. NEED HELP? Are you dealing with a violent or abusive relationship? Are you a victim of rape or sexual assult? Call [facility] ([place]) 24 hour Crisis Hotline: 209.665.1737 or 776-298-8106. MANUAL Your Guide to a Healthy manual is now on-line. Visit [email or web address] [email or web address] to download your free copy documented in this encounter [facility] 01-13-2023 Miscellaneous Notes Formattin g of this note might be different from the original. Anatomy ultrasound reviewed. No abnormalities identified. Follow up as clinically indicated. Please place copy in ob chart. Wally Mercado MD documented in this encounter [facility] 01-13-2023 Miscellaneous Notes Formattin g of this [...] Hope Parmar DO documented in this encounter [facility] 01-13-2023 Instructions Pippa Pineda MA - 01/13/2023 11:02 AM EDT SEQUENTIAL SCREENINGS The [facility] offers sequential screenings for women who are [...] It will require an appointment with our hydrology technician. This is not an ultrasound performed [...] the above symptoms, contact our office at [phone] and ask to speak with a nurse. After hours, you can call doctors registry at [phone] OR call [facility] at [phone] and ask to have the doctor freight conductor paged. If you consider this an emergency, dial 9-1-1 or go to your nearest emergency department. NEED HELP? Are you dealing with a violent or abusive relationship? Are you a victim of rape or sexual assult? Call [facility] ([place]) 24 hour Crisis Hotline: 837.650.9594 or 596-489-3361. MANUAL Your Guide to a Healthy manual is now on-line. Visit [email or web address] [email or web address] to download your free copy documented in this encounter [facility] 12-30-2022 Miscellaneous Notes Formattin g of this note might be different from the original. SW- No BOUCHER, vision changes, ctx, vb, lof. Good FM. Repeat growth US next visit. Cont baby ASA. RTO 2 wks. Hope Parmar DO documented in this encounter [facility] 12-30-2022 Instructions Pippa Pineda MA - 12/30/2022 3:22 PM EDT SEQUENTIAL SCREENINGS The [facility] offers sequential screenings for women who are [...] It will require an appointment with our hydrology technician. This is not an ultrasound performed [...] the above symptoms, contact our office at [phone] and ask to speak with a nurse. After hours, you can call doctors registry at [phone] OR call [facility] at [phone] and ask to have the doctor freight conductor paged. If you consider this an emergency, dial 4-1-4 or go to your nearest emergency department. NEED HELP? Are you dealing with a violent or abusive relationship? Are you a victim of rape or sexual assult? Call [facility] ([place]) 24 hour Crisis Hotline: 770.781.1208 or 886-180-3695. MANUAL Your Guide to a Healthy manual is now on-line. Visit [email or web address] [email or web address] to download your free copy documented in this encounter [facility] 12-24-2022 Miscellaneous Notes Formattin g of this note might be different from the original. Patient sent to hospital per Maria Eugenia documented in this encounter [facility] 12-17-2022 History of Past i llness Narrative [...] of this encounter (statuses as of 02/21/2023) [facility] History of Past illness Narrative* Problem Noted [...] of this encounter (statuses as of 02/21/2023) [facility] History of Past illness Narrative* Problem Noted [...] of this encounter (statuses as of 03/25/2023) [facility]05-08-2023 Miscellaneous Notes* Quick Notes - Wally Mercado MD - 12/16/2022 3:35 PM EDT RR- No VB/LOF. Good Fm. no regular ctxs. Some mild edema. Denies BOUCHER or visual changes. EFW 97% and normal AFV. F/u in 2 weeks or prn. Wally Mercado MD [facility] Instructions* Patient Instructions* Edie Clancy Ma - 12/16/2022 3:24 PM EDT SEQUENTIAL SCREENINGS The [facility] offers sequential screenings for women who are [...] testing. It will require an appointment withour hydrology technician. This is not an ultrasound performed [...] the above symptoms, contact our office at [phone] and ask to speak with anurse. After hours, you can call doctors registry at [phone] OR call [facility] at [phone] ask to have the doctor freight conductor paged. If you consider this an emergency, dial 9-1-9 or go to your nearest emergency department. NEED HELP? Are you dealing with a violent or abusive relationship? Are you a victim of rape or sexual assult? Call [facility] ([facility] 24 hour Crisis Hotline: 668.386.4241 or 235-775-3336. MANUAL Your Guide to a Healthy manual is now on-line. Visit [email or web address] to download your free copy [facility] Miscellaneous Notes* Telephone Encounter - Mariela Wilson RN - 12/03/2022 9:02 AM EDT Faxed * Telephone Encounter - Mariela Wilson RN - 12/03/2022 8:30 AM EDT Received breast pump order from [employer]. To RR to sign. Mariela Wilson RN [facility] Miscellaneous Notes* Quick Notes - Aure Colon MD - 12/02/2022 3:38 PM EDT DM- Pt doing well today. Denies Vaginal Bleeding, Leaking fluid, or contractions. Pt reports good movement. S>D, growth us ordered. RTO 2 wks. Kick counts reviewed. Aure Farris MD [facility] Instructions* Patient Instructions* Caren Kimball Ma - 12/02/2022 3:17 PM EDT SEQUENTIAL SCREENINGS The [facility] offers sequential screenings for women who are [...] testing. It will require an appointment withour hydrology technician. This is not an ultrasound performed [...] the above symptoms, contact our office at [phone] and ask to speak with anurse. After hours, you can call doctors registry at [phone] OR call [facility] at [phone] ask to have the doctor freight conductor paged. If you consider this an emergency, dial 91-5 or go to your nearest emergency department. NEED HELP? Are you dealing with a violent or abusive relationship? Are you a victim of rape or sexual assult? Call [facility] ([place]) 24 hour Crisis Hotline: 418.531.9294 or 346-980-0240. MANUAL Your Guide to a Healthy manual is now on-line. Visit [email or web address] to download your free copy [facility] Miscellaneous Notes* Quick Notes - Maria Eugenia [...] Maria Eugenia Roper APRN.CNM [facility] History of Present illness Narrative* Edie Clancy [...] severely ill: Yes Patient denies history of Guillain-Hope Syndrome (a severe paralytic illness): Yes Tdap Adacel injection was given without incident. See immunizations for details of immunizations administered today. VIS sheet provided: Yes Provider Maria Eugenia Roper was present in office at time of injection. Edie Clancy Ma documented [facility]23 Instructions* Patient Instructions* Edie Clancy Ma - 11/18/2022 2:55 PM EDT SEQUENTIAL SCREENINGS The [facility] offers sequential screenings for women who are [...] testing. It will require an appointment withour hydrology technician. This is not an ultrasound performed [...] the above symptoms, contact our office at [phone] and ask to speak with anurse. After hours, you can call doctors registry at [phone] OR call [facility] at [phone] ask to have the doctor freight conductor paged. If you consider this an emergency, dial 9-1-9 or go to your nearest emergency department. NEED HELP? Are you dealing with a violent or abusive relationship? Are you a victim of rape or sexual assult? Call [facility] ([place]) 24 hour Crisis Hotline: 346.450.8289 or 815-928-2258. MANUAL Your Guide to a Healthy manual is now on-line. Visit [email or web address] to download your free copy [facility] Miscellaneous Notes* Quick Notes - Aure Colon MD - 10/21/2022 4:14 PM EDT DM- Pt doing well today. Denies Vaginal Bleeding, Leaking fluid, or contractions. Pt reports good movement. Taking ASA. RTO 4 wks. Aure Farris MD [facility]23 Instructions* Patient Instructions* Caren Kimball Ma - 10/21/2022 3:58 PM EDT SEQUENTIAL SCREENINGS The [facility] offers sequential screenings for women who are [...] testing. It will require an appointment withour hydrology technician. This is not an ultrasound performed [...] the above symptoms, contact our office at [phone] and ask to speak with anurse. After hours, you can call doctors registry at [phone] OR call [facility] at [phone] ask to have the doctor freight conductor paged. If you consider this an emergency, dial 9-1-3 or go to your nearest emergency department. NEED HELP? Are you dealing with a violent or abusive relationship? Are you a victim of rape or sexual assult? Call [facility] ([place]) 24 hour Crisis Hotline: 611.942.9876 or 180-931-3234. MANUAL Your Guide to a Healthy manual is now on-line. Visit [email or web address] to download your free copy documented [facility] Miscellaneous Notes* Quick Notes - Wally Mercado MD - 09/23/2022 3:43 PM EST RR- Doing well overall. Occas heartburn. D/w her symptomatic measures. US today. Taking PNV. F/u in4 weeks or prn. Wally Mercado MD documented [facility]23 Instructions* Patient Instructions* Edie Clancy Ma - 09/23/2022 2:13 PM EST SEQUENTIAL SCREENINGS The [facility] offers sequential screenings for women who are [...] testing. It will require an appointment withour hydrology technician. This is not an ultrasound performed [...] the above symptoms, contact our office at [phone] and ask to speak with anurse. After hours, you can call doctors registry at [phone] OR call [facility] at [phone] ask to have the doctor freight conductor paged. If you consider this an emergency, dial -2 or go to your nearest emergency department. NEED HELP? Are you dealing with a violent or abusive relationship? Are you a victim of rape or sexual assult? Call [facility] ([place]) 24 hour Crisis Hotline: 903.797.3074 or 778-327-5307. MANUAL Your Guide to a Healthy manual is now on-line. Visit [email or web address] to download your free copy documented [facility] Miscellaneous Notes* Quick Notes - Wally Mercado MD - 08/26/2022 10:26 AM EST RR- No VB/LOF. No FM yet. Doing well overall. Nausea improved. second part of sequentisal screen today. F/u in 4 weeks for OB and US Wally Mercado MD documented in [facility]23 Instructions* Patient Instructions* Anju Caballero LPN - 08/26/2022 10:04 AM EST NEED HELP? Are you dealing with a violent or abusive relationship? Are you a victim of rape or sexual assult? Call [facility] ([place]) 24 hour Crisis Hotline: 720.639.7962 or 506-609-3164. MANUAL Your Guide to a Healthy manual is now on-line. Visit [email or web address] to download your free copy documented in this encounterT[facility]12[facility]22 Miscellaneous Notes* Telephone Encounter - Angelia Dominguez [...] . Angelia Dominguez MA documented in this encounterT[facility]12[facility]-2022 Miscellaneous Notes* Telephone Encounter - Maria Guadalupe Olivera RN - 07/30/2022 3:31 PM EST Please file sequential screen orders. Marai Guadalupe Olivera RN documented in this [facility]12-20-2022 Miscellaneous Notes* Addendum Note - Minnie [...] In depth discussion on Sequential screen vs [id number]. All questions answered. Patient desires sequential screen. NT US ordered and will have done this week with PN labs. 5) Reviewed cystic fibrosis screening and testing. She would like this done, order placed. Minnie Holm APRN.CNM documented in this encounter[facility]12[facility]19-[facility]22 Instructions* Patient Instructions* Minnie Holm APRN.CNM - 07/29/2022 4:12 PM EST SEQUENTIAL SCREENINGS The [facility] offers sequential screenings for women who are [...] testing. It will require an appointment withour hydrology technician. This is not an ultrasound performed by a physician in our office during a routine visit. genetic testing gives [id number] information about whether their fetus has certain [...] is an option for all women. Your cardroom manager or other health care coordination manager, such as a genetic counselor, will discuss [...] called a false- negative result. Your health care coordination manager can give you information about the ratesof [...] CONSIDERING CARRIER SCREENING FOR CYSTIC FIBROSIS The [facility] offers carrier screening for cystic fibrosis or CF. Because the results of the screening test may be confusing, the purpose of this document is to provide information to those patients who would like to be tested for carrier status of cystic fibrosis. This is a voluntary test so please read the following information carefully and discuss any concerns with your cardroom manager or healthcare provider. CYSTIC FIBROSIS: Cystic fibrosis [...] carrier risk. For example, a or Ashkenazi Religious person has a 1 in 29 chance of being a CF carrier. A [place] has a 1 in 46 chance of being a CF carrier; an has a 1 in 65 chance; and an [place] has a 1 in 90 chance. In [...] screening panel consists of 25 mutations. The [place] [employer] (ACOG) currently recommends this 25 mutation screening panel that [facility]. This test is expected to detect most [...] a couple, 1 in 19,000 for a [place] couple, and 1 in 50,000 for n [...] for cystic fibrosis is completely yours. The [facility] also offers more detailed genetic counseling and information through the Medical Genetics program. Genetic counselors are available to answer any questions that you may have or if you have additional concerns. More information is available through the [place] [employer]. Your healthcare provider can answer your questions. A few resources are listed below: Cystic Fibrosis Foundation: [address] [place] [address], [place] [address]; [email or web address] National Society of Genetic Counselors: [address] [place] [address]; www.[email or web address] [facility] [place]: [address] , [address] [place], [address] [email or web address] [...] the above symptoms, contact our office at [phone] and ask to speak with anurse. After hours, you can call doctors registry at [phone] OR call [facility] at [phone] ask to have the doctor freight conductor paged. If you consider this an emergency, dial 6-8-3 or go to your nearest emergency department. NEED HELP? Are you dealing with a violent or abusive relationship? Are you a victim of rape or sexual assult? Call [facility] ([place]) 24 hour Crisis Hotline: 732.163.2888 or 940-760-0999. MANUAL Your Guide to a Healthy manual is now on-line. Visit [email or web address] to download your free copy documented in this encounterT[facility]11[facility]22 Miscellaneous Notes* Quick Notes - Aure Colon MD - 07/01/2022 3:51 PM EST DM- new OB. Declines NT. ASA reviewed. Flu vaccine today. Needs Pap PP. RTO 4 wks. 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 No Marital Status: Partner: Name: Ady bernal Age: 31 Occupation: [employer] Gender: male History of STDs: None PAST [...] prn. Aure Farris MD documented in this encounterT[facility]11-21-2022 Instructions* Patient Instructions* Edie Clancy Ma - 07/01/2022 3:08 PM EST Please select the following link to access the [facility] Your Guide to a Healthy . [email or web address] documented in this encounterT[facility]11-14-2022 Miscellaneous Notes* Quick Notes - Marbella Reddy [...] screening testing.Marbella Reddy RN documented in this encounterT[facility]11-14-2022 History of Past illness Narrative* Problem Noted [...] of this encounter (statuses as of 08/26/2022) [facility] Narrative* Problem Noted [...] of this encounter (statuses as of 09/24/2022) [facility] Narrative* Problem Noted [...] of this encounter (statuses as of 10/22/2022) [facility] Narrative* Problem Noted [...] of this encounter (statuses as of 11/19/2022) [facility] Narrative* Problem Noted [...] of this encounter (statuses as of 11/25/2022) [facility] Narrative* Problem Noted [...] of this encounter (statuses as of 12/03/2022) [facility] Narrative* Problem Noted [...] of this encounter (statuses as of 12/03/2022) [facility] Narrative* Problem Noted [...] of this encounter (statuses as of 12/17/2022) [facility] Narrative* Problem Noted [...] of this encounter (statuses as of 12/17/2022) [facility] Narrative* Problem Noted [...] of this encounter (statuses as of 12/24/2022) [facility] Narrative* Problem Noted [...] of this encounter (statuses as of 01/04/2023) [facility] Narrative* Problem Noted [...] of this encounter (statuses as of 01/13/2023) [facility] Narrative* Problem Noted [...] of this encounter (statuses as of 01/13/2023) [facility] Narrative* Problem Noted [...] of this encounter (statuses as of 01/20/2023) [facility] Narrative* Problem Noted [...] of this encounter (statuses as of 01/27/2023) [facility] Narrative* Problem Noted [...] of this encounter (statuses as of 02/04/2023) [facility] Narrative* Problem Noted [...] of this encounter (statuses as of 02/05/2023) [facility] Miscellaneous Notes* Telephone Encounter - Aure Colon [...] episode. Anju Caballero LPN documented in this encounterT[facility]10-27-2022 Miscellaneous Notes* Telephone Encounter - Mariela Wilson RN - 06/06/2022 12:46 PM EDT PNOB scheduled. Mariela Wilson RN * Telephone Encounter - Marbella Reddy RN - 06/06/2022 12:06 PM EDT Left message for patient to return phone call. Patient has an appointment with Dr Colon for NOB appointment. Please schedule PNOB appointment. [facility] M[facility] Notes* Telephone Encounter - Joy Valero LPN - 01/11/2022 2:38 PM EDT Opened in error [facility] Miscellaneous Notes* Telephone Encounter - Joy Valero LPN - 01/11/2022 11:45 AM EDT Patient called stating that she is waiting for mail order Rx to come so she will need 1 pack of Spr[facility] Miscellaneous Notes* Telephone Encounter - Mariela Wilson RN - 01/10/2022 8:36 AM EDT Patient needing RX sent to Mail order pharmacy. Last seen for annual 09/26/21. Please file. Thank you. Pending Prescriptions Disp Refills NORGESTIMATE 0.25 MG-ETHINYL ESTRADIOL 35 MCG TABLET 84 tablet 3 Sig: Take 1 tablet by mouth once daily. RANDY: No Mariela Wilson RN [facility] Diagnosis Surveillance for control, oral contraceptives Surveillance of previously prescribed contraceptive pill documented in this encounter [facility] note* Diagnosis Spotting in early Spotting complicating , antepartum condition or complication related nausea, antepartum Mild hyperemesis gravidarum, antepartum Obesity during documented in this encounter [facility] note* Diagnosis Encounter for supervision of normal first in first trimester- Primary Supervision of normal first related nausea, antepartum Mild hyperemesis gravidarum, antepartum Encounter for care in first trimester of first Need for influenza vaccination Need for prophylactic vaccination and inoculation against influenza Obesity during documented in this encounter [facility] note* Diagnosis 12 weeks gestation of - Primary state, incidental [facility] Diagnosis Encounter for screening of mother- Primary Unspecified screening 12 weeks gestation of state, incidental [facility] Diagnosis Encounter for (NT) nuchal translucency scan- Primary Other specified screening 12 weeks gestation of state, incidental [facility] Diagnosis 16 weeks gestation of - Primary state, incidental Encounter for supervision of other normal , first trimester [facility] Diagnosis 20 weeks gestation of - Primary state, incidental Encounter for supervision of normal first in second trimester Supervision of normal first [facility] Diagnosis Encounter for supervision of normal first in second trimester- Primary Supervision of normal first 24 weeks gestation of state, incidental [facility] Diagnosis 28 weeks gestation of - Primary state, incidental Encounter for supervision of normal first in third trimester Supervision of normal first Need for vaccination Need for prophylactic vaccination and inoculation against unspecified single disease Uterine size-date discrepancy, third trimester [facility]* Diagnosis Uterine size-date discrepancy, third trimester- Primary 30 weeks gestation of state, incidental [facility] Diagnosis 32 weeks gestation of - Primary state, incidental Encounter for supervision of normal first in third trimester Supervision of normal first Uterine size-date discrepancy, third trimester [facility]* Diagnosis Macrosomia of fetus affecting management of mother in third trimester, single or unspecified fetus- Primary 32 weeks gestation of state, incidental Encounter for ultrasound to check growth Encounter for routine screening for malformation using ultrasonics [facility] Diagnosis 34 weeks gestation of - Primary state, incidental Encounter for supervision of normal first in third trimester Supervision of normal first [facility]* Diagnosis Uterine size-date discrepancy, third trimester- Primary Encounter for supervision of normal first in third trimester Supervision of normal first 36 weeks gestation of state, incidental [facility] Diagnosis 36 weeks gestation of - Primary state, incidental Encounter for supervision of normal first in third trimester Supervision of normal first Excessive growth affecting management of in third trimester, single or unspecified fetus [facility] Diagnosis 37 weeks gestation of - Primary state, incidental Encounter for supervision of normal first in third trimester Supervision of normal first [facility]* Diagnosis 38 weeks gestation of - Primary state, incidental documented in [facility] encounter [facility]* Diagnosis 39 weeks gestation of - Primary state, incidental [facility] encounter [facility]* Diagnosis Routine follow-up- Primary [facility]* Diagnosis Papanicolaou smear of cervix with low grade squamous intraepithelial lesion (LGSIL)- Primary care and examination Routine follow-up [facility]* Diagnosis Papanicolaou smear of cervix with low grade squamous intraepithelial lesion (LGSIL)- Primary Encounter for gynecological examination (general) (routine) without abnormal findings Screening for cervical cancer Screening for malignant neoplasm of the cervix Encounter for screening for human papillomavirus (HPV) Special screening examination for human papillomavirus (HPV) documented in this encounter [facility]* Diagnosis with uncertain dates, antepartum (HCC)- Primary state, incidental related nausea, antepartum (HCC) Mild hyperemesis gravidarum, antepartum 7 weeks gestation of (HCC) state, incidental Encounter for supervision of other normal in first trimester (HCC) History of macrosomia in infant in prior , currently (HCC) with other poor obstetric history [facility] encounter [facility]* Diagnosis Encounter for supervision of other normal in second trimester (HCC)- Primary 16 weeks gestation of (HCC) state, incidental History of macrosomia in infant in prior , currently (HCC) with other poor obstetric history [facility]* Diagnosis Encounter for supervision of other normal in second trimester (HCC)- Primary History of macrosomia in in prior , currently (HCC) with other poor obstetric history 19 weeks gestation of (HCC) state, incidental * Assessment & Plan Note - Aure Castellano MD - 02/21/2025 2:35 PM EDT Associated Problem(s): History of macrosomia in infant in prior , currently ([facility]* Diagnosis Encounter for anatomic survey ([facility]) [Z36.89]- Primary Encounter for anatomic survey with uncertain dates, antepartum ([facility]) state, incidental Encounter for supervision of other normal in second trimester ([facility])- Primary History of macrosomia in infant in prior , currently ([facility]) with other poor obstetric history 19 weeks gestation of ([facility]) state, incidental documented in [facility] encounter [facility]* Diagnosis Encounter for supervision of other normal in second trimester ([facility])- Primary History of macrosomia in in prior , currently ([facility]) with other poor obstetric history 19 weeks gestation of ([facility]) state, incidental Encounter for supervision of other normal in second trimester ([facility])- Primary 23 weeks gestation of ([facility]) state, incidental Screening for diabetes mellitus History of macrosomia in in prior , currently ([facility]) with other poor obstetric history documented in this encounter [facility]* Diagnosis Encounter for supervision of other normal in second trimester ([facility])- Primary History of macrosomia in in prior , currently ([facility]) with other poor obstetric history 19 weeks gestation of ([facility]) state, incidental Encounter for supervision of other normal in second trimester ([facility])- Primary 27 weeks gestation of ([facility]) state, incidental History of macrosomia in infant in prior , currently ([facility]) with other poor obstetric history Need for vaccination Need for prophylactic vaccination and inoculation against unspecified single disease documented in this encounter [facility] for referral (narrative)* Diagnostic Procedure Only (Routine) - Closed Specialty Diagnoses / Procedures Referred By Alberta t Referred To Contact [facility] Diagnoses 12 weeks gestation of Procedures NUCHAL TRANSLUCENCY WHI US NUCHAL TRANSLUCENCY 1ST GESTATION Minnie Holm APRN.JORGE ALBERTO [address] [place] [address] [facility] [address] [place] [address] Referral ID Status Reason Start Date Expiration Date V isits Requested Visits Authorized [id number] Closed Auto-Generate d Referral 07/30/2022 07/30/2023 1 1 * Molecular Testing (Routine) - Closed Specialty Diagnoses / Procedures [facility] Diagnoses 12 weeks gestation of Procedures CYSTIC FIBROSIS PATHOGENIC VARIANT ANALYSIS CFTR GENE ANALYSIS COMMON VARIANTS Minnie Holm APRN.CNM [address] [place] [address] [facility] [address] [id number] Referral ID Status Reason Start Date Expiration Date V isits Requested Visits Authorized [id number] Closed PCP Requested Referral Auto-Generated Referral 07/29/2022 10/27/[address] [facility] for referral (narrative)* Diagnostic Procedure Only (Routine) - Authorized Specialty Diagnoses / Procedures [facility] To Contact [facility]NOTE 3] Diagnoses 16 weeks gestation of Procedures OBSTETRIC ULTRASOUND WHI US PREG UTERUS AFTER 1ST TRIMEST GESTATION Wally Mercado MD [address] [place] [address] [facility] [address] [place] [address] Referral ID Status Reason Start Date Expiration Date Visits Requested Visits Authorized [id number] Authorized Auto-Generat ed Referral 08/26/2022 08/26/2023 1 1 [facility] for referral (narrative)* Diagnostic Procedure Only (Routine) - Authorized Specialty Diagnoses / Procedures [facility] To Contact [facility]NOTE 3] Diagnoses 30 weeks gestation of Uterine size-date discrepancy, third trimester Procedures OBSTETRIC ULTRASOUND WHI US PREG UTERUS AFTER 1ST TRIMEST GESTATION Aure Castellano MD [address] [place] [address] [facility] [address] [place] [address] Referral ID Status Reason Start Date Expiration Date Visits Requested Visits Authorized [id number] Authorized Auto-Generat ed Referral 12/02/2022 12/02/2023 1 1 [facility] Diagnostic Procedure Only (Routine) - Authorized Specialty Diagnoses / Procedures Referred By Alberta tao Referred To Contact [facility][NOTE 3] Diagnoses 32 weeks gestation of Encounter for supervision of normal first in third trimester Uterine size-date discrepancy, third trimester Procedures OBSTETRIC ULTRASOUND WHI US PREG UTERUS AFTER 1ST TRIMEST GESTATION Wally Mercado MD [address] [place] [address] [facility] [address] [place] [address] Referral ID Status Reason Start Date Expiration Date Visits Requested Visits Authorized [id number] Authorized Auto-Generat ed Referral 12/16/2022 12/16/2023 1 1 [facility] Concerns Problem Noted Date OB Reminders [...] or prosecute any alcohol or drug abuse patient.[facility] CenterIn the event this information is protected by the Federal Confidentiality of Alcohol and Drug Abuse Patient Records regulations: The Federal rules restrict any use of the information to criminally investigate or prosecute any alcohol or drug abuse patient.[facility] Center[facility] the event this information is protected by the Federal Confidentiality of Alcohol and Drug Abuse Patient Records regulations: The Federal rules restrict any use of the information to criminally investigate or prosecute any alcohol or drug abuse patient.[facility] the event this information is protected by the Federal Confidentiality of Alcohol and Drug Abuse Patient Records regulations: The Federal rules restrict any use of the information to criminally investigate or prosecute any alcohol or drug abuse patient.[facility] Center[facility] the event this information is protected by the Federal Confidentiality of Alcohol and Drug Abuse Patient Records regulations: The Federal rules restrict any use of the information to criminally investigate or prosecute any alcohol or drug abuse patient.[facility] Center[facility] the event this information is protected by the Federal Confidentiality of Alcohol and Drug Abuse Patient Records regulations: The Federal rules restrict any use of the information to criminally investigate or prosecute any alcohol or drug abuse patient.[facility] CenterIn the event this information is protected by the Federal Confidentiality of Alcohol and Drug Abuse Patient Records regulations: The Federal rules restrict any use of the information to criminally investigate or prosecute any alcohol or drug abuse patient.[facility] Center[facility] the event this information is protected by the Federal Confidentiality of Alcohol and Drug Abuse Patient Records regulations: The Federal rules restrict any use of the information to criminally investigate or prosecute any alcohol or drug abuse patient.[facility] Center[facility] the event this information is protected by the Federal Confidentiality of Alcohol and Drug Abuse Patient Records regulations: The Federal rules restrict any use of the information to criminally investigate or prosecute any alcohol or drug abuse patient.[facility] CenterIn the event this information is protected by the Federal Confidentiality of Alcohol and Drug Abuse Patient Records regulations: The Federal rules restrict any use of the information to criminally investigate or prosecute any alcohol or drug abuse patient.[facility] CenterIn the event this information is protected by the Federal Confidentiality of Alcohol and Drug Abuse Patient Records regulations: The Federal rules restrict any use of the information to criminally investigate or prosecute any alcohol or drug abuse patient.[facility] CenterIn the event this information is protected by the Federal Confidentiality of Alcohol and Drug Abuse Patient Records regulations: The Federal rules restrict any use of the information to criminally investigate or prosecute any alcohol or drug abuse patient.[facility] CenterIn the event this information is protected by the Federal Confidentiality of Alcohol and Drug Abuse Patient Records regulations: The Federal rules restrict any use of the information to criminally investigate or prosecute any alcohol or drug abuse patient.[facility] CenterIn the event this information is protected by the Federal Confidentiality of Alcohol and Drug Abuse Patient Records regulations: The Federal rules restrict any use of the information to criminally investigate or prosecute any alcohol or drug abuse patient.[facility] CenterIn the event this information is protected by the Federal Confidentiality of Alcohol and Drug Abuse Patient Records regulations: The Federal rules restrict any use of the information to criminally investigate or prosecute any alcohol or drug abuse patient.[facility] CenterIn the event this information is protected by the Federal Confidentiality of Alcohol and Drug Abuse Patient Records regulations: The Federal rules restrict any use of the information to criminally investigate or prosecute any alcohol or drug abuse patient.[facility] CenterIn the event this information is protected by the Federal Confidentiality of Alcohol and Drug Abuse Patient Records regulations: The Federal rules restrict any use of the information to criminally investigate or prosecute any alcohol or drug abuse patient.[facility] CenterIn the event this information is protected by the Federal Confidentiality of Alcohol and Drug Abuse Patient Records regulations: The Federal rules restrict any use of the information to criminally investigate or prosecute any alcohol or drug abuse patient.[facility] CenterIn the event this information is protected by the Federal Confidentiality of Alcohol and Drug Abuse Patient Records regulations: The Federal rules restrict any use of the information to criminally investigate or prosecute any alcohol or drug abuse patient.[facility] CenterIn the event this information is protected by the Federal Confidentiality of Alcohol and Drug Abuse Patient Records regulations: The Federal rules restrict any use of the information to criminally investigate or prosecute any alcohol or drug abuse patient.[facility] CenterIn the event this information is protected by the Federal Confidentiality of Alcohol and Drug Abuse Patient Records regulations: The Federal rules restrict any use of the information to criminally investigate or prosecute any alcohol or drug abuse patient.[facility] CenterIn the event this information is protected by the Federal Confidentiality of Alcohol and Drug Abuse Patient Records regulations: The Federal rules restrict any use of the information to criminally investigate or prosecute any alcohol or drug abuse patient.[facility] CenterIn the event this information is protected by the Federal Confidentiality of Alcohol and Drug Abuse Patient Records regulations: The Federal rules restrict any use of the information to criminally investigate or prosecute any alcohol or drug abuse patient.[facility] CenterIn the event this information is protected by the Federal Confidentiality of Alcohol and Drug Abuse Patient Records regulations: The Federal rules restrict any use of the information to criminally investigate or prosecute any alcohol or drug abuse patient.[facility] CenterIn the event this information is protected by the Federal Confidentiality of Alcohol and Drug Abuse Patient Records regulations: The Federal rules restrict any use of the information to criminally investigate or prosecute any alcohol or drug abuse patient.[facility] CenterIn the event this information is protected by the Federal Confidentiality of Alcohol and Drug Abuse Patient Records regulations: The Federal rules restrict any use of the information to criminally investigate or prosecute any alcohol or drug abuse patient.[facility] CenterIn the event this information is protected by the Federal Confidentiality of Alcohol and Drug Abuse Patient Records regulations: The Federal rules restrict any use of the information to criminally investigate or prosecute any alcohol or drug abuse patient.[facility] CenterIn the event this information is protected by the Federal Confidentiality of Alcohol and Drug Abuse Patient Records regulations: The Federal rules restrict any use of the information to criminally investigate or prosecute any alcohol or drug abuse patient.[facility] CenterIn the event this information is protected by the Federal Confidentiality of Alcohol and Drug Abuse Patient Records regulations: The Federal rules restrict any use of the information to criminally investigate or prosecute any alcohol or drug abuse patient.[facility] CenterIn the event this information is protected by the Federal Confidentiality of Alcohol and Drug Abuse Patient Records regulations: The Federal rules restrict any use of the information to criminally investigate or prosecute any alcohol or drug abuse patient.[facility] CenterIn the event this information is protected by the Federal Confidentiality of Alcohol and Drug Abuse Patient Records regulations: The Federal rules restrict any use of the information to criminally investigate or prosecute any alcohol or drug abuse patient.[facility] CenterIn the event this information is protected by the Federal Confidentiality of Alcohol and Drug Abuse Patient Records regulations: The Federal rules restrict any use of the information to criminally investigate or prosecute any alcohol or drug abuse patient.[facility] CenterIn the event this information is protected by the Federal Confidentiality of Alcohol and Drug Abuse Patient Records regulations: The Federal rules restrict any use of the information to criminally investigate or prosecute any alcohol or drug abuse patient.[facility] CenterIn the event this information is protected by the Federal Confidentiality of Alcohol and Drug Abuse Patient Records regulations: The Federal rules restrict any use of the information to criminally investigate or prosecute any alcohol or drug abuse patient.[facility] CenterIn the event this information is protected by the Federal Confidentiality of Alcohol and Drug Abuse Patient Records regulations: The Federal rules restrict any use of the information to criminally investigate or prosecute any alcohol or drug abuse patient.[facility] CenterIn the event this information is protected by the Federal Confidentiality of Alcohol and Drug Abuse Patient Records regulations: The Federal rules restrict any use of the information to criminally investigate or prosecute any alcohol or drug abuse patient.[facility] CenterIn the event this information is protected by the Federal Confidentiality of Alcohol and Drug Abuse Patient Records regulations: The Federal rules restrict any use of the information to criminally investigate or prosecute any alcohol or drug abuse patient.[facility] CenterIn the event this information is protected by the Federal Confidentiality of Alcohol and Drug Abuse Patient Records regulations: The Federal rules restrict any use of the information to criminally investigate or prosecute any alcohol or drug abuse patient.[facility] CenterIn the event this information is protected by the Federal Confidentiality of Alcohol and Drug Abuse Patient Records regulations: The Federal rules restrict any use of the information to criminally investigate or prosecute any alcohol or drug abuse patient.[facility] Reason for Visit (unrecogniz ed section and [...] US Specialty Diagnoses / Procedures Referred By Alberat tao Referred To Contact [facility][NOTE 3] Diagnoses 12 weeks gestation of Procedures NUCHAL TRANSLUCENCY WHI US NUCHAL TRANSLUCENCY 1ST GESTATION Minnie Holm APRN.JORGE ALBERTO [address] [place] [address] [facility] [address] [place] [address] Referral ID Status Reason Start Date Expiration Date V isits Requested Visits Authorized [id number] Closed Auto-Generate d Referral 07/30/2022 07/30/2023 1 1 Reason Comments First Seq Results Reason Comments Care Reason Onset Date Comments Care 09/23/2022 Reason Onset Date Comments Care 10/21/2022 Reason Onset Date Comments Care 11/18/2022 Reason Onset Date Comments Care 12/02/2022 Reason Comments Breast Pump Reason Onset Date Comments Care 12/16/2022 Specialty Diagnoses / Procedures Referred By Contac t Referred To Contact [facility][NOTE 3] Diagnoses 30 weeks gestation of Uterine size-date discrepancy, third trimester Procedures OBSTETRIC ULTRASOUND WHI US PREG UTERUS AFTER 1ST TRIMEST GESTATION Aure Castellano MD [address] [place] [address] [facility] [address] [place] [id number] Referral ID Status Reason Start Date Expiration Date V isits Requested Visits Authorized [id number] Closed Auto-Generate d Referral 12/02/2022 12/02/2023 1 1 Reason Onset Date Comments Care 12/30/2022 Specialty Diagnoses / Procedures Referred By Contac t Referred To Contact [facility][NOTE 3] Diagnoses 32 weeks gestation of Encounter for supervision of normal first in third trimester Uterine size-date discrepancy, third trimester Procedures OBSTETRIC ULTRASOUND WHI US PREG UTERUS AFTER 1ST TRIMEST GESTATION Wally Mercado MD [address] [place] [address] [facility] [address] [place] [id number] Referral ID Status Reason Start Date Expiration Date V isits Requested Visits Authorized [id number] Closed Auto-Generate d Referral 12/16/2022 12/16/2023 1 [...] Referred By Contac t Referred To Contact [facility][NOTE 3] Diagnoses with uncertain dates, antepartum (HCC) Procedures OBSTETRIC ULTRASOUND WHI US PREG UTERUS AFTER 1ST TRIMEST GESTATION Maria Eugenia Roper APRN.CN [address] [place] [address] Phone: tel: fax: [facility] [address] [place] [address] Referral ID Status Reason Start Date Expiration Date V isits Requested Visits Authorized [id number] Closed Auto-Generate d Referral 11/29/2024 11/29/2025 1 1 Reason Onset Date Comments Care 03/21/2025 Reason Onset Date Comments Care 04/18/2025 Care Teams (unrecognized sec tion and content) Manager Managed Care Relationship Specialty Start Date End Date Pepe Torres MD [address] [place] [address] PCP - General Family Practice 04/19/14 Manager Managed Care Relationship Specialty Start Date End Date Pepe Torres MD [address] [place] [address] PCP - General Family Practice 04/19/14 Manager Managed Care Relationship Specialty Start Date End Date Pepe Torres MD [address] [place] [address] PCP - General Family Medicine 04/19/14 Manager Managed Care Relationship Specialty Start Date End Date Pepe Torres MD [address] [place] [address] PCP - General Family Medicine 04/19/14 Manager Managed Care Relationship Specialty Start Date End Date Pepe Torres MD [address] [place] [address] PCP - General Family Medicine 04/19/14 Manager Managed Care Relationship Specialty Start Date End Date Pepe Torres MD [address] [place] [address] PCP - General Family Medicine 04/19/14 Manager Managed Care Relationship Specialty Start Date End Date Pepe Torres MD [address] [place] [address] PCP - General Family Medicine 04/19/14 Manager Managed Care Relationship Specialty Start Date End Date Pepe Torres MD [address] [place] [address] PCP - General Family Medicine 04/19/14 Manager Managed Care Relationship Specialty Start Date End Date Pepe Torres MD [address] [place] [address] PCP - General Family Medicine 04/19/14 Manager Managed Care Relationship Specialty Start Date End Date Pepe Torres MD [address] [place] [address] PCP - General Family Medicine 04/19/14 Manager Managed Care Relationship Specialty Start Date End Date Pepe Torres MD [address] [place] [address] PCP - General Family Medicine 04/19/14 Manager Managed Care Relationship Specialty Start Date End Date Pepe Torres MD [address] [place] [address] PCP - General Family Medicine 04/19/14 Manager Managed Care Relationship Specialty Start Date End Date Pepe Torres MD [address] [place] [address] PCP - General Family Medicine 04/19/14 Manager Managed Care Relationship Specialty Start Date End Date Pepe Torres MD [address] [place] [address] PCP - General Family Medicine 04/19/14 Manager Managed Care Relationship Specialty Start Date End Date Pepe Torres MD [address] [place] [address] PCP - General Family Medicine 04/19/14 Manager Managed Care Relationship Specialty Start Date End Date Pepe Torres MD [address] [place] [address] PCP - General Family Medicine 04/19/14 Manager Managed Care Relationship Specialty Start Date End Date Pepe Torres MD [address] [place] [address] PCP - General Family Medicine 04/19/14 Manager Managed Care Relationship Specialty Start Date End Date Pepe Torres MD [address] [place] [address] PCP - General Family Medicine 04/19/14 Manager Managed Care Relationship Specialty Start Date End Date Pepe Torres MD [address] [place] [address] PCP - General Family Medicine 04/19/14 Manager Managed Care Relationship Specialty Start Date End Date Pepe Torres MD [address] [place] [address] PCP - General Family Medicine 04/19/14 Manager Managed Care Relationship Specialty Start Date End Date Pepe Torres MD [address] [place] [address] [place] [address] PCP - General Family Medicine 04/19/14 Manager Managed Care Relationship Specialty Start Date End Date Pepe Torres MD [address] [place] [address] [place] [address] PCP - General Family Medicine 04/19/14 Manager Managed Care Relationship Specialty Start Date End Date Pepe Torres MD [address] [place] [address] [place] [address] PCP - General Family Medicine 04/19/14 Manager Managed Care Relationship Specialty Start Date End Date Pepe Torres MD [address] [place] [address] PCP - General Family Medicine 04/19/14 Manager Managed Care Relationship Specialty Start Date End Date Pepe Torres MD [address] [place] [address] PCP - General Family Medicine 04/19/14 Manager Managed Care Relationship Specialty Start Date End Date Pepe Torres MD [address] [place] [address] PCP - General Family Medicine 04/19/14 Manager Managed Care Relationship Specialty Start Date End Date Pepe Torres MD [address] [place] [address] PCP - General Family Medicine 04/19/14 Manager Managed Care Relationship Specialty Start Date End Date Pepe Torres MD [address] [place] [address] PCP - General Family Medicine 04/19/14 Manager Managed Care Relationship Specialty Start Date End Date Pepe Torres MD [address] [place] [address] PCP - General Family Medicine 04/19/14 Manager Managed Care Relationship Specialty Start Date End Date Pepe Torres MD [address] [place] [address] PCP - General Family Medicine 04/19/14 Manager Managed Care Relationship Specialty Start Date End Date Pepe Torres MD [address] [place] [address] PCP - General Family Medicine 04/19/14 INFORMATION SOURCE (unrecogn ized section and content) DATE CREATED AUTHOR 03/10/2024 [facility] DATE CREATED AUTHOR AUTHOR'S HALI HALL 06/21/2025 [facility] FOR RECORDS PERTAINING TO PATIENTS WHO ARE [...] BE BASED ON THE PRIMARY CLINICAL RECORDS. [employer] provides no warranty or guarantee of the accuracy or completeness of information in this document.
--- NOTE | 2025-07-13 07:53 | HP.PCM.OB_ITS ---
HPI - General General Date of Admission: 07/13/25 HPI Narrative JACQUELINE BARBA, is a 29 F at 40.4 weeks gestation who presents for elective induction of labor. Maternal Data Information JAYDE Calculator Estimated Delivery Date Method Current WG Current Estimate 07/09/25 Manual 40w 4d PFSH PFSH Medical History (Updated 07/13/25 @ 07:56 by Maria Eugenia Roper CNM) Surgery, elective Surgery, elective Febrile seizures HPV (human papilloma virus) infection macrosomia Home Medications ?Medication ?Instructions ?Recorded ?Last Taken ?Type [id number] 1 mg 1 tab PO DAILY pregna ncy 12/24/22 07/13/25 0 6:00 History tablet 1 TAB acetaminophen 500 mg tablet 1,000 mg (2 x 500 mg) PO Q 6H PRN 02/08/23 Unknown Rx PRN Pain 1-10 Or Fever #0 tabs ibuprofen 600 mg tablet 600 mg PO Q6H PRN PRN Pain S core 02/08/23 Unknown Rx 1-3 #0 tabs aspirin 81 mg tablet,delayed 81 mg PO DAILY 07/13/25 07/12/25 07:00 History release (Adult Low Dose Aspirin) 81 mg Allergy/AdvReac Type Severity Reaction Status Date / Time No Known Allergies Allergy Verified 07/13/25 07:41 Surgical History (Updated 10/03/23 @ 13:40 by Linda Velásquez) History of bladder surgery Social History (System 10/03/23 @ 13:40 by Linda Velásquez) Smoking Status: Never smoker History Elective abortions Hx Para 1 Spontaneous abortions Hx # Term Pregnancies Ectopic pregnancies Hx # Pregnancies Multiple births # of living children ROS Eyes Eyes: Denies blurry vision, change in vision or spots in vision ENT HEENT: Denies dizziness or headache(s) Cardiovascular Cardiovascular: Denies abdominal pain, chest pain or dyspnea Respiratory/Chest Respiratory/Chest: Denies cough, dyspnea, shortness of breath at rest or shortness of breath with exertion Gastrointestinal Gastrointestinal: Denies abdominal pain, diarrhea or vomiting Genitourinary Genitourinary: Denies change in urinary stream, difficulty urinating or dysuria Musculoskeletal Musculoskeletal: Reports none Integumentary Integumentary: Denies rash Neurologic Neurologic: Denies dizziness, headache(s), memory loss or weakness Psychiatric Psychiatric: Reports none Vital Signs Vital Signs Vital Signs: 07/13/25 07:34 07/13/25 07:34 07/13/25 07:34 Pulse Rate 80 Blood Pressure 127/91 H BP Systolic 127 BP Diastolic 91 Pulse Ox 97 07/13/25 07:44 07/13/25 07:44 Pulse Rate 74 Blood Pressure 133/91 H BP Systolic 133 BP Diastolic 91 Pulse Ox Weight Weight: 251 lb 15.814 oz Body Mass Index (BMI) 34.2 Physical Exam Const alert, oriented x3 and no apparent distress General Appearance: cooperative Orientation / Consciousness: awake Exam Limitations: no limitations HEENT normocephalic Head and Scalp: normal to inspection Eyes General Eye: normal appearance of both eyes Neck full ROM and no lymphadenopathy Lymph Lymphatic: no lymphadenopathy noted Chest inspection of chest normal Resp normal respiratory effort, normal air movement and clear to auscultation bilaterally Effort and Inspection: able to speak in complete sentences and symmetric chest movement Cardio regular rate and regular rhythm GI normal to inspection, nondistended, normoactive bowel sounds Manual OB Exam: presentation cephalic Back/Spine normal ROM Extremity full ROM and no calf tenderness Skin no rashes or lesions noted General Skin Exam: no breakdown Neuro oriented x3 and CN's II-XII intact bilaterally Psych mental status grossly normal and thought process normal Labs Labs Labs: Blood Type O POSITIVE Antibody Screen NEGATIVE Hct, (37-47) 44.4 % Hgb, (12.0-15.0) 14.5 g/dL Syphilis Total Ab Non-reactive Rhogam given: No Assessment & Plan (1) History of delivery of macrosomal infant: (2) 40 weeks gestation of : (3) Encounter for elective induction of labor: (4) Excessive growth affecting management of mother: PLAN: Plan Admit to labor and delivery Routine labs Epidural / pain medications when indicated GBS NEG Dr. Andre notified of admission and is collaborating physician
[2025-07-13] MEDS: Lactated Ringers 1,000 ML 50 ML IV (08:00)
[2025-07-13 08:19] LABS: Hematocrit 36.0 % (37-47); Hemoglobin 11.9 g/dL (12.0-15.0); Immature Granulocytes Count 0.020 X10^3/uL (0.0-0.0); Mean Corp Hgb Conc 33.1 g/dL (32-36); Mean Corpuscular Volume 93.0 fL (81-99); Mean Platelet Vol. 11.8 fl (6.2-12.0); NRBC Flagged by Analyzer 0 % (0-5); Platelet Count 178 K/mm3 (150-450); RBC Distribution Width CV 13.5 % (11.6-14.6); RBC Distribution Width SD 45.7 fl (35.1-43.9); Red Blood Count 3.87 M/mm3 (4.2-5.4); White Blood Count 6.7 K/mm3 (4.4-11.0)
[2025-07-13] MEDS: Oxytocin 15 Units/NS 250ml 15 UNITS/250 ML IV.SOLN 2 UNITS IV (08:30)
[2025-07-13] MEDS: 0.9% Normal Saline Single 100 ML IV.SOLN. INTRA-UTER (08:55)
--- NOTE | 2025-07-13 08:59 | PN.OBGYN_ITS ---
Subjective Subjective Patient seen at bedside. Denies any pain. Objective Data Objective Data Vital Signs: Vital Signs Pulse Resp BP Pulse Ox 64 16 142/86 H 97 07/13/25 08:32 07/13/25 08:29 07/13/25 08:32 07/13/25 07:34 Weight: 251 lb 15.814 oz Body Mass Index (BMI) 34.2 Lab / Micro Data 07/13/25 08:00 Labs: Laboratory Results - last 24 hr 07/13/25 08:00: WBC 6.7, RBC 3.87 L, Hgb 11.9 L, Hct 36.0 L, MCV 93.0, MCH 30.7, MCHC 33.1, RDW Std Deviation 45.7 H, RDW Coeff of Brent 13.5, Plt Count 178, MPV 11.8, Immature Gran % (Auto) 0.300, Neut % (Auto) 69.2, Lymph % (Auto) 23.2, [place] % (Auto) 6.3, Eos % (Auto) 0.6, Baso % (Auto) 0.4, Absolute Neuts (auto) 4.6, Absolute Lymphs (auto) 1.55, Nucleated RBC % 0, Blood Type O POSITIVE Assessment & Plan (1) Excessive growth affecting management of mother: (2) Encounter for elective induction of labor: (3) 40 weeks gestation of : (4) History of delivery of macrosomal infant: PLAN: Plan CE 1.5/60/-3 Williamson bulb placed and filled with 30 cc N/S Pain medication/epidural when indicated Pitocin at 2 m u/min- continue to increase per orders
[2025-07-13 09:13] LABS: Syphilis Antibodies Nonreactive (Nonreactive)
[2025-07-13 09:40] LABS: AST(SGOT) 19 U/L (<=31); Alanine Aminotransfer ALT/SGPT 13 U/L (<=34); Uric Acid 6.1 mg/dL (2.6-6.0)
[2025-07-13] MEDS: Lactated Ringers 1,000 ML 999 ML IV (10:51)
[2025-07-13 11:31] LABS: Creatinine, Urine (random) 65.30 mg/dL (28.00-217.00); Protein, Urine (Random) 15.3 mg/dL (0.0-12.0); Protein:Creat Ratio 234 mg/g CRE (0-200)
[2025-07-13] MEDS: fentaNYL-bupivacaine (epidural) 100 ML BAG EPIDURAL (11:40)
--- NOTE | 2025-07-13 13:18 | OB.VAGDELI_ITS ---
Assessment & Plan (1) Care and examination of lactating mother: (2) (spontaneous vaginal delivery): (3) Second degree perineal laceration during delivery: (4) Elevated blood pressure complicating in third trimester, antepartum: PLAN: Plan BP slightly elevated- PIH labs negative Continue to monitor closely Maternal Data Information JAYDE Calculator Estimated Delivery Date Method Current WG Current Estimate 07/09/25 Manual 40w 4d Vaginal Delivery Maternal Presentation Maternal Presentation: Elective Induction Maternal Presentation: at 40.4 weeks gestation for elective induction of labor. Type of Induction: Pitocin and Williamson Bulb Vaginal Delivery Information Procedure Performed: Spontaneous Vaginal Delivery Surgeon/Practitioner: Maria Eugenia Roper Date of Procedure: 07/13/25 Pre-Procedure Diagnosis: Term gestation, Induction of labor Post-Procedure Diagnosis: , Live male Type of anesthesia: Epidural Estimated Blood Loss: 250 Time of Delivery: 12:54 Findings Description of procedure: Patient progressed to complete dilation. With good maternal effort, head delivered followed by anterior shoulder and remainder of body without any force, delay, or traction. Loose nuchal cord easily reduced. Vigorous male was delivered atraumatically and placed on maternal abdomen. Pitocin IV started for active management of the third stage of labor. 3 vessel cord clamped and cut by FOB after delay and infant placed immediately skin to skin with patient. Cord blood collected. Placenta delivered spontaneously and intact. A second laceration was repaired in usual fashion using 3-0 Vicryl Rapid. Hemostasis obtained. Vaginal sweep performed. Fundus is firm 2 below U and bleeding is hemostatic. Straight cath for large amount of yellow/clear urine. Sponge and sharps counts correct. Patient and bonding well at this time. Dr. Andre notified of delivery. Routine post orders placed. 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
[2025-07-13] MEDS: Oxytocin 15 Units/NS 250ml 15 UNITS/250 ML IV.SOLN 83 UNITS IV (13:25)
[2025-07-13] MEDS: 0.9% Saline Lock 10 ML Syringe IV (16:41)
[2025-07-14 00:29] VITALS: BP 146/89; PULSE 73; RESP 16; TEMP 36.8; O2SAT 98
[2025-07-14 04:00] VITALS: BP 149/86; PULSE 67; RESP 16; TEMP 36.4; O2SAT 98
--- NOTE | 2025-07-14 07:11 | PCM.PN.CNM ---
Subjective Subjective Patient seen at bedside. Denies any headache, vision changes, RUQ pain, SOB, or CP. Ambulating and voiding without difficulty. Objective Data Objective Data Vital Signs: Vital Signs Temp Pulse Resp BP Pulse Ox O2 Del Method 97.5 F L 67 16 149/86 H 98 Room Air 07/14/25 04:00 07/14/25 04:00 07/14/25 04:00 07/14/25 04:00 07/14/25 04:00 07/14/25 04:00 Oxygen Delivery Method Room Air Weight: 251 lb 15.814 oz Body Mass Index (BMI) 34.2 Intake & Output: Intake and Output for Last 24 Hours 07/12/25 07/13/25 07/14/25 23:59 23:59 23:59 Intake Total 1795.17 / 1795.17 Output Total 950 / 950 Balance 845.17 / 845.17 Lab / Micro Data Attestation: I reviewed the patient's lab results. 07/13/25 08:00 07/13/25 08:50 Labs: Laboratory Results - last 24 hr 07/13/25 08:00: WBC 6.7, RBC 3.87 L, Hgb 11.9 L, Hct 36.0 L, MCV 93.0, MCH 30.7, MCHC 33.1, RDW Std Deviation 45.7 H, RDW Coeff of Brent 13.5, Plt Count 178, MPV 11.8, Immature Gran % (Auto) 0.300, Neut % (Auto) 69.2, Lymph % (Auto) 23.2, [place] % (Auto) 6.3, Eos % (Auto) 0.6, Baso % (Auto) 0.4, Absolute Neuts (auto) 4.6, Absolute Lymphs (auto) 1.55, Nucleated RBC % 0, Syphilis Total Ab Nonreactive, Blood Type O POSITIVE, Antibody Screen NEGATIVE 07/13/25 08:50: Creatinine 0.72, Estim Creat Clear Calc 160.10, Est GFR (MDRD) Non-Af 115, Uric Acid 6.1 H, AST 19, ALT 13 07/13/25 09:00: U Random Total Protein 15.3 H, Urine Creatinine 65.30, Protein/Creatinin Ratio 234 H ROS Eyes Eyes: Denies blurry vision, change in vision or spots in vision ENT HEENT: Denies dizziness or headache(s) Cardiovascular Cardiovascular: Denies abdominal pain, chest pain or dyspnea Respiratory/Chest Respiratory/Chest: Denies cough, dyspnea, shortness of breath at rest or shortness of breath with exertion Gastrointestinal Gastrointestinal: Denies abdominal pain, diarrhea or vomiting Genitourinary Genitourinary: Denies change in urinary stream, difficulty urinating or dysuria Musculoskeletal Musculoskeletal: Reports none Integumentary Integumentary: Denies rash Neurologic Neurologic: Denies dizziness, headache(s), memory loss or weakness Physical Exam Const alert and no apparent distress General Appearance: cooperative and comfortable Exam Limitations: no limitations HEENT normocephalic Eyes General Eye: normal appearance of both eyes Neck full ROM General: normal visual inspection Chest Chest: symmetrical chest wall rise Resp normal respiratory effort and normal air movement Effort and Inspection: symmetric chest movement Auscultation: clear to auscultation bilaterally Cardio regular rate and regular rhythm GI normal to inspection, nondistended, normoactive bowel sounds Back/Spine normal ROM Extremity full ROM and no calf tenderness General Extremity: normal exam except as noted Skin no rashes or lesions noted Neuro oriented x3 Speech: speech normal Psych mental status grossly normal Thought Process: normal thought process Assessment & Plan (1) Gestational hypertension: (2) Second degree perineal laceration during delivery: (3) (spontaneous vaginal delivery): (4) Care and examination of lactating mother: PLAN: Plan Blood pressures continue to range 140's / 80-90's Start Procardia 30 mg XR PO Pre-e labs normal upon admission Rational for not discharging patient discussed with patient and Patient is asymptomatic Will continue to monitor with plan for discharge tomorrow morning
[2025-07-14 08:00] VITALS: BP 142/91; PULSE 72; RESP 16; TEMP 36.2
[2025-07-14] MEDS: NIFEdipine 30 MG Tablet PO (08:24)
[2025-07-14 10:00] VITALS: BP 133/82
[2025-07-14 13:00] VITALS: BP 130/76; PULSE 89; RESP 16; TEMP 36.8
== END 2025-07-14 16:00 | disposition home or self-care (01) | DRG 807 ==
PROVIDERS: Admitting Provider Advanced Practice Midwife; PCP Family Medicine; Visit Provider Advanced Practice Midwife
DX: O13.4 Gestational [pregnancy-induced] hypertension without significant proteinuria, complicating childbirth (principal); Z37.0 Single live birth; O69.81X0 Labor and delivery complicated by cord around neck, without compression, not applicable or unspecified; O70.1 Second degree perineal laceration during delivery; O77.0 Labor and delivery complicated by meconium in amniotic fluid; Z3A.40 40 weeks gestation of pregnancy; Z87.59 Personal history of other complications of pregnancy, childbirth and the puerperium
CPT/HCPCS: 59025; 59050; 82565; 82570; 84156; 84450; 84460; 84550; 85025; 86780; 86850; 86900; 86901; 99221; A4216; G0378